=== PATIENT | male | born 1985 | race Caucasian/White ===

== ENCOUNTER 2022-10-08 10:16 | Emergency (ER) | payer OTHER ==
--- OUTSIDE RECORDS SUMMARY | 2022-10-08 10:43 | XMS REPORT | Continuity of Care Document ---
:1985 Author Organization [facility] t Address [address] [facility] [address] [place] [id number] Care Team Providers Name Role Phone No , Brandon Primary Care Physician Unavailable MAURILIO VEGA Attending Clinician Unavailable KAMLESH CORADO Attending Clinician Unavailable Kamlesh Colby Attending Clinician AMADEO PALAFOX Attending Clinician Unavailable RENZO ESPINOSA Attending Clinician Unavailable Roberth Victor MD Attending Clinician Renzo Espinosa DO Attending Clinician Doctor Unassigned, [place] Attending Clinician Unavailable BALAJI LUCERO Attending Clinician Unavailable Balaji Lucero MD Attending Clinician GEOVANNI HENNING Attending Clinician Unavailable Bria Hernández RN Attending Clinician Unavailable RACHELLE FERRER Attending Clinician Unavailable Rachelle Ferrer DO Attending Clinician Maurilio Vega MD Attending Clinician Only, Ang Db Test Attending Clinician Unavailable Leonard Denise Attending Clinician LEONARD PINEDA Attending Clinician Unavailable Purnima Faulkner RN Attending Clinician Unavailable Sy Roth Attending Clinician SY JANE Attending Clinician Unavailable RADHIKA HUTCHINS Attending Clinician Unavailable ABI PERKINS Attending Clinician Unavailable Art Valdez RN Attending Clinician Unavailable Pippa Ridley Attending Clinician Margoth MARIA, Radha Attending Clinician Johanny Dejesus RN Attending Clinician Unavailable Marilin GUERIN Attending Clinician Unavailable Truong PAC, Marilin Arguelles Attending Clinician Anthony Fenton MD Attending Clinician RACHELLE MONTENEGRO Attending Clinician Unavailable Kristina MORRIS, Carmelita Attending Clinician Unavailable Alistair MORRIS, Jose Attending Clinician Unavailable ANTOINE CLEMENT Attending Clinician Unavailable Dedrick OROZCOP, Antoine Attending Clinician Pancho Dave Attending Clinician Saida Lya Jr. Attending Clinician MARLA CANTRELL Attending Clinician Unavailable Souleymane [facility] Attending Clinician Unavailable Marla Cantrell MD Attending Clinician FABIANA MCFARLANE Attending Clinician Unavailable SYLVIA RHODES Attending Clinician Unavailable Lab, [facility] I Attending Clinician Unavailable Sylvia Galvin Attending Clinician MARI SIGALA Attending Clinician Unavailable Mari Bryant Attending Clinician John HILLS Yariel S Attending Clinician YARIEL LOPEZ S Attending Clinician Unavailable Emelyn Lerner Attending Clinician Gabe Fuller [facility] Attending Clinician Unavailable JOLLY EBAN Attending Clinician Unavailable RENZO ESPINOSA Admitting Clinician Unavailable ROBERTH VICTOR Admitting Clinician Unavailable RACHELLE FERRER Admitting Clinician Unavailable Rachelle Ferrer DO Admitting Clinician ABI PERKINS Admitting Clinician Unavailable Marilin GUERIN Admitting Clinician Unavailable YARIEL LOPEZ S Admitting Clinician Unavailable JOLLY BEAN Admitting Clinician Unavailable Payers Payer Name Policy Type Policy Number Effective Date Expiration Date Jennifer todd [place] MEDICAID [id number] 2018 2018 00:00:00 00:00:00 [facility] STAR [id number] 2018 PLUS 00:00:00 [facility] DUAL [id number] 2020 COMP HMO D SNP 00:00:00 [facility] [id number] 2018 STARPLUS OON 00:00:00 EXCEPT [facility] [id number] 2019 2024 PLAN MEDICARE SNP 00:00:00 00:00:00 MEDICARE PART A [id number] 2013 2019 \\T\\ B 00:00:00 00:00:00 Problems Condition Condition Condition Status Onset Resolution Last Treating Co mments Source Name Details Category Date Date Treatment Clinician Date UTI UTI Disease Active 2021-05 [facility] (urinary (urinary 107 ity of tract tract 00:00: [place] infection) infection) 00 Me dical Branch Intractabl Intractabl Disease Active U nivers e nausea e nausea 10-31 ity of and and 00:00: [place] vomiting vomiting 00 Medica l Branch FOLLOW FOLLOW Diagnosis Active 2020-12-26 M emoria UP-LAST UP-LAST 12-24 09:41:00 l SEEN 2018 SEEN 2018 00:00: Herm camilo Active 00 12/24/2020 [facility] ABD PAIN ABD PAIN Diagnosis Active 2020-12-22 Memoria Active 12-22 16:09:00 l 12/22/2020 00:00: Deangelo PETERSEN [place] CYSTO WITH CYSTO Diagnosis Active 2020-12-26 Memoria BOTOX WITH BOTOX 11-06 12:40:00 l Active 00:00: Rayray 11/06/2020 00 [facility] Neurogenic Problem Active 2013-01-28 M emoria bladder Neurogenic 08-22 21:38:45 l bladder 00:00: [place] Active 00 Problem 01/28/2013 [facility], [facility] ANNUAL ANNUAL Diagnosis Active 2020-11-06 Me moria FOLLOWUP FOLLOWUP 08-22 10:07:00 l Active 00:00: Rayray 08/22/2020 00 [facility] EVAL EVAL Diagnosis Active 2020-08-22 Mem oria Active 07-24 09:36:00 l 07/24/2020 00:00: Deangelo ramirez [facility] 00 2000/40ML 2000/40ML Diagnosis Active 2020-12-31 Memoria Active 07-15 13:59:00 l 07/15/2020 00:00: Deangelo ramirez [facility] 00 IN PERSON IN PERSON Diagnosis Active 2020-07-29 Memoria CLINIC: CLINIC: 06-07 10:15:00 l SWOLLEN SWOLLEN 00:00: Rayray TESTICLE TESTICLE 00 Active 06/07/2020 [facility] 2000/40 ML 2000/40 Diagnosis Active 2020-07-12 Memoria ML Active 01-18 09:07:00 l 01/19/2020 00:00: Deangelo ramirez [facility] 00 FOLLOW UP FOLLOW UP Diagnosis Active 2020-04-01 Memoria Active 01-04 08:59:00 l 01/05/2020 00:00: Deangelo ramirez [facility] 00 REFILL: REFILL: Diagnosis Active 2020-01-05 Memoria 2000/40ML 2000/40ML 3 11:25:00 l AD: AD: 00:00: Rayray 03/16/20 03/16/20 00 Active 07/11/2019 [facility] REFILL: REFILL: Diagnosis Active 2019-07-07 Memoria 2000/40ML 2000/40ML 01-09 11:43:00 l AD: 09/09/19 AD: 09/09/19 00:00: Buddy cuadraann Active 00 01/09/2019 [facility] F/U 1YR F/U 1YR Diagnosis Active 2019-03-02 Memoria Active 12-13 13:06:00 l 12/13/2018 00:00: Deangelo PETERSEN [facility] 00 CYSTO WITH CYSTO Diagnosis Active 2019-06-13 Memoria BOTOX WITH BOTOX 11-10 16:17:00 l Active 00:00: Rayray 11/10/2018 00 [facility] ABDOMINAL ABDOMINAL Diagnosis Active 2019-0 2018-07-14 Memoria PAIN PAIN 3-13 15:22:00 l Active 00:00: [place] 07/13/2018 00 [facility], [facility] REFILL: REFILL: Diagnosis Active 2019-01-27 Memoria 2000/40ML 2000/40ML 2-20 13:37:00 l AD: AD: 00:00: Rayray 02/28/19 02/28/19 00 Active 06/22/2018 [facility] REFILL REFILL Diagnosis Active 2018-06-20 Me moria 2000/40ML 2000/40ML 2-12 09:33:00 l AD: AD: 00:00: Rayray 08/17/18 08/17/18 00 Active 06/14/2018 [facility] E. coli E. coli Disease Active Univers UTI UTI 1-04 ity of 00:00: [place] 00 Medical Branch Pneumonia Pneumonia Disease Active Uni vers 1-03 ity of 00:00: [place] 00 Medical Branch NAUSEA/CHERRI NAUSEA/TE Diagnosis Active 2017-052018-02-21 Memoria TICULAR STICULAR 0-22 16:17:00 l PAIN PAIN 00:00: Rayray Active 00 02/21/2018 [facility] SPASTIC SPASTIC Diagnosis Active 2017-12-10 Memoria HEMIPLAGIA HEMIPLAGIA 7-20 07:30:00 l Active 00:00: Rayray 11/19/2017 00 [facility] REFILL REFILL Diagnosis Active 2019-01-27 Me moria 2000/40ML 2000/40ML 6-21 13:37:00 l AD: AD: 00:00: Rayray 06/29/18 06/29/18 00 Active 10/21/2017 [facility] ITB PUMP ITB PUMP Diagnosis Active 2017-12-13 Memoria MANAGEMENT MANAGEMENT - 13:07:00 l Active 00:00: Rayray 08/30/2017 00 [facility] ITB ITB Diagnosis Active 2017-10-24 Mem oria MANAGEMENT MANAGEMENT 1- 13:41:00 l ANNUAL ANNUAL 00:00: Rayray FOLLOW UP FOLLOW UP 00 Active 05/05/2017 [facility] REFILL REFILL Diagnosis Active 2016-052018-01-17 Me moria 2000/40ML 2000/40ML 2-11 13:00:00 l AD: AD: 00:00: Rayray 12/19/17 12/19/17 00 Active 04/12/2017 [facility] PER PER Diagnosis Active 2017-10-24 Mem oria VENKATESH RIDDLE 7-13 13:40:00 l Active 00:00: Rayray 11/12/2016 00 [facility] PT STATED PT STATED Diagnosis Active 2016-11-12 Memoria HE MAY HE SEPTEMBER 05 14:39:00 l HAVE UTI HAVE UTI 00:00: Deangelo ramirez INF. INF. 00 Active 10/26/2016 [facility] REFILL REFILL Diagnosis Active 2017-12-07 Me moria 2000/40ML 1999/40ML 6 11:54:00 l AD:06/25/19 AD:06/25/19 00:00: He rmann 18 18 Active 00 10/14/2016 [facility] CYSTO WITH CYSTO Diagnosis Active 2016-06-10 Memoria BOTIZ WITH BOTIZ 05-27 12:48:00 l Active 00:00: Rayray 05/27/2016 00 [facility] 2000/40 1999/40 Diagnosis Active 2015-052017-03-17 Memoria (ALARM (ALARM 06-16 08:28:00 l DATE DATE 00:00: Rayray 12/25/16) 12/25/16) 00 Active 04/15/2016 [facility] 2000/40 1999/40 Diagnosis Active 2015-052016-04-15 Memoria Active 06-14 12:09:00 l 04/13/2016 00:00: Deangelo ramirez [facility] 00 F/U F/U Diagnosis Active 2015-10-24 Mem oria Active 06-12 12:27:00 l 06/12/2015 00:00: Deangelo ramirez [facility] 00 FU FU Diagnosis Active 2015-06-12 Mem oria Active 06-05 10:16:00 l 06/05/2015 00:00: Deangelo ramirez [facility] 00 INFECTION INFECTION Diagnosis Active 2014-08-17 Memoria Active 08-17 19:42:00 l 08/17/2014 00:00: Deangelo ramirez [address] Klebsiella Klebsiell Problem Active 2020-12-28 Memoria (organism) a 08-09 23:25:36 l (organism) 00:00: Deangelo ramirez Active 00 08/09/2014 Problem 12/28/2020 urine - 08/09/14 (ESBL+) Juanito Neuro,[facility], [facility], [place] ORICHITIS, ORICHITIS Diagnosis Active 2014-08-20 Memoria HYDROCELE, , 08-09 11:01:00 l TESTICULAR HYDROCELE, 00:00: He deann PAIN TESTICULAR 00 PAIN Active 08/09/2014 [facility] TESTICULAR TESTICULA Diagnosis Active 2014-08-09 Memoria PAIN R PAIN 08-09 15:44:00 l Active 00:00: Rayray 08/09/2014 00 [facility] RENAL US RENAL US Diagnosis Active 2014-02-12 Memoria Active 10-12 16:18:00 l 10/12/2013 00:00: Deangelo ramirez [facility] 00 PUMP PUMP Diagnosis Active 2014-04-10 Mem oria REFILL REFILL 10-12 10:02:00 l Active 00:00: [place] 10/12/2013 00 [facility] CMG CMG Diagnosis Active 2013-08-04 Mem oria Active 07-12 09:52:00 l 07/12/2013 00:00: Deangelo ramirez [facility] 00 Escherichi Escherich Problem Active 2013-01-28 Memoria a coli ia coli 01-24 21:38:45 l Active 00:00: [place] 01/24/2013 00 Problem 01/28/2013 [id number] fina added by Discern Expert. [facility], [facility] Escherichi Escherich Problem Active 2020-12-28 Memoria a coli ia coli 01-24 23:25:36 l (organism) (organism) 00:00: He rmann Active 00 01/24/2013 Problem 12/28/2020 01/24/13 UrineProbl em added by Discern Expert. Juanito Neuro,[facility], [facility], [place] C6 QUAD, C6 QUAD, Diagnosis Active 2013-02-17 Memoria UTI, UTI, 01-24 12:20:00 l EPIDIDYMOR EPIDIDYMOR 00:00: Buddy PITT CHITNANI 00 Active 01/24/2013 [facility] TESTICULAR Diagnosis Active 2013-01-24 Memoria TRAUMA TESTICULAR 01-24 17:40:00 l TRAUMA 00:00: Rayray Active 00 01/24/2013 [facility] SICK VISIT SICK Diagnosis Active 2013-01-16 Memoria VISIT 01-13 08:46:00 l Active 00:00: Rayray 01/13/2013 00 [facility] COUMADIN COUMADIN Diagnosis Active 2012-11-07 Memoria F/U F/U Active 10-06 15:39:00 l 10/06/2012 00:00: Deangelo ramirez [address] BLEEDING BLEEDING Diagnosis Active 2011-052012-05-02 Memoria FROM FROM 06-28 08:56:00 l PENIS, PENIS, 16:00: Rayray DIZZY AND DIZZY AND 00 LIGHT HEA LIGHT HEA Active 04/27/2012 [facility] CYSTITIS/ Diagnosis Active 2011-052012-03-09 Memoria UTI CYSTITIS/ 05-08 05:07:00 l UTI Active 00:00: Deangelo ramirez 03/08/2012 00 [facility] VENOUS VENOUS Diagnosis Active 2011-10-08 Ks moria THROMBOSIS THROMBOSIS 09-22 17:22:00 l Active 00:07: [place] 2011 00 [facility] SPINAL SPINAL Diagnosis Active 2011-09-30 Ks moria CORD CORD 09-22 10:26:00 l INJURY INJURY 00:00: Rayray Active 00 2011 [facility] SPASTICITY SPASTICIT Diagnosis Active 2014-01-02 Memoria Y Active 09-06 13:37:00 l 09/07/2011 00:00: Deangelo ramirez [facility] 00 500/40 500/40 Diagnosis Active 2012-04-13 Me moria Active 08-20 12:39:00 l 08/21/2011 00:00: Deangelo ramirez [facility] 00 DOSE DOSE Diagnosis Active 2011-08-21 Mem oria CHANGE CHANGE 08-06 10:26:00 l Active 00:00: Rayray 08/07/2011 00 [facility] ITB DOSE ITB DOSE Diagnosis Active 2011-08-06 Memoria ADJUSTMENT ADJUSTMENT 07-30 12:54:00 l Active 00:00: Rayray 07/31/2011 00 [facility] SPASTIC SPASTIC Diagnosis Active 2011-07-15 Memoria HEMIPLEGIA HEMIPLEGIA - 09:32:00 l Active 00:00: Rayray 06/19/2011 00 [facility] ITB ITB Diagnosis Active 2011-06-16 Mem oria PRETRIAL PRETRIAL 05-28 13:01:00 l Active 00:00: [place] 05/28/2011 00 [facility] ITB TRIAL ITB TRIAL Diagnosis Active 2011-06-19 Memoria FOR SEVERE FOR SEVERE 05-27 08:03:00 l SPASTICITY SPASTICITY 00:00: He rmann Active 00 05/27/2011 [facility] May Diagnosis Active 2010-052011-06-02 Memoria F/U PER F/U PER DR 05-25 14:03:00 l DODIE DODIE 00:00: Rayray Active 00 03/25/2011 [facility] FU APPT FU APPT Diagnosis Active 2010-052011-05-06 Memoria Active 05-13 19:44:00 l 03/13/2011 00:00: Deangelo ramirez [facility] 00 Headache Headache Problem Active 2010-052020-12-28 Memoria (finding) (finding) 05-09 23:25:36 l Active 00:00: Rayray 03/09/2011 00 Problem 12/28/2020 Data migrated from [facility] on 12/25/14. Juanito Neuro,[facility], [facility], [place] FALL FALL Diagnosis Active 2010-052011-02-28 Mem oria Active 14:28:00 l 02/28/2011 00:00: Deangelo ramirez [address] FALL/HEAD Diagnosis Active 2010-052011-02-27 Memoria PAIN FALL/HEAD 18:05:00 l PAIN 00:00: [place] Active 00 02/27/2011 [facility] PULM PULM Diagnosis Active 2011-01-20 Mem oria ABNORMALIT ABNORMALIT 01-02 08:58:00 l Y Y Active 00:00: [place] 01/02/2011 00 [facility] FLUID IN FLUID IN Diagnosis Active 2011-01-09 Memoria LUNG CYST LUNG CYST 11-05 13:21:00 l Active 06:00: Rayray 11/05/2010 00 [facility] CERVICAL CERVICAL Diagnosis Active 2011-01-09 [facility] SPINE FX SPINE FX 10-05 13:21:00 l Active 20:30: [place] 10/05/2010 00 [facility] NEUROGENIC Diagnosis Active 2015-01-30 Memoria BLADDER/RE NEUROGENIC 10-05 12:32:00 l TENTION BLADDER/RE 00:00: [place] nn TENTION 00 Active 10/05/2010 [facility] SCI SCI Diagnosis Active 2012-09-29 Mem oria Active 05-03 14:26:00 l 05/03/2000 23:59: Deangelo ramirez [facility] 00 QUADRIPLEG QUADRIPLE Diagnosis Active 2014-10-12 Memoria IA WENDI Active 05-03 13:56:00 l 05/03/2000 23:59: Deangelo ramirez [facility] 00 POWER POWER Diagnosis Active 2017-03-11 Mem oria WHEELCHAIR WHEELCHAIR 05-03 09:25:00 l EVAL EVAL 00:00: [place] Active 00 05/03/2000 [facility] Other Other Problem 2018-07-02 Memor ia chronic chronic 12:10:11 l pain pain [place] 07/02/2018 [facility] Orthostati Orthostat Problem 2018-07-02 Memoria c ic 12:10:11 l hypotensio hypotensio He rmann n n 07/02/2018 [facility] Other Other Problem 2018-07-02 Memor ia neuromuscu neuromuscu 12:10:11 l lar lar [place] dysfunctio dysfunctio n of n of bladder bladder 07/02/2018 [facility] Unspecifie Unspecifi Problem 2018-07-02 Memoria d injury ed injury 12:10:11 l at C6 at C6 [place] level of level of cervical cervical spinal spinal cord, cord, sequela sequela 07/02/2018 [facility] Activity, Activity, Problem 2018-07-02 [facility] springboar springboar 12:10:11 l d and d and Rayray platform platform diving diving 07/02/2018 [facility] Spastic Spastic Problem 2018-06-29 Ks moria hemiplegia hemiplegia 12:57:23 l affecting affecting Herm camilo unspecifie unspecifie d side d side 06/29/2018 [facility] 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 13:25:58 l 09/10/2018 Deangelo n [facility] Personal Personal Problem 2018-09-10 Memoria history of history of 13:25:58 l nicotine nicotine Deangelo n dependence dependence 9 [facility] Personal Personal Problem 2018-09-10 Memoria history of history of 13:25:58 l urinary urinary Rayray (tract) (tract) infections infections 9 [facility] Allergy Allergy Problem 2018-09-10 M emoria status to status to 13:25:58 l narcotic narcotic Deangelo n agent agent status status 09/10/2018 [facility] Personal Personal Problem 2018-09-10 Memoria history of history of 13:25:58 l other other Rayray (healed) (healed) physical physical injury and injury and trauma trauma 09/10/2018 [facility] Arterial Arterial Problem Inactiv 2013-01-28 Memoria hypotensio hypotensio e 21:38:45 l n n Inactive Deangelo n Problem 01/28/2013 [facility], [facility], MICAELA Seo, [facility] Breathing Breathing Problem Inactiv 2013-01-28 Memoria Inactive e 21:38:45 l Problem [place] 01/28/2013 [facility], [facility], MICAELA Seo, [facility] Fever Fever Problem Inactiv 2013-04-16 Bin stephanie Inactive e 21:03:42 l Problem [place] 04/16/2013 [facility], [facility], MICAELA Seo, [facility] Rash Rash Problem Inactiv 2013-04-16 Bin stephanie Inactive e 21:03:42 l Problem Rayray 04/16/2013 [facility], [facility] Low blood Low blood Problem Inactiv 2013-04-16 Memoria pressure pressure e 21:03:42 l (disorder) (disorder) He rmann Inactive Problem 04/16/2013 [facility] Respirator Respirato Problem Inactiv 2013-04-16 Memoria y function ry e 21:03:42 l (observabl function Herm camilo e entity) (observabl e entity) Inactive Problem 04/16/2013 [facility] Hypothermi Hypotherm Problem Resolve 2013-01-18 Memoria a ia d 21:06:26 l Resolved [place] Problem 01/18/2013 [facility], [facility], MICAELA Seo, [facility] Epididymit Problem Resolve 2020-12-28 Memoria is Epididymit d 23:25:36 l (disorder) is Deangelo n (disorder) Resolved Problem 12/28/2020 [facility] [place] C6 C6 Problem Active 2013-01-28 Memor ia vertebra vertebra 21:38:45 l Active [place] Problem 01/28/2013 [facility], [facility], MICAELA Seo, [facility] Lung cyst Lung cyst Problem Active 2013-01-28 Memoria Active 21:38:45 l Problem Ray[place] 01/28/2013 [facility], [facility], MICAELA Seo, [facility] Nausea Nausea Problem Active 2013-01-28 Bin stephanie Active 21:38:45 l Problem [place] 01/28/2013 [facility], [facility], MICAELA Seo, [facility] Neurogenic Neurogeni Problem Active 2011-10-01 Memoria bladder c bladder 08:42:12 l Active [place] Problem 10/01/2011 [facility], [facility], MICAELA Seo, [facility] 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 21:38:45 l Active [place] Problem 01/28/2013 [facility], [facility], MICAELA Seo, [facility] Pain Pain Problem Active 2013-01-28 Memor ia Active 21:38:45 l Problem [place] 01/28/2013 [facility], [facility], MICAELA Seo, [facility] Paralysis Paralysis Problem Active 2013-01-28 Memoria Active 21:38:45 l Problem [place] 01/28/2013 [facility], [facility], MICAELA Seo, [facility] Weakness Weakness Problem Active 2013-01-28 Memoria Active 21:38:45 l Problem [place] 01/28/2013 [facility], [facility], MICAELA Seo, [facility] Malaise(Co Malaise(C Problem Active 2015-04-20 Memoria nfirmed) onfirmed) 01:01:38 l Active [place] Problem 04/20/2015 [facility], [facility] Allergic Allergic Problem Active 2013-04-16 Memoria rhinitis rhinitis 21:03:42 l Active [place] Problem 04/16/2013 [facility] Impaired Impaired Problem Active 2013-01-28 Memoria mobility mobility 21:38:45 l Active [place] Problem 01/28/2013 [facility] Spinal Spinal Problem Active 2013-01-28 Bin stephanie cord cord 21:38:45 l injury injury Rayray Active Problem 01/28/2013 [facility] Thrombus Thrombus Problem Active 2011-10-01 Memoria Active 08:42:12 l Problem Rayray 10/01/2011 [facility] Thrombus Thrombus Problem Active 2013-01-28 Memoria Active 21:38:45 l Problem [place] 01/28/2013 [facility] Entire C6 Entire C6 Problem Active 2015-12-16 Memoria vertebra vertebra 00:04:57 l (body (body Rayray structure) structure) Active Problem 12/16/2015 [facility] Thrombus Thrombus Problem Active 2015-12-16 Memoria (morpholog (morpholog 00:04:57 l ic ic [place] abnormalit abnormalit y) y) Active Problem 12/16/2015 [facility] Malaise Malaise Problem Active 2013-05-25 Me moria and and 21:09:38 l fatigue fatigue [place] (finding) (finding) Active Problem 05/25/2013 [facility] Impaired Impaired Problem Active 2020-12-28 Memoria mobility mobility 23:25:36 l (finding) (finding) Herm camilo Active Problem 12/28/2020 [facility], [place] Lung cyst Lung cyst Problem Active 2020-12-28 Memoria (disorder) (disorder) 23:25:36 l Active [place] Problem 12/28/2020 [facility] [place] Nausea Nausea Problem Active 2020-12-28 Bin stephanie (finding) (finding) 23:25:36 l Active [place] Problem 12/28/2020 [facility] [place] Neurogenic Neurogeni Problem Active 2020-12-28 Memoria bowel c bowel 23:25:36 l (disorder) (disorder) He rmann Active Problem 12/28/2020 [facility] [place] Pain Pain Problem Active 2020-12-28 Memor ia (finding) (finding) 23:25:36 l Active [place] Problem 12/28/2020 [facility], [facility] Paralysis Paralysis Problem Active 2020-12-28 Memoria (finding) (finding) 23:25:36 l Active Rayray Problem 12/28/2020 [facility], [facility] Recurrent Recurrent Problem Active 2020-12-28 Memoria urinary urinary 23:25:36 l tract tract [place] infection infection (disorder) (disorder) Active Problem 12/28/2020 [facility], [facility] Skin Skin Problem Active 2020-12-28 Memor ia sensation sensation 23:25:36 l disturbanc disturbanc He rmcamilo e e (finding) (finding) Active Problem 12/28/2020 [facility] Spasm Spasm Problem Active 2020-12-28 Memor ia (finding) (finding) 23:25:36 l Active [place] Problem 12/28/2020 [facility] Spinal Spinal Problem Active 2020-12-28 Bin stephanie cord cord 23:25:36 l injury injury [place] (disorder) (disorder) Active Problem 12/28/2020 [facility], [facility] Quadripleg Quadriple Problem Active 2020-12-28 Memoria ia wendi 23:25:36 l (disorder) (disorder) He rmann Active Problem 12/28/2020 [facility] Asthenia Asthenia Problem Active 2020-12-28 Memoria (finding) (finding) 23:25:36 l Active [place] Problem 12/28/2020 [facility], [facility] PARAPLEGIA Diagnosis Active 2019-03-02 Memoria , PARAPLEGIA 13:06:00 l UNSPECIFIE , Deangelo n D UNSPECIFIE D Active [facility] NEUROMUSCU NEUROMUSC Diagnosis Active 2019-10-09 Memoria LAR ULAR 09:44:00 l DYSFUNCTIO DYSFUNCTIO He rmcamilo N OF N OF BLADDER, BLADDER, UN UN Active [facility] OTHER OTHER Diagnosis Active 2019-01-27 Mem oria MUSCLE MUSCLE 13:37:00 l SPASM SPASM [place] Active [facility] CRAMP AND CRAMP AND Diagnosis Active 2019-01-27 Memoria SPASM SPASM 13:37:00 l Active [place] [facility] FLUID FLUID Diagnosis Active 2011-01-09 Mem oria OVERLOAD OVERLOAD 13:21:00 l Active Deangelo ramirez [facility] FRACTURE FRACTURE Diagnosis Active 2011-01-09 Memoria NOS-CLOSED NOS-CLOSED 13:21:00 l Active [facility] SPSTC SPSTC Diagnosis Active 2011-07-15 Mem oria HMIPLGA HMIPLGA 09:32:00 l DOMNT SIDE DOMNT SIDE He rmann Active [facility] QUADRPLG QUADRPLG Diagnosis Active 2011-09-30 Memoria C5-C7, C5-C7, 10:26:00 l INCOMPLT INCOMPLT Deangelo ramirez Active [facility] VENOUS VENOUS Diagnosis Active 2011-10-08 Me moria THROMBOSIS THROMBOSIS 17:22:00 l NOS NOS Active Deangelo ramirez [facility] URIN TRACT URIN Diagnosis Active 2013-02-17 Memoria INFECTION TRACT 12:20:00 l NOS INFECTION [place] NOS Active [facility] NEUROGENIC NEUROGENI Diagnosis Active 2015-01-30 Memoria BLADDER C BLADDER 12:32:00 l NOS NOS Active Deangelo ramirez [facility] RETENTION RETENTION Diagnosis Active 2014-05-28 Memoria OF URINE OF URINE 08:54:00 l NOS NOS Active Deangelo ramirez [facility] FOLLOW-UP FOLLOW-UP Diagnosis Active 2014-12-29 Memoria EXAM NOS EXAM NOS 16:26:00 l Active Deangelo ramirez [facility] SPASM OF SPASM OF Diagnosis Active 2014-11-14 Memoria MUSCLE MUSCLE 21:05:00 l Active Rayray [facility] ABN ABN Diagnosis Active 2014-11-14 Mem oria INVOLUN INVOLUN 21:05:00 l MOVEMENT MOVEMENT Deangelo ramirez NEC NEC Active [facility] OTHER OTHER Diagnosis Active 2014-08-20 Mem oria GENERAL GENERAL 11:01:00 l SYMPTOMS SYMPTOMS Deangelo ramirez Active [facility] OTHER OTHER Diagnosis Active 2017-03-17 Mem oria ABNORMAL ABNORMAL 08:28:00 l INVOLUNTAR INVOLUNTAR He rmann Y Y MOVEMENTS MOVEMENTS Active [facility] ESSENTIAL ESSENTIAL Diagnosis Active 2018-07-14 Memoria (PRIMARY) (PRIMARY) 15:22:00 l HYPERTENSI HYPERTENSI He rmann ON ON Active [facility] RETENTION RETENTION Diagnosis Active 2016-11-10 Memoria OF URINE, OF URINE, 09:17:00 l UNSPECIFIE UNSPECIFIE He rmcamilo D D Active [facility] QUADRIPLEG QUADRIPLE Diagnosis Active 2015-10-24 Memoria WENDI KENNEDY, 12:27:00 l UNSPECIFIE UNSPECIFIE He rmcamilo D D Active [facility] CALCULUS CALCULUS Diagnosis Active 2016-06-10 Memoria OF KIDNEY OF KIDNEY 12:48:00 l Active Deangelo ramirez [facility] Allergic Allergic Problem Resolve 2020-12-28 2020-12-28 Memoria rhinitis rhinitis d 09-17 23:25:36 23:25:36 l (disorder) (disorder) 00:00: He rmann Resolved 00 09/18/2011 Problem 12/28/2020 [facility], [facility], [place] Malaise(Co Malaise(C Problem Resolve 2020-12-28 2020-12-28 Memoria nfirmed) onfirmed) d 11-27 23:25:36 23:25:36 l Resolved 00:00: Rayray 11/27/2010 00 Problem 12/28/2020 [facility], [facility], [place] Neurogenic Neurogeni Problem Active 2015-02-02 2020-12-28 Memoria bladder c bladder 01-30 09:46:58 23:25:36 l (finding) (finding) 19:54: Herm camilo Active 03 Problem 12/28/2020 [facility], [facility], [place] History of Past Illness Condition Condition Condition Status Onset Resolution Last Treating Co mments Source Name Details Category Date Date Treatment Clinician Date Neuralgia Neuralgia Problem 2020-12-28 2020-12-28 Memoria and and 12-26 23:25:36 23:25:36 l neuritis, neuritis, 15:34: Herm camilo unspecifie unspecifie 00 d d 12/26/2020 [facility] Quadripleg Quadriple Problem 2020-12-28 2020-12-28 Memoria wendi kennedy, 12-26 23:25:36 23:25:36 l unspecifie unspecifie 15:34: He rmann d d 00 12/26/2020 [facility], [facility] Neuromuscu Neuromusc Problem 2020-12-28 2020-12-28 Mempat ken cobos 12-26 23:25:36 23:25:36 l dysfunctio dysfunctio 15:34: He deann n of n of 00 bladder, bladder, unspecifie unspecifie d d 12/26/2020 12/28/2020 [facility], [facility] Unspecifie Unspecifi Problem 2020-12-28 2020-12-28 Memoria d ed 12-26 23:25:36 23:25:36 l abdominal abdominal 15:34: Herm camilo pain pain 00 12/26/2020 12/28/2020 [facility], [place] Other Other Problem 2020-12-28 2020-12-28 M emoria muscle muscle 12-26 23:25:36 23:25:36 l spasm spasm 15:33: Rayray 12/26/2020 00 12/28/2020 [facility] Urinary Urinary Problem 2020-12-24 2020-12-24 Memoria tract tract 12-22 21:57:45 21:57:45 l infection, infection, 17:00: He deann site not site not 00 specified specified 12/22/2020 12/24/2020 [place] Unspecifie Unspecifi Problem 2020-12-24 2020-12-24 Memoria d ed 12-22 21:57:45 21:57:45 l abdominal abdominal 17:00: Herm camilo pain pain 00 12/22/2020 12/24/2020 [place] 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 2020-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-22 23:16:46 23:16:46 l autonomic autonomic 15:24: Herm camilo nervous nervous 00 system, system, unspecifie unspecifie d d 08/22/2020 08/24/2020 [facility] Pressure Pressure Problem 2020-08-242020-08-24 Memoria ulcer of ulcer of 08-22 23:16:46 23:16:46 l right right 15:23: Rayray heel, heel, 00 stage 2 stage 2 08/22/2020 08/24/2020 [facility] Localized Problem 2020-08-24 2020-08-24 Memoria edema Localized 08-22 23:16:46 23:16:46 l edema 15:23: Rayray 08/22/2020 00 08/24/2020 [facility] Quadripleg Quadriple Problem 2020-08-24 2020-08-24 Memoria ia, wendi, 08-22 23:16:46 23:16:46 l unspecifie unspecifie 15:22: Buddy zacarias d d 00 08/22/2020 08/24/2020 [facility] Neuromuscu Neuromusc Problem 2019-052020-04-04 2020-04-04 Memoria lar ular 06-01 00:01:58 00:01:58 l dysfunctio dysfunctio 15:56: Buddy ramirez of n of 00 bladder, bladder, unspecifie unspecifie d d 04/01/2020 04/04/2020 [facility] Neurogenic Neurogeni Problem 2019-052020-04-04 2020-04-04 Memoria bowel, not c bowel, 06-01 00:01:58 00:01:58 l elsewhere not 15:56: Rayray classified elsewhere 00 classified 04/01/2020 0 [facility] Other Other Problem 2019-052020-04-04 2020-04-04 M emoria muscle muscle 06-01 00:01:58 00:01:58 l spasm spasm 15:56: Rayray 04/01/2020 00 0 [facility] Epididymo- Epididymo Problem 2017-052018-09-10 2018-09-10 Memoria orchitis -orchitis 13:25:58 13:25:58 l 02/26/2018 03:20: Deangelo ramirez 09/10/2018 32 [facility] Orchitis Orchitis Problem 2017-052018-09-10 2018-09-10 Memoria 02/21/2018 13:25:58 13:25:58 l 09/10/2018 05:00: Deangelo ramirez [address] Encounter Encounter Problem 2018-06-29 2018-06-29 Memoria for for 12-22 12:57:23 12:57:23 l adjustment adjustment 03:25: He rmann and and 20 management management of of infusion infusion pump pump 12/22/201706/29/ 9 [facility] Discharge Discharge Problem 2014-08-20 2014-08-20 Memoria Diagnosis: Diagnosis: 08-17 09:49:21 09:49:21 l Epididymo- Epididymo- 05:00: He rmann orchitis orchitis 00 08/17/2014 08/20/2014 [facility] Allergies, Adverse Reactions, Alerts Allergy Allergy Status Severity Reaction(s) Onset Inactive Treating Comm ents Source Name Type Date Date Clinician Morphine Propensi Active Nausea Univer s ty to and/or 1-03 ity of adverse Vomiting 00:00: [place] reaction 00 Medical s Branch Sulfa Propensi Active Other - See Mouth Uni vers (Sulfona ty to comments 1-03 blisters ity of mide adverse 00:00: [place] Antibiot reaction 00 Medica l ics) s Branch MORPHINE DRUG Active N/V Univers INGREDI 1-03 ity of 00:00: [place] 00 Medical Branch SULFA Drug Active Other-Cmnt Univer s (SULFONA Class 1-03 ity of MIDE 00:00: [place] ANTIBIOT 00 Medical ICS) Branch morphine morphine Active 2010-05 Memori a 1-07 l 06:00: Rayray 00 Bactrim Bactrim Active Aishwarya Seo Social History Social Habit Start Date Stop Date Quantity Comments Source Gender identity [facility] Sexual orientation [facility] Alcohol intake 2022-10-08 2022-10-08 Ex-drinker University 00:00:00 00:00:00 (finding) [facility] Exposure to 2022-06-06 2022-06-16 Not sure University SARS-CoV-2 (event) 00:00:00 19:43:00 [facility] History SDOH Food 2022-03-12 2022-03-12 1 Univers ity of Worry 00:00:00 00:00:00 [facility] History SDOH Food 2022-03-12 2022-03-12 1 Univers ity of Scarcity 00:00:00 00:00:00 [place] [facility] History SDOH 2022-03-12 2022-03-12 2 University o f Transport Med 00:00:00 00:00:00 [place] [facility] History SDOH 2022-03-12 2022-03-12 2 University o f Transport Non-Med 00:00:00 00:00:00 [facility] edical [facility] Tobacco use and 2020-12-25 2020-12-25 Smokeless Universit y of exposure 00:00:00 00:00:00 tobacco non-user [facility] dical [facility] Tobacco Comment 2018-05-05 2018-05-05 NEVER SMOKED Univers ity of 00:00:00 00:00:00 [facility] Social History 2014-08-10 2014-08-10 [facility] ermann 02:15:58 02:15:58 Sex Ass[birth year] At [birth year] [facility] 00:00:00 [facility]:00 [facility] Smoking Status Start Date Stop Date Source Tobacco smoking consumption [facility] unknown Never smoked tobacco [facility] Medications Ordered Filled Start Stop Current Ordering Indication Dosage Frequency Signature Comments Components Source Medication Medication Date Date Medication? Clinician (SIG) Name Name iopamidol 2022- No [id number] 74mL 74 mL, Univers (ISOVUE 2-15 02-15 Intravenou ity o f 370-500 mL) 04:15: 04:15 s, ONCE, 1 [place] injection 00 :00 dose, On Medica l 74 mL [facility] 06/16/22 at 2215, Routine oxybutynin Yes 5mg 5 mg, Univer s chloride 2-15 Oral, BID, ity o f (DITROPAN) 02:00: [place] tablet 5 mg 00 on Tue Medica l 06/16/22 at [facility] 2000, Until Discontinu ed, Routine [facility] 2022- No 1{capsu Take 1 Unive rs Blue-Sod 2-14 02-14 le} capsule by ity of Phos-PhSal- 22:42: 00:00 mouth 2 [place] Hyo 48 :00 (two) Medical 118-10-40.8 times Branch -36 mg daily. capsule [facility] Yes [id number] 1{capsu Take 1 U nivers Blue-Sod 2-14 le} capsule by ity o f Phos-PhSal- 00:00: mouth 4 [place] Hy[place] 00 (four) Medical (URIBEL) times Branch 118-10-40.8 daily as -36 mg needed for capsule Other (spasm). [facility] Yes [id number] 1{capsu Take 1 U nivers Blue-Sod 2-14 le} capsule by ity o f Phos-PhSal- 00:00: mouth 4 [place] 00 (four) Medical (URIBEL) times Branch 118-10-40.8 daily as -36 mg needed for capsule Other (spasm). [facility] 2022- No [id number] 1{capsu Take 1 Univers Blue-Sod 2-14 02-14 le} capsule by ity of Phos-PhSal- 00:00: 00:00 mouth 4 [place] Hy[place] 00 :00 (four) Medical (URIBEL) times Branch 118-10-40.8 daily as -36 mg needed for capsule Other (spasm) for up to 15 days. NaCl 0.9% 2022- No 500mL at 999 Univ ers (NS) bolus 05-29 mL/hr, 500 it y of infusion 16:00: 15:49 mL, IV [place] 500 mL 00 :00 Piggyback, Medical ONCE, 1 Branch dose, On Wed05/29/22 at 1000, STAT cefTRIAXone 2022- No 1000mg 1,000 mg, Univers (ROCEPHIN) 05-29 IV ity of 1,000 mg in 14:00: 14:07 Piggyback, [place] NaCl 0.9% 00 :00 ONCE, 1 Medical (NS) 50 mL dose, On Bran h MINI-BAG Wed05/29/22 at 0800, Administer over 30 Minutes, 50 mL
Reas on for Anti-Infec tive: Documented Infection< br>Documen gavino Infection Site: Urine<br&g t;Duration of Therapy: Other (see Comments) iopamidol 2022- No [id number] 75mL 75 mL, U nivers (ISOVUE 1-27 -27 Intravenou ity o f 370-500 mL) 13:45: 13:45 s, ONCE, 1 [place] injection 00 :00 dose, On Medica l 75 mL [facility] 05/29/22 at 0745, Routine cefdinir 2022-0 Yes [id number] 300mg Take 1 Un daniel 300 mg 1-27 capsule by ity of capsule 00:00: mouth in [address] and 1 capsule in the evening. cefdinir 0 Yes [id number] 300mg Take 1 Un daniel 300 mg 1-27 capsule by ity of capsule 00:00: mouth in [address] and 1 capsule in the evening. cefdinir 2022-0 Yes [id number] 300mg Take 1 Un daniel 300 mg 1-27 capsule by ity of capsule 00:00: mouth in [address] and 1 capsule in the evening. cefdinir 2022-0 Yes [id number] 300mg Take 1 Un daniel 300 mg 1-27 capsule by ity of capsule 00:00: mouth in [address] and 1 capsule in the evening. magnesium 2022- No [id number] 300mL Take 300 Univers citrate 1-27 -28 mL by ity of solution 00:00: 05:59 mouth [place] 00 :00 now for 1 Medical dose. [facility] rivaroxaban 2021-05- No [id number] 20mg Take 1 Uni vers 20 mg 06-03 tablet by ity of tablet 00:00: 05:59 mouth in [place] 00 :00 [facility] for 30 days. Indication s: atrial fibrillati on rivaroxaban 2021-05- No 1358 20mg Take 1 Uni vers 20 mg 06-03 tablet by ity of tablet 00:00: 05:59 mouth in [place] 00 :00 [facility] for 30 days. Indication s: atrial fibrillati on rivaroxaban 2021-05 Yes 15mg 15 mg, Univ ers (XARELTO) 1-10 Oral, BID, ity of tablet 15 02:00: [place] dose [place] mg 00 on Wed [facility] 03/11/22 at [facility] 1999, Until Discontinu ed, Routine lactobacill 2021-05- No [id number] .5mg Take 1 Univers us 1-10 12-11 tablet by ity of acidophilus 00:00: 05:59 mouth in [place] 00 :00 the [facility] morning Branch for 30 days. lactobacill 2021-05- No [id number] .5mg Take 1 Univers us 1-10 12-11 tablet by ity of acidophilus 00:00: 05:59 mouth in [place] 00 :00 the [facility] for 30 days. mirabegron 2021-05 Yes 50mg Take 50 mg U nivers 50 mg 1-09 by mouth ity of tablet 18:18: at [place] [address] bedtime. [facility] Branch midodrine 5 2021-05 Yes 5mg Take 5 mg U nivers mg tablet 1-09 by mouth ity of 18:18: as needed. [address] 2021-05 Yes 1{capsu Take 1 Univer s Blue-Sod 1-09 le} capsule by ity o f Phos-PhSal- 18:18: mouth 2 [place] Hyo 10 (two) [facility] 118-10-40.8 times Branch -36 mg daily. capsule gabapentin 2021-05 Yes 900mg Take 900 Un daniel 300 mg 1-09 mg by ity of capsule 18:18: mouth in [place] [address] the [facility] and 900 mg at noon and 900 mg in the evening. SERTraline 2021-05 Yes 50mg Take 50 mg U nivers 50 mg 1-09 by mouth ity of tablet 18:18: daily. At [place] [address] night time [facility] Branch melatonin 2021-05 Yes Take by Unive rs 10 mg Cap 1-09 mouth at ity of 18:18: bedtime. [address] mirabegron 2021-05 Yes 50mg Take 50 mg U nivers 50 mg 1-09 by mouth ity of tablet 18:18: at [place] [address] bedtime. [facility] Branch midodrine 5 2021-05 Yes 5mg Take 5 mg U nivers mg tablet 1-09 by mouth ity of 18:18: as needed. [address] 2021-05 Yes 1{capsu Take 1 Univer s Blue-Sod 1-09 le} capsule by ity o f Phos-PhSal- 18:18: mouth 2 [place] 10 (two) Medical 118-10-40.8 times Branch -36 mg daily. capsule gabapentin 2021-05 Yes 900mg Take 900 Un daniel 300 mg 1-09 mg by ity of capsule 18:18: mouth in [place] [address] the Medical morning Branch and 900 mg at noon and 900 mg in the evening. SERTraline 2021-05 Yes 50mg Take 50 mg U nivers 50 mg 1-09 by mouth ity of tablet 18:18: daily. At [place] [address] night time [facility] melatonin 2021-05 Yes Take by Unive rs 10 mg Cap 1-09 mouth at ity of 18:18: bedtime. [address] mirabegron 2021-05 Yes 50mg Take 50 mg U nivers 50 mg 1-09 by mouth ity of tablet 18:18: at [place] [address] bedtime. Medical Branch midodrine 5 2021-05 Yes 5mg Take 5 mg U nivers mg tablet 1-09 by mouth ity of 18:18: as needed. [address] 2021-05 Yes 1{capsu Take 1 Univer s Blue-Sod 1-09 le} capsule by ity o f Phos-PhSal- 18:18: mouth 2 [place] 10 (two) Medical 118-10-40.8 times Branch -36 mg daily. capsule gabapentin 2021-05 Yes 900mg Take 900 Un daniel 300 mg 1-09 mg by ity of capsule 18:18: mouth in [address] morning Branch and 900 mg at noon and 900 mg in the evening. SERTraline 2021-05 Yes 50mg Take 50 mg U nivers 50 mg 1-09 by mouth ity of tablet 18:18: daily. At [place] [address] night time [facility] melatonin 2021-05 Yes Take by Unive rs 10 mg Cap 1-09 mouth at ity of 18:18: bedtime. [address] mirabegron 2021-05 Yes 50mg Take 50 mg U nivers 50 mg 1-09 by mouth ity of tablet 18:18: at [place] [address] bedtime. [facility] midodrine 5 2021-05 Yes 5mg Take 5 mg U nivers mg tablet 1-09 by mouth ity of 18:18: as needed. [address] 2021-05 Yes 1{capsu Take 1 Univer s Blue-Sod 1-09 le} capsule by ity o f Phos-PhSal- 18:18: mouth 2 [place] 10 (two) Medical 118-10-40.8 times Branch -36 mg daily. capsule gabapentin 2021-05 Yes 900mg Take 900 Un daniel 300 mg 1-09 mg by ity of capsule 18:18: mouth in [place] [address] the Medical morning Branch and 900 mg at noon and 900 mg in the evening. SERTraline 2021-05 Yes 50mg Take 50 mg U nivers 50 mg 1-09 by mouth ity of tablet 18:18: daily. At [place] [address] night time [facility] Branch melatonin 2021-05 Yes Take by Unive rs 10 mg Cap 1-09 mouth at ity of 18:18: bedtime. [address] Branch mirabegron 2021-05 Yes 50mg Take 50 mg U nivers 50 mg 1-09 by mouth ity of tablet 18:18: at [place] [address] bedtime. [facility] Branch midodrine 5 2021-05 Yes 5mg Take 5 mg U nivers mg tablet 1-09 by mouth ity of 18:18: as needed. [address] Branch gabapentin 2021-05 Yes 900mg Take 900 Un daniel 300 mg 1-09 mg by ity of capsule 18:18: mouth in [place] [address] the [facility] morning Branch and 900 mg at noon and 900 mg in the evening. SERTraline 2021-05 Yes 50mg Take 50 mg U nivers 50 mg 1-09 by mouth ity of tablet 18:18: daily. At [place] [address] night time [facility] Branch melatonin 2021-05 Yes Take by Unive rs 10 mg Cap 1-09 mouth at ity of 18:18: bedtime. [address] Branch mirabegron 2021-05 Yes 50mg Take 50 mg U nivers 50 mg 1-09 by mouth ity of tablet 18:18: at [place] [address] bedtime. [facility] Branch midodrine 5 2021-05 Yes 5mg Take 5 mg U nivers mg tablet 1-09 by mouth ity of 18:18: as needed. [address] gabapentin 2021-05 Yes 900mg Take 900 Un daniel 300 mg 1-09 mg by ity of capsule 18:18: mouth in [place] [address] the Medical morning Branch and 900 mg at noon and 900 mg in the evening. SERTraline 2021-05 Yes 50mg Take 50 mg U nivers 50 mg 05-11 by mouth ity of tablet 18:18: daily. At [place] 10 night time Medical Branch melatonin 2021-05 Yes Take by Unive rs 10 mg Cap 05-11 mouth at ity of 18:18: bedtime. [place] 10 Medical Branch enoxaparin 2021-05- No 1mg/kg 70 mg Uni vers (LOVENOX) 05-11 (rounded ity o f injection 02:00: 15:03 [place] 72.5 [place] 70 mg 00 :11 mg = 1 Medical mg/kg Branch ?72.5 kg), Subcutaneo us, Q12H, First dose (after last modificati on) on Wed03/10/22 at 1999, Until Discontinu ed, Routine flu 2021-05 Yes .5mL 0.5 mL by [employer] vaccine, 05-11 Intramuscu ity o f cell-based, 00:00: lar route. [place] 6 months to 00 Medical 63 yrs 60 Branch mcg (15 mcg x 4)/0.5 mL Syrg flu 2021-05 Yes .5mL 0.5 mL by [employer] vaccine, 05-11 Intramuscu ity o f cell-based, 00:00: lar route. [place] 6 months to 00 Medical 63 yrs 60 Branch mcg (15 mcg x 4)/0.5 mL Syrg flu 2021-05 Yes .5mL 0.5 mL by [employer] vaccine, 05-11 Intramuscu ity o f cell-based, 00:00: lar route. [place] 6 months to 00 Medical 63 yrs 60 Branch mcg (15 mcg x 4)/0.5 mL Syrg flu 2021-05 Yes .5mL 0.5 mL by [employer] vaccine, 05-11 Intramuscu ity o f cell-based, 00:00: lar route. [place] 6 months to 00 Medical 63 yrs 60 Branch mcg (15 mcg x 4)/0.5 mL Syrg flu 2021-05 Yes .5mL 0.5 mL by [employer] vaccine, 05-11 Intramuscu ity o f cell-based, 00:00: lar route. [place] 6 months to 00 Medical 63 yrs 60 Branch mcg (15 mcg x 4)/0.5 mL Syrg flu 2021-05 Yes .5mL 0.5 mL by Univers vaccine, 05-11 Intramuscu ity o f cell-based, 00:00: lar route. [place] 6 months to 00 Medical 63 yrs 60 Branch mcg (15 mcg x 4)/0.5 mL Syrg rivaroxaban 2021-05 No 1358 15mg Take 1 Uni vers 15 mg 05-11 tablet by ity of tablet 00:00: 05:59 mouth in [place] 00 :00 the [facility] and 1 tablet in the evening. Do all this for 21 days. Indication s: atrial fibrillati on rivaroxaban 2021-05 No 1358 15mg Take 1 Uni vers 15 mg 05-11 tablet by ity of tablet 00:00: 05:59 mouth in [place] 00 :00 the [facility] and 1 tablet in the evening. Do all this for 21 days. Indication s: atrial fibrillati on cefUROXime 2021-05 No [id number] 500mg Take 1 Univers 500 mg 05-11 tablet by ity of tablet 00:00: 05:59 mouth in [place] 00 :00 the [facility] and 1 tablet in the evening. Do all this for 7 days. cefUROXime 2021-05 No [id number] 500mg Take 1 Univers 500 mg 05-11 tablet by ity of tablet 00:00: 05:59 mouth in [place] 00 :00 the [facility] and 1 tablet in the evening. Do all this for 7 days. fluticasone 2021-05 Yes 2{spray 2 [place], [facility] propionate 05-10 } Nasal, ity of 50 18:45: DAILY, [place] mcg/actuati 00 First dose Me dical on nasal (after Branch spray 2 last [place] modificati on) on Wed03/10/22 at 1245, Until Discontinu ed, Routine lactobacill 2021-05 Yes .5mg 0.5 mg, Uni vers us 05-10 Oral, ity of acidophilus 15:00: DAILY, [place] tablet 0.5 00 First dose Med ical mg on Wed03/10/22 at 0900, Until Discontinu ed, Routine enoxaparin 2021-05- No 40mg 40 mg, Univ ers (LOVENOX) 05-1008 Subcutaneo ity of injection 15:00: 20:21 us, DAILY, [place] 40 mg 00 :29 First dose Medical on Wed [facility] 03/10/22 at 0900, Until Discontinu ed, Routine NaCl 0.9% 2021-05 No 1000mL at 999 Uni vers (NS) bolus 05-10-08 mL/hr, ity of infusion 06:00: 06:19 1,000 mL, [place] as 1,000 mL 00 :30 IV Medical Piggyback, [place] ONCE, 1 dose, On Wed03/10/22 at 0000, STAT NaCl 0.9% 2021-05 Yes 1000mL at 100 Univ ers (NS) IV 1-08 mL/hr, IV ity of infusion 05:45: Infusion, [place] 1,000 mL 00 CONTINUOUS Medic al , Starting Branch on Wed03/09/22 at 2345, Until Discontinu ed, Routine cefTRIAXone 2021-05 No 1000mg 1,000 mg, Univers (ROCEPHIN) 05-10 1115 Intravenou it y of 1,000 mg in 05:45: 05:44 s, Q12H [place] NaCl 0.9% 00 :00 ABX, 14 Medical (NS) 50 mL doses, Branch MINI-BAG First dose on Wed03/09/22 at 2345, Last dose on Wed03/16/22 at 1145, Administer over 30 Minutes, 50 mL
Reas on for Anti-Infec tive: Empiric Therapy for Suspected Infection< br>Empiric Therapy Site: Urine
D uration of therapy: 5 days melatonin 2021-05 Yes 12mg 12 mg, Univer s (MELATIN) 108 Oral, QHS, ity of tablet 12 04:45: First dose [place] mg 00 on [facility] [place] 03/09/22 at Branch 2245, Until Discontinu ed gabapentin 2021-05 Yes 900mg 900 mg, Uni vers (NEURONTIN) 108 Oral, TID, it y of capsule 900 04:45: First dose [place] mg 00 on [facility] [place] 03/09/22 at Branch 2245, Until Discontinu ed, Routine acetaminoph 2021-05 Yes 650mg 650 mg, Un daniel en 08 Oral, ity of (TYLENOL) 01:27: Q6HPRN, [place] tablet 650 24 Starting Medic al mg on Mon Branch 03/09/22 at 1927, Until Discontinu ed, Routine, Pain (scale 1-3) piperacilli 2021-05- No 3.375g 3.375 g, Univers n-tazobacta 05-09 11-07 IV ity of m (ZOSYN) 19:45: 21:49 Piggyback, [place] 3.375 g in 00 :00 ONCE, 1 Medica l NaCl 0.9% dose, On Branch (NS) 50 mL Mon MINI-BAG 03/09/22 at 1345, Administer over 30 Minutes, 50 mL
R ino for Anti-Infec tive: Empiric Therapy for Suspected Infection< br>Empiric Therapy Site: Urine
D uration of therapy: 72 hours SERTraline Yes 50mg Take 50 mg U nivers (ZOLOFT) 50 7-07 by mouth ity of mg tablet 00:48: daily. At [place] as 03 night time Medical Branch mirabegron Yes 50mg Take 50 mg U nivers (MYRBETRIQ) 7-05 by mouth ity of 50 mg 12:56: daily. [place] [address] Medical Branch midodrine 5 Yes 5mg Take 5 mg U nivers mg tablet 7-05 by mouth ity of 12:56: as needed. [place] [address] Medical Branch Mth-Me Yes 1{capsu Take 1 Univer s Blue-Sod 7-05 le} capsule by ity o f Phos-PhSal- 12:56: mouth 2 [place] Hyo (two) Medical (URIBEL) times Branch 118-10-40.8 daily. -36 mg capsule gabapentin Yes 300mg Take 300 Un daniel 300 mg 7-05 mg by ity of capsule 12:56: mouth 3 [place] [address] (three) Medical times Branch daily. omeprazole 2021- No [id number] 20mg Take 1 Univers 20 mg 7-05 08-05 capsule by ity of capsule 00:00: 04:59 mouth [place] 00 :00 daily for Medical 30 days. Branch amoxicillin 2021- No [id number] 1{tbl} Take 1 Univers -clavulanat 7-05 08-05 tablet by it y of e 00:00: 04:59 mouth 2 [place] (AUGMENTIN) 00 :00 (two) Medical 875-125 mg times Branch per tablet daily for 30 days. ondansetron Yes [id number] 4mg Take 1 Univers (ZOFRAN) 4 6-27 tablet by ity of mg tablet 00:00: mouth [place] 00 every 8 Medical (eight) Branch hours as needed for Nausea and Vomiting (N/V). ondansetron 2021- No [id number] 4mg Take 1 Univers (ZOFRAN) 4 6-27 11-09 tablet by ity of mg tablet 00:00: 00:00 mouth [place] 00 :00 every 8 Medical (eight) Branch hours as needed for Nausea and Vomiting (N/V). Alprazolam Yes 0.25 mg = Me moria 0.25 MG 12-26 1 tab, PO, l Oral Tablet 16:04: TID, PRN He ann 00 anxiety, 1-2 tabs po TID prn, # 30 tab, 0 Refill(s), Pharmacy: [facility] 482, 182.88, cm, 12/26/20 9:50:00 CDT, Height, 84.091, kg, 12/26/20 9:50:00 CDT, Weight Cephalexin Yes 500 mg = 1 M emoria 500 MG Oral 8-23 cap, PO, l Capsule 00:05: BID, X 7 Deangelo n [Keflex] day, # 14 cap, 0 Refill(s), Pharmacy: [facility] 482, 185.42, cm, 12/22/20 14:16:00 CDT, Height, 84.091, kg, 12/22/20 14:16:00 CDT, Weight Cephalexin Yes 500 mg = 1 M emoria 500 MG Oral 8-23 cap, PO, l Capsule 00:05: BID, X 7 Deangelo n [Keflex] 00 day, # 14 cap, 0 Refill(s), Pharmacy: [facility] 482, 185.42, cm, 12/22/20 14:16:00 CDT, Height, 84.091, kg, 12/22/20 14:16:00 CDT, Weight iohexol 300 0 No 100 mL, Mem oria mg/mL 12-22 Route: l injectable 23:00: IVP, [place] solution 00 Dosing Weight 84.091, kg, ONCALL, Start date: 12/22/20 18:00:00 CDT, Duration: 1 doses or times iohexol 300 0 No 100 mL, Mem oria mg/mL 12-22 Route: l injectable 23:00: IVP, [place] solution 00 Dosing Weight 84.091, kg, ONCALL, Start date: 12/22/20 18:00:00 CDT, Duration: 1 doses or times Saline No Notes: Memoria Flush 0.9% 8-22 (Same as: l 19:19: BD [place] 00 Posiflush) Sodium No 1,000 mL, Memori a Chloride 8-22 1000 l 0.9% 19:19: ml/hr, [place] (Bolus) IV 00 Infuse Over: 1 hr, Route: IV, 1,000, Drug form: INJ, ONCE, Priority: STAT, Dosing Weight 86.364 kg, Start date: 12/22/20 14:19:00 CDT, Stop date: 12/22/20 14:19:00 CDT, 0 Ondansetron No Notes: Bin stephanie -22 (Same as: l 19:19: Zofran) [place] 00 MEDICATION WASTE Product Size: 4 mg Product Wasted: ___ mg Saline No Notes: Memoria Flush 0.9% 8-22 (Same as: l 19:19: BD [place] 00 Posiflush) Sodium No 1,000 mL, Memori a Chloride 8-22 1000 l 0.9% 19:19: ml/hr, [place] (Bolus) IV 00 Infuse Over: 1 hr, Route: IV, 1,000, Drug form: INJ, ONCE, Priority: STAT, Dosing Weight 86.364 kg, Start date: 12/22/20 14:19:00 CDT, Stop date: 12/22/20 14:19:00 CDT, 0 Ondansetron 2021-0 No Notes: Bin stephanie 12-22 (Same as: l 19:19: Zofran) 00 MEDICATION WASTE Product Size: 4 mg Product Wasted: ___ mg ondansetron 2020-0 Yes [id number] 4mg Take 1 [facility] (ZOFRAN 8-18 tablet by ity of ODT) 4 mg 00:00: mouth [place] disintegrat 00 every 8 Medic al ing tablet (eight) Branch hours as needed for Nausea and Vomiting (N/V). ondansetron 2020-0 Yes [id number] 4mg Take 1 [facility] (ZOFRAN 8-18 tablet by ity of ODT) 4 mg 00:00: mouth [place] disintegrat 00 every 8 Medic al ing tablet (eight) Branch hours as needed for Nausea and Vomiting (N/V). ondansetron 2020-0 Yes [id number] 4mg Take 1 [facility] (ZOFRAN 8-18 tablet by ity of ODT) 4 mg 00:00: mouth [place] disintegrat 00 every 8 Medic al ing tablet (eight) Branch hours as needed for Nausea and Vomiting (N/V). ondansetron 2020-0 Yes [id number] 4mg Take 1 [facility] (ZOFRAN 8-18 tablet by ity of ODT) 4 mg 00:00: mouth [place] disintegrat 00 every 8 Medic al ing tablet (eight) Branch hours as needed for Nausea and Vomiting (N/V). ondansetron 2020-0 Yes [id number] 4mg Take 1 [facility] (ZOFRAN 8-18 tablet by ity of ODT) 4 mg 00:00: mouth [place] disintegrat 00 every 8 Medic al ing tablet (eight) Branch hours as needed for Nausea and Vomiting (N/V). ondansetron 2020-0 Yes [id number] 4mg Take 1 [facility] (ZOFRAN 8-18 tablet by ity of ODT) 4 mg 00:00: mouth [place] disintegrat 00 every 8 Medic al ing tablet (eight) Branch hours as needed for Nausea and Vomiting (N/V). ondansetron 2020-0 Yes [id number] 4mg Take 1 [facility] (ZOFRAN 8-18 tablet by ity of ODT) 4 mg 00:00: mouth [place] disintegrat 00 every 8 Medic al ing tablet (eight) Branch hours as needed for Nausea and Vomiting (N/V). Hyoscyamine Yes 1 cap, PO, Memoria Sulfate 3-12 BID, # 120 l 0.12 MG / 20:14: cap, 0 Deangelo n Methenamine 00 Refill(s), 118 MG / called to [facility] blue 10 MG / phenyl salicylate 36 MG / Sodium Phosphate, Monobasic 40.8 MG Oral Capsule [Uribel] Hyoscyamine Yes 1 cap, PO, Memoria Sulfate 3-12 BID, # 120 l 0.12 MG / 20:14: cap, 0 Deangelo n Methenamine 00 Refill(s), 118 MG / called to [facility] blue 10 MG / phenyl salicylate 36 MG / Sodium Phosphate, Monobasic 40.8 MG Oral Capsule [Uribel] midodrine 5 2019-05 Yes 5 mg = 1 Me moria mg oral 1-30 tab, PO, l tablet 16:28: BID, # 180 [place] nn 00 tab, 3 Refill(s) 24 HR 2019-05 Yes = 1 tab, Memoria mirabegron 1-30 PO, Daily, l 50 MG 16:28: # 90 tab, [place] Extended 00 3 Release Refill(s), Tablet JESSICA [Myrbetriq] Hyoscyamine 2019-05 Yes 1 cap, PO, Memoria Sulfate 1-30 BID, # 120 l 0.12 MG / 16:28: cap, 0 Deangelo n Methenamine 00 Refill(s) 118 MG / [facility] blue 10 MG / phenyl salicylate 36 MG / Sodium Phosphate, Monobasic 40.8 MG Oral Capsule [Uribel] midodrine 5 2019-05 Yes 5 mg = 1 Me moria mg oral 1-30 tab, PO, l tablet 16:28: BID, # 180 [place] nn 00 tab, 3 Refill(s) 24 HR 2019-05 Yes = 1 tab, Memoria mirabegron 1-30 PO, Daily, l 50 MG 16:28: # 90 tab, [place] Extended 00 3 Release Refill(s), Tablet JESSICA [Myrbetriq] Hyoscyamine 2019-05 Yes 1 cap, PO, Memoria Sulfate 1-30 BID, # 120 l 0.12 MG / 16:28: cap, 0 Deangelo n Methenamine 00 Refill(s) 118 MG / [facility] blue 10 MG / phenyl salicylate 36 MG / Sodium Phosphate, Monobasic 40.8 MG Oral Capsule [Uribel] baclofen 10 2019-05 Yes 10 mg = 1 M emoria mg oral 1-30 tab, PO, l tablet 16:27: QPM, 0.5 [place] 00 tabs nightly, # 30 tab, 0 Refill(s) gabapentin 2019-05 Yes = 3 cap, Mem oria 300 MG Oral 1-30 PO, QID, # l Capsule 16:27: 1080 cap, [place] nn 00 3 Refill(s) baclofen 10 2019-05 Yes 10 mg = 1 M emoria mg oral 1-30 tab, PO, l tablet 16:27: QPM, 0.5 [place] 00 tabs nightly, # 30 tab, 0 Refill(s) gabapentin 2019-05 Yes = 3 cap, Mem oria 300 MG Oral 1-30 PO, QID, # l Capsule 16:27: 1080 cap, [place] nn 00 3 Refill(s) Docusate 2019-05 Yes 100 mg = 1 Mem oria Sodium 100 1-30 cap, PO, l MG Oral 15:37: BID, 0 [place] Capsule 00 Refill(s) [Colace] sennosides, 2019-05 Yes 8.6 mg = 1 Memoria FPC 8.6 MG 1-30 tab, PO, l Oral Tablet 15:37: Bedtime, 0 [place] 00 Refill(s) Melatonin 2019-05 Yes 10 mg = 1 Mem oria 10 mg oral 1-30 tab, PO, l tablet 15:37: Bedtime, 0 [place] nn 00 Refill(s) Docusate 2019-05 Yes 100 mg = 1 Mem oria Sodium 100 1-30 cap, PO, l MG Oral 15:37: BID, 0 [place] Capsule 00 Refill(s) [Colace] sennosides, 2019-05 Yes 8.6 mg = 1 Memoria FPC 8.6 MG 1-30 tab, PO, l Oral Tablet 15:37: Bedtime, 0 [place] 00 Refill(s) Melatonin 2019-05 Yes 10 mg = 1 Mem oria 10 mg oral 1-30 tab, PO, l tablet 15:37: Bedtime, 0 [place] nn 00 Refill(s) baclofen 2018-05 Yes 10 mg = 1 M emoria mg oral 0-31 tab, PO, l tablet 19:30: QPM, 0.5 [place] 31 tabs nightly, # 30 tab, 0 Refill(s) baclofen 2018-05 Yes 10 mg = 1 M emoria mg oral 0-31 tab, PO, l tablet 19:30: QPM, 0.5 [place] 31 tabs nightly, # 30 tab, 0 Refill(s) Melatonin 2018-05 Yes 10 mg = 1 Mem oria 10 mg oral 0-31 cap, PO, l capsule 19:29: Bedtime, X Herm camilo 00 90 day, # 90 cap, 3 Refill(s) Melatonin 2018-05 Yes 10 mg = 1 Mem oria 10 mg oral 0-31 cap, PO, l capsule 19:29: Bedtime, X Herm camilo 00 90 day, # 90 cap, 3 Refill(s) Docusate 2018-05 Yes 283 mg = 1 Mem oria Sodium 56.6 0-31 ea, SD, l MG/ML Enema 19:28: Daily, # He rmann [Enemeez] 49 90 ea, 3 Refill(s) Docusate 2018-05 Yes 283 mg = 1 Mem oria Sodium 56.6 0-31 ea, SD, l MG/ML Enema 19:28: Daily, # He rmann [Enemeez] 49 90 ea, 3 Refill(s) 24 HR 2018-05 Yes = 1 tab, Memoria mirabegron 0-31 PO, Daily, l 50 MG 19:16: # 90 tab, [place] Extended 17 3 Release Refill(s), Tablet JESSICA [Myrbetriq] 24 HR 2018-05 Yes = 1 tab, Memoria mirabegron 0-31 PO, Daily, l 50 MG 19:16: # 90 tab, [place] Extended 17 3 Release Refill(s), Tablet JESSICA [Myrbetriq] Hyoscyamine 2018-05 Yes 1 cap, PO, Memoria Sulfate 0-31 BID, # 180 l 0.12 MG / 19:16: cap, 3 Deangelo n Methenamine 06 Refill(s) 118 MG / [facility] blue 10 MG / phenyl salicylate 36 MG / Sodium Phosphate, Monobasic 40.8 MG Oral Capsule [Uribel] Hyoscyamine 2018-05 Yes 1 cap, PO, Memoria Sulfate 0-31 BID, # 180 l 0.12 MG / 19:16: cap, 3 Deangelo n Methenamine 06 Refill(s) 118 MG / [facility] blue 10 MG / phenyl salicylate 36 MG / Sodium Phosphate, Monobasic 40.8 MG Oral Capsule [Uribel] gabapentin 2018-05 Yes = 3 cap, Mem oria 300 MG Oral 0-31 PO, QID, # l Capsule 19:15: 1080 cap, [place] nn 39 3 Refill(s) gabapentin 2018-05 Yes = 3 cap, Mem oria 300 MG Oral 0-31 PO, QID, # l Capsule 19:15: 1080 cap, [place] nn 39 3 Refill(s) midodrine 2018-05 Yes 5 mg = 1 Me moria mg oral 0-31 tab, PO, l tablet 19:14: BID, # 180 [place] nn 56 tab, 3 Refill(s) midodrine 2018-05 Yes 5 mg = 1 Me moria mg oral 0-31 tab, PO, l tablet 19:14: BID, # 180 [place] nn 56 tab, 3 Refill(s) baclofen 2018-05 No 10 mg = 1 M emoria mg oral 0-31 tab, PO, l tablet 19:14: QPM, # 270 [place] nn 00 tab, 0 Refill(s), Pharmacy: [facility] 2 D-Mannose 2018-05 Yes D-Mannose, Me moria 0-31 See l 19:14: Instructio [place] 00 ns, D [place] 2 grams daily x 30 days, # 60 gm, Refill(s) 1 baclofen 2018-05 No 10 mg = 1 M emoria mg oral 0-31 tab, PO, l tablet 19:14: QPM, # 270 [place] nn 00 tab, 0 Refill(s), Pharmacy: [facility] 2 D-Mannose 2018-05 Yes D-Mannose, Me moria 0-31 See l 19:14: Instructio [place] 00 ns, D [place] 2 grams daily x 30 days, # 60 gm, Refill(s) 1 ONAbotulinu 2018-05 Yes Notes: "TO Memoria mtoxinA 0-09 BE l 18:40: RECONSTITU [place] 00 GAVINO AND ADMINISTER ED ONLY BY A PHYSICIAN" Reconstitu te with preservati ve free NS only. Stability = 4 hours after reconstitu tion. (Same As: Botox) WASTE: F/P - Red; E -Red ONAbotulinu 2018-05 Yes Notes: "TO Aishwarya mtoxinA 0-09 BE l 18:40: RECONSTITU [place] 00 GAVINO AND ADMINISTER ED ONLY BY A PHYSICIAN" Reconstitu te with preservati ve free NS only. Stability = 4 hours after reconstitu tion. (Same As: Botox) WASTE: F/P - Red; E -Red Hyoscyamine 2019 Yes 300 mg =, M emoria Sulfate 6-28 PO, Daily, l 0.12 MG / 16:54: 0 [place] Methenamine 00 Refill(s) 118 MG / [facility] blue 10 MG / phenyl salicylate 36 MG / Sodium Phosphate, Monobasic 40.8 MG Oral Capsule [Uribel] Hyoscyamine Yes 300 mg =, M emoria Sulfate 6-28 PO, Daily, l 0.12 MG / 16:54: 0 [place] Methenamine 00 Refill(s) 118 MG / [facility] blue 10 MG / phenyl salicylate 36 MG / Sodium Phosphate, Monobasic 40.8 MG Oral Capsule [Uribel] midodrine 5 Yes 5 mg = 1 Me moria mg oral 4-22 tab, PO, l tablet 19:49: BID, # 180 [place] 42 tab, 1 Refill(s), Pharmacy: [facility] 482 midodrine 5 Yes 5 mg = 1 Me moria mg oral 4-22 tab, PO, l tablet 19:49: BID, # 180 [place] nn 42 tab, 1 Refill(s), Pharmacy: [facility] 482 LORazepam Yes 0.5 mg = 1 Me moria 0.5 mg oral 3-14 tab, PO, l tablet 21:26: Bedtime, 1-2 tablets at hs prn sleep, X 30 day, # 60 tab, 1 Refill(s) LORazepam Yes 0.5 mg = 1 Me moria 0.5 mg oral 3-14 tab, PO, l tablet 21:26: Bedtime, 1-2 tablets at hs prn sleep, X 30 day, # 60 tab, 1 Refill(s) Melatonin Yes 10 mg, PO, Me moria 3-14 Bedtime, 0 l 20:29: Refill(s) Melatonin Yes 10 mg, PO, Me moria 3-14 Bedtime, 0 l 20:29: Refill(s) ONAbotulinu No Notes: "TO Memoria mtoxinA 2-27 BE l 22:00: RECONSTITU GAVINO AND ADMINISTER ED ONLY BY A PHYSICIAN" Reconstitu te with preservati ve free NS only. Stability = 4 hours after reconstitu tion. (Same As: Botox) WASTE: F/P - Red; E -Red sodium No Notes: Memoria chloride 2-27 preservati l 22:00: ve free. ONAbotulinu No Notes: "TO Memoria mtoxinA 2-27 BE l 22:00: RECONSTITU GAVINO AND ADMINISTER ED ONLY BY A PHYSICIAN" Reconstitu te with preservati ve free NS only. Stability = 4 hours after reconstitu tion. (Same As: Botox) WASTE: F/P - Red; E -Red sodium No Notes: Memoria chloride 2-27 preservati l 22:00: ve free. bisacodyl Yes 10mg Insert 1 [facility] ers 10 mg 1-04 Suppositor [place] rect[place] once daily Branch as needed for Constipati on unresolved by oral medication s. bisacodyl Yes 10mg Insert 1 [facility] ers 10 mg 1-04 Suppositor [place] of suppository 00:[place] rect[place] once daily Branch as needed for Constipati on unresolved by oral medication s. bisacodyl Yes 10mg Insert 1 [facility] ers 10 mg 1-04 Suppositor [place] of suppository [place] rect[place] once daily Branch as needed for Constipati on unresolved by oral medication s. bisacodyl Yes 10mg Insert 1 [facility] ers 10 mg 1-04 Suppositor [facility] supp[facility] daily Branch as needed for Constipati on unresolved by oral medication s. bisacodyl Yes 10mg Insert 1 Univ ers 10 mg 1-04 Suppositor ity of suppository 00:00: [facility] once daily Branch as needed for Constipati on unresolved by oral medication s. bisacodyl Yes 10mg Insert 1 [facility] ers 10 mg 1-04 Suppositor ity of suppository 00:00: [facility] once daily Branch as needed for Constipati on unresolved by oral medication s. bisacodyl Yes 10mg Insert 1 Univ ers 10 mg 1-04 Suppositor ity of suppository 00:00: y into [facility] s 00 rectum Medical once daily Branch as needed for Constipati on unresolved by oral medication s. levofloxaci 2017-05 No 500 mg = 1 Memoria n 500 mg 0-23 tab, PO, l oral tablet 02:00: Daily, X [facility] 10 day, # 10 tab, 0 Refill(s) levofloxaci 2017-05 No 500 mg = 1 Memoria n 500 mg 0-23 tab, PO, l oral tablet 02:00: Daily, X [facility] 10 day, # 10 tab, 0 Refill(s) midodrine No See Memori a mg oral 8-13 Instructio l tablet 18:54: ns, TAKE 1 [place] nn 04 TABLET BY MOUTH TWICE DAILY, # 60 tab, 2 Refill(s), Pharmacy: [facility] midodrine No See Memori a mg oral 8-13 Instructio l tablet 18:54: ns, TAKE 1 [place] nn 04 TABLET BY MOUTH TWICE DAILY, # 60 tab, 2 Refill(s), Pharmacy: [facility] 24 HR No 50 mg = 1 Memoria mirabegron 8-13 tab, PO, l 50 MG 18:53: Daily, # [place] Extended 56 30 tab, 11 Release Refill(s), Tablet Pharmacy: [Geovani] [facility] 24 HR No 50 mg = 1 Memoria mirabegron 8-13 tab, PO, l 50 MG 18:53: Daily, # [place] Extended 56 30 tab, 11 Release Refill(s), Tablet Pharmacy: [Myrbetriq] [facility] Fluticasone 2018- Yes 2 spray, Me moria propionate 8-13 NASAL, l 0.05 18:53: BID, PRN [place] MG/ACTUAT 22 Congestion Metered , prn Dose Nasal congestion [place] , # 1 ea, [Flonase] 11 Refill(s), Pharmacy: [facility] Fluticasone Yes 2 spray, Me moria propionate 8-13 NASAL, l 0.05 18:53: BID, PRN [place] MG/ACTUAT 22 Congestion Metered , prn Dose Nasal congestion [place] , # 1 ea, [Flonase] 11 Refill(s), Pharmacy: [facility] gabapentin Yes 900 mg = 3 M emoria 300 MG Oral 8-13 cap, PO, l Capsule 18:52: QID, # 360 Herm camilo 00 cap, 6 Refill(s), Pharmacy: [place] [id number] gabapentin Yes 900 mg = 3 M emoria 300 MG Oral 8-13 cap, PO, l Capsule 18:52: QID, # 360 Herm camilo 00 cap, 6 Refill(s), Pharmacy: [place] [id number] Unknown Yes Refill(s) Memor ia Home 8-13 0 l Medication 18:25: [place] 00 Unknown Yes Refill(s) Memor ia Home 8-13 0 l Medication 18:25: [place] 00 gabapentin No 900 mg = 3 M emoria 300 MG Oral 8-13 cap, PO, l Capsule 18:24: QID, 0 [place] 00 Refill(s) gabapentin No 900 mg = 3 M emoria 300 MG Oral 8-13 cap, PO, l Capsule 18:24: QID, 0 [place] 00 Refill(s) Acetaminoph 2017- No 1 tab, PO, Memoria en 300 MG / 8-10 Q6H, PRN l Codeine 18:02: Pain, X 7 [place] nn Phosphate 00 day, # 28 30 MG Oral tab, 0 Tablet Refill(s) [Tylenol with Codeine #3] Docusate No 50 mg = 1 Bin stephanie Sodium 50 8-10 cap, PO, l MG Oral 18:02: BID, # 20 [place] nn Capsule 00 cap, 0 [Colace] Refill(s) Cephalexin No 500 mg = 1 M emoria 500 MG Oral 8-10 cap, PO, l Capsule 18:02: QID, X 7 Deangelo n [Keflex] 00 day, # 28 cap, 0 Refill(s) Acetaminoph No 1 tab, PO, Memoria en 300 MG / 8-10 Q6H, PRN l Codeine 18:02: Pain, X 7 [place] nn Phosphate 00 day, # 28 30 MG Oral tab, 0 Tablet Refill(s) [Tylenol with Codeine #3] Docusate No 50 mg = 1 Bin stephanie Sodium 50 8-10 cap, PO, l MG Oral 18:02: BID, # 20 [place] nn Capsule 00 cap, 0 [Colace] Refill(s) Cephalexin No 500 mg = 1 M emoria 500 MG Oral 8-10 cap, PO, l Capsule 18:02: QID, X 7 Deangelo n [Keflex] 00 day, # 28 cap, 0 Refill(s) Albuterol No Notes: SEE Me moria 0.83 MG/ML 8-10 RT l Inhalant 17:11: DOCUMENTAT Her condon Solution 00 ION (Same as: Proventil) Ondansetron No Notes: Bin stephanie 8-10 (Same as: l 17:11: Zofran) MEDICATION WASTE Product Size: 4 mg Product Wasted: ___ mg Naloxone No Notes: Memoria 8-10 Same as l 17:11: Narcan Flumazenil No Notes: Memor ia 8-10 (Same as: l 17:11: Romazicon) Hydromorpho No Notes: Bin stephanie ne 8-10 Same as l 17:11: Dilaudid Labetalol No 10 mg, 2 Bin stephanie 8-10 mL, Route: l 17:11: IVP, Drug form: INJ, Q5Min, Dosing Weight 86.364, kg, PRN Elevated BP, Start date: 12/10/17 12:11:00 CDT, Duration: 5 doses or times, Stop date: 12/11/17 0:00:00 CDT Hydralazine No Notes: Bin stephanie 8-10 (Same as: l 17:11: Apresoline ) Push over 5 minutes Albuterol No Notes: SEE Me moria 0.83 MG/ML 8-10 RT l Inhalant 17:11: DOCUMENTAT Her condon Solution 00 ION (Same as: Proventil) Ondansetron No Notes: Bin stephanie 8-10 (Same as: l 17:11: Zofran) MEDICATION WASTE Product Size: 4 mg Product Wasted: ___ mg Naloxone No Notes: Memoria 8-10 Same as l 17:11: Narcan Flumazenil No Notes: Memor ia 8-10 (Same as: l 17:11: Romazicon) Hydromorpho No Notes: Bin stephaine ne 8-10 Same as l 17:11: Dilaudid Labetalol No 10 mg, 2 Bin stephanie 8-10 mL, Route: l 17:11: IVP, Drug form: INJ, Q5Min, Dosing Weight 86.364, kg, PRN Elevated BP, Start date: 12/10/17 12:11:00 CDT, Duration: 5 doses or times, Stop date: 12/11/17 0:00:00 CDT Hydralazine No Notes: Bin stephanie 8-10 (Same as: l 17:11: Apresoline ) Push over 5 minutes neostigmine No Route: IV, Memoria (ANES) 8-10 Drug form: l 17:09: INJ, ONCE, Stop date: 12/10/17 12:09:00 CDT glycopyrrol No Route: IV, Memoria ate (ANES) 8-10 Drug form: l 17:09: INJ, ONCE, Stop date: 12/10/17 12:09:00 CDT neostigmine 2017-0 No Route: IV, Memoria (ANES) 8-10 Drug form: l 17:09: INJ, ONCE, Stop date: 12/10/17 12:09:00 CDT glycopyrrol 2017-0 No Route: IV, Memoria ate (ANES) 8- Drug form: l 17:09: INJ, ONCE, Stop date: 12/10/17 12:09:00 CDT ondansetron [id number] No Route: IV, Memoria (ANES) 8-10 Drug form: l 17:04: INJ, ONCE, Stop date: 12/10/17 12:04:00 CDT famotidine 0 No Route: IV, M emoria (ANES) 8-10 Drug form: l 17:04: INJ, ONCE, Stop date: 12/10/17 12:04:00 CDT ondansetron 0 No Route: IV, Memoria (ANES) 8-10 Drug form: l 17:04: INJ, ONCE, Stop date: 12/10/17 12:04:00 CDT famotidine 0 No Route: IV, M emoria (ANES) 8-10 Drug form: l 17:04: INJ, ONCE, Stop date: 12/10/17 12:04:00 CDT dexmedetomi No Route: IV, Memoria dine (ANES) 8-10 Drug form: l + Sodium 16:49: INJ, ONCE, Her condon Chloride Stop date: 0.9% IV 12/10/17 (ANES) 98 11:49:00 mL CDT lidocaine No Route: IV, Me moria (ANES) 8-10 Drug form: l 16:49: INJ, ONCE, Stop date: 12/10/17 11:49:00 CDT propofol 2017-0 No Route: IV, Mem oria (ANES) 8-10 Drug form: l 16:49: INJ, ONCE, Stop date: 12/10/17 11:49:00 CDT fentaNYL 2018-0 No Route: IV, Mem oria (ANES) 8-10 Drug form: l 16:49: INJ, ONCE, [place] Stop date: 12/10/17 11:49:00 CDT rocuronium 2018-0 No Route: IV, M emoria (ANES) 8-10 Drug form: l 16:49: INJ, ONCE, [place] Stop date: 12/10/17 11:49:00 CDT dexmedetomi 2017-0 No Route: IV, Memoria dine (ANES) 8 Drug form: l + Sodium 16:49: INJ, ONCE, Her condon Chloride Stop date: 0.9% IV 12/10/17 (ANES) 98 11:49:00 mL CDT lidocaine 2017- No Route: IV, Me moria (ANES) 8 Drug form: l 16:49: INJ, ONCE, [place] Stop date: 12/10/17 11:49:00 CDT propofol 2018-0 No Route: IV, Mem oria (ANES) 8 Drug form: l 16:49: INJ, ONCE, [place] Stop date: 12/10/17 11:49:00 CDT fentaNYL 2018-0 No Route: IV, Mem oria (ANES) 8 Drug form: l 16:49: INJ, ONCE, [place] Stop date: 12/10/17 11:49:00 CDT rocuronium 2017-0 No Route: IV, M emoria (ANES) 8 Drug form: l 16:49: INJ, ONCE, [place] Stop date: 12/10/17 11:49:00 CDT midazolam 2018-0 No Route: IV, Me moria (ANES) 8-10 Drug form: l 16:44: SOLN, [place] 00 ONCE, Stop date: 12/10/17 11:44:00 CDT midazolam 2018-0 No Route: IV, Me moria (ANES) 8-10 Drug form: l 16:44: SOLN, [place] 00 ONCE, Stop date: 12/10/17 11:44:00 CDT acetaminoph 2018-0 No Route: IV, Memoria en (ANES) 8 Drug form: l 10 mg 16:15: INJ, Start Deangelo n date: 12/10/17 11:15:00 CDT, Stop date: 12/10/17 12:15:00 CDT acetaminoph 0 No Route: IV, Memoria en (ANES) 8-10 Drug form: l 10 mg 16:15: INJ, Start Deangelo n 00 date: 12/10/17 11:15:00 CDT, Stop date: 12/10/17 12:15:00 CDT Lactated 0 No Route: IV, Mem oria Ringers 8-10 Total l Injection 15:29: Volume: [place] nn IV (ANES) 00 1,000, 1000 mL Start date: 12/10/17 10:29:00 CDT, Stop date: 12/10/17 11:29:00 CDT Lactated 0 No Route: IV, Mem oria Ringers 8-10 Total l Injection 15:29: Volume: [place] nn IV (ANES) 00 1,000, 1000 mL Start date: 12/10/17 10:29:00 CDT, Stop date: 12/10/17 11:29:00 CDT ceFAZolin + No Notes: Bin stephanie sterile 12-10 (Same As: l water 20 mL 04:00: Ancef, Herm camilo 00 Kefzol) MEDICATION WASTE Product Size: 1000 mg Product Wasted: ___ mg ceFAZolin + No Notes: Bin stephanie sterile 12-10 (Same As: l water 20 mL 04:00: Ancef, Herm camilo 00 Kefzol) MEDICATION WASTE Product Size: 1000 mg Product Wasted: ___ mg ceFAZolin + No Notes: Bin stephanie sterile 12-03 (Same As: l water 20 mL 07:00: Ancef, Herm camilo 00 Kefzol) MEDICATION WASTE Product Size: 1000 mg Product Wasted: ___ mg ceFAZolin + 0 No Notes: Bin stephanie sterile 12-03 (Same As: l water 20 mL 07:00: Ancef, Herm camilo 00 Kefzol) MEDICATION WASTE Product Size: 1000 mg Product Wasted: ___ mg midodrine 5 No See Memori a mg oral 12-02 Instructio l tablet 17:38: ns, # 60 [place] 42 tab, TAKE 1 TABLET BY MOUTH TWICE DAILY, Pharmacy: [address] No See Memori a mg oral 8-02 Instructio l tablet 17:38: ns, # 60 [place] 42 tab, TAKE 1 TABLET BY MOUTH TWICE DAILY, Pharmacy: [address] No See Memori a mg oral 5-18 Instructio l tablet 19:25: ns, TAKE [place] 09 ONE TABLET BY MOUTH TWICE DAILY, # 60 tab, 0 Refill(s), Pharmacy: [place] [id number] No See Memori a mg oral 5-18 Instructio l tablet 19:25: ns, TAKE [place] 09 ONE TABLET BY MOUTH TWICE DAILY, # 60 tab, 0 Refill(s), Pharmacy: [place] [address] Yes 50 mg = 1 Memoria mirabegron 4-25 tab, PO, l 50 MG 18:25: Daily, # [place] Extended 00 30 tab, 11 Release Refill(s), Tablet Pharmacy: [[facility]] [place] [address] Yes 50 mg = 1 Memoria mirabegron 4-25 tab, PO, l 50 MG 18:25: Daily, # [place] Extended 00 30 tab, 11 Release Refill(s), Tablet Pharmacy: [[facility]] [place] [address] Yes 50 mg = 1 Memoria mirabegron 4-20 tab, PO, l 50 MG 15:38: Daily, # [place] Extended 00 30 tab, 0 Release Refill(s) Tablet [Myrbetriq] Yes 50 mg = 1 Memoria mirabegron 4-20 tab, PO, l 50 MG 15:38: Daily, # [place] Extended 00 30 tab, 0 Release Refill(s) Tablet [Myrbetriq] Cyclobenzap Yes 10 mg = 1 M emoria rine 7-13 tab, PO, l hydrochlori 22:28: TID, PRN Buddy zacarias de 10 MG 00 for spasm, Oral Tablet # 30 tab, [Flexeril] 3 Refill(s), Pharmacy: [place] [address] Cyclobenzap 2017-0 Yes 10 mg = 1 M emoria rine 7-13 tab, PO, l hydrochlori 22:28: TID, PRN He rmann de 10 MG 00 for spasm, Oral Tablet # 30 tab, [Flexeril] 3 Refill(s), Pharmacy: [address] Yes See Memori a mg oral 7-13 Instructio l tablet 22:23: ns, TAKE [place] 36 ONE TABLET BY MOUTH TWICE DAILY, # 60 tab, 5 Refill(s), Pharmacy: [address] Yes See Memori a mg oral 7-13 Instructio l tablet 22:23: ns, TAKE [place] 36 ONE TABLET BY MOUTH TWICE DAILY, # 60 tab, 5 Refill(s), Pharmacy: [place] [address] gabapentin Yes 900 mg = 3 M emoria 300 MG Oral 7-13 cap, PO, l Capsule 22:23: TID, # 270 Herm camilo 09 cap, 11 Refill(s), Pharmacy: [place] [address] gabapentin Yes 900 mg = 3 M emoria 300 MG Oral 7-13 cap, PO, l Capsule 22:23: TID, # 270 Herm camilo 09 cap, 11 Refill(s), Pharmacy: [place] [facility] [id number] Docusate Yes 283 mg = 1 Mem oria Sodium 56.6 7-13 ea, SD, l MG/ML Enema 22:22: Daily, # He rmann [Enemeez] 58 90 ea, 3 Refill(s), Pharmacy: [place] [id number] Docusate Yes 283 mg = 1 Mem oria Sodium 56.6 7-13 ea, SD, l MG/ML Enema 22:22: Daily, # He rmann [Enemeez] 58 90 ea, 3 Refill(s), Pharmacy: [place] [address] Promethazin Yes 25 mg = 1 M emoria e 7-13 tab, PO, l Hydrochlori 22:22: Q4H, PRN He rmann de 25 MG 00 Nausea/Vom Oral Tablet iting, X 20 day, # 60 tab, 3 Refill(s), Pharmacy: [facility] Promethazin Yes 25 mg = 1 M emoria e 7-13 tab, PO, l Hydrochlori 22:22: Q4H, PRN He rmann de 25 MG 00 Nausea/Vom Oral Tablet iting, X 20 day, # 60 tab, 3 Refill(s), Pharmacy: [place] [address] melatonin 5 Yes 5 mg = 1 Me moria mg oral 7-13 tab, PO, l tablet 20:29: Bedtime, Rayray 00 PRN for insomnia, # 60 tab, 0 Refill(s) melatonin 5 Yes 5 mg = 1 Me moria mg oral 7-13 tab, PO, l tablet 20:29: Bedtime, Rayray 00 PRN for insomnia, # 60 tab, 0 Refill(s) Docusate Yes 283 mg = 1 Mem oria Sodium 56.6 6-23 ea, SD, l MG/ML Enema 18:16: Daily, # Buddy rmann [Enemeez] 34 90 ea, 3 Refill(s), Pharmacy: [place] [address] Docusate Yes 283 mg = 1 Mem oria Sodium 56.6 6-23 ea, SD, l MG/ML Enema 18:16: Daily, # He rmann [Enemeez] 34 90 ea, 3 Refill(s), Pharmacy: [place] [address] cyclobenzap Yes 10 mg = 1 M emoria rine 10 mg 2-10 tab, PO, l oral tablet 17:31: Bedtime, X Rayray 00 30 day, # 30 day, 5 Refill(s), Pharmacy: [place] [address] cyclobenzap Yes 10 mg = 1 M emoria rine 10 mg 2-10 tab, PO, l oral tablet 17:31: Bedtime, X Rayray 00 30 day, # 30 day, 5 Refill(s), Pharmacy: [facility] midodrine Yes 5 mg = 1 Me moria mg oral 2-10 tab, PO, l tablet 17:15: BID, # 60 Deangelo n 18 tab, 11 Refill(s), Pharmacy: [place] [address] midodrine Yes 5 mg = 1 Me moria mg oral 2-10 tab, PO, l tablet 17:15: BID, # 60 Deangelo n 18 tab, 11 Refill(s), Pharmacy: [facility] Hyoscyamine No 1 cap, PO, Memoria Sulfate 2-10 BID, # 60 l 0.12 MG / 17:14: cap, 11 Lakes[place] nn Methenamine 32 Refill(s), 118 MG / Pharmacy: [facility] blue 10 MG Pharmacy / phenyl 482 salicylate 36 MG / Sodium Phosphate, Monobasic 40.8 MG Oral Capsule [Uribel] Hyoscyamine No 1 cap, PO, Memoria Sulfate 2-10 BID, # 60 l 0.12 MG / 17:14: cap, 11 [place] nn Methenamine 32 Refill(s), 118 MG / Pharmacy: [facility] blue 10 MG Pharmacy / phenyl 482 salicylate 36 MG / Sodium Phosphate, Monobasic 40.8 MG Oral Capsule [Uribel] gabapentin Yes 900 mg = 3 M emoria 300 MG Oral 2-10 cap, PO, l Capsule 17:13: TID, # 270 Herm camilo 43 cap, 11 Refill(s), Pharmacy: [facility] gabapentin Yes 900 mg = 3 M emoria 300 MG Oral 2-10 cap, PO, l Capsule 17:13: TID, # 270 Herm camilo 43 cap, 11 Refill(s), Pharmacy: [facility] Flonase Yes 2 spray, Memori a 0.05 mg/inh 2-10 NASAL, l nasal spray 17:12: BID, PRN He rmann 58 Congestion , prn congestion , # 1 ea, 11 Refill(s), Pharmacy: [facility] Flonase Yes 2 spray, Memori a 0.05 mg/inh 2-10 NASAL, l nasal spray 17:12: BID, PRN He rmann 58 Congestion , prn congestion , # 1 ea, 11 Refill(s), Pharmacy: [facility] Hyoscyamine Yes 1 cap, PO, Memoria Sulfate 9-30 QID, # 60 l 0.12 MG / 18:54: cap, 6 Deangelo n Methenamine 00 Refill(s) 118 MG / Methylene blue 10 MG / phenyl salicylate 36 MG / Sodium Phosphate, Monobasic 40.8 MG Oral Capsule [Uribel] Hyoscyamine Yes 1 cap, PO, Memoria Sulfate 9-30 QID, # 60 l 0.12 MG / 18:54: cap, 6 Deangelo n Methenamine 00 Refill(s) 118 MG / Methylene blue 10 MG / phenyl salicylate 36 MG / Sodium Phosphate, Monobasic 40.8 MG Oral Capsule [Uribel] Hyoscyamine Yes 1 cap, PO, Memoria Sulfate 8-05 TID, # 90 l 0.12 MG / 15:59: cap, 0 Deangelo n Methenamine 45 Refill(s), 118 MG / Pharmacy: [facility] blue 10 MG Pharmacy / phenyl 482 salicylate 36 MG / Sodium Phosphate, Monobasic 40.8 MG Oral Capsule [Uribel] Hyoscyamine Yes 1 cap, PO, Memoria Sulfate 8-05 TID, # 90 l 0.12 MG / 15:59: cap, 0 Deangelo n Methenamine 45 Refill(s), 118 MG / Pharmacy: [facility] blue 10 MG Pharmacy / phenyl 482 salicylate 36 MG / Sodium Phosphate, Monobasic 40.8 MG Oral Capsule [Uribel] gabapentin Yes 900 mg = 3 M emoria 300 MG Oral 8-05 cap, PO, l Capsule 15:55: TID, # 270 Herm camilo 39 cap, 11 Refill(s), Pharmacy: [facility] gabapentin Yes 900 mg = 3 M emoria 300 MG Oral 8-05 cap, PO, l Capsule 15:55: TID, # 270 Herm camilo 39 cap, 11 Refill(s), Pharmacy: [facility] 2 Hyoscyamine Yes 1 cap, PO, Memoria Sulfate 4-12 TID, # 90 l 0.12 MG / 16:59: cap, 1 Deangelo n Methenamine 00 Refill(s) 118 MG / Methylene blue 10 MG / phenyl salicylate 36 MG / Sodium Phosphate, Monobasic 40.8 MG Oral Capsule [Uribel] Hyoscyamine Yes 1 cap, PO, Memoria Sulfate 4-12 TID, # 90 l 0.12 MG / 16:59: cap, 1 Deangelo n Methenamine 00 Refill(s) 118 MG / Methylene blue 10 MG / phenyl salicylate 36 MG / Sodium Phosphate, Monobasic 40.8 MG Oral Capsule [Uribel] Levofloxaci Yes 500 mg = 1 Memoria n 500 MG 4-12 tab, PO, l Oral Tablet 16:43: Q24H, # 8 H ermann [Levaquin] 00 tab, 0 Refill(s) Levofloxaci Yes 500 mg = 1 Memoria n 500 MG 4-12 tab, PO, l Oral Tablet 16:43: Q24H, # 8 H ermann [Levaquin] 00 tab, 0 Refill(s) baclofen No Route: Memoria 4-12 INTRATHECA l 16:22: L, Drug [place] 00 form: INJ, Continuous , PRN Other -See Comment, Start date: 08/12/14 11:22:00, Duration: 30 day, Stop date: 09/11/14 11:21:00 baclofen No Route: Memoria 4-12 INTRATHECA l 16:22: L, Drug [place] 00 form: INJ, Continuous , PRN Other -See Comment, Start date: 08/12/14 11:22:00, Duration: 30 day, Stop date: 09/11/14 11:21:00 Bisacodyl No Notes: Memori a 4-11 (Same As: l 14:00: Dulcolax, [place] 00 Bisco-Lax) Bisacodyl No Notes: Memori a 4-11 (Same As: l 14:00: Dulcolax, [place] 00 Bisco-Lax) Hyoscy/Meth No Hyoscy/Met Memoria enamine/M-b 4-11 henamine/M l lue/phenyl 02:00: -blue/phen H ermann salycl 00 yl salycl, 1 tab, Drug form: MISC, Route: PO, Q12H, 08/10/14 21:00:00, Duration: 30 day, Stop date: 09/09/14 9:00:00 Hyoscy/Meth No Hyoscy/Met Memoria enamine/M-b 4-11 henamine/M l lue/phenyl 02:00: -blue/phen H ermann salycl 00 yl salycl, 1 tab, Drug form: MISC, Route: PO, Q12H, 08/10/14 21:00:00, Duration: 30 day, Stop date: 09/09/14 9:00:00 lidocaine No Notes: Memori a 1% 4-10 (Same as: l 20:00: Xylocaine) lidocaine No Notes: Memori a 1% 4-10 (Same as: l 20:00: Xylocaine) Merrem No Notes: Memoria 4-10 Same as l 17:00: Merrem MEDICATION WASTE Product Size: 500 mg Product Wasted: 0 mg Merrem No Notes: Memoria 4-10 Same as l 17:00: Merrem MEDICATION WASTE Product Size: 500 mg Product Wasted: 0 mg Magnesium No Notes: Memori a Oxide 500 4-10 (Same as: l MG Oral 14:03: Mag-Ox Rayray Tablet 00 400) Magnesium oxide [id number]=434w g elemental magnesium Dose=____m g magnesium oxide (___mg elemental magnesium) Magnesium No Notes: Memori a Oxide 500 4-10 (Same as: l MG Oral 14:03: Mag-Ox Rayray Tablet 00 400) Magnesium oxide 249mk=260j g elemental magnesium Dose=____m g magnesium oxide (___mg elemental magnesium) multivitami No Notes: Bin stephanie n 4-10 (Same l 14:00: as:Thera) Midodrine No Notes: Memori a 4-10 (Same l 14:00: as:Proamat ine) gabapentin No Notes: Memor ia 300 MG Oral 4-10 (Same as: l Capsule 14:00: Neurontin) Celexa No Notes: Memoria 4-10 (Same As: l 14:00: CeleXA) Ibuprofen No Notes: Memori a 400 MG Oral 4-10 (Same as: l Tablet 14:00: Motrin) "Do Not Crush" Take with food. Hyoscyamine No 1 tab, Bin stephanie Sulfate 4-10 Route: PO, l 0.12 MG / 14:00: Drug Form: Buddy zacarias Methenamine 00 TAB, 81 MG / Dosing Methylene Weight blue 10.8 84.148, MG / phenyl kg, Q12H, salicylate Start 32.4 MG / date: Sodium 08/10/14 Phosphate, 9:00:00, Monobasic Duration: 40.8 MG 30 day, Oral Tablet Stop date: 09/08/14 21:00:00 Fleet Enema No 133 mL, Mem oria 4-10 Route: SD, l 14:00: Drug Form: Rayray GODWIN, Daily, Start date: 08/10/14 9:00:00, Duration: 30 day, Stop date: 09/08/14 9:00:00 multivitami No Notes: Bin stephanie n 4-10 (Same l 14:00: as:Thera) Midodrine No Notes: Memori a 4-10 (Same l 14:00: as:Proamat ine) gabapentin No Notes: Memor ia 300 MG Oral 4-10 (Same as: l Capsule 14:00: Neurontin) Celexa No Notes: Memoria 4-10 (Same As: l 14:00: CeleXA) Ibuprofen No Notes: Memori a 400 MG Oral 4-10 (Same as: l Tablet 14:00: Motrin) "Do Not Crush" Take with food. Hyoscyamine No 1 tab, Bin stephanie Sulfate 4-10 Route: PO, l 0.12 MG / 14:00: Drug Form: Buddy zacarias Methenamine 00 TAB, 81 MG / Dosing Methylene Weight blue 10.8 84.148, MG / phenyl kg, Q12H, salicylate Start 32.4 MG / date: Sodium 08/10/14 Phosphate, 9:00:00, Monobasic Duration: 40.8 MG 30 day, Oral Tablet Stop date: 09/08/14 21:00:00 Fleet Enema No 133 mL, Mem oria 4-10 Route: SD, l 14:00: Drug Form: [place] 00 GODWIN, Daily, Start date: 08/10/14 9:00:00, Duration: 30 day, Stop date: 09/08/14 9:00:00 heparin No Notes: Memoria 4-10 porcine l 05:00: heparin meropenem No Notes: Memori a 4-10 (Same as: l 05:00: Merrem) . Rayray 00 MEDICATION WASTE Product Size: 1000 mg Product Wasted: ___ mg heparin No Notes: Memoria 4-10 porcine l 05:00: heparin meropenem No Notes: Memori a 4-10 (Same as: l 05:00: Merrem) . Rayray 00 MEDICATION WASTE Product Size: 1000 mg Product Wasted: ___ mg Potassium No Notes: Memori a Chloride 4-10 (Same as: l 1.33 MEQ/ML 04:28: Potassium H ermann Oral 00 Chloride) Solution Potassium No Notes: Memori a Chloride 4-10 (Same as: l 1.33 MEQ/ML 04:28: Potassium H ermann Oral 00 Chloride) Solution gabapentin No Notes: Memor ia 300 MG Oral 4-10 (Same as: l Capsule 03:21: Neurontin) gabapentin No Notes: Memor ia 300 MG Oral 4-10 (Same as: l Capsule 03:21: Neurontin) camilo Melatonin No Notes: Memori a 4-10 (Same as: l 02:48: Melatonin) Melatonin No Notes: Memori a 4-10 (Same as: l 02:48: Melatonin) Docusate No 283 mg, Memori a Sodium 56.6 409 Route: SD, l MG/ML Enema 23:25: Drug form: [place] [Enemeez] 00 GODWIN, Daily, Dosing Weight 83.636, kg, PRN Constipati on, Start date: 08/09/14 18:25:00, Duration: 30 day, Stop date: 09/08/14 18:24:00 Docusate No 283 mg, Memori a Sodium 56.6 08-09 Route: SD, l MG/ML Enema 23:25: Drug form: [place] [Enemeez] 00 GODWIN, Daily, Dosing Weight 83.636, kg, PRN Constipati on, Start date: 08/09/14 18:25:00, Duration: 30 day, Stop date: 09/08/14 18:24:00 Acetaminoph No Notes: Bin stephanie en 325 MG / 08-09 (Same as: l Hydrocodone 23:24: [place] nn Bitartrate 00 325/5) Do 5 MG Oral not exceed Tablet 4gm/day of [[place] acetaminop 5/325] hen. Acetaminoph No Notes: Bin stephanie en 325 MG / 08-09 (Same as: l Hydrocodone 23:24: [place]ia nn Bitartrate 00 325/5) Do 5 MG Oral not exceed Tablet 4gm/day of [[place] acetaminop 5/325] hen. Citalopram 2013-05 Yes 40 mg = 1 Me moria 40 MG Oral 2-06 tab, PO, l Tablet 00:08: Daily, # Rayray [Celexa] 00 30 tab, 0 Refill(s), Pharmacy: [facility] 482 Citalopram 2013-05 Yes 40 mg = 1 Me moria 40 MG Oral 2-06 tab, PO, l Tablet 00:08: Daily, # [place] [Celexa] 00 30 tab, 0 Refill(s), Pharmacy: [facility] 482 Acetaminoph Yes 10, PO, Mem oria en 300 MG / 8-20 Q6H, # 60 l Hydrocodone 16:42: box, 5 Herm camilo Bitartrate 00 Refill(s) 10 MG Oral Tablet [Vicodin 10/300] Acetaminoph Yes 10, PO, Mem oria en 300 MG / 8-20 Q6H, # 60 l Hydrocodone 16:42: box, 5 Herm camilo Bitartrate 00 Refill(s) 10 MG Oral Tablet [Vicodin 10/300] gabapentin Yes 900 mg = 3 M emoria 300 MG Oral 8-20 cap, PO, l Capsule 16:38: TID, # 270 Herm camilo 00 cap, 11 Refill(s), Pharmacy: [facility] [id number] 120 ACTUAT Yes Special Bin stephanie Fluticasone 8-20 Instructio l propionate 16:38: ns: prn Herm camilo 0.05 00 congestion MG/ACTUAT Nasal Inhaler [Flonase] gabapentin Yes 900 mg = 3 M emoria 300 MG Oral 8-20 cap, PO, l Capsule 16:38: TID, # 270 Herm camilo 00 cap, 11 Refill(s), Pharmacy: [facility] [id number] 120 ACTUAT Yes Special Bin stephanie Fluticasone 8-20 Instructio l propionate 16:38: ns: prn Herm camilo 0.05 00 congestion MG/ACTUAT Nasal Inhaler [Flonase] Hyoscyamine Yes 1 cap, PO, Memoria Sulfate 8-20 TID, 0 l 0.12 MG / 16:08: Refill(s) Her condon Methenamine 00 118 MG / Methylene blue 10 MG / phenyl salicylate 36 MG / Sodium Phosphate, Monobasic 40.8 MG Oral Capsule [Uribel] Hyoscyamine Yes 1 cap, PO, Memoria Sulfate 8-20 TID, 0 l 0.12 MG / 16:08: Refill(s) Her condon Methenamine 00 118 MG / Methylene blue 10 MG / phenyl salicylate 36 MG / Sodium Phosphate, Monobasic 40.8 MG Oral Capsule [Uribel] Hyoscyamine Yes PO, Q12H, M emoria Sulfate 4-04 0 l 0.12 MG / 15:16: Refill(s) Her condon Methenamine 00 118 MG / Methylene blue 10 MG / phenyl salicylate 36 MG / Sodium Phosphate, Monobasic 40.8 MG Oral Capsule [Uribel] Hyoscyamine Yes PO, Q12H, M emoria Sulfate 4-04 0 l 0.12 MG / 15:16: Refill(s) Her condon Methenamine 00 118 MG / Methylene blue 10 MG / phenyl salicylate 36 MG / Sodium Phosphate, Monobasic 40.8 MG Oral Capsule [Uribel] tolterodine Yes M. Tone 4 mg, 1 Memoria 4 mg oral 01-26 Malahfji cap, PO, l capsule, 18:20: Daily, 60 Herm camilo extended 04 cap, release Substituti on Allowed, CAP tolterodine Yes M. Tone 4 mg, 1 Memoria 4 mg oral 01-26 Mal[place]fji cap, PO, l capsule, 18:20: Daily, 60 Herm camilo extended 04 cap, release Substituti on Allowed, CAP ibuprofen Yes M. Tone 400 mg, 1 Memoria 400 mg oral 01-26 Malahfji tab, PO, l tablet 18:19: TID, 40 Rayray 09 tab, Substituti on Allowed, TAB ibuprofen Yes M. Tone 400 mg, 1 Memoria 400 mg oral 01-26 Mal[place]fji tab, PO, l tablet 18:19: TID, 40 Rayray 09 tab, Substituti on Allowed, TAB ertapenem 1 Yes M. Tone 1,000 mg, Memoria g injection 01-26 Malahfji IV, Q24H, l 18:18: 14 doses [place] 00 or times, Substituti on Allowed ertapenem 1 Yes M. Tone 1,000 mg, Memoria g injection 01-26 Malahfji IV, Q24H, l 18:18: 14 doses Rayray 00 or times, Substituti on Allowed Enemeez Yes 1 appl, Memoria Plus 9-26 SD, Daily, l 18:14: Substituti [place] 32 on Allowed, Maintenanc e Enemeez Yes 1 appl, Memoria Plus 9-26 SD, Daily, l 18:14: Substituti [place] 32 on Allowed, Maintenanc e ertapenem No M. Tone 1 gm, Bin stephanie 01-26 Malahfji Route: l 17:00: IVPB, Drug form: INJ, [id number], Dosing Weight 84.091, kg, Start date: 01/26/13 12:00:00, Duration: 30 day, Stop date: 02/24/13 12:00:00 ertapenem No M. Tone 1 gm, Bin stephanie 01-26 Malahfji Route: l 17:00: IVPB, Drug Rayray 00 form: INJ, [id number], Dosing Weight 84.091, kg, Start date: 01/26/13 12:00:00, Duration: 30 day, Stop date: 02/24/13 12:00:00 meropenem 0 No M. Tone 500 mg, Me moria 01-26 Malahfji Route: l 15:00: IVPB, Drug Rayray 00 form: PDR/INJ, [id number], Dosing Weight 84.091, kg, CrCL= 26 -49 ml/min, Extended infusion, infuse over 3 hours, Start date: 01/26/13 10:00:00, Duration: 14 day, Stop date: 02/09/13 2:00:00 meropenem No M. Tone 500 mg, Me moria 01-26 Malchrisfji Route: l 15:00: IVPB, Drug Rayray 00 form: PDR/INJ, [id number], Dosing Weight 84.091, kg, CrCL= 26 -49 ml/min, Extended infusion, infuse over 3 hours, Start date: 01/26/13 10:00:00, Duration: 14 day, Stop date: 02/09/13 2:00:00 ibuprofen 0 No M. Tone 400 mg, 1 Memoria 400 mg oral 01-25 Malahfji tab, l tablet 21:50: Route: PO, Lakes[place] nn Drug form: TAB, TID, Dosing Weight 84.091, kg, Start date: 01/25/13 16:50:00, Duration: 30 day, Stop date: 02/24/13 13:00:00 ibuprofen 0 No M. Tone 400 mg, 1 Memoria 400 mg oral -25 Malahfji tab, l tablet 21:50: Route: PO, Lakes[place]ia nn Drug form: TAB, TID, Dosing Weight 84.091, kg, Start date: 01/25/13 16:50:00, Duration: 30 day, Stop date: 02/24/13 13:00:00 Saline 2012-0 No Chay 10 mL, Memoria Flush 0.9% 01-25 Senthil Route: l 21:00: Walsh IVP, Drug Rayray 00 Form: INJ, Dosing Weight 84.091, kg, Q8H, Start date: 01/25/13 16:00:00, Duration: 30 day, Stop date: 02/24/13 8:00:00 Saline 2012-0 No Chay 10 mL, Memoria Flush 0.9% 9-25 Senthil Route: l 21:00: Walsh IVP, Drug [place] 00 Form: INJ, Dosing Weight 84.091, kg, Q8H, Start date: 01/25/13 16:00:00, Duration: 30 day, Stop date: 02/24/13 8:00:00 ertapenem 2012-0 No Lizy Wayne 1 gm, Bin stephanie 9-25 Malahfji Route: l 16:00: IVPB, Drug Ray[place] 00 form: INJ, [id number], Dosing Weight 84.091, kg, Start date: 01/25/13 11:00:00, Duration: 30 day, Stop date: 02/23/13 11:00:00 ertapenem 2012-0 No Lizy Wayne 1 gm, Bin stephanie 9- Malchrisfji Route: l 16:00: IVPB, Drug [place] 00 form: INJ, [id number], Dosing Weight 84.091, kg, Start date: 01/25/13 11:00:00, Duration: 30 day, Stop date: 02/23/13 11:00:00 Saline 2012-0 No Chay 10 mL, Memoria Flush 0.9% - Senthil Route: l 14:52: Walsh IVP, Drug Rayray 00 Form: INJ, Dosing Weight 84.091, kg, PRN, PRN Line Flush, Start date: 01/25/13 9:52:00, Duration: 30 day, Stop date: 02/24/13 9:51:00 Saline 2012-0 No Chay 10 mL, Memoria Flush 0.9% 9-25 Senthil Route: l 14:52: Walsh IVP, Drug [place] 00 Form: INJ, Dosing Weight 84.091, kg, PRN, PRN Line Flush, Start date: 01/25/13 9:52:00, Duration: 30 day, Stop date: 02/24/13 9:51:00 Detrol LA 2012-0 No Yezaz 4 mg, 1 Bin stephanie 9-25 Ahmed cap, l 14:00: [place]ouri Route: PO, Lakes[place]ia nn 00 Drug form: CAP, Daily, Start date: 01/25/13 9:00:00, Duration: 30 day, Stop date: 02/23/13 9:00:00 solifenacin 2012-0 No Yezaz 10 mg, Mem oria 9-25 Ahmed Route: PO, l 14:00: Ghouri Drug form: [place] nn 00 TAB, Daily, Dosing Weight 84.091, kg, Start date: 01/25/13 9:00:00, Duration: 30 day, Stop date: 02/23/13 9:00:00 multivitami 2012-0 No Yezaz 1 tab, Mem oria n 9-25 Ahmed Route: PO, l 14:00: Ghouri Drug Form: [place] nn 00 TAB, Dosing Weight 84.091, kg, Daily, Start date: 01/25/13 9:00:00, Duration: 30 day, Stop date: 02/23/13 9:00:00 midodrine No Yezaz 5 mg, 1 Bin stephanie 9-25 Ahmed tab, l 14:00: [place]ouri Route: PO, [place]ia nn 00 Drug form: TAB, BID, Dosing Weight 84.091, kg, Start date: 01/25/13 9:00:00, Duration: 30 day, Stop date: 02/23/13 17:00:00 Flonase 2012-0 No Lizy Wayne 2 Memoria 0.05 mg/inh 9-25 Malahfji inhalation l nasal spray 14:00: , Route: He rmann 00 NASAL, Drug Form: SPRY, Dosing Weight 84.091, kg, Daily, Start date: 01/25/13 9:00:00, Stop date: 02/24/13 9:00:00 Celexa 0 No Yezaz 20 mg, 1 Memori a 9-25 Ahmed tab, l 14:00: [place] Route: PO, Lakes[place]ia nn 00 Drug form: TAB, Daily, Dosing Weight 84.091, kg, Start date: 01/25/13 9:00:00, Duration: 30 day, Stop date: 02/23/13 9:00:00 Detrol LA 2012-0 No Yezaz 4 mg, 1 Bin stephanie 9-25 Ahmed cap, l 14:00: [place] Route: PO, Lakes[place]ia nn 00 Drug form: CAP, Daily, Start date: 01/25/13 9:00:00, Duration: 30 day, Stop date: 02/23/13 9:00:00 solifenacin 2012-0 No Yezaz 10 mg, Mem oria 9-25 Ahmed Route: PO, l 14:00: [place]ouri Drug form: [place] nn 00 TAB, Daily, Dosing Weight 84.091, kg, Start date: 01/25/13 9:00:00, Duration: 30 day, Stop date: 02/23/13 9:00:00 multivitami 2012-0 No Yezaz 1 tab, Mem oria n 9-25 Ahmed Route: PO, l 14:00: [place]ouri Drug Form: [place] nn 00 TAB, Dosing Weight 84.091, kg, Daily, Start date: 01/25/13 9:00:00, Duration: 30 day, Stop date: 02/23/13 9:00:00 midodrine 2012-0 No Yezaz 5 mg, 1 Bin stephanie 9-25 Ahmed tab, l 14:00: [place] Route: PO, Lakeshia nn 00 Drug form: TAB, BID, Dosing Weight 84.091, kg, Start date: 01/25/13 9:00:00, Duration: 30 day, Stop date: 02/23/13 17:00:00 Flonase 2012-0 No M. Tone 2 Memoria 0.05 mg/inh 25 Malahfji inhalation l nasal spray 14:00: , Route: rmann 00 NASAL, Drug Form: SPRY, Dosing Weight 84.091, kg, Daily, Start date: 01/25/13 9:00:00, Stop date: 02/24/13 9:00:00 Celexa 2012-0 No Yezaz 20 mg, 1 Memori a 9-25 Ahmed tab, l 14:00: [place] Route: PO, Lakes[place]ia nn 00 Drug form: TAB, Daily, Dosing Weight 84.091, kg, Start date: 01/25/13 9:00:00, Duration: 30 day, Stop date: 02/23/13 9:00:00 Tylenol 2012-0 No Attila 650 mg, 2 Me moria 9-25 McHosernbe tab, l 11:21: rt Meese Route: PO, Her condon 00 Drug form: TAB, Q6H, Dosing Weight 84.091, kg, PRN Fever, Start date: 01/25/13 6:21:00, Duration: 30 day, Stop date: 02/24/13 6:20:00 Tylenol 2012-0 No [place] 650 mg, 2 Me moria 9-25 McHosernbe tab, l 11:21: rt Meese Route: PO, condon 00 Drug form: TAB, Q6H, Dosing Weight 84.091, kg, PRN Fever, Start date: 01/25/13 6:21:00, Duration: 30 day, Stop date: 02/24/13 6:20:00 [place] 5/325 2012-0 No [place] 1 tab, M emoria oral tablet -25 McHosernbe Route: PO, l 11:19: rt Meese Drug Form: Her condon 00 TAB, Dosing Weight 84.091, kg, Q6H, PRN Pain, Start date: 01/25/13 6:19:00, Duration: 30 day, Stop date: 02/24/13 6:18:00 [place] 5/325 2013-0 No Attila 1 tab, M emoria oral tablet -25 McHosernbe Route: PO, l 11:19: rt Meese Drug Form: Her condon 00 TAB, Dosing Weight 84.091, kg, Q6H, PRN Pain, Start date: 01/25/13 6:19:00, Duration: 30 day, Stop date: 02/24/13 6:18:00 gabapentin 2012-0 No [place] 900 mg, 3 Memoria 300 mg oral 9-25 McHosernbe cap, l capsule 05:00: rt Meese Route: PO, [place] 00 Drug form: CAP, QID, Dosing Weight 84.091, kg, Start date: 01/25/13 0:00:00, Duration: 30 day, Stop date: 02/23/13 18:00:00 heparin 2012-0 No Yezaz 5,000 Memoria 9-25 Ahmed unit, 1 l 05:00: [place]ouri mL, Route: [place] nn 00 SUB-Q, Drug form: INJ, Q8H, Dosing Weight 84.091, kg, Start date: 01/25/13 0:00:00, Duration: 30 day, Stop date: 02/23/13 16:00:00 gabapentin 2012-0 No Attila 600 mg, 2 Memoria 600 mg oral 9-25 McHosernbe cap, l tablet 05:00: rt Meese Route: PO, H ermann 00 Drug form: CAP, TID, Dosing Weight 84.091, kg, Start date: 01/25/13 0:00:00, Duration: 30 day, Stop date: 02/23/13 16:00:00 gabapentin 2012-0 No [place] 900 mg, 3 Memoria 300 mg oral 9-25 McHosernbe cap, l capsule 05:00: rt Meese Route: PO, Rayray 00 Drug form: CAP, QID, Dosing Weight 84.091, kg, Start date: 01/25/13 0:00:00, Duration: 30 day, Stop date: 02/23/13 18:00:00 heparin 2012-0 No Yezaz 5,000 Memoria 9-25 Ahmed unit, 1 l 05:00: Ghouri mL, Route: Lakeshia nn 00 SUB-Q, Drug form: INJ, Q8H, Dosing Weight 84.091, kg, Start date: 01/25/13 0:00:00, Duration: 30 day, Stop date: 02/23/13 16:00:00 gabapentin 2012-0 No Attila 600 mg, 2 Memoria 600 mg oral 9-25 McHosernbe cap, l tablet 05:00: rt Meese Route: PO, H ermann 00 Drug form: CAP, TID, Dosing Weight 84.091, kg, Start date: 01/25/13 0:00:00, Duration: 30 day, Stop date: 02/23/13 16:00:00 promethazin 2012-0 No [place] 12.5 mg, 1 Memoria e 9-25 McHosernbe tab, l 02:19: rt Meese Route: PO, Her condon 00 Drug form: TAB, Q4H, Dosing Weight 84.091, kg, PRN Nausea & Vomiting, Start date: 01/24/13 21:19:00, Duration: 30 day, Stop date: 02/23/13 21:18:00 promethazin 2012-0 No [place] 12.5 mg, 1 Memoria e 9-25 McHosernbe tab, l 02:19: rt Meese Route: PO, Her condon 00 Drug form: TAB, Q4H, Dosing Weight 84.091, kg, PRN Nausea & Vomiting, Start date: 01/24/13 21:19:00, Duration: 30 day, Stop date: 02/23/13 21:18:00 [place] 2012-0 No [place] 1 tab, Memoria 7.5/325 9-25 McHosernbe Route: PO, l oral tablet 02:18: rt Meese Drug Form: [place] 00 TAB, Dosing Weight 84.091, kg, Q6H, PRN Pain, Start date: 01/24/13 21:18:00, Duration: 30 day, Stop date: 02/23/13 21:17:00 [place] 2012-0 No Attila 1 tab, Memoria 7.5/325 9-25 McHosernbe Route: PO, l oral tablet 02:18: rt Meese Drug Form: Rayray 00 TAB, Dosing Weight 84.091, kg, Q6H, PRN Pain, Start date: 01/24/13 21:18:00, Duration: 30 day, Stop date: 02/23/13 21:17:00 meropenem 2012-0 No M. Tone 500 mg, Me moria 9-25 Malahfji Route: l 02:00: IVPB, Drug Rayray 00 form: PDR/INJ, ABXQ8H, Dosing Weight 84.091, kg, CrCL= 26 -49 ml/min, Extended infusion, infuse over 3 hours, Start date: 01/24/13 21:00:00, Duration: 30 day, Stop date: 02/23/13 20:00:00 baclofen 2012-0 No Yezaz 10 mg, 5 Bin stephanie 9-25 Ahmed mL, Route: l 02:00: Ghouri INTRATHECA Lakes[place] nn 00 L, Drug form: INJ, Continuous , Dosing Weight 84.091, kg, Start date: 01/24/13 21:00:00, Duration: 30 day, Stop date: 02/23/13 20:59:00 meropenem No M. Tone 500 mg, Me moria 01-25 Malahfji Route: l 02:00: IVPB, Drug Rayray 00 form: PDR/INJ, ABXQ8H, Dosing Weight 84.091, kg, CrCL= 26 -49 ml/min, Extended infusion, infuse over 3 hours, Start date: 01/24/13 21:00:00, Duration: 30 day, Stop date: 02/23/13 20:00:00 baclofen No Yezaz 10 mg, 5 Bin stephanie 9-25 Ahmed mL, Route: l 02:00: [place]ouri INTRATHECA [place] nn 00 L, Drug form: INJ, Continuous , Dosing Weight 84.091, kg, Start date: 01/24/13 21:00:00, Duration: 30 day, Stop date: 02/23/13 20:59:00 senna No Yezaz 17.2 mg, 2 Memor ia 9-25 Ahmed tab, l 01:58: [place] Route: PO, [place] nn 00 Drug Form: TAB, Dosing Weight 84.091, kg, Bedtime, PRN as needed for constipati on, Start date: 01/24/13 20:58:00, Duration: 30 day, Stop date: 02/23/13 20:57:00 senna No Yezaz 17.2 mg, 2 Memor ia 9-25 Ahmed tab, l 01:58: [place] Route: PO, [place] nn 00 Drug Form: TAB, Dosing Weight 84.091, kg, Bedtime, PRN as needed for constipati on, Start date: 01/24/13 20:58:00, Duration: 30 day, Stop date: 02/23/13 20:57:00 acetaminoph No Attila 1 tab, M emoria en-hydrocod 01-25 McHosernbe Route: PO, l one 325 01:56: rt Meese Drug Form: [place] mg-5 mg 00 TAB, oral tablet Dosing Weight 84.091, kg, Q6H, PRN Pain, Start date: 01/24/13 20:56:00, Duration: 30 day, Stop date: 02/23/13 20:55:00 acetaminoph 2012-0 No [place] 1 tab, M emoria en-hydrocod 01-25 McHosernbe Route: PO, l one 325 01:56: rt Meese Drug Form: [place] mg-5 mg 00 TAB, oral tablet Dosing Weight 84.091, kg, Q6H, PRN Pain, Start date: 01/24/13 20:56:00, Duration: 30 day, Stop date: 02/23/13 20:55:00 meropenem 2012-0 No Gabrielle 1 gm, Memoria 01-25 Jyoti Route: IV, l 00:51: [place] Drug form: [place] nn 00 PDR/INJ, ONCE, Dosing Weight 84.091, kg, Start date: 01/24/13 19:51:00, Stop date: 01/24/13 19:51:00 meropenem 2012-0 No Gabrielle 1 gm, Memoria 01-25 Jyoti Route: IV, l 00:51: [place] Drug form: [place] nn 00 PDR/INJ, ONCE, Dosing Weight 84.091, kg, Start date: 01/24/13 19:51:00, Stop date: 01/24/13 19:51:00 Phenergan 2012-0 No Gabrielle 12.5 mg, Bin stephanie 9-24 Jyoti 0.5 mL, l 21:39: [place] Route: [place] 00 IVPB, Drug form: INJ, ONCE, Dosing Weight 84.091, kg, Priority: STAT, Start date: 01/24/13 16:39:00, Stop date: 01/24/13 16:39:00 Phenergan 2013-0 No Gabrielle 12.5 mg, Bin stephaine 9-24 Jyoti 0.5 mL, l 21:39: [place] Route: [place] 00 IVPB, Drug form: INJ, ONCE, Dosing Weight 84.091, kg, Priority: STAT, Start date: 01/24/13 16:39:00, Stop date: 01/24/13 16:39:00 Dilaudid 2012-0 No Gabrielle 0.5 mg, Memori a 9-24 Jyoti 0.25 mL, l 21:38: [place] Route: IV, [place] nn 00 Drug form: INJ, ONCE, Dosing Weight 84.091, kg, Start date: 01/24/13 16:38:00, Stop date: 01/24/13 16:38:00 Sodium 2012-0 No Gabrielle 1,000 mL, Memori a Chloride 9-24 Jyoti Rate: l 0.9% 21:38: [place] 1,000 [place] (Bolus) IV 00 ml/hr, 1,000 mL Infuse over: 1 hr, Route: IV, Dosing Weight 84.091 kg, Total Volume: 1,000, Priority: STAT, Start date: 01/24/13 16:38:00, Duration: 1 doses or times, Stop date: 01/24/13 17:37:00, Bolus DoseBolus Dose Dilaudid No Gabrielle 0.5 mg, Memori a 9-24 Jyoti 0.25 mL, l 21:38: [place] Route: IV, [place] nn 00 Drug form: INJ, ONCE, Dosing Weight 84.091, kg, Start date: 01/24/13 16:38:00, Stop date: 01/24/13 16:38:00 Sodium 2012-0 No Gabrielle 1,000 mL, Memori a Chloride 9-24 Jyoti Rate: l 0.9% 21:38: [place] 1,000 [place] (Bolus) IV 00 ml/hr, 1,000 mL Infuse over: 1 hr, Route: IV, Dosing Weight 84.091 kg, Total Volume: 1,000, Priority: STAT, Start date: 01/24/13 16:38:00, Duration: 1 doses or times, Stop date: 01/24/13 17:37:00, Bolus DoseBolus Dose Cipro 500 2011-05 Yes Phil 500 mg, 1 Me moria mg oral 07 David tab, PO, l tablet 09:07: Adelfo Q12H, 28 Her condon 00 tab, Substituti on Allowed, TAB Cipro 500 2011-05 Yes Phil 500 mg, 1 Me moria mg oral 07 David tab, PO, l tablet 09:07: Adelfo Q12H, 28 Her condon 00 tab, Substituti on Allowed, TAB Dilaudid 2011-05 No Phil 0.5 mg, Memor ia 1-07 David Route: IV, l 08:51: Adelfo ONCE, [place] 00 Dosing Weight 86.364, kg, Start date: 03/09/12 2:51:00, Stop date: 03/09/12 2:51:00 Dilaudid 2011-05 No Phil 0.5 mg, Memor ia 1-07 David Route: IV, l 08:51: Adelfo ONCE, [place] 00 Dosing Weight 86.364, kg, Start date: 03/09/12 2:51:00, Stop date: 03/09/12 2:51:00 ceftriaxone 2011-05 No Phil 1 gm, Bin stephanie 1-07 David Route: l 08:39: Adelfo IVPB, Drug Her condon 00 form: PDR/INJ, ONCE, Dosing Weight 86.364, kg, Priority: STAT, Start date: 03/09/12 2:39:00, Stop date: 03/09/12 2:39:00 ceftriaxone 2011-05 No Phil 1 gm, Bin stephanie 1-07 David Route: l 08:39: Adelfo IVPB, Drug Her condon 00 form: PDR/INJ, ONCE, Dosing Weight 86.364, kg, Priority: STAT, Start date: 03/09/12 2:39:00, Stop date: 03/09/12 2:39:00 normal 2011-05 No Phil 1,000 mL, Memor ia saline 0.9% 1-07 David Rate: l IV 1,000 mL 08:31: Adelfo 1,000 H ermann 00 ml/hr, Infuse over: 1 hr, Route: IV, kg, Total Volume: 1,000, Start date: 03/09/12 2:31:00, Duration: 1 doses or times, Stop date: 03/09/12 3:30:00 normal 2011-05 No Phil 1,000 mL, Memor ia saline 0.9% 1-07 David Rate: l IV 1,000 mL 08:31: Adelfo 1,000 H ermann 00 ml/hr, Infuse over: 1 hr, Route: IV, kg, Total Volume: 1,000, Start date: 03/09/12 2:31:00, Duration: 1 doses or times, Stop date: 03/09/12 3:30:00 Dilaudid 2011-05 No Phil 0.5 mg, Memor ia -07 David Route: IV, l 07:04: Adelfo ONCE, [place] 00 Dosing Weight 86.364, kg, Start date: 03/09/12 1:04:00, Stop date: 03/09/12 1:04:00 Dilaudid 2011-05 No Phil 0.5 mg, Memor ia 05-09 David Route: IV, l 07:04: Adelfo ONCE, [place] 00 Dosing Weight 86.364, kg, Start date: 03/09/12 1:04:00, Stop date: 03/09/12 1:04:00 Omnipaque 2011-05 No Phil 98 mL, Memor ia 350mg/ml 05-09 David Route: l 06:51: Adelfo IVP, Drug Herm camilo 00 Form: SOLN, Dosing Weight 86.364, kg, ONCALL, STAT, Start date: 03/09/12 0:51:00, Duration: 1 doses or times, Weight = 75 - 94kgWeight = 75 - 94kg Omnipaque 2011-05 No Phil 98 mL, Memor ia 350mg/ml 05-09 David Route: l 06:51: Adelfo IVP, Drug Herm camilo 00 Form: SOLN, Dosing Weight 86.364, kg, ONCALL, STAT, Start date: 03/09/12 0:51:00, Duration: 1 doses or times, Weight = 75 - 94kgWeight = 75 - 94kg Levaquin 2011-05 No Phil 750 mg, 1 Mem oria 1-07 David tab, l 06:21: Adelfo Route: PO, Her condon 00 Drug form: TAB, ONCE, Dosing Weight 86.364, kg, Start date: 03/09/12 0:21:00, Stop date: 03/09/12 0:21:00 Levaquin 2011-05 No Phil 750 mg, 1 Mem oria 1-07 David tab, l 06:21: Adelfo Route: PO, Her condon 00 Drug form: TAB, ONCE, Dosing Weight 86.364, kg, Start date: 03/09/12 0:21:00, Stop date: 03/09/12 0:21:00 Dilaudid 2011-05 No Phil 0.5 mg, Memor ia 1-07 David Route: IV, l 04:40: Adelfo ONCE, Dosing Weight 86.364, kg, Start date: 03/08/12 22:40:00, Stop date: 03/08/12 22:40:00 Dilaudid 2011-05 No Phil 0.5 mg, Memor ia 1-07 David Route: IV, l 04:40: Adelfo ONCE, Dosing Weight 86.364, kg, Start date: 03/08/12 22:40:00, Stop date: 03/08/12 22:40:00 normal 2011-05 No Phil 1,000 mL, Memor ia saline 0.9% 1-07 David Rate: l IV 1,000 mL 04:21: Adelfo 1,000 H ermann 00 ml/hr, Infuse over: 1 hr, Route: IV, kg, Total Volume: 1,000, Start date: 03/08/12 22:21:00, Duration: 30 day, Stop date: 04/07/12 22:20:00 normal 2011-05 No Phil 1,000 mL, Memor ia saline 0.9% 1-07 David Rate: l IV 1,000 mL 04:21: Adelfo 1,000 H ermann 00 ml/hr, Infuse over: 1 hr, Route: IV, kg, Total Volume: 1,000, Start date: 03/08/12 22:21:00, Duration: 30 day, Stop date: 04/07/12 22:20:00 Vicodin 2011-05 Yes Substituti Bin stephanie 5/500 oral 1-07 on l tablet 04:09: Allowed, [place] 31 Maintenanc e Vicodin 2011-05 Yes Substituti Bin stephanie 5/500 oral 1-07 on l tablet 04:09: Allowed, [place] 31 Maintenanc e Coumadin 2 2011-05 Yes 2 mg, 1 Bin stephanie mg oral 0-11 tab, PO, l tablet 17:09: Daily, 30 Deangelo n 40 tab, Substituti on Allowed, TAB Coumadin 2 2011-05 Yes 2 mg, 1 Bin stephanie mg oral 0-11 tab, PO, l tablet 17:09: Daily, 30 Deangelo n 40 tab, Substituti on Allowed, TAB promethazin 2011-05 Yes 25 mg, 1 Me moria e 25 mg 0-11 tab, PRN, l oral tablet 17:08: Substituti [place] 32 on Allowed promethazin 2011-05 Yes 25 mg, 1 Me moria e 25 mg 0-11 tab, PRN, l oral tablet 17:08: Substituti [place] 32 on Allowed VESIcare 5 2011-05 Yes 5 mg, 1 Bin stephanie mg oral 0-11 tab, BID, l tablet 17:07: Substituti [place] nn 59 on Allowed VESIcare 5 2011-05 Yes 5 mg, 1 Bin stephanie mg oral 0-11 tab, BID, l tablet 17:07: Substituti [place] nn 59 on Allowed Enemeez 2011-05 Yes 1 tab, Memoria Mini 283 mg 0-11 BID, l rectal 17:06: Substituti [place] nn enema 30 on Allowed Enemeez 2011-05 Yes 1 tab, Memoria Mini 283 mg 0-11 BID, l rectal 17:06: Substituti [place] nn enema 30 on Allowed Celexa 20 2011-05 Yes 20 mg, 1 Bin stephanie mg oral 0-11 tab, PO, l tablet 17:05: Daily, 30 Deangelo n 39 tab, Substituti on Allowed, TAB Celexa 20 2011-05 Yes 20 mg, 1 Bin stephanie mg oral 0-11 tab, PO, l tablet 17:05: Daily, 30 Deangelo n 39 tab, Substituti on Allowed, TAB Senna-gen 2011-05 Yes 17.2 mg, 2 Me moria 8.6 mg oral 0-11 tab, PO, l tablet 17:04: Bedtime, [place] 49 PRN, 100 tab, for constipati on, Substituti on Allowed, Maintenanc e, TAB Senna-gen 2011-05 Yes 17.2 mg, 2 Me moria 8.6 mg oral 0-11 tab, PO, l tablet 17:04: Bedtime, [place] 49 PRN, 100 tab, for constipati on, Substituti on Allowed, Maintenanc e, TAB midodrine 5 2011-05 Yes 5 mg, 1 Mem oria mg oral 0-11 tab, BID, l tablet 17:04: Substituti [place] nn 14 on Allowed midodrine 5 2011-05 Yes 5 mg, 1 Mem oria mg oral 0-11 tab, BID, l tablet 17:04: Substituti [place] nn 14 on Allowed gabapentin 2011-05 Yes 600 mg, 1 Me moria 600 mg oral 0-11 tab, PO, l tablet 17:03: TID, 90 [place] 50 tab, Substituti on Allowed gabapentin 2011-05 Yes 600 mg, 1 Me moria 600 mg oral 0-11 tab, PO, l tablet 17:03: TID, 90 [place] 50 tab, Substituti on Allowed docusate 2011-05 Yes 1 r, Memoria 283 mg 0-11 Daily, l rectal 17:03: Substituti [place] nn enema 00 on Allowed docusate 2011-05 Yes 1 r, Memoria 283 mg 0-11 Daily, l rectal 17:03: Substituti [place] nn enema 00 on Allowed VESIcare 5 2011-05 Yes 10 mg, 2 Mem oria mg oral 0-11 tab, l tablet 17:02: Daily, [place] 06 Substituti on Allowed VESIcare 5 2011-05 Yes 10 mg, 2 Mem oria mg oral 0-11 tab, l tablet 17:02: Daily, [place] 06 Substituti on Allowed multivitami 2011-05 Yes 1 tab, Bin stephanie n 0-11 Daily, l 17:01: Substituti [place] 11 on Allowed, Maintenanc e multivitami 2011-05 Yes 1 tab, Bin stephanie n 0-11 Daily, l 17:01: Substituti [place] 11 on Allowed, Maintenanc e Macrodantin 2011-05 Yes 100 mg, 1 M emoria 100 mg oral 0-11 cap, l capsule 17:00: Daily, [place] 17 Substituti on Allowed Macrodantin 2011-05 Yes 100 mg, 1 M emoria 100 mg oral 0-11 cap, l capsule 17:00: Daily, [place] 17 Substituti on Allowed Flonase 2011-05 Yes 2 spray, Memori a 0.05 mg/inh 0-11 NASAL, l nasal spray 16:59: BID, 16 Her condon 56 gm, Substituti on Allowed, Maintenanc e, SPRY Flonase 2011-05 Yes 2 spray, Memori a 0.05 mg/inh 0-11 NASAL, l nasal spray 16:59: BID, 16 Her condon 56 gm, Substituti on Allowed, Maintenanc e, SPRY Flector 2011-05 Yes 1 patch, Memori a Patch 1.3% 0-11 TOP, BID, l topical 16:59: PRN, 30 [place] film, 19 patch, for extended pain, release Substituti on Allowed, FILM Flector 2011-05 Yes 1 patch, Memori a Patch 1.3% 0-11 TOP, BID, l topical 16:59: PRN, 30 [place] film, 19 patch, for extended pain, release Substituti on Allowed, FILM Acidophilus 2011-05 Yes 1 tab, Bin stephanie Probiotic 0-11 Daily, l Blend oral 16:58: Substituti H ermann capsule 34 on Allowed, Maintenanc e Acidophilus 2011-05 Yes 1 tab, Bin stephanie Probiotic 0-11 Daily, l Blend oral 16:58: Substituti H ermann capsule 34 on Allowed, Maintenanc e docusate Yes [place] 283 mg, 1 Mem oria 283 mg 11-12 Qafalijaj ea, SD, l rectal 20:38: Hysa Bedtime, [place] enema 26 30 bag, Substituti on Allowed, GODWIN docusate Yes [place] 283 mg, 1 Mem oria 283 mg 11-12 Qafalijaj ea, SD, l rectal 20:38: Hysa Bedtime, [place] enema 26 30 bag, Substituti on Allowed, GODWIN Flonase Yes [place] 2 spray, Memor ia 0.05 mg/inh 11-12 Qafalijaj Each l nasal spray 20:38: Hysa Affected He rmann 05 Nostril, Daily, 1 btl, Substituti on Allowed, Soft Stop, SPRY Flonase Yes [place] 2 spray, Memor ia 0.05 mg/inh 11-12 Qafalijaj Each l nasal spray 20:38: Hysa Affected He rmann 05 Nostril, Daily, 1 btl, Substituti on Allowed, Soft Stop, SPRY Coumadin 2 Yes [place] 4 mg, 2 Mem oria mg oral 11-12 Qafalijaj tab, PO, l tablet 20:37: Hysa Q5PM, 60 [place] 53 tab, Substituti on Allowed, TAB Coumadin 2 2011-0 Yes [place] 4 mg, 2 Mem oria mg oral 7-13 Qafalijaj tab, PO, l tablet 20:37: Hysa Q5PM, 60 [place] 53 tab, Substituti on Allowed, TAB VESIcare 5 2012-0 Yes [place] 10 mg, 2 Me moria mg oral 7-13 Qafalijaj tab, PO, l tablet 20:37: Hysa BID, 60 [place] 47 tab, Substituti on Allowed, TAB VESIcare 5 Yes [place] 10 mg, 2 Me moria mg oral 7-13 Qafalijaj tab, PO, l tablet 20:37: Hysa BID, 60 [place] 47 tab, Substituti on Allowed, TAB senna 8.6 2011- Yes [place] 17.2 mg, 2 M emoria mg oral 7-13 Qafalijaj tab, PO, l tablet 20:37: Hysa QNoon, 60 Deangelo n 42 tab, Substituti on Allowed, Soft Stop, TAB senna 8.6 Yes [place] 17.2 mg, 2 M emoria mg oral 7-13 Qafalijaj tab, PO, l tablet 20:37: Hysa QNoon, 60 Deangelo n 42 tab, Substituti on Allowed, Soft Stop, TAB Multiple 2011-0 Yes [place] 1 tab, PO, Me moria Vitamins 7-13 Qafalijaj Daily, 30 l with 20:37: Hysa tab, [place] Minerals 35 Substituti oral on tablet, Allowed, chewable Soft Stop, CHEWTAB Multiple 2011-0 Yes [place] 1 tab, PO, Me moria Vitamins 7-13 Qafalijaj Daily, 30 l with 20:37: Hysa tab, [place] Minerals 35 Substituti oral on tablet, Allowed, chewable Soft Stop, CHEWTAB Macrodantin 2011-0 Yes [place] 100 mg, 1 Memoria 100 mg oral 7-13 Qafalijaj cap, PO, l capsule 20:37: Hysa Bedtime, Deangelo n 24 30 cap, Substituti on Allowed, CAP Macrodantin 2011-0 Yes [place] 100 mg, 1 Memoria 100 mg oral 7-13 Qafalijaj cap, PO, l capsule 20:37: Hysa Bedtime, Deangelo n 24 30 cap, Substituti on Allowed, CAP midodrine 5 Yes [place] 5 mg, 1 Me moria mg oral 11-12 Qafalijaj tab, PO, l tablet 20:37: Hysa BID-12-13, [place] nn 19 60 tab, Substituti on Allowed, TAB midodrine 5 Yes [place] 5 mg, 1 Me moria mg oral 11-12 Qafalijaj tab, PO, l tablet 20:37: Hysa BID-12-13, [place] nn 19 60 tab, Substituti on Allowed, TAB Acidophilus 2011- Yes [place] 1 tab, PO, Memoria Probiotic 11-12 Qafalijaj Daily, 30 l Blend oral 20:37: Hysa tab, [place] capsule 13 Substituti on Allowed, Soft Stop Acidophilus Yes [place] 1 tab, PO, Memoria Probiotic 11-12 Qafalijaj Daily, 30 l Blend oral 20:37: Hysa tab, [place] capsule 13 Substituti on Allowed, Soft Stop gabapentin Yes [place] 600 mg, 1 M emoria 600 mg oral 11-12 Qafalijaj tab, PO, l tablet 20:37: Hysa Q8H, 90 [place] 00 tab, Substituti on Allowed, TAB gabapentin Yes [place] 600 mg, 1 M emoria 600 mg oral 11-12 Qafalijaj tab, PO, l tablet 20:37: Hysa Q8H, 90 [place] 00 tab, Substituti on Allowed, TAB Flector Yes [place] 1 patch, Memor ia Patch 1.3% 11-12 Qafalijaj TOP, BID, l topical 20:36: Hysa PRN, 60 [place] film, 52 patch, as extended needed for release pain, Substituti on Allowed, ERFILM Flector Yes [place] 1 patch, Memor ia Patch 1.3% 11-12 Qafalijaj TOP, BID, l topical 20:36: Hysa PRN, 60 [place] film, 52 patch, as extended needed for release pain, Substituti on Allowed, ERFILM diclofenac No Nadira Annia 2 gm, TOP, Memoria topical 1% 11-12 Dodie QID, PRN, l gel 20:36: 1 btl, [place] 45 Pain, Substituti on Allowed, GEL diclofenac No Nadira Annia 2 gm, TOP, Memoria topical 1% 11-12 Dodie QID, PRN, l gel 20:36: 1 btl, [place] 45 Pain, Substituti on Allowed, GEL Dulcolax Yes [place] 10 mg, 1 Bin stephanie Laxative 10 11-12 Qafalijaj supp, SD, l mg rectal 20:36: Hysa Bedtime, Herm camilo suppository 33 PRN, 30 supp, Constipati on, Substituti on Allowed, SUPP Dulcolax Yes [place] 10 mg, 1 Bin stephanie Laxative 10 11-12 Qafalijaj supp, SD, l mg rectal 20:36: Hysa Bedtime, Herm camilo suppository 33 PRN, 30 supp, Constipati on, Substituti on Allowed, SUPP acetaminoph Yes [place] 650 mg, 2 Memoria en 325 mg 11-12 Qafalijaj tab, PO, l oral tablet 20:36: Hysa Q4H, PRN, H ermann 28 24 tab, for fever, Substituti on Allowed, DIS Tablet acetaminoph Yes [place] 650 mg, 2 Memoria en 325 mg 11-12 Qafalijaj tab, PO, l oral tablet 20:36: Hysa Q4H, PRN, H ermann 28 24 tab, for fever, Substituti on Allowed, DIS Tablet Celexa 20 Yes [place] 20 mg, 1 Mem oria mg oral 11-12 Qafalijaj tab, PO, l tablet 20:35: Hysa Daily, 30 Deangelo n 49 tab, Substituti on Allowed, TAB Celexa 20 Yes [place] 20 mg, 1 Mem oria mg oral 11-12 Qafalijaj tab, PO, l tablet 20:35: Hysa Daily, 30 Deangelo n 49 tab, Substituti on Allowed, TAB VESIcare No Nadira Annia 10 mg, 2 Memoria 7-13 Dodie tab, l 13:30: Route: PO, [place] 00 Drug form: TAB, BID, Start date: 11/13/11 8:30:00, Duration: 30 day, Stop date: 12/12/11 21:00:00 VESIcare 2011-0 No Nadira Annia 10 mg, 2 Memoria 7-13 Dodie tab, l 13:30: Route: PO, [place] Drug form: TAB, BID, Start date: 11/13/11 8:30:00, Duration: 30 day, Stop date: 12/12/11 21:00:00 Coumadin 2011-0 No [place] 4 mg, 2 Memor ia 7-11 Qafalijaj tab, l 22:00: Hysa Route: PO, [place] 00 Drug form: TAB, Q5PM, Start date: 11/11/11 17:00:00, Duration: 30 day, Stop date: 12/10/11 17:00:00 Coumadin 2011-0 No [place] 4 mg, 2 Memor ia 7-11 Qafalijaj tab, l 22:00: Hysa Route: PO, [place] 00 Drug form: TAB, Q5PM, Start date: 11/11/11 17:00:00, Duration: 30 day, Stop date: 12/10/11 17:00:00 Celexa 2011-0 No Nadira Annia 20 mg, 1 Me moria 7-11 Dodie tab, l 13:30: Route: PO, [place] 00 Drug form: TAB, Daily, Start date: 11/11/11 8:30:00, Duration: 60 day, Stop date: 01/09/12 8:30:00 Celexa 2011-0 No Nadira Annia 20 mg, 1 Me moria 7-11 Dodie tab, l 13:30: Route: PO, [place] Drug form: TAB, Daily, Start date: 11/11/11 8:30:00, Duration: 60 day, Stop date: 01/09/12 8:30:00 Flector 2011-0 No Nadira Annia 1 patch, M emoria Patch 1.3% 7-10 Dodie Route: l topical 16:20: TOP, BID, [place] nn film, 00 Drug form: extended ERFILM PRN release as needed for pain, Start date: 11/10/11 11:20:00, Duration: 60 day, Stop date: 01/09/12 11:19:00 Flector 2011-0 No Nadira Annia 1 patch, M emoria Patch 1.3% 11-09 Dodie Route: l topical 16:20: TOP, BID, [place] nn film, 00 Drug form: extended ERFILM PRN release as needed for pain, Start date: 11/10/11 11:20:00, Duration: 60 day, Stop date: 01/09/12 11:19:00 Celexa 2011-0 No Nadira Annia 20 mg, Bin stephanie 11-09 Dodie Route: PO, l 15:48: Drug form: [place] 00 TAB, Daily, PRN Pain, Start date: 11/10/11 10:48:00, Duration: 60 day, Stop date: 01/09/12 10:47:00 Celexa 2011-0 No Nadira Annia 20 mg, Bin stephanie 11-09 Dodie Route: PO, l 15:48: Drug form: [place] 00 TAB, Daily, PRN Pain, Start date: 11/10/11 10:48:00, Duration: 60 day, Stop date: 01/09/12 10:47:00 Lovenox 2012-0 No Ramya 90 mg, 0.9 Me moria 7-04 Erica-G mL, Route: l 02:00: utierrez SUB-Q, [place] 00 Drug form: INJ, Q12H, Start date: 11/03/11 21:00:00, Duration: 30 day, Stop date: 12/03/11 9:00:00 Lovenox 2012-0 No Ramya 90 mg, 0.9 Me moria 7-04 Erica-G mL, Route: l 02:00: utierrez SUB-Q, [place] 00 Drug form: INJ, Q12H, Start date: 11/03/11 21:00:00, Duration: 30 day, Stop date: 12/03/11 9:00:00 Coumadin 2011-0 No [place] 5 mg, 1 Memor ia 11-02 Qafalijaj tab, l 22:00: Hysa Route: PO, Drug form: TAB, Q5PM, Start date: 11/03/11 17:00:00, Duration: 30 day, Stop date: 12/02/11 17:00:00 Coumadin 2011-0 No [place] 5 mg, 1 Memor ia 11-02 Qafalijaj tab, l 22:00: Hysa Route: PO, [place] 00 Drug form: TAB, Q5PM, Start date: 11/03/11 17:00:00, Duration: 30 day, Stop date: 12/02/11 17:00:00 Flector 2011-0 No Nadira Annia 1 patch, M emoria Patch 1.3% 6-30 Dodie Route: l topical 02:00: TOP, BID, [place] nn film, 00 Drug form: extended ERFILM, release Start date: 10/30/11 21:00:00, Duration: 60 day, Stop date: 12/29/11 8:30:00 Flector 2011-0 No Nadira Annia 1 patch, M emoria Patch 1.3% 6-30 Dodie Route: l topical 02:00: TOP, BID, [place] nn film, 00 Drug form: extended ERFILM, release Start date: 10/30/11 21:00:00, Duration: 60 day, Stop date: 12/29/11 8:30:00 lactobacill No Nadira Annia 1 tab, [facility] 10-25 Dodie Route: PO, l acidophilus 22:00: Drug Form: [place] 00 TAB, QID, Start date: 10/26/11 17:00:00, Duration: 30 day, Stop date: 11/25/11 13:00:00 lactobacill 0 No Nadira Annia 1 tab, [facility] 10-25 Dodie Route: PO, l acidophilus 22:00: Drug Form: [place] 00 TAB, QID, Start date: 10/26/11 17:00:00, Duration: 30 day, Stop date: 11/25/11 13:00:00 senna 2011-0 No Nadira Annia 17.2 mg, 2 M emoria 6-23 Dodie tab, l 17:00: Route: PO, [place] 00 Drug Form: TAB, QNoon, Start date: 10/24/11 12:00:00, Duration: 60 day, Stop date: 12/22/11 12:00:00 senna No Nadira Annia 17.2 mg, 2 M emoria - Dodie tab, l 17:00: Route: PO, [place] 00 Drug Form: TAB, QNoon, Start date: 10/24/11 12:00:00, Duration: 60 day, Stop date: 12/22/11 12:00:00 Lactinex No Jordi 1 pkt, Bin stephanie oral - Bob Route: l granule 13:30: Karel CHEW, Drug Herm camilo Form: GRAN, QID, Start date: 10/24/11 8:30:00, Duration: 30 day, Stop date: 11/22/11 21:00:00 Lactinex No Jordi 1 pkt, Bin stephanie oral -23 Bob Route: l granule 13:30: Karel CHEW, Drug Herm camilo Form: GRAN, QID, Start date: 10/24/11 8:30:00, Duration: 30 day, Stop date: 11/22/11 21:00:00 baclofen No Nadira Annia Route: Me moria -22 Dodie INTRATHECA l 23:19: L, Drug [place] 00 form: INJ, Continuous , PRN Other -See Comment, Start date: 10/23/11 18:19:00, Stop date: 11/22/11 18:18:00 baclofen 0 No Nadira Annia Route: Ks moria - Dodie INTRATHECA l 23:19: L, Drug [place] 00 form: INJ, Continuous , PRN Other -See Comment, Start date: 10/23/11 18:19:00, Stop date: 11/22/11 18:18:00 diclofenac No Nadira Annia 2 gm, M emoria topical 1% 6-20 Dodie Route: l gel 18:01: TOP, QID, [place] 00 Drug form: GEL PRN Pain, Start date: 10/21/11 13:01:00, Duration: 60 day, Stop date: 12/20/11 13:00:00 diclofenac 0 No Nadira Annia 2 gm, M emoria topical 1% 6-20 Dodie Route: l gel 18:01: TOP, QID, [place] 00 Drug form: GEL PRN Pain, Start date: 10/21/11 13:01:00, Duration: 60 day, Stop date: 12/20/11 13:00:00 acetaminoph 2011-0 No Nadira Annia 500 mg, 1 Memoria en 6-20 Dodie tab, l 16:56: Route: PO, [place] 00 Drug form: TAB, Q6H, PRN Pain, Start date: 10/21/11 11:56:00, Duration: 30 day, Stop date: 11/20/11 11:55:00 acetaminoph 2011-0 No Nadira Annia 500 mg, 1 Memoria en 6-20 Dodie tab, l 16:56: Route: PO, [place] 00 Drug form: TAB, Q6H, PRN Pain, Start date: 10/21/11 11:56:00, Duration: 30 day, Stop date: 11/20/11 11:55:00 Voltaren 2011-0 No Nadira Annia 2 gm, Mem oria Topical 6-20 Dodie Route: l 15:57: TOP, QID, [place] 00 Drug form: GEL PRN Pain, Start date: 10/21/11 10:57:00, Duration: 60 day, Stop date: 12/20/11 10:56:00 Voltaren 2011-0 No Nadira Annia 2 gm, Mem oria Topical 6-20 Dodie Route: l 15:57: TOP, QID, [place] 00 Drug form: GEL PRN Pain, Start date: 10/21/11 10:57:00, Duration: 60 day, Stop date: 12/20/11 10:56:00 Dulcolax 2011-0 No Nadira Annia 10 mg, 1 Memoria Laxative 6-20 Dodie supp, l 15:55: Route: SD, Drug form: SUPP, Bedtime, PRN Constipati on, Start date: 10/21/11 10:55:00, Duration: 60 day, Stop date: 12/19/11 21:00:00 Dulcolax 2011-0 No Nadira Annia 10 mg, 1 Memoria Laxative 6-20 Dodie supp, l 15:55: Route: SD, [place] 00 Drug form: SUPP, Bedtime, PRN Constipati on, Start date: 10/21/11 10:55:00, Duration: 60 day, Stop date: 12/19/11 21:00:00 Macrodantin 2011-0 No Nadira Annia 100 mg, 1 Memoria 6-18 Dodie cap, l 02:00: Route: PO, [place] 00 Drug form: CAP, Bedtime, Start date: 10/18/11 21:00:00, Duration: 30 day, Stop date: 11/16/11 21:00:00 Macrodantin 2011-0 No Nadira Annia 100 mg, 1 Memoria 6-18 [place] cap, l 02:00: Route: PO, [place] 00 Drug form: CAP, Bedtime, Start date: 10/18/11 21:00:00, Duration: 30 day, Stop date: 11/16/11 21:00:00 Macrobid 2011-0 No Anibal 100 mg, Memor ia 6-16 Kwame Route: PO, l 13:30: [facility] Drug form: [place] nn 00 CAP, Daily, When Ciprofloxi n course complete start the prescribed doing., Start date: 10/17/11 8:30:00, Duration: 180 day, Stop date: 04/13/12 8:30:00 Macrobid 2011-0 No Anibal 100 mg, Memor ia 6-16 Kwame Route: PO, l 13:30: [facility] Drug form: [place] nn 00 CAP, Daily, When Ciprofloxi n course complete start the prescribed doing., Start date: 10/17/11 8:30:00, Duration: 180 day, Stop date: 04/13/12 8:30:00 docusate 2011-0 No Jordi 283 mg, 5 M emoria 283 mg 6-13 Bob mL, Route: l rectal 02:00: Karel SD, Drug Rayray enema 00 form: GODWIN, Bedtime, Start date: 10/13/11 21:00:00, Duration: 60 day, Stop date: 12/11/11 21:00:00 docusate 2011-0 No Jordi 283 mg, 5 M emoria 283 mg 6-13 Bob mL, Route: l rectal 02:00: Karel SD, Drug [place] enema 00 form: GODWIN, Bedtime, Start date: 10/13/11 21:00:00, Duration: 60 day, Stop date: 12/11/11 21:00:00 Lioresal 2011-0 No Nadira Annia Route: Me moria Intrathecal - Dodie INTRATHECA l 23:30: L, Drug Rayray 00 form: INJ, Continuous , Start date: 10/13/11 18:30:00, Stop date: 11/12/11 18:29:00 Lioresal 0 No Nadira Annia Route: Me moria Intrathecal - Dodie INTRATHECA l 23:30: L, Drug [place] 00 form: INJ, Continuous , Start date: 10/13/11 18:30:00, Stop date: 11/12/11 18:29:00 baclofen 0 No Nadira Annia 10 mg, 1 Memoria 10-12 Dodie tab, l 02:00: Route: PO, [place] 00 Drug form: TAB, Bedtime, Start date: 10/12/11 21:00:00, Duration: 60 day, Stop date: 12/10/11 21:00:00 baclofen 0 No Nadira Annia 10 mg, 1 Memoria 10-12 Dodie tab, l 02:00: Route: PO, Rayray 00 Drug form: TAB, Bedtime, Start date: 10/12/11 21:00:00, Duration: 60 day, Stop date: 12/10/11 21:00:00 ciprofloxac 0 No Nadira Annia 500 mg, 1 Memoria in 10-11 Dodie tab, l 22:00: Route: Rayray ESCUDERO Drug form: TAB, [id number], Start date: 10/12/11 17:00:00, Stop date: 10/17/11 23:00:00 ciprofloxac 2011-0 No Nadira Annia 500 mg, 1 Memoria in 10-11 Dodie tab, l 22:00: Route: NJRayray Drug form: TAB, [id number], Start date: 10/12/11 17:00:00, Stop date: 10/17/11 23:00:00 BD Normal No Nadira Annia 10 mL, M emoria Saline 10-10 Dodie Route: IV, l Flush 21:00: Drug Form: Deangelo n 00 INJ, [id number], Start date: 10/11/11 16:00:00, Duration: 30 day, Stop date: 11/10/11 4:00:00 BD Normal 2012-0 No Nadira Annia 10 mL, M emorijohn Saline 6-10 Dodie Route: IV, l Flush 21:00: Drug Form: Deangelo n 00 INJ, [id number], Start date: 10/11/11 16:00:00, Duration: 30 day, Stop date: 11/10/11 4:00:00 gentamicin 2011-0 No [place] 80 mg, Bin stephanie 6- Qafalijaj Route: l 02:00: Hysa IVPB, [place] 00 Q12H, Start date: 10/10/11 21:00:00, Duration: 30 day, Stop date: 11/09/11 9:00:00 gentamicin 2012-0 No [place] 80 mg, Bin stephanie 6- Qafalijaj Route: l 02:00: Hysa IVPB, Rayray 00 Q12H, Start date: 10/10/11 21:00:00, Duration: 30 day, Stop date: 11/09/11 9:00:00 Sodium 2012-0 No [place] 5 mL, Memoria Chloride - Qafalijaj Route: IV, l 0.9% IV 21:00: Hysa Start Rayray 00 date: 10/10/11 16:00:00, Duration: 10 day, Stop date: 10/20/11 4:00:00 gentamicin 2012-0 No Nadira Annia 80 mg, 2 Memoria - Dodie mL, Route: l 21:00: IVPB, [place] [id number], Start date: 10/10/11 16:00:00, Duration: 10 day, Stop date: 10/20/11 4:00:00 Sodium 2012-0 No [place] 5 mL, Memoria Chloride 6-09 Qafalijaj Route: IV, l 0.9% IV 21:00: Hysa Start date: 10/10/11 16:00:00, Duration: 10 day, Stop date: 10/20/11 4:00:00 gentamicin 2012-0 No Nadira Annia 80 mg, 2 Memoria 10-09 Dodie mL, Route: l 21:00: IVPB, Rayray 00 [id number], Start date: 10/10/11 16:00:00, Duration: 10 day, Stop date: 10/20/11 4:00:00 Sodium 2011-0 No [place] IV, 0 Memoria Chloride - Qafalijaj ml/hr, l 0.9% IV 18:46: Hysa PRN, PRN Deangelo n 00 Line Flush, Start date: 10/10/11 13:46:00, Duration: 10, 250 ml Sodium 2011-0 No [place] IV, 0 Memoria Chloride - Qafalijaj ml/hr, l 0.9% IV 18:46: Hysa PRN, PRN Deangelo n 00 Line Flush, Start date: 10/10/11 13:46:00, Duration: 10, 250 ml Cipro 2011-0 No Amadeo 500 mg, Memoria 10-09 Segun Route: PO, l 16:00: [place] Drug form: Her condon 00 TAB, [id number], Start date: 10/10/11 11:00:00, Duration: 7 day, Stop date: 10/16/11 23:00:00 Cipro 2011-0 No Amadeo 500 mg, Memoria 10-09 Segun Route: PO, l 16:00: [place] Drug form: Her condon 00 TAB, [id number], Start date: 10/10/11 11:00:00, Duration: 7 day, Stop date: 10/16/11 23:00:00 baclofen 2011-0 No Nadira Annia 10 mg, 1 Memoria 10-08 Dodie tab, l 02:00: Route: PO, [place] 00 Drug form: TAB, BID, Start date: 10/08/11 21:00:00, Duration: 60 day, Stop date: 12/07/11 8:30:00 Voltaren 2011-0 No Nadira Annia 2 gm, Mem oria Topical 10-08 Dodie Route: l 02:00: TOP, QID, Rayray 00 Drug form: GEL, Start date: 10/08/11 21:00:00, Duration: 60 day, Stop date: 12/07/11 17:00:00 baclofen 2011-0 No Nadira Annia 10 mg, 1 Memoria 6-08 Dodie tab, l 02:00: Route: PO, [place] Drug form: TAB, BID, Start date: 10/08/11 21:00:00, Duration: 60 day, Stop date: 12/07/11 8:30:00 Voltaren 2011-0 No Nadira Annia 2 gm, Mem oria Topical 10-08 Dodie Route: l 02:00: TOP, MERIDRayray Drug form: GEL, Start date: 10/08/11 21:00:00, Duration: 60 day, Stop date: 12/07/11 17:00:00 gabapentin 2011-0 No Nadira Annia 600 mg, 1 Memoria 600 mg oral - Dodie tab, l tablet 18:00: Route: PO, Lakeshia nn Drug form: TAB, Q8H-05, Start date: 10/08/11 13:00:00, Duration: 30 day, Stop date: 12/07/11 5:00:00 gabapentin 2011-0 No Nadira Annia 600 mg, 1 Memoria 600 mg oral - Dodie tab, l tablet 18:00: Route: PO, Lakeshia nn Drug form: TAB, Q8H-05, Start date: 10/08/11 13:00:00, Duration: 30 day, Stop date: 12/07/11 5:00:00 bisacodyl 2011-0 No Jordi 10 mg, 1 M emoria -07 Bob supp, l 02:00: Karel Route: SD, Rayray Drug form: SUPP, Bedtime, Start date: 10/07/11 21:00:00, Duration: 30 day, Stop date: 11/05/11 21:00:00 bisacodyl 2011-0 No Nadira Annia 10 mg, 1 Memoria 6-07 Dodie supp, l 02:00: Route: SD, [place] 00 Drug form: SUPP, Bedtime, Start date: 10/07/11 21:00:00, Duration: 30 day, Stop date: 11/05/11 21:00:00 Dulcolax 2011-0 No Nadira Annia 10 mg, 1 Memoria Laxative 6-07 Dodie supp, l 02:00: Route: SD, [place] 00 Drug form: SUPP, Bedtime, Start date: 10/07/11 21:00:00, Duration: 30 day, Stop date: 11/05/11 21:00:00 bisacodyl 2011-0 No Jordi 10 mg, 1 M emoria 6-07 Bob supp, l 02:00: Karel Route: SD, Rayray 00 Drug form: SUPP, Bedtime, Start date: 10/07/11 21:00:00, Duration: 30 day, Stop date: 11/05/11 21:00:00 bisacodyl 2011-0 No Nadira Annia 10 mg, 1 Memoria 6-07 Dodie supp, l 02:00: Route: SD, [place] 00 Drug form: SUPP, Bedtime, Start date: 10/07/11 21:00:00, Duration: 30 day, Stop date: 11/05/11 21:00:00 Dulcolax 2011-0 No Nadira Annia 10 mg, 1 Memoria Laxative -07 Dodie supp, l 02:00: Route: SD, [place] 00 Drug form: SUPP, Bedtime, Start date: 10/07/11 21:00:00, Duration: 30 day, Stop date: 11/05/11 21:00:00 bisacodyl 2011-0 No Jordi 10 mg, 1 M emoria 6-06 Bob supp, l 02:00: Karel Route: SD, [place] 00 Drug form: SUPP, Bedtime, Start date: 10/06/11 21:00:00, Duration: 60 day, Stop date: 12/04/11 21:00:00 bisacodyl 2011-0 No Jordi 10 mg, 1 M emoria 6-06 Bob supp, l 02:00: Karel Route: SD, Drug form: SUPP, Bedtime, Start date: 10/06/11 21:00:00, Duration: 60 day, Stop date: 12/04/11 21:00:00 docusate 2012-0 No Jordi 283 mg, 5 M emoria 283 mg 6-05 Bob mL, Route: l rectal 15:25: Karel SD, Drug [place] enema 00 form: GODWIN, Bedtime, PRN as needed for constipati on, Start date: 10/06/11 10:25:00, Duration: 60 day, Stop date: 12/05/11 10:24:00 docusate 2011- No Jordi 283 mg, 5 M emoria 283 mg 6-05 Bob mL, Route: l rectal 15:25: Karel SD, Drug Ray[place] enema 00 form: GODWIN, Bedtime, PRN as needed for constipati on, Start date: 10/06/11 10:25:00, Duration: 60 day, Stop date: 12/05/11 10:24:00 baclofen No Nadira Annia 10 mg, 1 Memoria 6-05 Dodie tab, l 05:00: Route: PO, [place] 00 Drug form: TAB, Q8H, Start date: 10/06/11 0:00:00, Duration: 60 day, Stop date: 12/04/11 16:00:00 baclofen 2011-0 No Nadira Annia 10 mg, 1 Memoria -05 Dodie tab, l 05:00: Route: PO, Rayray 00 Drug form: TAB, Q8H, Start date: 10/06/11 0:00:00, Duration: 60 day, Stop date: 12/04/11 16:00:00 gabapentin No Nadira Annia 400 mg, 1 Memoria 6-03 Dodie cap, l 17:00: Route: PO, [place] 00 Drug form: CAP, Q6H, Start date: 10/04/11 12:00:00, Duration: 60 day, Stop date: 12/03/11 6:00:00 gabapentin 0 No Nadira Annia 400 mg, 1 Memoria -03 Dodie cap, l 17:00: Route: PO, [place] 00 Drug form: CAP, Q6H, Start date: 10/04/11 12:00:00, Duration: 60 day, Stop date: 12/03/11 6:00:00 Flonase 2011- No Ruchi 2 spray, Memor ia 0.05 mg/inh 10-02 Stark Route: l nasal spray 13:30: Frando Each Herm camilo 00 Affected Nostril, Drug Form: SPRY, Daily, Start date: 10/03/11 8:30:00, Duration: 60 day, Stop date: 12/01/11 8:30:00 Flonase 2011-0 No Ruchi 2 spray, Memor ia 0.05 mg/inh 10-02 Stark Route: l nasal spray 13:30: Frando Each Herm camilo 00 Affected Nostril, Drug Form: SPRY, Daily, Start date: 10/03/11 8:30:00, Duration: 60 day, Stop date: 12/01/11 8:30:00 midodrine 0 No Ruchi 5 mg, 1 Bin stephanie 6-02 Stark tab, l 13:00: Frando Route: PO, Lakeshia nn 00 Drug form: TAB, BID-12-13, Start date: 10/03/11 8:00:00, Duration: 60 day, Stop date: 12/01/11 13:00:00 midodrine 0 No Ruchi 5 mg, 1 Bin stephanie 6-02 Stark tab, l 13:00: Frando Route: PO, Lakeshia nn 00 Drug form: TAB, BID-12-13, Start date: 10/03/11 8:00:00, Duration: 60 day, Stop date: 12/01/11 13:00:00 Lotrimin AF 2011-0 No Jordi 1 appl, Memoria Powder 10-02 Bob Route: l [place] 02:00: Karel TOP, Drug Rayray 00 Form: PWDR, BID, Start date: 10/02/11 21:00:00, Duration: 60 day, Stop date: 12/01/11 8:30:00 Lotrimin AF 2011-0 No Jordi 1 appl, Memoria Powder 10-02 Bob Route: l [place] 02:00: Karel TOP, Drug Rayray 00 Form: PWDR, BID, Start date: 10/02/11 21:00:00, Duration: 60 day, Stop date: 12/01/11 8:30:00 VESIcare 2011-0 No Ruchi 5 mg, Memoria 5-31 Stark Route: PO, l 13:30: Frando Daily, Rayray 00 Start date: 10/01/11 8:30:00, Duration: 30 day, Stop date: 10/30/11 8:30:00 nystatin 2011-0 No Ruchi 1 appl, Memor ia topical 5-31 Stark Route: l 100,000 13:30: Frando TOP, BID, Her condon units/g 00 Drug form: powder PWDR, Start date: 10/01/11 8:30:00, Duration: 30 day, Stop date: 10/30/11 21:00:00 VESIcare 2011-0 No Ruchi 5 mg, Memoria 5-31 Stark Route: PO, l 13:30: Frando Daily, Rayray 00 Start date: 10/01/11 8:30:00, Duration: 30 day, Stop date: 10/30/11 8:30:00 nystatin 2011-0 No Ruchi 1 appl, Memor ia topical 5-31 Stark Route: l 100,000 13:30: Frando TOP, BID, Her condon units/g 00 Drug form: powder PWDR, Start date: 10/01/11 8:30:00, Duration: 30 day, Stop date: 10/30/11 21:00:00 VESIcare 0 No Nadira Annia 10 mg, 2 Memoria 5-31 Dodie tab, l 02:00: Route: PO, [place] 00 Drug form: TAB, BID, Start date: 09/30/11 21:00:00, Stop date: 11/12/11 21:00:00 VESIcare 2011-0 No Nadira Annia 10 mg, 2 Memoria 5-31 Dodie tab, l 02:00: Route: PO, [place] 00 Drug form: TAB, BID, Start date: 09/30/11 21:00:00, Stop date: 11/12/11 21:00:00 Milk of 0 No Ruchi 60 ml, Memoria Magnesia 5-30 Stark Route: PO, l 20:34: Frando Drug Form: Lakes[place]ia nn 00 SUSP, ONCE, Start date: 09/30/11 15:34:00, Stop date: 09/30/11 15:34:00 Milk of 2011-0 No Ruchi 60 ml, Memoria Magnesia 5-30 Stark Route: PO, l 20:34: Frando Drug Form: Lakeshia nn 00 SUSP, ONCE, Start date: 09/30/11 15:34:00, Stop date: 09/30/11 15:34:00 senna 2012-0 No Nadira Annia 8.6 mg, 1 Me moria 5-30 Dodie tab, l 17:00: Route: PO, [place] Drug Form: TAB, QNoon, Start date: 09/30/11 12:00:00, Duration: 60 day, Stop date: 11/28/11 12:00:00 senna 2012-0 No Nadira Annia 8.6 mg, 1 Me moria 5-30 Dodie tab, l 17:00: Route: PO, [place] Drug Form: TAB, QNoon, Start date: 09/30/11 12:00:00, Duration: 60 day, Stop date: 11/28/11 12:00:00 rivaroxaban 2011-0 No Nadira Annia 20 mg, 2 Memoria 5-30 Dodie tab, l 13:30: Route: PO, [place] 00 Drug form: TAB, Daily, Start date: 09/30/11 8:30:00, Duration: 60 day, Stop date: 11/28/11 8:30:00 tizanidine 2011-0 No Ruchi 2 mg, 0.5 M emoria 5-30 Stark tab, l 13:30: Frando Route: PO, [place] nn Drug form: TAB, Daily, Start date: 09/30/11 8:30:00, Duration: 60 day, Stop date: 11/28/11 8:30:00 multivitami 2011-0 No Nicci Y 1 tab, Memoria n with 5-30 Perkins Route: PO, l minerals 13:30: Drug Form: Her condon 00 TAB, Daily, Start date: 09/30/11 8:30:00, Duration: 60 day, Stop date: 11/28/11 8:30:00 Celexa 2011-0 No Nadira Annia 20 mg, 1 Me moria 5-30 Dodie tab, l 13:30: Route: PO, [place] Drug form: TAB, Daily, Start date: 09/30/11 8:30:00, Duration: 60 day, Stop date: 11/28/11 8:30:00 tolterodine 2011-0 No Ruchi 4 mg, 2 Me moria 5-30 Stark tab, l 13:30: Frando Route: PO, Lakes[place] nn 00 Drug form: TAB, Daily, Start date: 09/30/11 8:30:00, Duration: 60 day, Stop date: 11/28/11 8:30:00 rivaroxaban 2011-0 No Nadira Annia 20 mg, 2 Memoria 5-30 Dodie tab, l 13:30: Route: PO, [place] 00 Drug form: TAB, Daily, Start date: 09/30/11 8:30:00, Duration: 60 day, Stop date: 11/28/11 8:30:00 tizanidine 2011-0 No Ruchi 2 mg, 0.5 M emoria 5-30 Stark tab, l 13:30: Frando Route: PO, [place] nn Drug form: TAB, Daily, Start date: 09/30/11 8:30:00, Duration: 60 day, Stop date: 11/28/11 8:30:00 multivitami 2011-0 No Nicci Y 1 tab, Memoria n with 5-30 Perkins Route: PO, l minerals 13:30: Drug Form: Her condon 00 TAB, Daily, Start date: 09/30/11 8:30:00, Duration: 60 day, Stop date: 11/28/11 8:30:00 Celexa 2011-0 No Nadira Annia 20 mg, 1 Me moria 5-30 Dodie tab, l 13:30: Route: PO, [place] 00 Drug form: TAB, Daily, Start date: 09/30/11 8:30:00, Duration: 60 day, Stop date: 11/28/11 8:30:00 tolterodine 2011-0 No Ruchi 4 mg, 2 Me moria 5-30 Stark tab, l 13:30: Frando Route: PO, Lakeshia nn 00 Drug form: TAB, Daily, Start date: 09/30/11 8:30:00, Duration: 60 day, Stop date: 11/28/11 8:30:00 baclofen 2011-0 No Nadira Annia 10 mg, 1 Memoria 5-30 Dodie tab, l 05:00: Route: PO, [place] 00 Drug form: TAB, Q6H, Start date: 09/30/11 0:00:00, Duration: 60 day, Stop date: 11/28/11 18:00:00 gabapentin 2011-0 No Jefry 300 mg, 1 Memoria 300 mg oral 5-30 r Clemencia cap, l capsule 05:00: Route: PO, Herm camilo 00 Drug form: CAP, Q6H, Start date: 09/30/11 0:00:00, Duration: 60 day, Stop date: 11/28/11 18:00:00 baclofen 2011-0 No Nadira Annia 10 mg, 1 Memoria 5-30 Dodie tab, l 05:00: Route: PO, Rayray 00 Drug form: TAB, Q6H, Start date: 09/30/11 0:00:00, Duration: 60 day, Stop date: 11/28/11 18:00:00 gabapentin 2011-0 No Jefry 300 mg, 1 Memoria 300 mg oral 5-30 r Clemencia cap, l capsule 05:00: Route: PO, Herm camilo 00 Drug form: CAP, Q6H, Start date: 09/30/11 0:00:00, Duration: 60 day, Stop date: 11/28/11 18:00:00 docusate 0 No Jordi 283 mg, 5 M emoria 283 mg 5-30 Bob mL, Route: l rectal 02:00: Karel SD, Drug [place] enema 00 form: GODWIN, Bedtime, Start date: 09/29/11 21:00:00, Duration: 60 day, Stop date: 11/27/11 21:00:00 Normal 0 No Jordi 15 ml, Memori a Saline for 5-30 Bob Route: l Irrigation 02:00: Karel TOP, Drug He rmann 00 Form: MISC, BID, Start date: 09/29/11 21:00:00, Duration: 60 day, Stop date: 11/28/11 8:30:00 docusate 2011-0 No Jordi 283 mg, 5 M emoria 283 mg 5-30 Bob mL, Route: l rectal 02:00: Karel SD, Drug Ray[place] enema 00 form: GODWIN, Bedtime, Start date: 09/29/11 21:00:00, Duration: 60 day, Stop date: 11/27/11 21:00:00 Normal 2012-0 No Jordi 15 ml, Memori a Saline for 5-30 Bob Route: l Irrigation 02:00: Karel TOP, Drug He Form: MISC, BID, Start date: 09/29/11 21:00:00, Duration: 60 day, Stop date: 11/28/11 8:30:00 phenobarbit No Jordi 1,573.86 Memoria al 5-30 Bob mg, 24.21 l 01:22: Karel mL, Route: IVP, Drug form: INJ, PRN, PRN Seizure, Start date: 09/29/11 20:22:00, Duration: 60 day, Stop date: 11/28/11 20:21:00 phenytoin No Jordi 1,180.395 Memoria 5-30 Bob mg, 23.61 l 01:22: Karel mL, Route: IVP, Drug form: INJ, PRN, PRN Seizure, Start date: 09/29/11 20:22:00, Duration: 60 day, Stop date: 11/28/11 20:21:00 LORAzepam No Jordi 2 mg, 1 Me moria 5-30 Bob mL, Route: l 01:22: Karel IVP, Drug form: INJ, PRN, PRN Seizure, Start date: 09/29/11 20:22:00, Duration: 60 day, Stop date: 11/28/11 20:21:00 phenobarbit No Jordi 1,573.86 Memoria al 5-30 Bob mg, 24.21 l 01:22: Karel mL, Route: IVP, Drug form: INJ, PRN, PRN Seizure, Start date: 09/29/11 20:22:00, Duration: 60 day, Stop date: 11/28/11 20:21:00 phenytoin No Jordi 1,180.395 Memoria 5-30 Bob mg, 23.61 l 01:22: Karel mL, Route: IVP, Drug form: INJ, PRN, PRN Seizure, Start date: 09/29/11 20:22:00, Duration: 60 day, Stop date: 11/28/11 20:21:00 LORAzepam No Jordi 2 mg, 1 Me moria 5-30 Bob mL, Route: l 01:22: Karel IVP, Drug form: INJ, PRN, PRN Seizure, Start date: 09/29/11 20:22:00, Duration: 60 day, Stop date: 11/28/11 20:21:00 Detrol LA 4 Yes Cecilio Mason 4 mg, PO, Memoria mg oral 5-29 Arshad Daily, 60 l capsule, 18:53: tbsp, Rayray extended 45 Substituti release on Allowed Detrol LA 4 Yes Cecilio Mason 4 mg, PO, Memoria mg oral 5-29 Arshad Daily, 60 l capsule, 18:53: tbsp, Rayray extended 45 Substituti release on Allowed rivaroxaban Yes Cecilio Mason 20 mg, 1 Memoria 20 mg 5-29 Arshad tab, PO, l tablet 18:52: Daily, 90 Deangelo n 43 tab, Substituti on Allowed, TAB rivaroxaban Yes Cecilio Mason 20 mg, 1 Memoria 20 mg 5-29 Arshad tab, PO, l tablet 18:52: Daily, 90 Deangelo n 43 tab, Substituti on Allowed, TAB ClearLax Yes Cecilio Mason 17 gm, PO, Memoria oral powder 5-29 Arshad Daily, 30 l for 18:52: doses or Rayray reconstitut 27 times, ion Substituti on Allowed, Maintenanc e ClearLax Yes Cecilio Mason 17 gm, PO, Memoria oral powder 5-29 Arshad Daily, 30 l for 18:52: doses or [place] reconstitut 27 times, ion Substituti on Allowed, Maintenanc e Dulcolax No Kaylee 10 mg, 1 Me moria Laxative 5-29 Jhoana supp, l 02:00: Jones Route: SD, Drug form: SUPP, Bedtime, Start date: 09/28/11 21:00:00, Duration: 30 day, Stop date: 10/27/11 21:00:00 Dulcolax No Kaylee 10 mg, 1 Me moria Laxative 5-29 Jhoana supp, l 02:00: Jones Route: SD, Herm camilo 00 Drug form: SUPP, Bedtime, Start date: 09/28/11 21:00:00, Duration: 30 day, Stop date: 10/27/11 21:00:00 rivaroxaban 2012-0 No Mary 20 mg, 1 Memoria 5-28 Aydee tab, l 18:48: Lozano-Delilah Route: PO, H ermann 00 nda Drug form: TAB, Daily, Priority: NOW, Start date: 09/28/11 13:48:00, Duration: 30 day, Stop date: 10/28/11 9:00:00 rivaroxaban 2011-0 No Mary 20 mg, 1 Memoria 5-28 Aydee tab, l 18:48: Lozano-Delilah Route: PO, H ermann 00 nda Drug form: TAB, Daily, Priority: NOW, Start date: 09/28/11 13:48:00, Duration: 30 day, Stop date: 10/28/11 9:00:00 potassium 2011-0 No Mary 40 mEq, 2 Memoria chloride 20 5-28 Aydee tab, l mEq oral 14:32: Lozano-Delilah Route: PO, [place] tablet, 00 nda Drug form: extended ERTAB, release ONCE, Start date: 09/28/11 9:32:00, Stop date: 09/28/11 9:32:00 potassium 2011-0 No Mary 40 mEq, 2 Memoria chloride 20 5-28 Aydee tab, l mEq oral 14:32: Lozano-Delilah Route: PO, Rayray tablet, 00 nda Drug form: extended ERTAB, release ONCE, Start date: 09/28/11 9:32:00, Stop date: 09/28/11 9:32:00 potassium 2011-0 No Mary 20 mEq, Me moria chloride 5-28 Aydee 100 mL, l 13:00: Lozano-Delilah Route: [place] nn 00 nda IVPB, Drug form: INJ, Q2H, Total dose = 60 mEq, Start date: 09/28/11 8:00:00, Duration: 3 doses or times, Stop date: 09/28/11 12:00:00, For K = 3.0 - 3.4mEq/LFo r K = 3.0 - 3.4mEq/L potassium No Mary 20 mEq, Me moria chloride 5-28 Aydee 100 mL, l 13:00: Lozano-Delilah Route: [place] nn 00 nda IVPB, Drug form: INJ, Q2H, Total dose = 60 mEq, Start date: 09/28/11 8:00:00, Duration: 3 doses or times, Stop date: 09/28/11 12:00:00, For K = 3.0 - 3.4mEq/LFo r K = 3.0 - 3.4mEq/L alteplase No Mary 1,000 mL, Memoria (tPA) 20 mg 5- Aydee Rate: 50 l + Sodium 05:08: Lozano-Delilah ml/hr, H ermann Chloride 00 nda Infuse 0.9% IV over: 20 1,000 mL hr, Route: INTRAARTER IAL, Dosing Weight 78.693 kg, Total Volume: 1,000, Priority: STAT, Start date: 09/28/11 0:08:00, Duration: 30 day, Stop date: 10/28/11 0:07:00 alteplase No Mary 1,000 mL, Memoria (tPA) 20 mg - Aydee Rate: 50 l + Sodium 05:08: Lozano-Delilah ml/hr, H ermann Chloride 00 nda Infuse 0.9% IV over: 20 1,000 mL hr, Route: INTRAARTER IAL, Dosing Weight 78.693 kg, Total Volume: 1,000, Priority: STAT, Start date: 09/28/11 0:08:00, Duration: 30 day, Stop date: 10/28/11 0:07:00 Dulcolax No Danai 10 mg, 1 Bin stephanie Laxative - [place] supp, l 02:59: Route: SD, Drug form: SUPP, ONCE, PRN as needed for constipati on, Start date: 09/27/11 21:59:00 Dulcolax 2011- No Danai 10 mg, 1 Bin stephanie Laxative - [place] supp, l 02:59: Route: SD, [place] 00 Drug form: SUPP, ONCE, PRN as needed for constipati on, Start date: 09/27/11 21:59:00 heparin No Racquel 3,100 Memoria 5-27 Yousef unit, 3.1 l 16:54: Nawas mL, Route: Deangelo n 00 IV, Drug form: INJ, PRN, PRN Heparin Protocol, Start date: 09/27/11 11:54:00, Duration: 30 day, Stop date: 10/27/11 11:53:00 heparin No Racquel 3,100 Memoria 5-27 Yousef unit, 3.1 l 16:54: Nawas mL, Route: Deangelo n 00 IV, Drug form: INJ, PRN, PRN Heparin Protocol, Start date: 09/27/11 11:54:00, Duration: 30 day, Stop date: 10/27/11 11:53:00 heparin No Racquel 6,300 Memoria 5-27 Yousef unit, 6.3 l 16:51: Nawas mL, Route: Deangelo n 00 IV, Drug form: INJ, PRN, PRN Heparin Protocol, Start date: 09/27/11 11:51:00, Duration: 30 day, Stop date: 10/27/11 11:50:00 heparin No Racquel 6,300 Memoria 5-27 Yousef unit, 6.3 l 16:51: Nawas mL, Route: Deangelo n 00 IV, Drug form: INJ, PRN, PRN Heparin Protocol, Start date: 09/27/11 11:51:00, Duration: 30 day, Stop date: 10/27/11 11:50:00 Heparin - No Mary 25,000 Mem oria infusion 5-27 Aydee unit, 500 l (DVT/PE 16:37: Lozano-Delilah mL, Rate: [place] Protocol) 00 nda Start at heparin 18 25,000 unit/Kg/hr units in -adjust D5W 500 mL per DVT/PE Premix Protocol, 25,000 unit Route: IV, Total Volume: 500 ml, Start date: 09/27/11 11:37:00, Duration: 30 day, Stop date: 10/27/11 11:36:00, Replace Every: 24 hr Heparin - No Mary 25,000 Mem oria infusion -27 Aydee unit, 500 l (DVT/PE 16:37: Lozano-Delilah mL, Rate: [place] Protocol) 00 nda Start at heparin 18 25,000 unit/Kg/hr units in -adjust D5W 500 mL per DVT/PE Premix Protocol, 25,000 unit Route: IV, Total Volume: 500 ml, Start date: 09/27/11 11:37:00, Duration: 30 day, Stop date: 10/27/11 11:36:00, Replace Every: 24 hr MiraLax 2011-0 No Racquel 17 gm, 1 Memor ia 27 Yousef pkt, l 06:00: Nawas Route: PO, Deangelo n 00 Drug form: PWDR, Daily, Start date: 09/27/11 1:00:00, Duration: 30 day, Stop date: 10/26/11 9:00:00 MiraLax 2011-0 No Racquel 17 gm, 1 Memor ia 09-26 Yousef pkt, l 06:00: Nawas Route: PO, Deangelo n 00 Drug form: PWDR, Daily, Start date: 09/27/11 1:00:00, Duration: 30 day, Stop date: 10/26/11 9:00:00 Heparin - No Racquel 25,000 Memor ia infusion 09-25 Yousef unit, 500 l (ACS 15:16: Nawas mL, Rate: [place] Protocol) 00 7 ml/h, heparin Route: IV, 25,000 Total units in Volume: D5W 500 mL 500 ml, Premix Start 25,000 unit date: 09/26/11 10:16:00, Duration: 30 day, Stop date: 10/26/11 10:15:00, Replace Every: 24 hr Heparin - No Kaylee 2,500 Bin stephanie one time 5-26 Jhoana unit, 2.5 l bolus for 15:16: Zwiener mL, Route: Rayray ACS 00 IV, Drug form: INJ, ONCE, Priority: STAT, Start date: 09/26/11 10:16:00, Stop date: 09/26/11 10:16:00 Heparin - 0 No Racquel 25,000 Memor ia infusion 5-26 Yousef unit, 500 l (ACS 15:16: Nawas mL, Rate: [place] Protocol) 00 7 ml/h, heparin Route: IV, 25,000 Total units in Volume: D5W 500 mL 500 ml, Premix Start 25,000 unit date: 09/26/11 10:16:00, Duration: 30 day, Stop date: 10/26/11 10:15:00, Replace Every: 24 hr Heparin - 2011-0 No Kaylee 2,500 Bin stephanie one time - Jhoana unit, 2.5 l bolus for 15:16: Zwiener mL, Route: [place] 00 IV, Drug form: INJ, ONCE, Priority: STAT, Start date: 09/26/11 10:16:00, Stop date: 09/26/11 10:16:00 Zanaflex 2011-0 No Nicolin 2 mg, 0.5 M emoria 09-25 Johanny tab, l 14:00: Ander Route: PO, Drug form: TAB, Daily, Start date: 09/26/11 9:00:00, Duration: 30 day, Stop date: 10/25/11 9:00:00 Zanaflex 2011-0 No Nicolin 2 mg, 0.5 M emoria 09-25 Johanny tab, l 14:00: Ander Route: PO, Drug form: TAB, Daily, Start date: 09/26/11 9:00:00, Duration: 30 day, Stop date: 10/25/11 9:00:00 Phenergan 2011-0 No Gretchen 12.5 mg, Me moria -26 Sylvaine 0.5 mL, l 04:08: Neyou Route: [place] 00 IVPB, Drug form: INJ, Q6H, PRN Nausea & Vomiting, Priority: STAT, Start date: 09/25/11 23:08:00, Duration: 30 day, Stop date: 10/25/11 23:07:00 Phenergan 2012-0 No Gretchen 12.5 mg, Me moria 5-26 Sylvaine 0.5 mL, l 04:08: Neyou Route: IVPB, Drug form: INJ, Q6H, PRN Nausea & Vomiting, Priority: STAT, Start date: 09/25/11 23:08:00, Duration: 30 day, Stop date: 10/25/11 23:07:00 cefepime 2011-0 No Racquel 1 gm, Memoria 5-26 Yousef Route: l 03:56: Nawas IVPB, Drug Deangelo n 00 form: INJ, [id number], Start date: 09/25/11 22:56:00, Duration: 30 day, Stop date: 10/25/11 14:56:00 cefepime 2011-0 No Racquel 1 gm, Memoria 5-26 Yousef Route: l 03:56: Nawas IVPB, Drug Deangelo n 00 form: INJ, [id number], Start date: 09/25/11 22:56:00, Duration: 30 day, Stop date: 10/25/11 14:56:00 Saline 2011-0 No Mohit 5 ml, Memoria Flush 0.9% 5-26 Castro Al Route: l 02:00: Kaddoumi IVP, Drug Herm camilo 00 Form: INJ, Q12H, Start date: 09/25/11 21:00:00, Duration: 30 day, Stop date: 10/25/11 9:00:00 Saline 2011-0 No Mohit 5 ml, Memoria Flush 0.9% 5-26 Castro Al Route: l 02:00: K[place]oumi IVP, Drug Herm camilo 00 Form: INJ, Q12H, Start date: 09/25/11 21:00:00, Duration: 30 day, Stop date: 10/25/11 9:00:00 alteplase 2011-0 No Mohit 1,000 mL, M emoria (tPA) 20 mg 5-26 Castro Al Rate: 50 l + Sodium 00:24: Kaddoumi ml/hr, Her condon Chloride 00 Infuse 0.9% IV over: 20 1,000 mL hr, Route: IV, Dosing Weight 78.693 kg, Total Volume: 1,000, Priority: STAT, Start date: 09/25/11 19:24:00, Duration: 48 hr, Stop date: 09/27/11 19:23:00 alteplase 2011-0 No Mohit 1,000 mL, M emoria (tPA) 20 mg 09-25 Rate: 50 l + Sodium 00:24: Kaddoumi ml/hr, Her condon Chloride 00 Infuse 0.9% IV over: 20 1,000 mL hr, Route: IV, Dosing Weight 78.693 kg, Total Volume: 1,000, Priority: STAT, Start date: 09/25/11 19:24:00, Duration: 48 hr, Stop date: 09/27/11 19:23:00 Saline No Mohit 5 ml, Memoria Flush 0.9% 09-25 Route: l 00:22: Kaddoumi IVP, Drug Herm camilo 00 Form: INJ, PRN, PRN Line Flush, Start date: 09/25/11 19:22:00, Duration: 30 day, Stop date: 10/25/11 19:21:00 nitroglycer No Mohit 0.4 mg, 1 Memoria in [place] Tab 09-25 Al tab, l 00:22: ddoumi Route: , Her condon 00 Drug form: TAB, Q5Min, PRN Chest Pain, Start date: 09/25/11 19:22:00, Duration: 3 doses or times, Stop date: Limited # of times Saline No Mohit 5 ml, Memoria Flush 0.9% 09-25 Route: l 00:22: [place]oumi IVP, Drug Herm camilo 00 Form: INJ, PRN, PRN Line Flush, Start date: 09/25/11 19:22:00, Duration: 30 day, Stop date: 10/25/11 19:21:00 nitroglycer No Mohit 0.4 mg, 1 Memoria in [place] Tab 09-25is Al tab, l 00:22: Kaddoumi Route: , Her condon 00 Drug form: TAB, Q5Min, PRN Chest Pain, Start date: 09/25/11 19:22:00, Duration: 3 doses or times, Stop date: Limited # of times tizanidine No Cecilio Mason 2 mg, M emoria 09-23 Arshad Route: PO, l 14:00: QID, Start [place] 00 date: 09/24/11 9:00:00, Duration: 30 day, Stop date: 10/23/11 21:00:00 multivitami 2011-0 No Cecilio Mason 1 tab, Memoria n with 5-24 Arshad Route: PO, l minerals 14:00: Drug Form: Her condon 00 TAB, Daily, Start date: 09/24/11 9:00:00, Duration: 30 day, Stop date: 10/23/11 9:00:00 magnesium 2012-0 No Cecilio Mason 400 mg, 1 Memoria oxide 5-24 Arshad tab, l 14:00: Route: PO, Drug form: TAB, Daily, Start date: 09/24/11 9:00:00, Duration: 30 day, Stop date: 10/23/11 9:00:00 Zanaflex 2011-0 No Nicolin 2 mg, 0.5 M emoria 5-24 Johanny tab, l 14:00: Ander Route: PO, Drug form: TAB, Q12H, Start date: 09/24/11 9:00:00, Duration: 30 day, Stop date: 10/23/11 21:00:00 Celexa 2011-0 No Cecilio Mason 20 mg, 1 Me moria 5-24 Arshad tab, l 14:00: Route: PO, Drug form: TAB, Daily, Start date: 09/24/11 9:00:00, Duration: 30 day, Stop date: 10/23/11 9:00:00 Detrol LA 2011-0 No Cecilio Mason 4 mg, 1 Memoria 5-24 Arshad cap, l 14:00: Route: PO, Drug form: CAP, Daily, Start date: 09/24/11 9:00:00, Duration: 30 day, Stop date: 10/23/11 9:00:00 Vesicare 2011-0 No Cecilio Mason 10 mg, Me moria 10mg 5-24 Arshad Route: PO, l 14:00: BID, Start date: 09/24/11 9:00:00, Duration: 30 day, Stop date: 10/23/11 17:00:00 cefepime 2011-0 No Nicolin 1 gm, Memor ia 5-24 Johanny Route: l 14:00: Ander IVPB, Drug [place] 00 form: INJ, [id number], Start date: 09/24/11 9:00:00, Duration: 30 day, Stop date: 10/23/11 21:00:00 vancomycin 2012-0 No Racquel 1 gm, Memor ia 5-24 Yousef Route: l 14:00: Nawas IVPB, Drug Deangelo n 00 form: INJ, [id number], Start date: 09/24/11 9:00:00, Duration: 30 day, Stop date: 10/23/11 21:00:00 tizanidine 2011-0 No Cecilio Mason 2 mg, M emoria 5-24 Arshad Route: PO, l 14:00: QID, Start [place] 00 date: 09/24/11 9:00:00, Duration: 30 day, Stop date: 10/23/11 21:00:00 multivitami 2011-0 No Cecilio Mason 1 tab, Memoria n with 5-24 Arshad Route: PO, l minerals 14:00: Drug Form: Her condon 00 TAB, Daily, Start date: 09/24/11 9:00:00, Duration: 30 day, Stop date: 10/23/11 9:00:00 magnesium 2011-0 No Cecilio Mason 400 mg, 1 Memoria oxide 5-24 Arshad tab, l 14:00: Route: PO, [place] Drug form: TAB, Daily, Start date: 09/24/11 9:00:00, Duration: 30 day, Stop date: 10/23/11 9:00:00 Zanaflex 2011-0 No Nicolin 2 mg, 0.5 M emoria 5-24 Johanny tab, l 14:00: Ander Route: PO, [place] Drug form: TAB, Q12H, Start date: 09/24/11 9:00:00, Duration: 30 day, Stop date: 10/23/11 21:00:00 Celexa 2011-0 No Cecilio Mason 20 mg, 1 Me moria 5-24 Arshad tab, l 14:00: Route: PO, [place] 00 Drug form: TAB, Daily, Start date: 09/24/11 9:00:00, Duration: 30 day, Stop date: 10/23/11 9:00:00 Detrol LA 2011- No Cecilio Mason 4 mg, 1 Memoria 5-24 Arshad cap, l 14:00: Route: PO, [place] 00 Drug form: CAP, Daily, Start date: 09/24/11 9:00:00, Duration: 30 day, Stop date: 10/23/11 9:00:00 Vesicare 2011- No Cecilio Mason 10 mg, Me moria 10mg 5-24 Arshad Route: PO, l 14:00: BID, Start [place] 00 date: 09/24/11 9:00:00, Duration: 30 day, Stop date: 10/23/11 17:00:00 cefepime 2011- No Nicolin 1 gm, Memor ia 5-24 Johanny Route: l 14:00: Ander IVPB, Drug [place] 00 form: INJ, [id number], Start date: 09/24/11 9:00:00, Duration: 30 day, Stop date: 10/23/11 21:00:00 vancomycin 2011- No Racquel 1 gm, Memor ia 5-24 Yousef Route: l 14:00: Nawas IVPB, Drug Deangelo n 00 form: INJ, [id number], Start date: 09/24/11 9:00:00, Duration: 30 day, Stop date: 10/23/11 21:00:00 heparin 2011-0 No Kaylee 5,000 Memori a 5000 5-24 Jhoana unit, 1 l units/mL 13:00: Zwiener mL, Route: [place] injectable 00 SUB-Q, solution Drug form: INJ, Q8H, Start date: 09/24/11 8:00:00, Duration: 30 day, Stop date: 10/24/11 0:00:00 heparin 2011-0 No Kaylee 5,000 Memori a 5000 5-24 Jhoana unit, 1 l units/mL 13:00: Zwiener mL, Route: [place] injectable 00 SUB-Q, solution Drug form: INJ, Q8H, Start date: 09/24/11 8:00:00, Duration: 30 day, Stop date: 10/24/11 0:00:00 Phenergan 2012-0 No Cecilio Mason 6.25 mg, 5 Memoria 5-24 Arshad mL, Route: l 05:01: PO, Drug [place] 00 form: SYRP, Q6H, PRN Nausea & Vomiting, Start date: 09/24/11 0:01:00, Duration: 30 day, Stop date: 10/24/11 0:00:00 Phenergan 2012-0 No Cecilio Mason 6.25 mg, 5 Memoria 5-24 Arshad mL, Route: l 05:01: PO, Drug [place] 00 form: SYRP, Q6H, PRN Nausea & Vomiting, Start date: 09/24/11 0:01:00, Duration: 30 day, Stop date: 10/24/11 0:00:00 baclofen 2012-0 No Cecilio Mason 10 mg, 1 Memoria 5-24 Arshad tab, l 05:00: Route: PO, [place] 00 Drug form: TAB, Q6H, Start date: 09/24/11 0:00:00, Duration: 30 day, Stop date: 10/23/11 18:00:00 gabapentin 2012-0 No Cecilio Mason 300 mg, 1 Memoria 300 mg oral 5-24 Arshad cap, l capsule 05:00: Route: PO, Herm camilo 00 Drug form: CAP, Q6H, Start date: 09/24/11 0:00:00, Duration: 30 day, Stop date: 10/23/11 18:00:00 baclofen 2012-0 No Cecilio Mason 10 mg, 1 Memoria 5-24 Arshad tab, l 05:00: Route: PO, [place] 00 Drug form: TAB, Q6H, Start date: 09/24/11 0:00:00, Duration: 30 day, Stop date: 10/23/11 18:00:00 gabapentin 2012-0 No Cecilio Mason 300 mg, 1 Memoria 300 mg oral 5-24 Arshad cap, l capsule 05:00: Route: PO, Herm camilo 00 Drug form: CAP, Q6H, Start date: 09/24/11 0:00:00, Duration: 30 day, Stop date: 10/23/11 18:00:00 Tylenol 2012-0 No Cecilio Mason 650 mg, 2 Memoria 5-24 Arshad tab, l 04:21: Route: PO, [place] 00 Drug form: TAB, Q6H, PRN Fever, Priority: NOW, Start date: 09/23/11 23:21:00, Duration: 30 day, Stop date: 10/23/11 23:20:00 Tylenol 2012-0 No Cecilio Mason 650 mg, 2 Memoria 5-24 Arshad tab, l 04:21: Route: PO, [place] 00 Drug form: TAB, Q6H, PRN Fever, Priority: NOW, Start date: 09/23/11 23:21:00, Duration: 30 day, Stop date: 10/23/11 23:20:00 Augmentin 2011-0 No Mary 1 tab, Mem oria 500 mg oral 5-24 Aydee Route: PO, l tablet 04:00: Lozano-Delilah Drug Form: [place] 00 nda TAB, Q12H, Start date: 09/23/11 23:00:00, Duration: 30 day, Stop date: 10/23/11 21:00:00 Augmentin 2012-0 No Mary 1 tab, Mem oria 500 mg oral 5-24 Aydee Route: PO, l tablet 04:00: Lozano-Delilah Drug Form: [place] 00 nda TAB, Q12H, Start date: 09/23/11 23:00:00, Duration: 30 day, Stop date: 10/23/11 21:00:00 senna 8.6 2012-0 No Cecilio Mason 8.6 mg, 1 Memoria mg oral 5-24 Arshad tab, l tablet 03:14: Route: PO, Lakeshia nn 00 Drug Form: TAB, Bedtime, PRN Constipati on, Start date: 09/23/11 22:14:00, Duration: 30 day, Stop date: 10/23/11 22:13:00 senna 8.6 2012-0 No Cecilio Mason 8.6 mg, 1 Memoria mg oral 5-24 Arshad tab, l tablet 03:14: Route: PO, Lakeshia nn 00 Drug Form: TAB, Bedtime, PRN Constipati on, Start date: 09/23/11 22:14:00, Duration: 30 day, Stop date: 10/23/11 22:13:00 [place] 5/325 2012-0 No Cecilio Mason 1 tab, Memoria oral tablet 5-24 Arshad Route: PO, l 03:11: Drug Form: [place] 00 TAB, Q6H, PRN as needed for pain, Start date: 09/23/11 22:11:00, Duration: 30 day, Stop date: 10/23/11 22:10:00 [place] 5/325 2011-0 No Cecilio Mason 1 tab, Memoria oral tablet 5-24 Arshad Route: PO, l 03:11: Drug Form: [place] 00 TAB, Q6H, PRN as needed for pain, Start date: 09/23/11 22:11:00, Duration: 30 day, Stop date: 10/23/11 22:10:00 fluticasone 2012-0 No Cecilio Mason 0.05 mg, 1 Memoria nasal 0.05 5-24 Arshad spray, l mg/inh 03:10: Route: [place] spray 00 NASAL, Drug Form: SPRY, PRN, PRN Allergies, Start date: 09/23/11 22:10:00, Duration: 30 day, Stop date: 10/23/11 22:09:00 fluticasone 2012-0 No Cecilio Mason 0.05 mg, 1 Memoria nasal 0.05 5-24 Arshad spray, l mg/inh 03:10: Route: [place] spray 00 NASAL, Drug Form: SPRY, PRN, PRN Allergies, Start date: 09/23/11 22:10:00, Duration: 30 day, Stop date: 10/23/11 22:09:00 ondansetron 2012-0 No Cecilio Mason 4 mg, 2 Memoria 5-24 Arshad mL, Route: l 02:01: IV, Drug [place] 00 form: INJ, Q4H, PRN Nausea, Priority: STAT, Start date: 09/23/11 21:01:00, Duration: 30 day, Stop date: 10/23/11 21:00:00 ondansetron 2012-0 No Cecilio Mason 4 mg, 2 Memoria 5-24 Arshad mL, Route: l 02:01: IV, Drug [place] 00 form: INJ, Q4H, PRN Nausea, Priority: STAT, Start date: 09/23/11 21:01:00, Duration: 30 day, Stop date: 10/23/11 21:00:00 Saline 2011-0 No Favio 5 ml, Memoria Flush 0.9% 5-24 Ifeyinwa Route: l 02:00: [place] IVP, Drug He rmann Form: INJ, Q12H, Start date: 09/23/11 21:00:00, Duration: 30 day, Stop date: 10/23/11 9:00:00 Saline 2011-0 No Favio 5 ml, Memoria Flush 0.9% 5-24 Ifeyinwa Route: l 02:00: [place] IVP, Drug He rmann 00 Form: INJ, Q12H, Start date: 09/23/11 21:00:00, Duration: 30 day, Stop date: 10/23/11 9:00:00 Saline 2011-0 No Favio 5 ml, Memoria Flush 0.9% 5-24 Ifeyinwa Route: l 00:06: [place] IVP, Drug He rm Form: INJ, PRN, PRN Line Flush, Start date: 09/23/11 19:06:00, Duration: 30 day, Stop date: 10/23/11 19:05:00 Saline 2011-0 No Favio 5 ml, Memoria Flush 0.9% 5-24 Ifeyinwa Route: l 00:06: [place] IVP, Drug He rm Form: INJ, PRN, PRN Line Flush, Start date: 09/23/11 19:06:00, Duration: 30 day, Stop date: 10/23/11 19:05:00 Saline 2011-0 No Favio 5 ml, Memoria Flush 0.9% 5-24 Ifeyinwa Route: l 00:03: [place] IVP, Drug He rmann 00 Form: INJ, PRN, PRN Line Flush, Start date: 09/23/11 19:03:00, Duration: 30 day, Stop date: 10/23/11 19:02:00 Saline 2011-0 No Favio 5 ml, Memoria Flush 0.9% 5-24 Ifeyinwa Route: l 00:03: [place] IVP, Drug He rmann Form: INJ, PRN, PRN Line Flush, Start date: 09/23/11 19:03:00, Duration: 30 day, Stop date: 10/23/11 19:02:00 alteplase 2011- No Ali Leoncio 1,000 mL, Memoria (tPA) 20 mg 5-23 Denktas Rate: 50 l + Sodium 22:37: ml/hr, [place] Chloride 00 Infuse 0.9% IV over: 20 1,000 mL hr, Route: IV, Dosing Weight 86.818 kg, Total Volume: 1,000, Priority: STAT, Start date: 09/23/11 17:37:00, Duration: 48 hr, Stop date: 09/25/11 17:36:00 alteplase 2011- No Ali Leoncio 1,000 mL, Memoria (tPA) 20 mg 5-23 Denktas Rate: 50 l + Sodium 22:37: ml/hr, [place] Chloride 00 Infuse 0.9% IV over: 20 1,000 mL hr, Route: IV, Dosing Weight 86.818 kg, Total Volume: 1,000, Priority: STAT, Start date: 09/23/11 17:37:00, Duration: 48 hr, Stop date: 09/25/11 17:36:00 baclofen Yes 119.95 Memoria 0.5 mg/mL 4-05 mcg/day, l intrathecal 20:41: INTRATHECA [place] solution 47 L, Substituti on Allowed, Simple modeSimple mode baclofen Yes 119.95 Memoria 0.5 mg/mL 4-05 mcg/day, l intrathecal 20:41: INTRATHECA [place] solution 47 L, Substituti on Allowed, Simple modeSimple mode Keflex 500 Yes Leeanna 500 mg, 1 Memoria mg oral 3-14 Kwame cap, PO, l capsule 15:43: QID, 28 [place] 06 cap, Substituti on Allowed Keflex 500 Yes Leeanna 500 mg, 1 Memoria mg oral 3-14 Kwame cap, PO, l capsule 15:43: QID, 28 [place] 06 cap, Substituti on Allowed [place] 5/325 2012-0 Yes Leeanna 1 tab, PO, Memoria oral tablet 3-14 Kwame Q4-6H, l 15:41: PRN, 30 [place] 26 tab, pain, Substituti on Allowed, Maintenanc e [place] Yes Leeanna 1 tab, PO, Memoria oral tablet 3-14 Kwame Q4-6H, l 15:41: PRN, 30 [place] 26 tab, pain, Substituti on Allowed, Maintenanc e magnesium No Jui-En 400 mg, 1 M emoria oxide 3-14 Edward Goodrich tab, l 14:00: Route: PO, [place] 00 Drug form: TAB, Daily, Start date: 07/15/11 9:00:00, Duration: 30 day, Stop date: 08/13/11 9:00:00 fluticasone No Jui-En 0.1 mg, 2 Memoria nasal 0.05 3-14 Edward Goodrich spray, l mg/inh 14:00: Route: [place] spray 00 Each Affected Nostril, Drug Form: SPRY, Daily, Start date: 07/15/11 9:00:00, Duration: 30 day, Stop date: 08/13/11 9:00:00 Celexa No Jui-En 20 mg, 1 Memor ia 3-14 Edward Goodrich tab, l 14:00: Route: PO, [place] 00 Drug form: TAB, Daily, Start date: 07/15/11 9:00:00, Duration: 30 day, Stop date: 08/13/11 9:00:00 magnesium 2011-0 No Jui-En 400 mg, 1 M emoria oxide 3-14 Edward Goodrich tab, l 14:00: Route: PO, [place] 00 Drug form: TAB, Daily, Start date: 07/15/11 9:00:00, Duration: 30 day, Stop date: 08/13/11 9:00:00 fluticasone 0 No Jui-En 0.1 mg, 2 Memoria nasal 0.05 3-14 Edward Goodrich spray, l mg/inh 14:00: Route: [place] spray 00 Each Affected Nostril, Drug Form: SPRY, Daily, Start date: 07/15/11 9:00:00, Duration: 30 day, Stop date: 08/13/11 9:00:00 Celexa 2012-0 No Jui-En 20 mg, 1 Memor ia 3-14 Edward Goodrich tab, l 14:00: Route: PO, [place] 00 Drug form: TAB, Daily, Start date: 07/15/11 9:00:00, Duration: 30 day, Stop date: 08/13/11 9:00:00 midodrine 2012-0 No Catalina 5 mg, 1 Bin stephanie 3-13 Ruchi tab, l 21:29: Mariusz Route: PO, Deangelo n 00 Drug form: TAB, ONCE, Start date: 07/14/11 16:29:00, Stop date: 07/14/11 16:29:00 midodrine 2012-0 No Catalina 5 mg, 1 Bin stephanie 3-13 Ruchi tab, l 21:29: Mariusz Route: PO, Deangelo n 00 Drug form: TAB, ONCE, Start date: 07/14/11 16:29:00, Stop date: 07/14/11 16:29:00 oxybutynin 2012-0 No Jui-En 5 mg, 1 Me moria 3-13 Edward Goodrich tab, l 18:00: Route: PO, [place] 00 Drug form: TAB, QID, Start date: 07/14/11 13:00:00, Duration: 30 day, Stop date: 08/13/11 9:00:00 tizanidine 2012-0 No Jui-En 4 mg, 1 Me moria 3-13 Edward Goodrich tab, l 18:00: Route: PO, [place] 00 Drug form: TAB, QID, Start date: 07/14/11 13:00:00, Duration: 30 day, Stop date: 08/13/11 9:00:00 oxybutynin 2012-0 No Jui-En 5 mg, 1 Me moria 3-13 Edward Goodrich tab, l 18:00: Route: PO, [place] 00 Drug form: TAB, QID, Start date: 07/14/11 13:00:00, Duration: 30 day, Stop date: 08/13/11 9:00:00 tizanidine 2012-0 No Jui-En 4 mg, 1 Me moria 3-13 Edward Goodrich tab, l 18:00: Route: PO, [place] 00 Drug form: TAB, QID, Start date: 07/14/11 13:00:00, Duration: 30 day, Stop date: 08/13/11 9:00:00 Ambien 2012-0 No Roque 5 mg, 1 Memori a 3-13 Saida Fenoy tab, l 17:50: Jr Route: PO, [place] 00 Drug form: TAB, Bedtime, PRN Sleep, Start date: 07/14/11 12:50:00, Duration: 30 day, Stop date: 08/13/11 12:49:00 Ambien 2011-0 No Roque 5 mg, 1 Memori a 3-13 Saida Fenoy tab, l 17:50: Jr Route: PO, Drug form: TAB, Bedtime, PRN Sleep, Start date: 07/14/11 12:50:00, Duration: 30 day, Stop date: 08/13/11 12:49:00 baclofen 2011-0 No Jui-En 30 mg, 3 Mem oria 3-13 Edward Goodrich tab, l 17:00: Route: PO, Drug form: TAB, Q6H, Start date: 07/14/11 12:00:00, Duration: 30 day, Stop date: 08/13/11 6:00:00 midodrine 2011-0 No Jui-En 5 mg, 1 Mem oria 3-13 Edward Goodrich tab, l 17:00: Route: PO, [place] 00 Drug form: TAB, BID-11-11, Start date: 07/14/11 12:00:00, Duration: 30 day, Stop date: 08/13/11 7:00:00 baclofen 2011-0 No Jui-En 30 mg, 3 Mem oria 3-13 Edward Goodrich tab, l 17:00: Route: PO, Drug form: TAB, Q6H, Start date: 07/14/11 12:00:00, Duration: 30 day, Stop date: 08/13/11 6:00:00 midodrine 2011-0 No Jui-En 5 mg, 1 Mem oria 3-13 Edward Goodrich tab, l 17:00: Route: PO, [place] 00 Drug form: TAB, BID-11-11, Start date: 07/14/11 12:00:00, Duration: 30 day, Stop date: 08/13/11 7:00:00 Ambien CR 2011-0 No Jui-En 6.25 mg, Me moria 3-13 Edward Goodrich Route: PO, l 16:33: Drug form: [place] 00 ERTAB, Bedtime, PRN Insomnia, Start date: 07/14/11 11:33:00, Duration: 30 day, Stop date: 08/13/11 11:32:00 Ambien CR 2011-0 No Jui-En 6.25 mg, Me moria 3-13 Edward Goodrich Route: PO, l 16:33: Drug form: [place] 00 ERTAB, Bedtime, PRN Insomnia, Start date: 07/14/11 11:33:00, Duration: 30 day, Stop date: 08/13/11 11:32:00 acetaminoph No Ahmar 15 mL, Mem oria en-hydrocod 3-13 Lisa Route: PO, l one 325 14:07: Drug Form: Herm camilo mg-10 mg/15 00 SOLN, Q6H, mL oral PRN Pain, solution Start date: 07/14/11 9:07:00, Duration: 30 day, Stop date: 08/13/11 9:06:00 naloxone No Ahmar 0.04 mg, Bin stephanie 3-13 Lisa 0.1 mL, l 14:07: Route: IVP, Drug form: INJ, Q2MIN, PRN Narcotic Reversal, Start date: 07/14/11 9:07:00, Duration: 8 doses or times, Stop date: 07/15/11 0:00:00 flumazenil No Ahmar 0.2 mg, 2 M emoria 3-13 Lisa mL, Route: l 14:07: IVP, Drug form: INJ, PRN, PRN Benzodiaze pine Reversal, Initial dose, Start date: 07/14/11 9:07:00, Duration: 30 day, Stop date: 08/13/11 9:06:00 ondansetron 2012-0 No Ahmar 4 mg, 2 Me moria 3-13 Lisa mL, Route: l 14:07: IVP, Drug [place] 00 form: INJ, ONCE, PRN Nausea & Vomiting, Start date: 07/14/11 9:07:00 acetaminoph 2011-0 No Ahmar 15 mL, Mem oria en-hydrocod 3-13 Lisa Route: PO, l one 325 14:07: Drug Form: Herm acmilo mg-10 mg/15 00 SOLN, Q6H, mL oral PRN Pain, solution Start date: 07/14/11 9:07:00, Duration: 30 day, Stop date: 08/13/11 9:06:00 naloxone 2011-0 No Ahmar 0.04 mg, Bin stephanie 3-13 Lisa 0.1 mL, l 14:07: Route: [place] 00 IVP, Drug form: INJ, Q2MIN, PRN Narcotic Reversal, Start date: 07/14/11 9:07:00, Duration: 8 doses or times, Stop date: 07/15/11 0:00:00 flumazenil 2011-0 No Ahmar 0.2 mg, 2 M emoria 3-13 Lisa mL, Route: l 14:07: IVP, Drug form: INJ, PRN, PRN Benzodiaze pine Reversal, Initial dose, Start date: 07/14/11 9:07:00, Duration: 30 day, Stop date: 08/13/11 9:06:00 ondansetron 2011-0 No Ahmar 4 mg, 2 Me moria 3-13 Lisa mL, Route: l 14:07: IVP, Drug form: INJ, ONCE, PRN Nausea & Vomiting, Start date: 07/14/11 9:07:00 Saline 2011-0 No Jui-En 5 ml, Memoria Flush 0.9% 3-13 Edward Goodrich Route: l 14:00: IVP, Drug [place] 00 Form: INJ, Q12H, Start date: 07/14/11 9:00:00, Duration: 30 day, Stop date: 08/12/11 21:00:00 senna 2011-0 No Jui-En 8.6 mg, 1 Memor ia 3-13 Edward Goodrich tab, l 14:00: Route: PO, [place] 00 Drug Form: TAB, Q12H, Start date: 07/14/11 9:00:00, Duration: 30 day, Stop date: 08/12/11 21:00:00 docusate 2012-0 No Jui-En 100 mg, 1 Me moria sodium 100 3-13 Edward Goodrich cap, l mg oral 14:00: Route: PO, Herm camilo capsule 00 Drug form: CAP, Q12H, Start date: 07/14/11 9:00:00, Duration: 30 day, Stop date: 08/12/11 21:00:00 cefazolin 2011-0 No Jui-En 1 gm, Memor ia 3-13 Edward Goodrich Route: l 14:00: IVPB, Drug [place] form: PDR/INJ, ABXQ8H, For < 70 kg, Start date: 07/14/11 9:00:00, Duration: 30 day, Stop date: 08/13/11 1:00:00 Saline 2011-0 No Jui-En 5 ml, Memoria Flush 0.9% 3-13 Edward Goodrich Route: l 14:00: IVP, Drug [place] Form: INJ, Q12H, Start date: 07/14/11 9:00:00, Duration: 30 day, Stop date: 08/12/11 21:00:00 senna 2011-0 No Jui-En 8.6 mg, 1 Memor ia 3-13 Edward Goodrich tab, l 14:00: Route: PO, [place] 00 Drug Form: TAB, Q12H, Start date: 07/14/11 9:00:00, Duration: 30 day, Stop date: 08/12/11 21:00:00 docusate 2011-0 No Jui-En 100 mg, 1 Me moria sodium 100 3-13 Edward Goodrich cap, l mg oral 14:00: Route: PO, Herm camilo capsule 00 Drug form: CAP, Q12H, Start date: 07/14/11 9:00:00, Duration: 30 day, Stop date: 08/12/11 21:00:00 cefazolin 2011-0 No Jui-En 1 gm, Memor ia 3-13 Edward Goodrich Route: l 14:00: IVPB, Drug [place] 00 form: PDR/INJ, ABXQ8H, For < 70 kg, Start date: 07/14/11 9:00:00, Duration: 30 day, Stop date: 08/13/11 1:00:00 Saline 2011- No Jui-En 5 ml, Memoria Flush 0.9% 07-13 Edward Goodrich Route: l 13:43: IVP, Drug Form: INJ, PRN, PRN Line Flush, Start date: 07/14/11 8:43:00, Duration: 30 day, Stop date: 08/13/11 8:42:00 Sodium No Jui-En 1,000 mL, Bin stephanie Chloride 07-13 Edward Goodrich Rate: 50 l 0.9% IV 13:43: ml/hr, [place] 1,000 mL 00 Infuse over: 20 hr, Route: IV, Dosing Weight 81.818 kg, Total Volume: 1,000, Start date: 07/14/11 8:43:00, Duration: 30 day, Stop date: 08/13/11 8:42:00 acetaminoph No Jui-En 2 tab, Me moria en-hydrocod - Edward Goodrich Route: PO, l one 325 13:43: Drug Form: Herm camilo mg-10 mg 00 TAB, Q4H, oral tablet PRN Pain Score 7-10, Start date: 07/14/11 8:43:00, Duration: 30 day, Stop date: 08/13/11 8:42:00 acetaminoph No Jui-En 1 tab, Me moria en-hydrocod - Edward Goodrich Route: PO, l one 325 13:43: Drug Form: Herm camilo mg-5 mg 00 TAB, Q4H, oral tablet PRN Pain Score 1-3, Start date: 07/14/11 8:43:00, Duration: 30 day, Stop date: 08/13/11 8:42:00 acetaminoph No Jui-En 650 mg, M emoria en - Edward Goodrich 20.3 mL, l 13:43: Route: PO, [place] 00 Drug form: LIQ, Q4H, PRN Pain/Fever , Start date: 07/14/11 8:43:00, Duration: 30 day, Stop date: 08/13/11 8:42:00 bisacodyl 2011- No Jui-En 10 mg, 1 Me moria - Edward Goodrich supp, l 13:43: Route: SD, [place] 00 Drug form: SUPP, Daily, PRN Constipati on, Start date: 07/14/11 8:43:00, Duration: 30 day, Stop date: 08/13/11 8:42:00 ondansetron No Jui-En 4 mg, 2 M emoria 07-13 Edward Goodrich mL, Route: l 13:43: IVP, Drug [place] form: INJ, Q8H, PRN Nausea & Vomiting, Start date: 07/14/11 8:43:00, Duration: 30 day, Stop date: 08/13/11 8:42:00 Saline No Jui-En 5 ml, Memoria Flush 0.9% 07-13 Edward Goodrich Route: l 13:43: IVP, Drug [place] 00 Form: INJ, PRN, PRN Line Flush, Start date: 07/14/11 8:43:00, Duration: 30 day, Stop date: 08/13/11 8:42:00 Sodium No Jui-En 1,000 mL, Bin stephanie Chloride 07-13 Edward Goodrich Rate: 50 l 0.9% IV 13:43: ml/hr, [place] 1,000 mL 00 Infuse over: 20 hr, Route: IV, Dosing Weight 81.818 kg, Total Volume: 1,000, Start date: 07/14/11 8:43:00, Duration: 30 day, Stop date: 08/13/11 8:42:00 acetaminoph No Jui-En 2 tab, Me moria en-hydrocod 07-13 Edward Goodrich Route: PO, l one 325 13:43: Drug Form: Herm camilo mg-10 mg 00 TAB, Q4H, oral tablet PRN Pain Score 7-10, Start date: 07/14/11 8:43:00, Duration: 30 day, Stop date: 08/13/11 8:42:00 acetaminoph No Jui-En 1 tab, Me moria en-hydrocod - Edward Goodrich Route: PO, l one 325 13:43: Drug Form: Herm camilo mg-5 mg 00 TAB, Q4H, oral tablet PRN Pain Score 1-3, Start date: 07/14/11 8:43:00, Duration: 30 day, Stop date: 08/13/11 8:42:00 acetaminoph No Jui-En 650 mg, M emoria en 07-13 Edward Goodrich 20.3 mL, l 13:43: Route: PO, [place] 00 Drug form: LIQ, Q4H, PRN Pain/Fever , Start date: 07/14/11 8:43:00, Duration: 30 day, Stop date: 08/13/11 8:42:00 bisacodyl No Jui-En 10 mg, 1 Me moria 07-13 Edward Goodrich supp, l 13:43: Route: SD, [place] 00 Drug form: SUPP, Daily, PRN Constipati on, Start date: 07/14/11 8:43:00, Duration: 30 day, Stop date: 08/13/11 8:42:00 ondansetron No Jui-En 4 mg, 2 emoria 07-13 Edward Goodrich mL, Route: l 13:43: IVP, Drug [place] 00 form: INJ, Q8H, PRN Nausea & Vomiting, Start date: 07/14/11 8:43:00, Duration: 30 day, Stop date: 08/13/11 8:42:00 cefazolin 2011-0 No [facility] Saida Fenoy mL, Route: l 11:00: Jr IVPB, Drug [place] 00 form: INJ, PRE OP, Start date: 07/14/11 6:00:00, Duration: 1 day, Stop date: 07/15/11 5:59:00 cefazolin 2011-0 No Roque 2 gm, [facility] Saida Fenoy mL, Route: l 11:00: Jr IVPB, Drug [place] 00 form: INJ, PRE OP, Start date: 07/14/11 6:00:00, Duration: 1 day, Stop date: 07/15/11 5:59:00 Lactated 2012-0 No Roque 1,000 mL, Me moria Ringers 3-13 Saida Fenoy Rate: l Injection 10:07: preop@ Deangelo n IV 1,000 mL 00 70cc/hr, Route: IV, Dosing Weight 81.818 kg, Total Volume: 1,000, Start date: 07/14/11 5:07:00, Duration: 1 day, Stop date: 07/15/11 5:06:00 Lactated 2011-0 No Roque 1,000 mL, Me moria Ringers 3-13 Saida Fenoy Rate: l Injection 10:07: preop@ Deangelo n IV 1,000 mL 00 70cc/hr, Route: IV, Dosing Weight 81.818 kg, Total Volume: 1,000, Start date: 07/14/11 5:07:00, Duration: 1 day, Stop date: 07/15/11 5:06:00 lidocaine 2011-0 Yes Substituti Me moria topical 5% 3-06 on Allowed l film 21:25: Rayray (patch) 53 lidocaine 2011-0 Yes Substituti Me moria topical 5% 3-06 on Allowed l film 21:25: Rayray (patch) 53 fluticasone Yes 1 spray, Me moria nasal 0.05 3-06 NASAL, l mg/inh 21:22: PRN, 16 Ray[facility] spray 14 gm, Substituti on Allowed, Maintenanc e, SPRY fluticasone Yes 1 spray, Me moria nasal 0.05 3-06 NASAL, l mg/inh 21:22: PRN, 16 [place] spray 14 gm, Substituti on Allowed, Maintenanc e, SPRY Enemeez Yes 283 mg, 1 Memor ia Mini 283 mg 3-06 ea, SD, l rectal 21:21: BID, Rayray enema 26 Substituti on Allowed Enemeez 0 Yes 283 mg, 1 Memor ia Mini 283 mg 3-06 ea, SD, l rectal 21:21: BID, Ray[place] enema 26 Substituti on Allowed magnesium Yes Jui-En 400 mg, 1 M emoria oxide 400 3-06 Edward Goodrich tab, PO, l mg oral 21:21: Daily, 10 Lakeshia nn tablet 07 tab, Substituti on Allowed, TAB magnesium Yes Jui-En 400 mg, 1 M emoria oxide 400 07-06 Edward Goodrich tab, PO, l mg oral 21:21: Daily, 10 [place] nn tablet 07 tab, Substituti on Allowed, TAB Celexa 20 Yes 20 mg, 1 Bin stephanie mg oral 07-06 tab, PO, l tablet 21:20: Daily, 30 Deangelo n 46 tab, Substituti on Allowed, TAB Celexa 20 Yes 20 mg, 1 Bin stephanie mg oral 07-06 tab, PO, l tablet 21:20: Daily, 30 Deangelo n 46 tab, Substituti on Allowed, TAB oxybutynin Yes Jui-En 5 mg, 1 Me moria 5 mg oral 07-06 Edward Goodrich tab, PO, l tablet 21:20: QID, PRNDeangelo 10 30 tab, Other-See Comments, Substituti on Allowed, TAB oxybutynin Yes Jui-En 5 mg, 1 Me moria 5 mg oral 07-06 Edward Goodrich tab, PO, l tablet 21:20: QID, PRNDeangelo 10 30 tab, Other-See Comments, Substituti on Allowed, TAB baclofen 10 Yes 3, PO, Bin stephanie mg oral 3-06 QID, 270 l tablet 21:19: tabRayray 29 Substituti on Allowed, TAB baclofen 10 Yes 3, PO, Bin stephanie mg oral 3 QID, 270 l tablet 21:19: tab, Rayray 29 Substituti on Allowed, TAB acetaminoph 2010-05 No Anibal 2 tab, Mem oria en-hydrocod 0 Clint Route: PO, l one 325 19:46: Tejinder Drug Form: Rayray mg-5 mg 00 TAB, ONCE, oral tablet STAT, Start date: 02/28/11 14:46:00, Stop date: 02/28/11 14:46:00 Zofran 2010-05 No Anibal 4 mg, 1 Memoria 0- Clint tab, l 19:46: Tejinder Route: PO, Her condon 00 Drug form: TABDIS, ONCE, Priority: STAT, Start date: 02/28/11 14:46:00, Stop date: 02/28/11 14:46:00 acetaminoph 2010-05 No Anibal 2 tab, Mem oria en-hydrocod 0-29 Clint Route: PO, l one 325 19:46: Marr Drug Form: Rayray mg-5 mg 00 TAB, ONCE, oral tablet STAT, Start date: 02/28/11 14:46:00, Stop date: 02/28/11 14:46:00 Zofran 2010-05 No Anibal 4 mg, 1 Memoria 0-29 Clint tab, l 19:46: Marr Route: PO, Her condon 00 Drug form: TABDIS, ONCE, Priority: STAT, Start date: 02/28/11 14:46:00, Stop date: 02/28/11 14:46:00 Toradol 15 2010-05 No Pancho De 15 mg, Memoria mg/mL 0-29 [place] Route: IV, l injectable 05:00: Drug form: H ermann solution 00 INJ, Q6H, Start date: 02/28/11 0:00:00, Duration: 4 day, Stop date: 03/03/11 18:00:00 Toradol 15 2010-05 No Pancho De 15 mg, Memoria mg/mL 0-29 [place] Route: IV, l injectable 05:00: Drug form: H ermann solution 00 INJ, Q6H, Start date: 02/28/11 0:00:00, Duration: 4 day, Stop date: 03/03/11 18:00:00 ondansetron 2010-05 No [place] 4 mg, 1 Memoria 0-29 Gene tab, l 03:16: Cesar Route: PO, Lakeshia nn 00 Drug form: TABDIS, ONCE, Priority: STAT, Start date: 02/27/11 22:16:00, Stop date: 02/27/11 22:16:00 ondansetron 2010-05 No [place] 4 mg, 1 Memoria 0-29 Gene tab, l 03:16: Cesar Route: PO, Lakeshia nn 00 Drug form: TABDIS, ONCE, Priority: STAT, Start date: 02/27/11 22:16:00, Stop date: 02/27/11 22:16:00 El[place] 2010-05 No Luis Raymond 1 tab, Memori a 10/325 oral 0-29 Arshad Route: PO, l tablet 02:53: Drug Form: [place] nn 00 TAB, Q4H, PRN Pain, Start date: 02/27/11 21:53:00, Duration: 30 day, Stop date: 03/29/11 21:52:00 ondansetron 2010-05 No Luis Raymond 4 mg, M emoria 0-29 Arshad Route: PO, l 02:53: Drug form: [place] 00 TABDIS, ONCE, Priority: STAT, Start date: 02/27/11 21:53:00, Stop date: 02/27/11 21:53:00 [place] 2010-05 No Luis Raymond 1 tab, Memori a 10/325 oral 0-29 Arshad Route: PO, l tablet 02:53: Drug Form: [place] nn 00 TAB, Q4H, PRN Pain, Start date: 02/27/11 21:53:00, Duration: 30 day, Stop date: 03/29/11 21:52:00 ondansetron 2010-05 No Luis Raymond 4 mg, M emoria 0-29 Arshad Route: PO, l 02:53: Drug form: Ray[place] 00 TABDIS, ONCE, Priority: STAT, Start date: 02/27/11 21:53:00, Stop date: 02/27/11 21:53:00 Zofran 4 mg 2010-05 Yes Luis Raymond 4 mg, 1 Memoria oral tablet 0-29 Arshad tab, PO, l 01:44: BID, 10 [place] 00 tab, Substituti on Allowed Zofran 4 mg 2010-05 Yes Lusi Raymond 4 mg, 1 Memoria oral tablet 0-29 Arshad tab, PO, l 01:44: BID, 10 [place] 00 tab, Substituti on Allowed [place] 5/325 2010-05 Yes Luis Raymond 1 tab, PO, Memoria oral tablet 0-29 Arshad Q4-6H, l 01:36: PRN, 30 [place] 32 tab, pain, Substituti on Allowed, Maintenanc e [place] 5/325 2010-05 Yes Luis Raymond 1 tab, PO, Memoria oral tablet 0-29 Arshad Q4-6H, l 01:36: PRN, 30 [place] 32 tab, pain, Substituti on Allowed, Maintenanc e hydromorpho 2010-05 No Luis Raymond 1 mg, 0.5 Memoria ne 0-29 Arshad mL, Route: l 00:33: IVP, Drug Rayray 00 form: INJ, ONCE, Priority: STAT, Start date: 02/27/11 19:33:00, Stop date: 02/27/11 19:33:00 hydromorpho 2010-05 No Luis Raymond 1 mg, 0.5 Memoria ne 0-29 Arshad mL, Route: l 00:33: IVP, Drug [place] form: INJ, ONCE, Priority: STAT, Start date: 02/27/11 19:33:00, Stop date: 02/27/11 19:33:00 hydromorpho 2010-05 No Pancho De 1 mg, Memoria ne 0-28 [place] Route: l 23:29: IVP, ONCE, Rayray Priority: STAT, Start date: 02/27/11 18:29:00, Stop date: 02/27/11 18:29:00 hydromorpho 2010-05 No Pancho De 1 mg, Memoria ne 0-28 [place] Route: l 23:29: IVP, ONCE, Rayray Priority: STAT, Start date: 02/27/11 18:29:00, Stop date: 02/27/11 18:29:00 ondansetron 2010-05 No Pancho De 4 mg, Memoria 0-28 [place] Route: l 23:27: IVP, Drug [place] form: INJ, ONCE, Priority: STAT, Start date: 02/27/11 18:27:00, Stop date: 02/27/11 18:27:00 ondansetron 2010-05 No Pancho De 4 mg, Memoria 0-28 [place] Route: l 23:27: IVP, Drug Rayray form: INJ, ONCE, Priority: STAT, Start date: 02/27/11 18:27:00, Stop date: 02/27/11 18:27:00 multivitami 2010- Yes PO, Daily, Memoria n with 9-30 Substituti l minerals 18:44: on Rayray 20 Allowed, Maintenanc e multivitami Yes PO, Daily, Memoria n with -30 Substituti l minerals 18:44: on [place] 20 Allowed, Maintenanc e tizanidine Yes PO, BID, Mem oria 01-30 Substituti l 18:43: on Allowed [place] tizanidine Yes PO, BID, Mem oria 01-30 Substituti l 18:43: on Allowed [place] 31 Immunizations Ordered Filled Immunization Date Status Comments [facility] e Immunization Name Name Influenza Virus 2022-03-11 Completed [facility], [facility] [place] [facility] Preserv and ABX Branch Free 6 MO-64 YRS Influenza Virus 2022-03-11 Completed [facility], 00:00:00 [place] [facility] Preserv and ABX Branch Free 6 MO-64 YRS Influenza Virus 2022-03-11 Completed [facility], 00:00:00 [place] [facility] Preserv and ABX Branch Free 6 MO-64 YRS Influenza Virus 2022-03-11 Completed [facility], 00:00:00 [place] [facility] Preserv and ABX Branch Free 6 MO-64 YRS Influenza Virus 2022-03-11 Completed [facility], 00:00:00 [place] [facility] Preserv and ABX Branch Free 6 MO-64 YRS Influenza Virus 2022-03-11 Completed [facility], 00:00:00 [place] [facility] Preserv and ABX Branch Free 6 MO-64 YRS influenza virus 2020-04-01 Completed [facility] [place] vaccine, 16:43:00 inactivated<sup>1</ sup> influenza virus 2020-04-01 Completed [facility] [place] vaccine, 16:43:00 inactivated<sup>1</ sup> influenza virus 2019-03-02 Completed [facility] [place] vaccine, 19:40:00 inactivated<sup>1</ sup> influenza virus 2019-03-02 Completed [facility] [place] vaccine, 19:40:00 inactivated<sup>2</ sup> influenza virus 2019-03-02 Completed [facility] [place] vaccine, 19:40:00 inactivated<sup>1</ sup> influenza virus 2019-03-02 Completed [facility] vaccine, 19:40:00 inactivated<sup>2</ sup> Influenza Virus 2019-03-02 Completed [facility] Vaccine 00:00:00 [facility] Influenza Virus 2019-03-02 Completed [facility] Vaccine 00:00:00 [facility] Influenza Virus 2019-03-02 Completed [facility] Vaccine 00:00:00 [facility] Influenza Virus 2019-03-02 Completed [facility] Vaccine 00:00:00 [facility] Influenza Virus 2019-03-02 Completed [facility] Vaccine 00:00:00 [facility] Influenza Virus 2019-03-02 Completed [facility] Vaccine 00:00:00 [facility] Influenza Virus 2019-03-02 Completed [facility] Vaccine 00:00:00 [facility] Vital Signs Vital Name Observation Time Observation Value Comments Source Systolic blood 2022-10-08 08:15:00 103 mm[Hg] Univer sity of pressure [facility] Diastolic blood 2022-10-08 08:15:00 75 mm[Hg] Unive rsity of [facility] Heart rate 2022-10-08 08:15:00 71 [facility] Respiratory rate 2022-10-08 08:15:00 20 /min [facility] Oxygen saturation in 2022-10-08 08:15:00 97 /min [facility] Arterial blood by [facility] Pulse oximetry [place] Body temperature 2022-10-08 04:56:00 36.72 Sally [facility] Body height 2022-10-08 04:56:00 185.4 cm [facility] Body weight 2022-10-08 04:56:00 77.111 kg [facility] BMI 2022-10-08 04:56:00 22.43 kg/m2 [facility] Systolic blood 2022-06-17 03:57:00 121 mm[Hg] Univer sity of [facility] Diastolic blood 2022-06-17 03:57:00 95 mm[Hg] Unive rsity of pressure [facility] Heart rate 2022-06-17 03:57:00 100 /min Univers[facility] ty [facility] Respiratory rate 2022-06-17 03:57:00 18 /min [facility] Oxygen saturation in 2022-06-17 03:57:00 96 /min [facility] Arterial blood by [place] [facility] [place] leanne Pulse oximetry Branch Body temperature 2022-06-17 01:39:00 37 Sally [facility] [place] [facility] Body weight 2022-06-17 01:39:00 74.844 kg [facility] BMI 2022-06-17 01:39:00 21.77 kg/m2 [facility] Systolic blood 2022-05-29 15:49:47 93 mm[Hg] Univer [facility]ity of pressure [facility] Diastolic blood 2022-05-29 15:49:47 77 mm[Hg] [facility]ive [facility]ity of pressure [facility] Heart rate 2022-05-29 15:49:47 70 /min [facility] Respiratory rate 2022-05-29 15:49:47 16 /min [facility] Oxygen saturation in 2022-05-29 15:49:47 97 /min [facility] Arterial blood by [place] [facility] [place] leanne Pulse oximetry [facility] Body temperature 2022-05-29 11:34:00 36.11 Sally [facility] Body height 2022-05-29 11:34:00 185.4 cm [facility] [place] [facility] Body weight 2022-05-29 11:34:00 74.844 kg [facility] [place] [facility] BMI 2022-05-29 11:34:00 21.77 kg/m2 [facility] Systolic blood 2022-03-11 17:48:00 119 mm[Hg] Univer [facility]ity of pressure [facility] Diastolic blood 2022-03-11 17:48:00 86 mm[Hg] Unive rsity of pressure [facility] Heart rate 2022-03-11 17:48:00 76 /min [facility] [place] [facility] Body temperature 2022-03-11 17:48:00 36.11 Sally [facility] [place] [facility] Respiratory rate 2022-03-11 17:48:00 18 /min [facility] [place] [facility] Oxygen saturation in 2022-03-11 17:48:00 97 /min [facility] Arterial blood by [place] [facility] [place] leanne Pulse oximetry Branch Body weight 2022-03-11 10:17:00 75.479 kg [facility] BMI 2022-03-11 10:17:00 21.95 kg/m2 [facility] Body height 2022-03-10 00:04:00 185.4 cm [facility] Systolic (mm Hg) 2020-12-26 14:50:00 Bin rial [place] Diastolic (mm Hg) 2020-12-26 14:50:00 Mem orial [place] Heart Rate 2020-12-26 14:50:00 [facility] Respitory Rate 2020-12-26 14:50:00 Memori al [place] Height 2020-12-26 14:50:00 [facility] Calculated 2020-12-26 14:50:00 Memori al [place] Weight 2020-12-26 14:50:00 [facility] Temperature Oral (F) 2020-12-23 00:27:00 97.6 F [facility] Heart Rate 2020-12-23 00:27:00 [facility] [place] Respitory Rate 2020-12-23 00:27:00 Memori al [place] Systolic (mm Hg) 2020-12-23 00:27:00 Bin rial [place] Diastolic (mm Hg) 2020-12-23 00:27:00 Mem orial [place] Height 2020-12-22 19:16:00 185.42 cm [facility] [place] BMI Calculated 2020-12-22 19:16:00 Memori al [place] Weight 2020-12-22 19:16:00 [facility] [place] Systolic (mm Hg) 2020-12-22 19:16:00 Bin rial [place] Diastolic (mm Hg) 2020-12-22 19:16:00 Mem orial [place] Heart Rate 2020-12-22 19:16:00 [facility] [place] Respitory Rate 2020-12-22 19:16:00 Memori al [place] Temperature Oral (F) 2020-12-22 19:16:00 98.9 F [facility] [place] Systolic (mm Hg) 2020-11-06 14:40:00 Bin rial [place] Diastolic (mm Hg) 2020-11-06 14:40:00 Mem orial [place] Heart Rate 2020-11-06 14:40:00 [facility] [place] Respitory Rate 2020-11-06 14:40:00 Memori al [place] Systolic (mm Hg) 2020-11-05 19:55:00 Bin rial [place] Diastolic (mm Hg) 2020-11-05 19:55:00 Mem orial [place] Heart Rate 2020-11-05 19:55:00 [facility] [place] Respitory Rate 2020-11-05 19:55:00 Memori al [place] Height 2020-11-05 19:55:00 185.42 cm [facility] [place] BMI Calculated 2020-11-05 19:55:00 Memori al [place] Weight 2020-11-05 19:55:00 [facility] [place] Systolic (mm Hg) 2020-08-22 14:37:00 Bin rial [place] Diastolic (mm Hg) 2020-08-22 14:37:00 Mem orial [place] Heart Rate 2020-08-22 14:37:00 [facility] [place] Respitory Rate 2020-08-22 14:37:00 Memori al [place] Height 2020-08-22 14:37:00 182.88 cm [facility] [place] BMI Calculated 2020-08-22 14:37:00 Memori al [place] Weight 2020-08-22 14:37:00 [facility] [place] Systolic (mm Hg) 2020-07-29 15:28:00 Bin rial [place] Diastolic (mm Hg) 2020-07-29 15:28:00 Mem orial [place] Heart Rate 2020-07-29 15:28:00 [facility] [place] Respitory Rate 2020-07-29 15:28:00 Memori al [place] Systolic (mm Hg) 2020-04-01 15:17:00 Bin rial [place] Diastolic (mm Hg) 2020-04-01 15:17:00 Mem orial [place] Heart Rate 2020-04-01 15:17:00 [facility] [place] Respitory Rate 2020-04-01 15:17:00 Memori al [place] Height 2020-04-01 15:17:00 185.42 cm [facility] [place] BMI Calculated 2020-04-01 15:17:00 Memori al [place] Weight 2020-04-01 15:17:00 [facility] [place] Systolic (mm Hg) 2019-10-05 15:41:00 Bin rial [place] Diastolic (mm Hg) 2019-10-05 15:41:00 Mem orial [place] Heart Rate 2019-10-05 15:41:00 [facility] [place] Height 2019-10-05 15:41:00 185.42 cm [facility] [place] BMI Calculated 2019-10-05 15:41:00 Memori al [place] Weight 2019-10-05 15:41:00 [facility] [place] Height 2019-10-05 15:40:00 185.42 cm [facility] [place] Weight 2019-10-05 15:40:00 [facility] [place] BMI Calculated 2019-10-05 15:40:00 Memori al [place] Systolic (mm Hg) 2019-03-02 18:10:00 Bin rial [place] Diastolic (mm Hg) 2019-03-02 18:10:00 Mem orial [place] Heart Rate 2019-03-02 18:10:00 [facility] [place] Respitory Rate 2019-03-02 18:10:00 Memori al [place] Temperature Oral (F) 2019-03-02 18:10:00 97.9 F [facility] [place] Height 2019-03-02 18:10:00 185.42 cm [facility] [place] BMI Calculated 2019-03-02 18:10:00 Memori al [place] Weight 2019-03-02 18:10:00 [facility] [place] Systolic (mm Hg) 2019-02-08 18:31:00 Bin rial [place] Diastolic (mm Hg) 2019-02-08 18:31:00 Mem orial [place] Heart Rate 2019-02-08 18:31:00 [facility] [place] Temperature Oral (F) 2019-02-08 18:31:00 97.8 F [facility] [place] Height 2019-02-08 18:31:00 185.42 cm [facility] [place] BMI Calculated 2019-02-08 18:31:00 Memori al [place] Weight 2019-02-08 18:31:00 [facility] [place] BMI Calculated 2018-10-28 16:44:00 Memori al [place] Weight 2018-10-28 16:44:00 [facility] [place] Height 2018-10-28 16:44:00 185.42 cm [facility] [place] Systolic (mm Hg) 2018-10-28 16:44:00 Bin rial [place] Diastolic (mm Hg) 2018-10-28 16:44:00 Mem orial [place] Heart Rate 2018-10-28 16:44:00 [facility] [place] Temperature Oral (F) 2018-10-28 16:44:00 97.7 F [facility] [place] Respitory Rate 2018-10-28 16:44:00 Memori al [place] Weight 2018-07-14 20:18:00 [facility] [place] BMI Calculated 2018-07-14 20:18:00 Memori al [place] Height 2018-07-14 20:18:00 185.42 cm [facility] [place] Systolic (mm Hg) 2018-07-14 20:18:00 Bin rial [place] Diastolic (mm Hg) 2018-07-14 20:18:00 Mem orial [place] Heart Rate 2018-07-14 20:18:00 [facility] [place] Respitory Rate 2018-07-14 20:18:00 Memori al [place] BMI Calculated 2018-06-29 22:34:00 Memori al [place] Height 2018-06-29 22:34:00 185.42 cm [facility] [place] Temperature Oral (F) 2018-06-29 22:34:00 98.1 F [facility] [place] Heart Rate 2018-06-29 22:34:00 [facility] [place] Systolic (mm Hg) 2018-06-29 22:34:00 Bin rial [place] Diastolic (mm Hg) 2018-06-29 22:34:00 Mem orial [place] Weight 2018-06-29 22:34:00 [facility] [place] Heart Rate 2018-02-22 02:28:00 [facility] [place] Temperature Oral (F) 2018-02-22 02:28:00 99 F [facility] [place] Systolic (mm Hg) 2018-02-22 02:28:00 Bin rial [place] Diastolic (mm Hg) 2018-02-22 02:28:00 Mem orial [place] Respitory Rate 2018-02-22 02:28:00 Memori al [place] Systolic (mm Hg) 2018-02-22 01:19:00 Bin rial [place] Diastolic (mm Hg) 2018-02-22 01:19:00 Mem orial [place] Respitory Rate 2018-02-22 01:19:00 Memori al [place] Heart Rate 2018-02-22 01:19:00 [facility] [place] Temperature Oral (F) 2018-02-22 01:19:00 98.3 F [facility] [place] Heart Rate 2018-02-21 20:53:00 [facility] [place] Respitory Rate 2018-02-21 20:53:00 Memori al [place] Temperature Oral (F) 2018-02-21 20:53:00 98.6 F [facility] [place] Systolic (mm Hg) 2018-02-21 20:53:00 Bin rial [place] Diastolic (mm Hg) 2018-02-21 20:53:00 Mem orial [place] Weight 2018-02-21 17:20:00 [facility] [place] Temperature Oral (F) 2017-12-13 18:16:00 99 F [facility] [place] Height 2017-12-13 18:16:00 185.42 cm [facility] [place] BMI Calculated 2017-12-13 18:16:00 Memori al [place] Respitory Rate 2017-12-13 18:16:00 Memori al [place] Systolic (mm Hg) 2017-12-13 18:16:00 Bin rial [place] Diastolic (mm Hg) 2017-12-13 18:16:00 Mem orial [place] Heart Rate 2017-12-13 18:16:00 [facility] [place] Weight 2017-12-13 18:16:00 [facility] [place] Systolic (mm Hg) 2017-12-10 18:15:00 Bin rial [place] Diastolic (mm Hg) 2017-12-10 18:15:00 Mem orial [place] Respitory Rate 2017-12-10 18:15:00 Memori al [place] Systolic (mm Hg) 2017-12-10 17:25:00 Bin rial [place] Diastolic (mm Hg) 2017-12-10 17:25:00 Mem orial [place] Respitory Rate 2017-12-10 17:25:00 Memori al [place] Systolic (mm Hg) 2017-12-10 17:15:00 Bin rial [place] Diastolic (mm Hg) 2017-12-10 17:15:00 Mem orial [place] Respitory Rate 2017-12-10 17:15:00 Memori al [place] Weight 2017-12-10 13:42:00 [facility] [place] Height 2017-12-10 13:42:00 185.42 cm [facility] [place] BMI Calculated 2017-12-10 13:42:00 Memori al [place] Heart Rate 2017-12-10 13:42:00 [facility] [place] Weight 2017-12-01 17:06:00 [facility] [place] BMI Calculated 2017-12-01 17:06:00 Memori al [place] Height 2017-12-01 17:06:00 185.42 cm [facility] [place] Weight 2017-11-12 16:37:00 [facility] [place] Height 2017-11-12 16:37:00 185.42 cm [facility] [place] BMI Calculated 2017-11-12 16:37:00 Memori al [place] Systolic (mm Hg) 2017-11-12 16:37:00 Bin rial [place] Diastolic (mm Hg) 2017-11-12 16:37:00 Mem orial [place] Heart Rate 2017-11-12 16:37:00 [facility] [place] Height 2017-09-22 18:06:00 185.42 cm [facility] [place] Temperature Oral (F) 2017-09-22 18:06:00 97.9 F [facility] [place] Heart Rate 2017-09-22 18:06:00 [facility] [place] Systolic (mm Hg) 2017-09-22 18:06:00 Bin rial [place] Diastolic (mm Hg) 2017-09-22 18:06:00 Mem orial [place] Weight 2017-09-22 18:06:00 [facility] [place] BMI Calculated 2017-09-22 18:06:00 Memori al [place] Weight 2017-08-25 18:08:00 [facility] [place] Respitory Rate 2017-08-25 18:08:00 Memori al [place] Heart Rate 2017-08-25 18:08:00 [facility] [place] Systolic (mm Hg) 2017-08-25 18:08:00 Bin rial [place] Diastolic (mm Hg) 2017-08-25 18:08:00 Mem orial [place] Weight 2017-08-20 15:40:00 [facility] [place] BMI Calculated 2017-08-20 15:40:00 Memori al [place] Height 2017-08-20 15:40:00 185.42 cm [facility] [place] Systolic (mm Hg) 2017-08-20 15:40:00 Bin rial [place] Diastolic (mm Hg) 2017-08-20 15:40:00 Mem orial [place] Temperature Oral (F) 2017-08-20 15:40:00 97.6 F [facility] [place] Heart Rate 2017-08-20 15:40:00 [facility] [place] Height 2016-11-12 20:25:00 185.42 cm [facility] [place] BMI Calculated 2016-11-12 20:25:00 Memori al [place] Weight 2016-11-12 20:25:00 [facility] [place] Heart Rate 2016-11-12 20:25:00 [facility] [place] Respitory Rate 2016-11-12 20:25:00 Memori al [place] Systolic (mm Hg) 2016-11-12 20:25:00 Bin rial [place] Diastolic (mm Hg) 2016-11-12 20:25:00 Mem orial [place] Height 2016-06-10 20:10:00 185.42 cm [facility] [place] Weight 2016-06-10 20:10:00 [facility] [place] BMI Calculated 2016-06-10 20:10:00 Memori al [place] Temperature Oral (F) 2016-06-10 20:10:00 98.1 F [facility] [place] Heart Rate 2016-06-10 20:10:00 [facility] [place] Systolic (mm Hg) 2016-06-10 20:10:00 Bin rial [place] Diastolic (mm Hg) 2016-06-10 20:10:00 Mem orial [place] Respitory Rate 2016-05-27 20:31:00 Memori al [place] BMI Calculated 2016-05-27 20:31:00 Memori al [place] Weight 2016-05-27 20:31:00 [facility] [place] Height 2016-05-27 20:31:00 185.42 cm [facility] [place] Heart Rate 2016-05-27 20:31:00 [facility] [place] Systolic (mm Hg) 2016-05-27 20:31:00 Bin rial [place] Diastolic (mm Hg) 2016-05-27 20:31:00 Mem orial [place] BMI Calculated 2016-02-24 14:01:00 Memori [facility] [place] Weight 2016-02-24 14:01:00 [facility] [place] Height 2016-02-24 14:01:00 185.42 cm [facility] Heart Rate 2016-02-24 14:01:00 [facility] [place] Systolic (mm Hg) 2016-02-24 14:01:00 Bin rial [place] Diastolic (mm Hg) 2016-02-24 14:01:00 Mem orial [place] Weight 2015-12-13 16:27:00 [facility] [place] BMI Calculated 2015-12-13 16:27:00 Memori al [place] Systolic (mm Hg) 2015-12-13 16:27:00 Bin rial [place] Diastolic (mm Hg) 2015-12-13 16:27:00 Mem orial [place] Temperature Oral (F) 2015-12-13 16:27:00 97.6 F [facility] [place] Heart Rate 2015-12-13 16:27:00 [facility] [place] Height 2015-12-13 16:27:00 185.42 cm [facility] [place] Weight 2015-10-24 17:59:00 [facility] [place] BMI Calculated 2015-10-24 17:59:00 [facility] [place] Height 2015-10-24 17:59:00 185.42 cm [facility] [place] Systolic (mm Hg) 2015-10-24 17:59:00 Bin rial [place] Diastolic (mm Hg) 2015-10-24 17:59:00 Mem o[facility] [place] Respitory Rate 2015-10-24 17:59:00 Memori [facility] [place] Heart Rate 2015-10-24 17:59:00 [facility] [place] Height 2015-06-12 16:42:00 185.42 cm [facility] Temperature Oral (F) 2015-06-12 16:42:00 98.2 F [facility] Weight 2015-06-12 16:42:00 [facility] BMI Calculated 2015-06-12 16:42:00 [facility] [place] Heart Rate 2015-06-12 16:42:00 [facility] Respitory Rate 2015-06-12 16:42:00 [facility] Systolic (mm Hg) 2015-06-12 16:42:00 [facility] Diastolic (mm Hg) 2015-06-12 16:42:00 [facility] Respitory Rate 2015-01-30 17:40:00 [facility] Height 2015-01-30 17:40:00 185.42 cm [facility] Weight 2015-01-30 17:40:00 [facility] BMI Calculated 2015-01-30 17:40:00 [facility] Systolic (mm Hg) 2015-01-30 17:40:00 [facility] [place] Diastolic (mm Hg) 2015-01-30 17:40:00 [facility] Systolic (mm Hg) 2014-12-05 14:54:00 [facility] Diastolic (mm Hg) 2014-12-05 14:54:00 [facility] Heart Rate 2014-12-05 14:54:00 [facility] Respitory Rate 2014-12-05 14:54:00 [facility] BMI Calculated 2014-12-05 14:54:00 [facility] Height 2014-12-05 14:54:00 185.42 cm [facility] Weight 2014-12-05 14:54:00 [facility] BMI Calculated 2014-11-22 16:17:00 [facility] Weight 2014-11-22 16:17:00 [facility] Systolic (mm Hg) 2014-11-22 16:17:00 [facility] Diastolic (mm Hg) 2014-11-22 16:17:00 [facility] Height 2014-11-22 16:17:00 185.42 cm [facility] Heart Rate 2014-11-22 16:17:00 [facility] Temperature Oral (F) 2014-11-22 16:17:00 97.7 F [facility] Systolic (mm Hg) 2014-08-18 00:54:00 [facility] Diastolic (mm Hg) 2014-08-18 00:54:00 [facility] Temperature Oral (F) 2014-08-18 00:54:00 98.2 F [facility] Systolic (mm Hg) 2014-08-17 23:20:00 [facility] Diastolic (mm Hg) 2014-08-17 23:20:00 [facility] Respitory Rate 2014-08-17 23:20:00 [facility] Heart Rate 2014-08-17 23:20:00 [facility] Systolic (mm Hg) 2014-08-17 22:44:00 [facility] Diastolic (mm Hg) 2014-08-17 22:44:00 [facility] Heart Rate 2014-08-17 22:44:00 [facility] Respitory Rate 2014-08-17 22:44:00 [facility] Temperature Oral (F) 2014-08-17 22:44:00 98.5 F [facility] Respitory Rate 2014-08-17 19:14:00 [facility] Heart Rate 2014-08-17 19:14:00 [facility] Height 2014-08-17 19:14:00 185.42 cm [facility] Temperature Oral (F) 2014-08-17 19:14:00 98 F [facility] Weight 2014-08-17 19:14:00 [facility] BMI Calculated 2014-08-17 19:14:00 [facility] Systolic (mm Hg) 2014-08-12 13:09:00 [facility] Diastolic (mm Hg) 2014-08-12 13:09:00 [facility] Heart Rate 2014-08-12 13:09:00 [facility] Temperature Oral (F) 2014-08-12 13:09:00 97.6 F [facility] Respitory Rate 2014-08-12 13:09:00 [facility] Heart Rate 2014-08-12 09:38:00 [facility] Respitory Rate 2014-08-12 09:38:00 [facility] Temperature Oral (F) 2014-08-12 09:38:00 98.4 F [facility] Systolic (mm Hg) 2014-08-12 09:38:00 [facility] Diastolic (mm Hg) 2014-08-12 09:38:00 [facility] Systolic (mm Hg) 2014-08-12 01:35:00 [facility] Diastolic (mm Hg) 2014-08-12 01:35:00 [facility] Respitory Rate 2014-08-12 01:35:00 [facility] Heart Rate 2014-08-12 01:35:00 [facility] Temperature Oral (F) 2014-08-12 01:35:00 97.7 F [facility] Weight 2014-08-10 02:11:00 [facility] Height 2014-08-10 02:11:00 185.42 cm [facility] BMI Calculated 2014-08-10 02:11:00 [facility] Temperature Oral (F) 2013-12-26 15:04:00 97.5 F [facility] Heart Rate 2013-12-26 15:04:00 [facility] BMI Calculated 2013-12-26 15:04:00 [facility] Weight 2013-12-26 15:04:00 [facility] Height 2013-12-26 15:04:00 185.42 cm [facility] Respitory Rate 2013-12-26 15:04:00 [facility] Systolic (mm Hg) 2013-12-26 15:04:00 [facility] Diastolic (mm Hg) 2013-12-26 15:04:00 [facility] BMI Calculated 2013-12-20 16:02:00 [facility] Height 2013-12-20 16:02:00 185.42 cm [facility] Weight 2013-12-20 16:02:00 [facility] Diastolic (mm Hg) 2013-12-20 16:02:00 [facility]itory Rate 2013-12-20 16:02:00 [facility] Heart Rate 2013-12-20 16:02:00 [facility] Systolic (mm Hg) 2013-12-20 16:02:00 [facility] Temperature Oral (F) 2013-08-04 15:18:00 97.7 F [facility] Respitory Rate 2013-08-04 15:18:00 [facility] Diastolic (mm Hg) 2013-08-04 15:18:00 [facility] Heart Rate 2013-08-04 15:18:00 [facility] Systolic (mm Hg) 2013-08-04 15:18:00 [facility] Height 2013-08-04 15:18:00 185.42 cm [facility] BMI Calculated 2013-08-04 15:18:00 [facility] Weight 2013-08-04 15:18:00 [facility] Systolic (mm Hg) 2013-05-23 16:33:00 [facility] Heart Rate 2013-05-23 16:33:00 [facility] Diastolic (mm Hg) 2013-05-23 16:33:00 [facility] Respitory Rate 2013-05-23 16:33:00 [facility] Weight 2013-05-23 16:33:00 [facility] Height 2013-05-23 16:33:00 185.42 cm [facility] Respitory Rate 2013-04-14 15:18:00 [facility] Systolic (mm Hg) 2013-04-14 15:18:00 [facility] Diastolic (mm Hg) 2013-04-14 15:18:00 [facility] Heart Rate 2013-04-14 15:18:00 [facility] Weight 2013-04-14 15:18:00 [facility] Weight 2013-02-22 18:00:00 [facility] Systolic (mm Hg) 2013-02-22 18:00:00 [facility] Diastolic (mm Hg) 2013-02-22 18:00:00 [facility] Heart Rate 2013-02-22 18:00:00 [facility] Respitory Rate 2013-02-22 18:00:00 [facility] Temperature Oral (F) 2013-01-26 21:12:00 98.0 F [facility] Systolic (mm Hg) 2013-01-26 21:12:00 [facility] Heart Rate 2013-01-26 21:12:00 [facility] Respitory Rate 2013-01-26 21:12:00 [facility] Diastolic (mm Hg) 2013-01-26 21:12:00 [facility] Respitory Rate 2013-01-26 13:40:00 [facility] Systolic (mm Hg) 2013-01-26 13:40:00 [facility] Diastolic (mm Hg) 2013-01-26 13:40:00 [facility] Temperature Oral (F) 2013-01-26 13:40:00 98.0 F [facility] Heart Rate 2013-01-26 13:40:00 [facility] Diastolic (mm Hg) 2013-01-26 08:56:00 [facility] Systolic (mm Hg) 2013-01-26 08:56:00 [facility] Respitory Rate 2013-01-26 08:56:00 [facility] Rate 2013-01-26 08:56:00 [facility] Temperature Oral (F) 2013-01-26 08:56:00 98.5 F [facility] Weight 2013-01-24 20:26:00 [facility] Height 2013-01-24 20:26:00 185.42 cm [facility] Heart Rate 2013-01-16 13:51:00 [facility] Respitory Rate 2013-01-16 13:51:00 [facility] Diastolic (mm Hg) 2013-01-16 13:51:00 [facility] Systolic (mm Hg) 2013-01-16 13:51:00 [facility] Weight 2013-01-16 13:51:00 [facility] Height 2013-01-16 13:51:00 185.42 cm [facility] Respitory Rate 2012-09-27 14:46:00 [facility] Heart Rate 2012-09-27 14:46:00 [facility] Diastolic (mm Hg) 2012-09-27 14:46:00 [facility] Systolic (mm Hg) 2012-09-27 14:46:00 [facility] Temperature Oral (F) 2012-09-27 14:46:00 97.8 F [facility] Height 2012-09-27 14:46:00 185.42 cm [facility] Weight 2012-09-27 14:46:00 [facility] Weight 2012-04-28 06:26:00 [facility] Height 2012-04-28 06:26:00 185.42 cm [facility] Systolic (mm Hg) 2012-04-22 16:21:00 [facility] Diastolic (mm Hg) 2012-04-22 16:21:00 [facility] Rate 2012-04-22 16:21:00 [facility] Respitory Rate 2012-04-22 16:21:00 [facility] Temperature Oral (F) 2012-04-22 16:21:00 97.4 F [facility] Weight 2012-04-22 16:20:00 [facility] Height 2012-04-22 16:20:00 182.88 cm [facility] Temperature Oral (F) 2012-04-13 17:53:00 97.7 F [facility] Systolic (mm Hg) 2012-04-13 17:53:00 [facility] Diastolic (mm Hg) 2012-04-13 17:53:00 [facility] Heart Rate 2012-04-13 17:53:00 [facility] Weight 2012-04-13 17:53:00 [facility] Height 2012-04-13 17:53:00 185.42 cm [facility] Weight 2012-03-09 03:45:00 [facility] Height 2012-03-09 03:45:00 185.42 cm [facility] Heart Rate 2012-02-11 16:16:00 [facility] Temperature Oral (F) 2012-02-11 16:16:00 97.6 F [facility] Respitory Rate 2012-02-11 16:16:00 [facility] Systolic (mm Hg) 2012-02-11 16:16:00 [facility] Diastolic (mm Hg) 2012-02-11 16:16:00 [facility] Weight 2012-02-11 16:16:00 [facility] Height 2012-02-11 16:16:00 185.42 cm [facility] Diastolic (mm Hg) 2012-01-28 21:04:00 [facility] Systolic (mm Hg) 2012-01-28 21:04:00 [facility] Systolic (mm Hg) 2011-11-24 20:14:00 [facility] Heart Rate 2011-11-24 20:14:00 [facility] Diastolic (mm Hg) 2011-11-24 20:14:00 [facility] Height 2011-11-24 20:14:00 185.42 cm [facility] Diastolic (mm Hg) 2011-11-14 13:00:00 [facility] Systolic (mm Hg) 2011-11-14 13:00:00 [facility] Respitory Rate 2011-11-14 13:00:00 [facility] Heart Rate 2011-11-14 13:00:00 [facility] Respitory Rate 2011-11-13 21:00:00 [facility] Heart Rate 2011-11-13 21:00:00 [facility] Systolic (mm Hg) 2011-11-13 21:00:00 [facility] Diastolic (mm Hg) 2011-11-13 21:00:00 [facility] Height 2011-11-13 18:18:00 185.42 cm [facility] Heart Rate 2011-11-13 13:15:00 [facility] Diastolic (mm Hg) 2011-11-13 13:15:00 [facility] Systolic (mm Hg) 2011-11-13 13:15:00 [facility] Respitory Rate 2011-11-13 13:15:00 [facility] Height 2011-11-06 18:11:00 185.42 cm [facility] Height 2011-10-30 14:00:00 185.42 cm [facility] Temperature Oral (F) 2011-10-20 05:00:00 98.1 F [facility] Temperature Oral (F) 2011-10-08 12:20:00 97.0 F [facility] Weight 2011-09-30 02:15:00 [facility] Weight 2011-09-30 02:14:01 [facility] Weight 2011-09-30 02:02:00 [facility] Respitory Rate 2011-09-29 23:30:00 [facility] Diastolic (mm Hg) 2011-09-29 23:30:00 [facility] Systolic (mm Hg) 2011-09-29 23:30:00 [facility] Systolic (mm Hg) 2011-09-29 23:00:00 [facility] Respitory Rate 2011-09-29 23:00:00 [facility] Diastolic (mm Hg) 2011-09-29 23:00:00 [facility] Systolic (mm Hg) 2011-09-29 22:30:00 [facility] Diastolic (mm Hg) 2011-09-29 22:30:00 [facility] Respitory Rate 2011-09-29 22:30:00 [facility] Temperature Oral (F) 2011-09-29 21:30:00 98.0 F [facility] Temperature Oral (F) 2011-09-29 17:00:00 97.0 F [facility] Temperature Oral (F) 2011-09-29 14:00:00 98.0 F [facility] Weight 2011-09-25 11:00:00 [facility] Weight 2011-09-24 01:52:00 [facility] Height 2011 22:38:00 185.42 cm [facility] Weight 2011 22:38:00 [facility] Weight 2011-08-25 18:42:00 [facility] Height 2011-08-25 18:42:00 185.42 cm [facility] Diastolic (mm Hg) 2011-08-25 18:42:00 [facility] Systolic (mm Hg) 2011-08-25 18:42:00 [facility] Respitory Rate 2011-08-25 18:42:00 [facility] Heart Rate 2011-08-25 18:42:00 [facility] Diastolic (mm Hg) 2011-07-15 19:00:00 [facility] Respitory Rate 2011-07-15 19:00:00 [facility] Systolic (mm Hg) 2011-07-15 19:00:00 [facility] Diastolic (mm Hg) 2011-07-15 18:00:00 [facility] Respitory Rate 2011-07-15 18:00:00 [facility] Systolic (mm Hg) 2011-07-15 18:00:00 [facility] Respitory Rate 2011-07-15 17:00:00 [facility] Systolic (mm Hg) 2011-07-15 17:00:00 [facility] Diastolic (mm Hg) 2011-07-15 17:00:00 [facility] Temperature Oral (F) 2011-07-15 16:00:00 97.7 F [facility] Heart Rate 2011-07-15 12:00:00 [facility] Temperature Oral (F) 2011-07-15 12:00:00 98.6 F [facility] Temperature Oral (F) 2011-07-15 08:58:00 97.5 F [facility] Weight 2011-07-14 22:06:01 [facility] Heart Rate 2011-07-14 11:51:00 [facility] Weight 2011-07-14 11:51:00 [facility] Height 2011-07-14 11:51:00 185.42 cm [facility] Height 2011-07-07 20:25:00 185.42 cm [facility] Weight 2011-07-07 20:25:00 [facility] Height 2011-06-19 21:04:00 185.42 cm [facility] Weight 2011-06-19 21:04:00 [facility] Heart Rate 2011-06-19 21:04:00 [facility] Respitory Rate 2011-06-19 21:04:00 [facility] Systolic (mm Hg) 2011-06-19 21:04:00 [facility] Diastolic (mm Hg) 2011-06-19 21:04:00 [facility] Respitory Rate 2011-06-02 20:32:00 [facility] Temperature Oral (F) 2011-06-02 20:32:00 98.1 F [facility] Systolic (mm Hg) 2011-06-02 20:32:00 [facility] Heart Rate 2011-06-02 20:32:00 [facility] Diastolic (mm Hg) 2011-06-02 20:32:00 [facility] Height 2011-06-02 20:15:00 182.88 cm [facility] Weight 2011-06-02 20:15:00 [facility] Height 2011-03-25 16:00:00 185.42 cm [facility] Weight 2011-03-25 16:00:00 [facility] Systolic (mm Hg) 2011-03-25 16:00:00 [facility] Diastolic (mm Hg) 2011-03-25 16:00:00 [facility] Respitory Rate 2011-03-25 16:00:00 [facility] Heart Rate 2011-03-25 16:00:00 [facility] Temperature Oral (F) 2011-02-28 22:25:00 97.6 F [facility] Respitory Rate 2011-02-28 22:25:00 [facility] Heart Rate 2011-02-28 22:25:00 [facility] Diastolic (mm Hg) 2011-02-28 22:25:00 [facility] Systolic (mm Hg) 2011-02-28 22:25:00 [facility] Height 2011-02-28 17:32:00 185.42 cm [facility] Weight 2011-02-28 17:32:00 [facility] Diastolic (mm Hg) 2011-02-28 17:32:00 [facility] Systolic (mm Hg) 2011-02-28 17:32:00 [facility] Respitory Rate 2011-02-28 17:32:00 [facility] Heart Rate 2011-02-28 17:32:00 [facility] Temperature Oral (F) 2011-02-28 17:32:00 97.7 F [facility] Diastolic (mm Hg) 2011-02-28 03:26:00 [facility] Systolic (mm Hg) 2011-02-28 03:26:00 [facility] Respitory Rate 2011-02-28 03:26:00 [facility] Heart Rate 2011-02-28 03:26:00 [facility] Temperature Oral (F) 2011-02-28 03:26:00 98.6 F [facility] Respitory Rate 2011-02-28 00:45:00 [facility] Diastolic (mm Hg) 2011-02-28 00:45:00 [facility] Systolic (mm Hg) 2011-02-28 00:45:00 [facility] Heart Rate 2011-02-28 00:45:00 [facility] Heart Rate 2011-02-27 23:28:00 [facility] Respitory Rate 2011-02-27 23:28:00 [facility] Systolic (mm Hg) 2011-02-27 23:28:00 [facility] Diastolic (mm Hg) 2011-02-27 23:28:00 [facility] Height 2011-02-27 22:14:00 185.42 cm [facility] Weight 2011-02-27 22:14:00 [facility] Temperature Oral (F) 2011-02-27 22:14:00 98.4 F [facility] Height 2011-02-27 18:07:00 185.42 cm [facility] Weight 2011-02-27 18:07:00 [facility] Systolic (mm Hg) 2011-02-27 18:07:00 [facility] Respitory Rate 2011-02-27 18:07:00 [facility] Heart Rate 2011-02-27 18:07:00 [facility] Diastolic (mm Hg) 2011-02-27 18:07:00 [facility] Temperature Oral (F) 2011-02-27 18:07:00 98.0 F [facility] Weight 2011-01-30 18:28:00 [facility] Height 2011-01-30 18:28:00 185.42 cm [facility] Temperature Oral (F) 2011-01-30 18:28:00 98.6 F [facility] Respitory Rate 2011-01-30 18:28:00 [facility] Heart Rate 2011-01-30 18:28:00 [facility] Diastolic (mm Hg) 2011-01-30 18:28:00 [facility] Systolic (mm Hg) 2011-01-30 18:28:00 [facility] Systolic (mm Hg) 2011-01-09 18:27:00 [facility] Diastolic (mm Hg) 2011-01-09 18:27:00 [facility] Peripheral Pulse 2011-01-09 18:27:00 [facility] Rate Respitory Rate 2011-01-09 18:27:00 [facility] Weight 2011-01-09 18:27:00 [facility] Height 2011-01-09 18:27:00 185.42 cm [facility] Procedures Procedure Date / Time Performing Clinician Source Performed CONSENT/REFUSAL FOR 2022-10-08 04:58:14 [facility]AT[facility] URINALYSIS 2022-06-17 03:54:00 [facility] LIPASE 2022-06-17 02:05:00 [facility] COMP. METABOLIC PANEL 2022-06-17 02:05:[id number] CBC WITH DIFF 2022-06-17 02:05:00 [facility] NOTICE OF PRIVACY 2022-06-17 01:32:15 Doctor Moses, [facility] PRACTICES [facility] CONSENT/REFUSAL FOR 2022-06-17 01:31:45 [facility] TREATMENT [place] [facility] URINALYSIS 2022-05-29 13:17:00 Roberth Victor [facility] CT ABDOMEN PELVIS W 2022-05-29 13:03:45 Roberth Victor [facility] CONTRAST [facility] COMP. METABOLIC PANEL 2022-05-29 12:18:00 Roberth Victor [facility] ([id number]) [facility] CBC WITH DIFF 2022-05-29 12:18:00 Roberth Victor [facility] BASIC METABOLIC PANEL 2022-03-11 10:12:00 Pancho Alcantar [facility] (NA, K, CL, CO2, GLUCOSE, Medica l Branch BUN, CREATININE, CA) CBC WITH DIFF 2022-03-11 10:12:00 Pancho Alcantar [facility] DUPLEX VENOUS LEGS 2022-03-10 20:15:52 Bailey Allen [facility] BILATERAL - BY VASCULAR Medical [facility] LAB PHOSPHORUS 2022-03-10 11:05:00 Tiffany imelda [facility] MAGNESIUM 2022-03-10 11:05:00 Tiffany [facility] TROPONIN I 2022-03-10 11:05:00 Tiffany [facility] COMP. METABOLIC PANEL 2022-03-10 11:05:00 Bailey Allen [facility] ([id number]) Medical Branch CBC WITH DIFF 2022-03-10 11:05:00 Tiffany [facility] N-TERMINAL PRO-BNP 2022-03-10 11:05:00 Bailey Allen [facility] PHOSPHORUS 2022-03-10 04:38:00 Tiffany [facility] URIC ACID 2022-03-10 04:38:00 Tiffany [facility] MAGNESIUM 2022-03-10 04:38:00 Tiffany [facility] FERRITIN SERUM 2022-03-10 04:38:00 Tiffany [facility] THYROID STIMULATING 2022-03-10 04:38:00 Bailey Allen [facility] HORMONE [facility] LIPID PANEL ([id number])(TOTAL 2022-03-10 04:38:00 Bailey Allen [facility] CHOLESTEROL, [facility] TRIGLYCERIDES, HDL) IRON PANEL 2022-03-10 04:38:00 Tiffany [facility] SEDIMENTATION RATE 2022-03-10 02:58:00 [facility] BLOOD CULTURE SCREEN 2022-03-09 21:16:00 Renzo Espinosa [facility] BLOOD CULTURE SCREEN 2022-03-09 20:25:00 Renzo Espinosa [facility] D-DIMER 2022-03-09 20:25:00 Singer [facility] URINE CULTURE 2022-03-09 20:25:00 Singer [facility] XR CHEST 1 VW 2022-03-09 18:46:42 Singer [facility] HB ECG ROUTINE & RHYTHM 2022-03-09 18:44:35 Renzo Espinosa [facility] TROPONIN I 2022-03-09 18:43:00 Espinosa, [facility] COMP. METABOLIC PANEL 2022-03-09 18:43:00 Renzo Espinosa [facility] ([id number]) Medical Branch CBC WITH DIFF 2022-03-09 18:43:00 Espinosa, [facility] GLYCOSYLATED HEMOGLOBIN 2022-03-09 18:43:00 Bailey Allen [facility] (A1C) Medical Branch URINALYSIS 2022-03-09 18:43:00 [place] [facility] N-TERMINAL PRO-BNP 2022-03-09 18:43:00 Singer [facility] CONSENT/REFUSAL FOR 2022-03-09 17:49:15 [facility] [place] EGD 2021-04-16 00:00:00 Maurilio Vega [facility] XR ABDOMEN 1 VIEW 2021-02-19 15:17:38 Geovanni Henning [facility] CT LUMBAR SPINE WO 2021-01-21 15:03:40 Saida Lay [facility] CONTRAST Cystoscopy<sup>1, 2, 2019-02-08 05:00:00 Aishwarya Seo 3</sup> Cystoscopy<sup>1, 2</sup> 2018-06-29 06:00:00 Me ilene Seo Electronic analysis of 2017-11-12 16:42:00 Yaritza Seo programmable, implanted pump for intrathecal or epidural drug infusion (includes evaluation of reservoir status, alarm status, drug prescription status); without reprogramming or refill Cystoscopy<sup>1</sup> 2017-09-22 05:00:00 Yaritza Seo CMG - Cystometrogram 2017-08-20 05:00:00 Aishwarya Seo Lung 2011-05-03 00:00:00 [facility] Her condon procedure<sup>1</sup> Lung procedure 2011-05-03 00:00:00 [facility] Her condon <sup>2</sup> Corpectomy<sup>2</sup> 2010-05-03 00:00:00 Yaritza Seo Corpectomy <sup>1</sup> 2010-05-03 00:00:00 [facility] Reduction of torsion of 1994-05-03 00:00:00 [facility] testis Reduction of torsion of 1994-05-03 00:00:00 [facility] testis Excision of [facility] cyst<sup>3</sup> Pump<sup>4</sup> [facility] Pump <sup>1</sup> [facility] Plan of Care Planned Activity Planned Date Details Comments Source Future Scheduled 2022-10-08 [facility] VACCINE [facility] 10:21:01 (#1) [code = COVID-19 VACCINE (#1)] Future Scheduled 2022-10-08 INFLUENZA VACCINE Method [facility] Hospital Test 10:21:01 [code = INFLUENZA VACCINE] Future Scheduled 2022-08-01 COVID-19 VACCINE [facility] Test 04:36:44 (#1) [code = COVID-19 VACCINE (#1)] Future Scheduled 2022-08-01 INFLUENZA VACCINE Method [facility] Hospital Test 04:36:44 [code = INFLUENZA VACCINE] Future Scheduled 2022-08-01 COVID-19 VACCINE [facility] Test 04:36:44 (#1) [code = COVID-19 VACCINE (#1)] Future Scheduled 2022-08-01 INFLUENZA VACCINE Method [facility] Hospital Test 04:36:44 [code = INFLUENZA VACCINE] Future Scheduled 2022-06-26 COVID-19 VACCINE [facility] Test 09:14:26 (#1) [code = COVID-19 VACCINE (#1)] Future Scheduled 2022-06-26 INFLUENZA VACCINE Method [facility] Hospital Test 09:14:26 [code = INFLUENZA VACCINE] Future Scheduled 2022-06-26 COVID-19 VACCINE [facility] Test 09:14:26 (#1) [code = COVID-19 VACCINE (#1)] Future Scheduled 2022-06-26 INFLUENZA VACCINE Method [facility] Hospital Test 09:14:26 [code = INFLUENZA VACCINE] Future Scheduled 2022-06-26 COVID-19 VACCINE [facility] Test 09:14:26 (#1) [code = COVID-19 VACCINE (#1)] Future Scheduled 2022-06-26 INFLUENZA VACCINE Method [facility] Hospital Test 09:14:26 [code = INFLUENZA VACCINE] Future Scheduled 2022-06-26 COVID-19 VACCINE [facility] Test 09:14:26 (#1) [code = COVID-19 VACCINE (#1)] Future Scheduled 2022-06-26 INFLUENZA VACCINE Method [facility] Hospital Test 09:14:26 [code = INFLUENZA VACCINE] Future Scheduled 2022-06-26 COVID-19 VACCINE [facility] Test 09:14:26 (#1) [code = COVID-19 VACCINE (#1)] Future Scheduled 2022-06-26 INFLUENZA VACCINE Method [facility] Hospital Test 09:14:26 [code = INFLUENZA VACCINE] Future [facility] 2022-06-09 [facility] (#[facility] [code = COVID-19 VACCINE (#1)] Future Scheduled 2022-06-09 INFLUENZA VACCINE [facility] Hospital Test 15:28:30 [code = INFLUENZA VACCINE] Future Scheduled 2022-06-09 COVID-19 VACCINE [facility] Test 15:28:30 (#1) [code = COVID-19 VACCINE (#1)] Future Scheduled 2022-06-09 INFLUENZA VACCINE [facility] Hospital Test 15:28:30 [code = INFLUENZA VACCINE] Future Scheduled 2022-03-07 INFLUENZA VACCINE [facility] Hospital Test 09:25:49 [code = INFLUENZA VACCINE] Future Scheduled 2022-03-07 [facility] 09:25:49 VACCINES (1 of 3 - 3-dose series) [code = HEPATITIS B VACCINES (1 of 3 - 3-dose series)] Future Scheduled 2022-03-07 COVID-19 VACCINE [facility] Test 09:25:49 (#1) [code = COVID-19 VACCINE (#1)] Future Scheduled 2022-03-07 INFLUENZA VACCINE [facility] Hospital Test 09:25:49 [code = INFLUENZA VACCINE] Future Scheduled 2022-03-07 [facility] 09:25:49 VACCINES (1 of 3 - 3-dose series) [code = HEPATITIS B VACCINES (1 of 3 - 3-dose series)] Future Scheduled 2022-03-07 COVID-19 VACCINE [facility] Test 09:25:49 (#1) [code = COVID-19 VACCINE (#1)] Future Scheduled 2022-03-07 INFLUENZA VACCINE [facility] Hospital Test 09:25:49 [code = INFLUENZA VACCINE] Future Scheduled 2022-03-07 [facility] 09:25:49 VACCINES (1 of 3 - 3-dose series) [code = HEPATITIS B VACCINES (1 of 3 - 3-dose series)] Future Scheduled 2022-03-07 COVID-19 VACCINE [facility] Test 09:25:49 (#1) [code = COVID-19 VACCINE (#1)] Future Scheduled 2022-03-07 INFLUENZA VACCINE Method [facility] Test 09:25:49 [code = INFLUENZA VACCINE] Future Scheduled 2022-03-07 [facility] 09:25:49 VACCINES (1 of 3 - 3-dose series) [code = HEPATITIS B VACCINES (1 of 3 - 3-dose series)] Future Scheduled 2022-03-07 COVID-19 VACCINE [facility] Test 09:25:49 (#1) [code = COVID-19 VACCINE (#1)] Future Scheduled 2022-03-07 INFLUENZA VACCINE Method [facility] Test 09:25:49 [code = INFLUENZA VACCINE] Future Scheduled 2022-03-07 HEPATITIS B [facility] ospital Test 09:25:49 VACCINES (1 of 3 - 3-dose series) [code = HEPATITIS B VACCINES (1 of 3 - 3-dose series)] Future Scheduled 2022-03-07 COVID-19 VACCINE [facility] Test 09:25:49 (#1) [code = COVID-19 VACCINE (#1)] Future Scheduled 2022-03-07 INFLUENZA VACCINE Method [facility] Hospital Test 09:25:49 [code = INFLUENZA VACCINE] Future Scheduled 2022-03-07 HEPATITIS B [facility] Test 09:25:49 VACCINES (1 of 3 - 3-dose series) [code = HEPATITIS B VACCINES (1 of 3 - 3-dose series)] Future Scheduled 2022-03-07 COVID-19 VACCINE [facility] Test 09:25:49 (#1) [code = COVID-19 VACCINE (#1)] Future Scheduled 2021-03-05 COVID-19 VACCINE [facility] Hospital Test 19:52:37 (1) [code = COVID-19 VACCINE (1)] Future Scheduled 2021-03-05 INFLUENZA VACCINE Method [facility] Hospital Test 19:52:37 [code = INFLUENZA VACCINE] Encounters Start End Encounter Admission Attending Care Care Encounter Source Date/Time Date/Time Type Type Clinicians Facility Department ID 2022-08-12 Outpatient [facility] [id number] [place] 15:43:00 [id number] [facility] 2022-08-11 Outpatient [facility] [id number] [place] 15:10:23 [id number] [facility] 2022-07-06 Outpatient [facility] [id number] [place] 09:36:03 [id number] [facility] 2022-07-02 Outpatient [facility] [id number] [place] 08:00:02 [id number] [facility] 2022-06-08 Outpatient [facility] [id number] [place] 10:34:44 [id number] [facility] 2022-03-03 Outpatient [facility] [id number] [place] 17:45:02 [id number] [facility] 2021-03-31 Outpatient [place]NEY [place] [id number] 13:13:06 MAURILIO Echeverria [facility] 2021-03-03 Emergency [facility] [id number] Univers 16:47:[facility]03 Emergency [facility] [id number] Univers 16:24:[facility] 2021-03-01 Emergency [facility] [id number] Univers 20:35:36 [facility] 2020-12-25 Outpatient MHIE MHIE [id number] Memoria 11:23:24 10 [facility] 2020-12-25 OR nullFlavo [facility] [id number] Memoria 11:23:24 r Medical 02 l [facility] 2020-12-25 Outpatient MHIE MHIE [id number] Memoria 11:23:24 16 [facility] 2020-12-25 Outpatient MHIE MHIE [id number] Memoria 11:23:24 14 [facility] 2020-12-25 Outpatient MHIE MHIE [id number] Memoria 11:23:24 19 [facility] 2020-12-25 Outpatient nullFlavo [facility] [id number] Memoria 11:23:24 r Medical 03 l [facility] 2020-12-25 Outpatient MHIE MHIE [id number] Memoria 11:23:24 11 [facility] 2020-12-25 Outpatient MHIE MHIE [id number] Memoria 11:23:24 26 [facility] 2020-12-25 Outpatient MHIE MHIE [id number] Memoria 11:23:24 14 [facility] 2020-12-25 Outpatient MHIE MHIE [id number] Memoria 11:23:24 28 [facility] 2020-12-25 Outpatient MHIE MHIE [id number] Memoria 11:23:24 23 [facility] 2020-12-25 TO MHIE MHIE [id number] Me moria 11:23:24 02 [facility] 2020-12-25 Outpatient MHIE MHIE [id number] Memoria 11:23:24 30 [facility] 2020-12-25 Outpatient MHIE MHIE [id number] Memoria 11:23:24 03 [facility] 2020-12-25 TH MHIE MHIE [id number] Me moria 11:23:24 00 [facility] 2020-12-25 Outpatient MHIE MHIE [id number] Memoria 11:23:24 08 [facility] 2020-12-25 Outpatient MHIE MHIE [id number] Memoria 11:23:24 06 [facility] 2020-12-25 OR MHIE MHIE [id number] Me moria 11:23:24 01 [facility] 2022-10-08 2022-10-08 Emergency X RIDDLE, [facility] ERT [id number] Univers 00:06:00 03:41:00 KAMLESH it y of [facility] 2022-10-08 2022-10-08 Emergency [place], [facility] .2.919.630 [id number] Univers 00:06:00 03:41:00 Kamlesh SPRINGER 350.1.13.10 ity [facility] 4.2.7.2.[address] [facility] [id number] [address] 2022-07-06 2022-07-06 External FRONTERA, EXT MSRDP 1.2.840.114 1 [id number] [place] 08:15:00 08:15:00 Contact AMADEO NATASHA 350.1.13.58 H ealt 9.2.7.2.686 [id number] 6 2022-06-22 2022-06-22 Outpatient [facility] [id number] [place] 10:15:00 10:15:00 Health 2022-06-16 2022-06-16 Emergency X SINGER [facility] ERT [id number] Univers 19:47:00 22:57:00 RENZO priyalelia [facility] 2022-06-16 2022-06-16 Emergency Roberth Victor S [facility] 1.2.840 .114 [id number] Univers 19:47:00 22:57:00 EspinosaRenzo 350.1.13.10 ity of [place] [id number] [facility] [address] 2022-06-16 2022-06-16 Orders Doctor SAIDA 1.2.840.114 [id number] Univers 00:00:00 00:00:00 Only Unassigned, TODD 350.1.13.10 ity of [facility] 4.2.7.2.686 Gabe as [id number] [facility] [address] 2022-05-29 2022-05-29 Emergency [facility] [id number] Univers 05:34:00 10:07:00 BALAJI leger [facility] 2022-05-29 2022-05-29 [facility] 1.2.888.717 [id number] Univers 05:34:00 10:07:00 Balaji SPRINGER 350.1.13.10 i ty of [place] [id number] [facility] [address] 2022-03-19 2022-03-19 Outpatient MILADY, [facility] [id number] [place] 15:15:00 15:15:00 [facility] 2022-03-12 2022-03-12 Transition BRADLEY Hernández 1.2.840.114 [id number] Univers 00:00:00 00:00:00 of Care Bria PLAZA 350.1.13.10 it y of [place] [id number] [facility] [address] 2022-03-09 2022-03-11 Outpatient X NABIL [facility] [id number] Univers 12:03:00 17:45:00 RACHELLE itlelia of [facility] 2022-03-09 2022-03-11 Emergency Renzo Espinosa [facility] 1.2.840. 114 [id number] Univers 12:03:00 17:45:00 Rachelle Ferrer 350.1.13.10 ity [facility] 4.2.7.2.686 [facility] [id number] [facility] [address] [place] 2022-03-04 2022-03-04 Telephonic Silvia, EXT MSRDP 1.2.840.114 [id number] PA 08:00:00 08:15:00 Encounter [facility] 350.1.13.58 [facility] 9.2.7.2.686 [id number] 8 2021-12-10 2021-12-10 Outpatient FRONTERA, [facility] [id number] [place] 10:00:00 [facility]:00[facility] 2021-12-03 2021-12-03 Outpatient SILVIA, [facility] [id number] [place] 07:30:00 07:30:00 MAURILIO [facility] 2021-11-23 2021-11-23 Laboratory Only, Ang Db Test [facility] 1.2.8 40.114 [id number] Univers 15:00:00 15:01:39 Only Leonard Pineda [facility] 350.1.13.10 ity [facility] 4.2.7.2.686 Gabe as DAVION?BLEA [id number] [place] pieter [address] MEDICAL OFFICE BUILDING 2021-11-23 2021-11-23 [facility] [id number] Univers 15:00:00 15:00:00 LEONARD ity of [facility] 2021-11-19 2021-11-19 Letter Purnima Faulkner 1.2.840.114 [id number] Univers 00:00:00 00:00:00 (Out) TODD 350.1.13.10 it y of [facility] 4.2.7.2.686 Gabe as [id number] [facility] [address] 2021-11-18 2021-11-18 Laboratory Only, Ang Db Test [facility] 1.2.8 40.114 [id number] Univers 12:30:00 12:45:00 Only Sy Jane 350.1.13.10 Yinka 4.2.7.2.686 Gabe as DAVION?BLEA [phone] [facility] [address] MEDICAL OFFICE BUILDING 2021-11-18 2021-11-18 Outpatient R LONNIE [facility] [id number] Univers 12:30:00 12:30:00 SY priyay o f [facility] 2021-11-17 2021-11-17 Outpatient [facility] [id number] PA 09:30:00 09:30:00 Health 2021-11-10 2021-11-10 Emergency E LISET, [facility] MED [id number] [facility] 15:22:00 20:49:00 SABHA 2021-11-04 2021-11-08 Inpatient E MADDIE, [facility] MED [id number] [facility] 18:46:00 16:20:00 ABI 2021-11-05 2021-11-05 Transition BRADLEY Valdez 1.2.840.114 [id number] Univers 00:00:00 00:00:00 of Care Art HOFFMANNY 350.1.13.10 [place] [id number] [facility] [address] 2021-10-31 2021-11-04 Inpatient X NABIL [facility] FRANCISCO [id number] Univers 17:19:00 12:48:00 RACHELLE leger [facility] 2021-10-31 2021-11-04 Hospital Pippa Copeland [facility] 1.2.840. 114 [id number] Univers 17:19:00 12:48:00 Encounter Radha Justin 350.1.13.10 ity of Rachelle Ferrer 4.2.7.2.686 [facility] [id number] [facility] [address] 2021-10-31 2021-11-04 Inpatient X NABIL [facility] [place] [id number] Univers 17:19:00 12:48:00 RACHELLE leger [facility] 2021-11-04 2021-11-04 Telephone Johanny Dejesus 1.2.84 0.114 [id number] [place] 00:00:00 00:00:00 Oleg Ojhanny RANJIT 350.1.13.58 Health MEDICAL 9.2.7.2.686 [place] [id number] 0 2021-10-27 2021-10-27 Emergency X Marilin GUERIN [facility] ERT [id number] [facility] 17:27:00 20:41:00 ity of [facility] 2021-10-27 2021-10-27 Emergency Marilin Guerin [facility] 1.2.840.114 [id number] [facility] 17:27:00 20:41:00 Kindra SPRINGER 350.1.13.10 i [facility] 4.2.7.2.[address] [facility] [id number] [address] 2021-09-24 2021-09-24 Office Adhia, EXT MSRDP 1.2.218.862 [id number] [place] 09:00:00 10:00:00 [facility] 350.1.13.58 Health 9.2.7.2.686 [id number] 2021-09-24 2021-09-24 Outpatient ROD, [facility] [id number] [place] 09:00:00 09:00:00 2021 2021 Emergency RACHELLE NOLAN [facility]FB [id number] MHFB 13:46:00 18:34:00 2021 2021 Nurse Carmelita Acevedo 1.2.840.114 [id number] [place] 00:00:00 00:00:00 Triage Carmelita Acevedo 350.1.13.58 Health MEDICAL 9.2.7.2.686 [place] [id number] 0 2021 2021 Telephone Jose Sainz 1.2.840.1 14 [id number] [place] 00:00:00 00:00:00 Jose Sainz 350.1.13.58 Health MEDICAL 9.2.7.2.686 CENTER [id number] 0 2021-09-11 2021-09-11 Outpatient PELINI, [facility] [id number] [place] 09:15:00 09:15:00 [facility] 2021-07-08 2021-07-08 Emergency X DEDRICK, [facility] ERT [id number] Univers 10:17:00 12:56:00 ANTOINE leger of [facility] 2021-07-08 2021-07-08 Emergency Ebhim, [facility] 1.2.840.114 [id number] Univers 10:17:00 12:56:00 Antoine SPRINGER 350.1.13.10 i ty of [place] 4.2.7.2.[address] [facility] [phone] [place] [address] Branch 2021-07-02 2021-07-02 Outpatient SILVIA, [facility] [id number] [facility] 09:23:00 23:59:00 [facility] 2021-06-04 2021-06-04 Outpatient SILVIA, [facility] [id number] [facility] 09:13:00 23:59:00 BANNER 2021-06-04 2021-06-04 Outpatient SILVIA, [facility] [id number] [place] 01:04:07 01:04:07 [facility] 2021-05-26 2021-05-26 Outpatient FRONTERA, [facility] [id number] [place] 01:05:24 01:05:24 [facility] 2021-05-07 2021-05-07 Outpatient SILVIA, [facility] [id number] [facility] 09:37:00 23:59:00 MAURILIO 2021-04-16 2021-04-16 Outpatient SILVIA, [facility] [id number] [facility] 10:45:00 23:59:00 MAURILIO 2021-04-16 2021-04-16 EXT MHH OP Silvia, EXT MSRDP 1.2.840.114 [id number] UT 13:00:00 13:05:00 Maurilio KAUR 350.1.13.58 H ealth 9.2.7.2.686 [id number] 1 2021-04-16 2021-04-16 EXT MHH OP SILVIA, EXT MSRDP 1.2.840.114 [id number] UT 13:00:00 13:05:00 MAURILIO LOCATION 350.1.13.58 H ealth 9.2.7.2.686 [id number] 1 2021-03-15 2021-03-15 EXT MHH OP Tenzin, EXT MSRDP 1.2.840.114 [id number] UT 00:00:00 00:00:00 Pancho LOCATION 350.1.13.58 H ealth [place] 9.2.7.2.686 [id number] 0 2021-03-15 2021-03-15 EXT [facility] OP Tenzin, EXT MSRDP 1.2.840.114 [id number] UT 00:00:00 00:00:00 Pancho LOCATION 350.1.13.58 H ealth [place] 9.2.7.2.686 [id number] 0 2021-03-11 2021-03-11 EXT [facility] OP Silvia, EXT MSRDP 1.2.840.114 [id number] UT 00:00:00 00:00:00 Maurilio LOCATION 350.1.13.58 H ealth 9.2.7.2.686 [id number] 0 2021-03-11 2021-03-11 EXT [facility] OP Silvia, EXT MSRDP 1.2.840.114 [id number] PA 00:00:00 00:00:00 Maurilio LOCATION 350.1.13.58 H ealth 9.2.7.2.686 [id number] 0 2021-03-05 2021-03-05 Outpatient SILVIA, [facility] [id number] [facility] 09:41:00 23:59:00 MAURILIO 2021-03-05 2021-03-05 EXT [facility] OP EXT MSRDP 1.2.840.114 1 [id number] UT 00:00:00 00:00:00 LOCATION 350.1.13.58 H ealth 9.2.7.2.686 [id number] 0 2021-03-05 2021-03-05 EXT MH OP EXT MSRDP 1.2.840.114 1 [id number] UT 00:00:00 00:00:00 LOCATION 350.1.13.58 H ealth 9.2.7.2.686 [id number] 0 2021-03-05 2021-03-05 EXT MHH OP EXT MSRDP 1.2.840.114 1 [id number] UT 00:00:00 00:00:00 LOCATION 350.1.13.58 H ealth 9.2.7.2.686 [id number] 0 2021-03-05 2021-03-05 EXT MHH OP EXT MSRDP 1.2.840.114 1 [id number] UT 00:00:00 00:00:00 LOCATION 350.1.13.58 H ealth 9.2.7.2.686 [id number] 0 2021-02-19 2021-02-19 Office Rosanne, EXT MSRDP 1.2.840.114 [id number] UT 09:49:04 10:49:04 Visit Saida Martinez LOCATION 350.1.13.58 H ealth 9.2.7.2.686 [id number] 6 2021-02-19 2021-02-19 Office Rosanne, EXT MSR[facility] 1.2.840.114 [id number] UT 09:49:04 10:49:04 Visit Saida E LOCATION 350.1.13.58 H ealth 9.2.7.2.686 [id number] 6 2021-01-17 2021-01-17 Outpatient ROSANNE BUSTAMANTE, [facility] [id number] [place] 01:06:01 01:06:01 [facility] 2021-01-17 2021-01-17 EXT MHH OP Frontera, EXT MSRDP 1.2.840.114 [id number] PA 00:00:00 00:00:00 Amadeo E LOCATION 350.1.13.58 H ealth 9.2.7.2.686 [id number] 0 2021-01-17 2021-01-17 EXT MHH OP Frontera, EXT MSR[facility] 1.2.840.114 [id number] PA 00:00:00 00:00:00 Amadeo E LOCATION 350.1.13.58 H ealth 9.2.7.2.686 [id number] 0 2021-01-10 2021-01-10 Outpatient R [facility] [id number] Univers 10:30:00 10:30:00 ity [facility] 2021-01-10 2021-01-10 Laboratory Only, Ang Db Test [facility] 1.2.8 40.114 [id number] Univers 10:19:02 10:29:02 Only Green, [facility] 350.1.13.10 ity [facility] 4.2.7.2.686 Gabe as Davion?Blea [phone] [facility] [address] Medical Office [facility] 2020-12-31 2020-12-31 EXT H OP Sven, EXT MSRDP 1.2.840.114 [id number] [place] 00:00:00 00:00:00 Amadeo E LOCATION 350.1.13.58 H ealth 9.2.7.2.686 [id number] 0 2020-12-31 2020-12-31 EXT H OP Sven, EXT MSRDP 1.2.840.114 [id number] UT 00:00:00 00:00:00 Amadeo E LOCATION 350.1.13.58 H ealth 9.2.7.2.686 [id number] 0 2020-12-26 2020-12-27 Outpatient nullFlavo TR Internal 4 [id number] Memoria 14:38:00 04:59:00 r Medicine 88 l (INMR) [place] 2020-12-26 2020-12-26 EXT H OP Rosanne, EXT MSR[facility] 1.2.840.114 [id number] UT 00:00:00 00:00:00 Saida E LOCATION 350.1.13.58 H ealth 9.2.7.2.686 [id number] 0 2020-12-26 2020-12-26 EXT MHH OP Alliabad, EXT MSRDP 1.2.840.114 [id number] UT 00:00:00 00:00:00 Saida E LOCATION 350.1.13.58 H ealth 9.2.7.2.686 [id number] 0 2020-12-252020-12-25 Outpatient R ÓSCAR [facility] [id number] Univers 10:30:00 11:43:20 MARLA ity of [facility] 2020-12-25 2020-12-25 Nurse Nurse, Souleymane [facility] 1.2.840.114 [id number] Univers 10:26:37 10:46:37 Visit ÓscarMarla [facility] 350.1.13.10 ity of [place] 4.2.7.2.686 Gabe as Davion?Blea [id number] [address] Medical Office Building 2020-12-25 2020-12-25 Orders Doctor SAIDA 1.2.840.114 [id number] Univers 00:00:00 00:00:00 Only Unassigned, TODD 350.1.13.10 ity of [place] [facility] 4.2.7.2.686 Gabe as [id number] [address] 2020-12-24 2020-12-24 EXT [facility] OP Pelini, EXT MSRDP 1.2.840.114 1 [id number] [place] 00:00:00 00:00:00 Geovanni LOCATION 350.1.13.58 H ealth 9.2.7.2.686 [id number] 0 2020-12-24 2020-12-24 EXT MH OP Pelini, EXT MSRDP 1.2.840.114 1 [id number] UT 00:00:00 00:00:00 Geovanni LOCATION 350.1.13.58 H ealth 9.2.7.2.686 [id number] 0 2020-12-22 2020-12-23 Emergency [facility] [id number] Memoria 18:37:07 00:29:00 sonali Seo [address] [place] limon 2020-12-22 2020-12-22 Emergency Michelle MCFARLANE [facility] GREENEF[facility] [id number] FB 13:37:00 19:29:00 FABIANA 2020-12-19 2020-12-19 Emergency , [facility] 1.2.891.645 [id number] Univers 15:29:00 17:49:00 Renzo Springer 350.1.13.10 i ty of [place] 4.2.7.2.686 [facility] [id number] [place] [address] Branch 2020-12-18 2020-12-18 Emergency Espinosa, [facility] 1.2.215.157 [id number] [facility] 11:11:00 14:05:00 Renzo Springer 350.1.13.10 i ty of [place] 4.2.7.2.686 [facility] [id number] [place] 7[address] Branch 2020-11-06 2020-11-07 Outpatient nullFlavo TR Urology [id number] Memoria 14:29:00 04:59:00 r Clinic 84 l (UROR) [place] 2020-11-05 2020-11-06 [place] [id number] Memoria 17:22:00 04:59:00 r Outpatient 85 l Clinic [place] (OPCR) 2020-10-31 2020-10-31 EXT [facility] OP Rosanne, EXT MSR[facility] 1.2.840.114 [id number] [place] 00:00:00 00:00:00 Saida E LOCATION 350.1.13.58 H ealth 9.2.7.2.686 [id number] 2020-10-31 2020-10-31 EXT [facility] OP Rosanne, EXT MSR[facility] 1.2.840.114 [id number] PA 00:00:00 00:00:00 Saida E LOCATION 350.1.13.58 H ealth 9.2.7.2.686 [id number] 0 2020-10-31 2020-10-31 EXT [facility] OP Alliini, EXT MSR[facility] 1.2.840.114 [id number] PA 00:00:00 00:00:00 Saida E LOCATION 350.1.13.58 H ealth 9.2.7.2.686 [id number] 0 2020-10-31 2020-10-31 EXT [facility] OP Alliini, EXT MSR[facility] 1.2.840.114 [id number] PA 00:00:00 00:00:00 Saida E LOCATION 350.1.13.58 H ealth 9.2.7.2.686 [id number] 0 2020-08-22 2020-08-23 Outpatient nullFlavo TR Wound [id number] Memoria 14:33:00 04:59:00 r Care (WOCR) 83 l [place] 2020-07-29 2020-07-30 Outpatient nullFlavo TR Urology 45 [id number] Memoria 15:05:00 04:59:00 r Clinic 81 l (UROR) [place] 2020-07-12 2020-07-13 Outpatient nullFlavo TR Baclofen 4 [id number] Memoria 15:04:00 05:59:00 r Related 80 l (BACR) [place] 2020-06-26 2020-06-26 Outpatient R CARMELO [facility] [id number] Univers 14:00:00 14:00:00 SYLVIA leger [facility] 2020-06-26 2020-06-26 Laboratory Lab, [facility] 1.2. 840.114 [id number] Univers 13:31:29 13:51:29 Only Carmelo Sylvia [facility] 350.1.13.10 ity of [place] 4.2.7.2.686 Gabe as Professio [phone] [place]s dic[address] Office [facility] 2020-06-06 2020-06-06 Laboratory Lab, [facility] 1.2. 840.114 [id number] Univers 12:52:02 13:11:50 Only Sylvia Rhodes [facility] 350.1.13.10 ity of [place] 4.2.7.2.686 Gabe as Professio [phone] [address] Office [facility] 2020-06-06 2020-06-06 Outpatient R [facility] [id number] Univers 13:00:00 13:00:00 ity [facility] 2020-06-02 2020-06-02 [facility] [id number] Univers 10:00:00 10:00:00 [facility] 2020-06-01 2020-06-01 Outpatient R JOVON [facility] [id number] Univers 11:20:00 11:20:00 MARI leger o f [facility] 2020-05-31 2020-05-31 Emergency Min, [facility] 1.2.840.114 [id number] Univers 12:58:00 16:33:00 Pippamichelle Springer 350.1.13.10 i ty of [place]2.7.2.[place] [id number] [facility] [address] [place] 2020-05-31 2020-05-31 Orders Doctor SAIDA 1.2.840.114 [id number] Univers 00:00:00 00:00:00 Only Unassigned, TODD 350.1.13.10 ity of [facility] 4.2.7.2.686 Gabe as [id number] [facility] [address] 2020-05-18 2020-05-18 Laboratory Lab, [facility] 1.2. 840.114 [id number] Univers 08:57:08 09:17:08 Only Mari Sigala [facility] 350.1.13.10 ity of [place] 4.2.7.2.686 Gabe as Professio [id number] [place] dicmt nal [address] [place] Office Building One 2020-05-18 2020-05-18 Outpatient R JOVON [facility] [id number] Univers 09:00:00 09:00:00 MARI conrad [facility] 2020-05-04 2020-05-04 Laboratory Lab, [facility] 1.2. 840.114 [id number] Univers 17:20:27 17:40:27 Only Leonard Pineda 350.1.13.10 ity of [place] 4.2.7.2.686 Gabe as Professio [phone] [place] dical nal [address] 2020-05-04 2020-05-04 Outpatient R KATI [facility] [id number] Univers 17:20:00 17:20:00 LEONARD ity [facility] 2020-04-27 2020-04-27 Emergency Yariel Lopez [facility] 1.2.840.1 14 [id number] Univers 12:09:00 13:47:00 Yariel Lopez 350.1.13.10 ity of [place] 4.2.7.2.686 [facility] [phone] [facility] [address] 2020-04-27 2020-04-27 Emergency X JOHN, [facility] ERT [id number] Univers 12:09:00 13:47:00 YARIEL ity [facility] 2020-04-01 2020-04-02 Outpatient nullFlavo TR Spinal [id number] Memoria 14:56:00 05:59:00 r Cord Inj [facility] ([facility]) 2020-03-25 2020-03-25 Laboratory Lab, [facility] Fam Pob I [facility] 1.2. 840.114 [id number] Univers 13:19:56 13:39:56 Only [facility] 350.1.13.10 ity of [place] 4.2.7.2.686 Gabe as Professio [phone] [place] dical nal [address] 2020-03-25 2020-03-25 Outpatient R [facility] [id number] Univers 13:20:00 13:20:00 ity of [facility] 2020-01-05 2020-01-06 Outpatient nullFlavo TR Baclofen 4 [id number] Memoria 16:23:00 04:59:00 r Related 77 l ([facility]) [place] 2019-12-04 2019-12-04 Letter Nurse, [facility] 1.2.840.114 [id number] Univers 00:00:00 00:00:00 (Out) Urgent HEALTH 350.1.13.[address] [facility] 4.2.7.2.686 [facility] [phone] [facility] Primary & [address] Specialty Care 2019-12-03 2019-12-03 Laboratory Lab, [facility] Fam Pob I [facility] 1.2. 840.114 [id number] Univers 11:55:54 12:15:54 Only Dedrick [facility] 350.1.13.10 ity of [place] 4.2.7.2.686 Gbae as Professio [phone] [place] dical nal [address] 2019-12-03 2019-12-03 Outpatient R DEDRICK [facility] [id number] Univers 12:00:00 12:00:00 RANIA ity of [facility] 2019-11-17 2019-11-17 Laboratory Lab, [facility] Fam Pob I [facility] 1.2. 840.114 [id number] Univers 07:09:32 07:29:32 Only Anene, Emelyn Qureshi 350.1.13.10 ity of [place] 4.2.7.2.686 Gabe as Professio [phone] [address] 2019-11-17 2019-11-17 Letter Doctor SAIDA 1.2.840.114 [id number] Univers 00:00:00 00:00:00 (Out) Unassigned, TODD 350.1.13.10 ity of [facility] 4.2.7.2.686 Gabe as [phone] [address] 2019-10-09 2019-10-10 Outpatient nullFlavo TR Urology 45 [id number] [facility] 14:41:00 04:59:00 r Clinic 76 l (UROR) [place] 2019-10-05 2019-10-06 Outpatient nullFlavo TIRR [id number] [facility] 14:09:00 04:59:00 r [facility] [place] 2019-07-07 2019-07-08 Outpatient nullFlavo TR Baclofen 4 [id number] [facility] 17:33:00 05:59:00 r Related 74 l (BACR) [place] 2019-04-23 2019-04-23 Emergency X [facility] ERT [id number] Univers 10:45:25 14:52:00 [facility] 2019-03-03 Outpatient nullFlavo TR Spinal [id number] [facility] 18:04:00 04:59:00 r Cord Inj 73 l [facility] [place] (SCIR) 2019-02-08 2019-02-09 [place] [id number] [facility] 18:01:00 04:59:00 r Outpatient 72 l [facility] [place] (OPCR) 2018-12-30 2018-12-31 Outpatient nullFlavo TR Baclofen 4 [id number] [facility] 15:57:00 04:59:00 r Related 73 l (BACR) [place] 2018-10-28 2018-10-29 Outpatient nullFlavo TIRR [id number] [facility] 14:57:00 04:59:00 r [facility] 70 l [facility] 2018-07-14 2018-07-15 Outpatient nullFlavo TIRR [id number] [facility]oria 20:16:00 04:59:00 r [facility] 70 l [facility] 2018-06-29 2018-06-30 Outpatient nullFlavo TIRR [id number] [facility] 19:15:00 05:59:00 r [facility] 67 l [facility] 2018-06-20 2018-06-21 Outpatient nullFlavo TIRR [id number] [facility] 15:27:00 05:59:00 r [facility] 68 l [facility] 2018-02-21 2018-02-22 Emergency nullFlavo [facility] [id number] [facility] 16:54:00 02:30:00 r [place] 66 [facility] 2017-12-24 2017-12-24 Ambulatory nullFlavo MNA [id number] [facility] 15:00:00 15:00:00 Pre-Reg r Neurosurger 02 l y [facility] 2017-12-17 2017-12-19 Phone nullFlavo MNA [id number] [facility]oria 18:54:00 04:59:59 Message r Neurosurger 01 l y [facility] 2017-12-17 2017-12-19 Phone nullFlavo MNA [id number] [facility]oria 18:54:00 04:59:59 Message r Neurosurger 02 l y [facility] 2017-12-13 2017-12-14 Outpatient nullFlavo TIRR [id number] [facility] 18:06:00 04:59:00 r [facility] 61 l [facility] 2017-12-10 2017-12-11 Outpatient nullFlavo MNA [id number] [facility] 13:45:00 04:59:59 r Neurosurger 01 l y [facility] 2017-12-10 2017-12-11 Day nullFlavo [facility] [id number] [facility]oria 12:17:00 04:59:00 Surgery r [place] 65 [facility] 2017-11-12 2017-11-13 Outpatient nullFlavo MNA [id number] [facility] 15:30:00 04:59:59 r Neurosurger 00 l y [facility] 2017-10-21 2017-10-23 Phone nullFlavo MNA [id number] [facility]oria 20:51:00 04:59:59 Message r Neurosurger 00 l y [facility] 2017-10-18 2017-10-19 Outpatient nullFlavo TIRR [id number] [facility] 17:23:00 04:59:00 r [facility] 57 l [facility] 2017-09-22 2017 Outpatient nullFlavo TIRR [id number] [facility] 17:50:00 04:59:00 r [facility] 61 l [facility] 2017-08-25 2017-08-26 Outpatient nullFlavo TIRR [id number] [facility] 17:39:00 04:59:00 r [facility] 60 l [facility] 2017-08-20 2017-08-21 Outpatient nullFlavo TIRR [id number] [facility] 14:39:00 04:59:00 r [facility] 59 l [facility] 2017-04-09 2017-04-10 Outpatient nullFlavo TIRR [id number] [facility] 16:40:00 05:59:00 r [facility] 54 l [facility] 2016-11-12 2016-11-13 Outpatient nullFlavo TIRR [id number] [facility] 19:34:00 04:59:00 r [facility] 55 l [facility] 2016-10-14 2016-10-15 Outpatient nullFlavo TIRR [id number] [facility] 16:25:00 04:59:00 r [facility] 51 l [facility] 2016-06-10 2016-06-11 Outpatient nullFlavo TIRR [id number] [facility] 18:42:00 05:59:00 r [facility] 52 l [facility] 2016-05-27 2016-05-28 Outpatient nullFlavo TIRR [id number] [facility] 20:04:00 05:59:00 r [facility] 49 l [facility] 2016-04-15 2016-04-16 Outpatient nullFlavo TIRR [id number] [facility] 18:01:00 05:59:00 r [facility] 50 l [facility] 2016-02-24 2016-03-25 Recurring nullFlavo TIRR [id number] [facility] 13:00:00 05:59:00 r [facility] 03 l [facility] 2015-12-13 2015-12-14 Outpatient nullFlavo TIRR [id number] [facility] 14:18:00 04:59:00 r [facility] 46 l [facility] 2015-10-24 2015-10-25 Outpatient nullFlavo TIRR [id number] [facility] 17:21:00 04:59:00 r [facility] 43 [facility] 2015-10-18 2015-10-19 Outpatient nullFlavo TIRR [id number] [facility] 15:42:00 04:59:00 r [facility] 41 [facility] 2015-06-12 2015-06-13 Outpatient nullFlavo TIRR [id number] [facility] 16:08:00 05:59:00 r [facility] 42 l [facility] 2015-04-17 2015-04-18 Outpatient nullFlavo TIRR [id number] [facility] 16:00:00 05:59:00 r [facility] 36 l [facility] 2015-01-30 2015-01-31 Outpatient nullFlavo TIRR [id number] [facility] 17:20:00 04:59:00 r [facility] 40 l [facility] 2014-12-05 2014-12-06 Outpatient nullFlavo TIRR [id number] [facility] 14:31:00 04:59:00 r [facility] 39 l [facility] 2014-11-22 2014-11-23 Outpatient nullFlavo TIRR [id number] [facility] 16:00:00 04:59:00 r [facility] 30 l [facility] 2014-10-18 2014-10-19 Outpatient nullFlavo [facility] [id number] [facility] 18:33:00 04:59:00 r [place] 35 l [facility] 2014-10-12 2014-10-12 Tots nullFlavo [facility] [id number] Memoria 13:00:00 13:00:00 Therapy r [place] 03 l [facility] 2014-08-17 2014-08-18 EC nullFlavo [facility] [id number] Memoria 18:33:00 00:55:00 Emergency r [place] 34 l [facility] 2014-08-09 2014-08-12 Inpatient nullFlavo [facility] [id number] [facility] 19:05:00 18:45:00 r [place] [facility] 2014-04-10 2014-04-11 Outpatient nullFlavo [facility] [id number] [facility] 15:00:00 05:59:00 r [place] 25 l [facility] [place] 2013-12-26 2013-12-27 Outpatient nullFlavo [facility] [id number] [facility] 14:02:00 04:59:00 r [place] 28 l [facility] [place] 2013-12-20 2013-12-21 Outpatient nullFlavo [facility] [id number] [facility]oria 15:00:00 04:59:00 r [place] 27 l [facility] [place] 2013-08-04 2013-08-05 Outpatient nullFlavo [facility] [id number] [facility] 14:52:00 04:59:00 r [place] [id number] l [facility] [place] 2013-05-23 2013-05-23 Outpatient MHIE MHIE [id number] [facility]oria 10:05:00 10:05:00 17 delmy [facility] 2013-04-14 2013-04-14 Outpatient MHIE MHIE [id number] Memoria 08:00:00 08:00:00 11 delmy [place] 2013-02-22 2013-02-22 Outpatient MHIE MHIE [id number] Memoria 12:41:00 12:41:00 13 delmy [place] 2013-01-24 2013-01-26 Inpatient nullFlavo [facility] [id number] Memoria 19:56:00 17:40:00 r Medical 15 l [place] 2013-01-16 2013-01-16 Outpatient MHIE MHIE [id number] Memoria 08:36:00 08:36:00 12 delmy Seo 2012-10-20 2012-10-20 Outpatient MHIE MHIE [id number] Memoria 08:00:00 08:00:00 05 delmy Seo 2012-09-27 2012-09-27 Outpatient MHIE MHIE [id number] Memoria 08:00:00 08:00:00 09 delmy Seo 2012-04-27 2012-04-28 Emergency nullFlavo [facility] [id number] Memoria 23:44:00 06:28:00 r Medical 07 l [place] 2012-04-22 2012-04-22 Outpatient MHIE MHIE [id number] [facility]oria 10:02:00 10:02:00 02 delmy Seo 2012-04-13 2012-04-13 Outpatient MHIE MHIE [id number] [facility] 10:00:00 10:00:00 22 delmy [place]o 2012-03-08 2012-03-09 Emergency nullFlavo [facility] [id number] Memoria 21:35:00 04:25:00 r Medical 04 l [place] 2012-02-11 2012-02-11 Outpatient MHIE MHIE [id number] Memoria 10:00:00 10:00:00 01 delmy Seo 2012-01-28 2012-01-28 TO MHIE MHIE [id number] [facility] 12:48:00 12:48:00 01 delmy Seo 2011-12-10 2011-12-10 Outpatient MHIE MHIE [id number] [facility]oria 13:18:00 13:18:00 29 delmy Seo 2011-11-24 2011-11-24 TO MHIE MHIE [id number] [facility]oria 14:23:00 14:23:00 00 delmy Seo 2011-09-29 2011-11-14 IR MHIE MHIE [id number] Mem[facility] 19:45:00 11:00:00 27 delmy Seo 2011 2011-09-29 Inpatient nullFlavo [facility] [id number] Memoria 20:40:00 18:00:00 r [facility] 2011-09-14 2011 IR MHIE MHIE [id number] [facility] 13:20:00 12:31:00 25 delmy Seo 2011-09-04 2011-09-04 Outpatient MHIE MHIE [id number] Memoria 12:08:00 12:08:00 24 delmy [place] 2011-08-25 2011-08-25 Outpatient MHIE MHIE [id number] [facility]oria 13:32:00 13:32:00 17 delmy Seo 2011-08-21 2011-08-21 Outpatient MHIE MHIE [id number] [facility]oria 10:25:00 10:25:00 20 delmy Seo 2011-08-14 2011-08-14 Outpatient MHIE MHIE [id number] Memoria 11:26:00 11:26:00 21 delmy Seo 2011-08-06 2011-08-06 Outpatient MHIE MHIE [id number] [facility] 12:54:00 12[facility]54:00 [facility] 2011-07-15 Inpatient nullFlavo [facility] [id number] Memoria 08:24:00 15:00:00 r Medical 18 l [facility] 2011-06-19 2011-06-19 Outpatient KRYSTA CHAPARRO [id number] Memoria 08:03:00 08:03:00 [facility] 2011-06-16 2011-06-16 Outpatient IE KRYSTA [id number] [facility] 13:01:00 13:01:00 16 [facility] 2011-06-02 2011-06-02 Outpatient KRYSTA CHAPARRO [id number] Memoria 14:03:00 14:03:00 13 del[place] 2011-03-13 2011-03-13 Outpatient KRYSTA CHAPARRO [id number] [facility]oria 12:54:00 23:59:00 08 [facility] 2011-02-28 2011-02-28 Emergency nullFlavo [facility] [id number] Memoria 12:29:00 17:36:00 r Medical 10 l [facility] 2011-02-27 2011-02-27 Emergency nullFlavo [facility] [id number] Memoria 17:01:00 22:26:00 r Medical 09 l [facility] 2010-11-06 2010-11-11 Inpatient nullFlavo [facility] [id number] Memoria 00:11:00 17:40:00 r Medical 87 l [facility] 2010-10-05 2010-10-23 Inpatient nullFlavo [facility] [id number] Memoria 21:36:00 17:30:00 r Medical 00 l [facility] Results Test Description Test Time Test Comments Results Result Comments Source COMP. METABOLIC PANEL (89575) 2022-06-17 02:38:20 Test Item Value Reference Range Interpretation Comme nts NA (test code = 2822873030) 139 mmol/L 135-145 K (test code = 7271052250) 4.0 mmol/L 3.5-5.0 CL (test code = 7010214604) 103 mmol/L 98-108 CO2 TOTAL (test code = 1473370031) 25 mmol/L 23-31 AGAP (test code = 8937030595) 11 2-16 BUN (test code = 0247946631) 10 mg/dL 7-23 GLUCOSE (test code = 7793858259) 97 mg/dL 70-110 CREATININE (test code = 0.49 mg/dL 0.60-1.25 L 1201632387) TOTAL BILI (test code = 0.6 mg/dL 0.1-1.0 7395911309) CALCIUM (test code = 6325700692) 9.2 mg/dL 8.6-10.6 T PROTEIN (test code = 6387106456) 8.3 g/dL 6.3-8.2 H ALBUMIN (test code = 0031648605) 5.0 g/dL 3.5-5.0 ALK PHOS (test code = 5201091709) 73 U/L 34-122 ALTv (test code = 1742-6) 18 U/L 5-50 AST(SGOT) (test code = 2268462686) 22 U/L 13-40 eGFR (test code = 6992887467) 191.5 mL/min/1.73m2 KELLIE (test code = KELLIE) Association of Glomerular Filtration Rate (GFR) and Staging of Kidney Disease* + +-------- + ------+| GFR (mL/min/1.73 m2) ?| With Kidney Damage ?| ?Without Kidney Damage+ +-- + +| ?>90 ?| ?Stage one ?| ? Normal ?+ +------- + -------+| ?60-89 ?| ?Stage two ?| ? Decreased GFR ? + +-------- + ------+| ?30-59 ?| ?Stage three ?| ? Stage three ? + +-------- + ------+| ?15-29 ?| ?Stage four ? | ? Stage four ?+ +------- + -------+| ?<15 (or dialysis) ? ?| ?Stage five ? | ? Stage five ?+ +------- + -------+ *Each stage assumes the associated GFR level has been in effect for at least three months. ?Stages 1 to 5, with or without kidney disease, indicate chronic kidney disease. Notes: Determination of stages one and two (with eGFR >59mL/min/1.73 m2) requires estimation of kidney damage for at least three months as defined by structural or functional abnormalities of the kidney, manifested by either:Pathological abnormalities or Markers of kidney damage (including abnormalities in the composition of the blood or urine or abnormalities in imaging tests). Lab Interpretation (test code = Abnormal 48109-0) [facility]38[facility]20 Test Item Value Reference Range Interpretation Comments LIPASE (test code = 2555494971) 101 U/L 0-220 Lab Interpretation (test code = Normal 26324-4) [facility] WITH [id number] 02:32:37 Test Item Value Reference Range Interpretation Comments WBC (test code = 13.33 See_Comment H [Automated 6690-2) message] The system which generated this result transmit gavino reference range : 4.20 - 10.70 10*3/?L. The reference range was not used to interpret this result as normal/abnormal . RBC (test code = 6.04 See_Comment H [Automated 789-8) message] The system which generated this result transmit gavino reference range : 4.26 - 5.52 10*6/?L. The reference range was not used to interpret this result as normal/abnormal . HGB (test code = 17.1 g/dL 12.2-16.4 H 718-7) HCT (test code = 50.3 % 38.4-49.3 H 4544-3) MCV (test code = 83.3 fL 81.7-95.6 787-2) MCH (test code = 28.3 pg 26.1-32.7 785-6) MCHC (test code = 34.0 g/dL 31.2-35.0 786-4) RDW-SD (test code = 38.2 fL 38.5-51.6 L 23066-9) RDW-CV (test code = 12.7 % 12.1-15.4 788-0) PLT (test code = 269 See_Comment [Automated 777-3) message] The system which generated this result transmit gavino reference range : 150 - 328 10*3/ ?L. The reference range was not u sed to interpret th is result as normal/abnormal . MPV (test code = 9.1 fL 9.8-13.0 L 10877-1) NRBC/100 WBC (test 0.0 See_Comment [Automat ed code = 8287996168) message] The system which generated this result transmit gavino reference range : 0.0 - 10.0 /100 WBCs. The reference range was not used to interpret this result as normal/abnormal . NRBC x10^3 (test code See_Comment [Auto mated = 9595587027) message] The system which generated this result transmit gavino reference range : 10*3/?L. The reference range was not used to interpret this result as normal/abnormal . GRAN MAT (NEUT) % 74.9 % (test code = 770-8) IMM GRAN % (test code 0.50 % = 4025702042) LYMPH % (test code = 15.7 % 736-9) MONO % (test code = 7.7 % 5905-5) EOS % (test code = 0.6 % 713-8) BASO % (test code = 0.6 % 706-2) GRAN MAT x10^3(ANC) 10.00 10*3/uL 1.99-6.95 H (test code = 6018149680) IMM GRAN x10^3 (test 0.06 10*3/uL 0.00-0.06 code = 2829048047) LYMPH x10^3 (test code 2.09 10*3/uL 1.09-3.23 = 731-0) MONO x10^3 (test code 1.02 10*3/uL 0.36-1.02 = 742-7) EOS x10^3 (test code = 0.08 10*3/uL 0.06-0.53 711-2) BASO x10^3 (test code 0.08 10*3/uL 0.01-0.09 = 704-7) Lab Interpretation Abnormal (test code = 54670-7) [facility] METABOLIC PANEL (NA, K, CL, CO2, GLUCOSE, BUN, CREATININE, CA)2022-03-11 10:36:42 Test Item Value Reference Range Interpretation Comments NA (test code = 142 mmol/L 135-145 7541696679) K (test code = 3.5 mmol/L 3.5-5.0 8339136203) CL (test code = 110 mmol/L 98-108 H 5257443964) CO2 TOTAL (test code = 29 mmol/L 23-31 8257187747) AGAP (test code = 2-16 0676377019) BUN (test code = 4 mg/dL 7-23 L 2673883475) GLUCOSE (test code = 107 mg/dL 70-110 1913497901) CREATININE (test code = 0.34 mg/dL 0.60-1.25 L 5942373141) CALCIUM (test code = 7.8 mg/dL 8.6-10.6 L 8424350904) eGFR (test code = mL/min/1.73m2 2525193498) KELLIE (test code = KELLIE) Association of Glomerular Filtration Rate (GFR) and Staging of Kidney Disease* + --+ --+ ------+| GFR (mL/min/1.73 m2) ?| With Kidney Damage ?| ?Without Kidney Damage+ --------+ --------+ +| ?>90 ?| ?Stage one ?| ? Normal ?+ ---+ ---+ -------+| ?60-89 ?| ?Stage two ?| ? Decreased GFR ? + --+ --+ ------+| ?30-59 ?| ?Stage three ?| ? Stage three ? + --+ --+ ------+| ?15-29 ?| ?Stage four ? | ? Stage four ?+ ---+ ---+ -------+| ?<15 (or dialysis) ? ?| ?Stage five ? | ? Stage five ?+ ---+ ---+ -------+ *Each stage assumes the associated GFR level has been in effect for at least three months. ?Stages 1 to 5, with or without kidney disease, indicate chronic kidney disease. Notes: Determination of stages one and two (with eGFR >59mL/min/1.73 m2) requires estimation of kidney damage for at least three months as defined by structural or functional abnormalities of the kidney, manifested by either:Pathological abnormalities or Markers of kidney damage (including abnormalities in the composition of the blood or urine or abnormalities in imaging tests). Lab Interpretation Abnormal (test code = 48337-5) [facility] WITH [id number] 10:20:44 Test Item Value Reference Range Interpretation Comments WBC (test code = See_Comment [Automated 6690-2) message] The sy stem which generated this result transmitted reference range : 4.20 - 10.70 10*3/?L. The reference range was not used to interpret this result as normal/abnormal . RBC (test code = See_Comment [Automated 789-8) message] The sy stem which generated this result transmitted reference range : 4.26 - 5.52 10*6/?L. The reference range was not used to interpret this result as normal/abnormal . HGB (test code = 13.0 g/dL 12.2-16.4 718-7) HCT (test code = 37.1 % 38.4-49.3 L 4544-3) MCV (test code = 81.5 fL 81.7-95.6 L 787-2) MCH (test code = 28.6 pg 26.1-32.7 785-6) MCHC (test code = 35.0 g/dL 31.2-35.0 786-4) RDW-SD (test code = 39.4 fL 38.5-51.6 07567-7) RDW-CV (test code = 13.2 % 12.1-15.4 788-0) PLT (test code = See_Comment L [Automated 777-3) message] The sy stem which generated this result transmitted reference range : 150 - 328 10*3/ ?L. The reference r elijah was not used to interpret this result as normal/abnormal . MPV (test code = 9.4 fL 9.8-13.0 L 39592-7) NRBC/100 WBC (test See_Comment [Automat ed code = 4103948261) message] The system which generated this result transmitted reference range : 0.0 - 10.0 /100 WBCs. The refer ence range was not u sed to interpret th is result as normal/abnormal . NRBC x10^3 (test code See_Comment [Auto mated = 5073584191) message] The s ystem which generated this result transmitted reference range : 10*3/?L. The reference range was not used to interpret this result as normal/abnormal . GRAN MAT (NEUT) % 53.5 % (test code = 770-8) IMM GRAN % (test code 0.20 % = 9106209155) LYMPH % (test code = 34.5 % 736-9) MONO % (test code = 7.0 % 5905-5) EOS % (test code = 4.1 % 713-8) BASO % (test code = 0.7 % 706-2) GRAN MAT x10^3(ANC) 2.38 10*3/uL 1.99-6.95 (test code = 1319236049) IMM GRAN x10^3 (test 0.00-0.06 code = 6316561395) LYMPH x10^3 (test code 1.53 10*3/uL 1.09-3.23 = 731-0) MONO x10^3 (test code 0.31 10*3/uL 0.36-1.02 L = 742-7) EOS x10^3 (test code = 0.18 10*3/uL 0.06-0.53 711-2) BASO x10^3 (test code 0.03 10*3/uL 0.01-0.09 = 704-7) Lab Interpretation Abnormal (test code = 02962-2) [facility]ERR[facility] [id number] 08:28:07 Test Item Value Reference Range Interpretation Comments FERRITIN (test code = 62.8 ng/mL 18.0-464.0 3260372598) KELLIE (test code = KELLIE) Biotin has been reported to cause a negative bias, interpret results relative to patient's use of biotin. Lab Interpretation (test Normal code = 28660-8) [facility] HospitalTHYROID STIMULATING [id number] 08:24:05 Test Item Value Reference Range Interpretation Comments TSH (test code = See_Comment [Automated message] 2851970709) The system Ranberry generated this result transmitted ref erence range: 0.45 - 4 .70 mIU/L. The refe rence range was not u sed to interpret this result as normal/abnor mal. Lab Interpretation (test Normal code = 03094-9) [facility] HospitalIRON [id number] 05:53:28 Test Item Value Reference Range Interpretation Comments IRON (test code = 5387957909) 38 ug/dL 50-160 L TIBC (test code = 8296990545) 305 ug/dL 250-410 % FE SAT (test code = 1700341243) 12 % 20-50 L Lab Interpretation (test code = Abnormal 07627-8) [facility] HospitalLIPID PANEL (68889)(TOTAL CHOLESTEROL, TRIGLYCERIDES, HDL)2022-03-10 05:44:28 Test Item Value Reference Range Interpretation Comments CHOL (test code = 140 mg/dL 120-200 8778435059) HDL (test code = 31 mg/dL See_Comment L [Automated message] 7414813017) The system Ranberry generated this result transmit gavino reference range : >=40. The refer ence range was not u sed to interpret th is result as normal/abnormal . HDLC RATIO (test code = See_Comment [Au tomated message] 9156514330) The system Ranberry generated this result transmit gavino reference range : <=5.0. The refe rence range was not u sed to interpret th is result as normal/abnormal . TRIG (test code = 93 mg/dL 30-170 1251649419) LDL CHOL (test code = 90 mg/dL See_Comment [Auto mated message] 45321-5) The system Ranberry generated this result transmit gavino reference range : <=160. The refe rence range was not u sed to interpret th is result as normal/abnormal . VLDL (test code = 19 mg/dL 5-60 7955971500) Lab Interpretation (test Abnormal code = 93037-0) [facility]MAGN[facility]UM2022-[facility]-08 05:44:08 Test Item Value Reference Range Interpretation Comments MAGNESIUM (test code = 4681811140) 1.9 mg/dL 1.7-2.4 Lab Interpretation (test code = Normal 67178-1) [facility]PHOSPHORUS2022-11-08 05:44:08 Test Item Value Reference Range Interpretation Comments PHOSPHORUS (test code = 7668834920) 3.5 mg/dL 2.5-5.0 Lab Interpretation (test code = Normal 49438-0) [facility] HospitalURIC [id number] 05:43:47 Test Item Value Reference Range Interpretation Comments URIC ACID (test code = 1883639755) 6.3 mg/dL 3.6-8.0 Lab Interpretation (test code = Normal 76938-5) [facility]HE[facility]OLOGY2021-08-26 15:48:002[facility] [place] [id number] 15:48:00<2.9[facility]annCHEM [id number] 21:24:0068[facility]annCHEM [id number] 21:24:0011[facility]annCHEM CEPOP1900-62-15 21:24:000.53[facility]annCHEM [id number] 21:24:22831 [facility]annCHE[facility] LAPZY6918-11-45 21:24:004.3[facility]annCHEM PANEL 2020-12-22 21:24:23154Asfoclnk HermannCHEM [id number] 21:24:0029[facility] HermannCHEM [id number] 21:24:008.7[facility]annCHEM FAJJR1916-46-14 21:24:007.3[facility]annCHEM [id number] 21:24:003.9[facility]annCHEM MHVVW2016-72-93 21:24:0022[facility] HermannCHEM [id number] 21:24:0011 [facility]annCHEM IFXQW6094-59-13 21:24:0079[facility] HermannCHEM PANEL 2020-12-22 21:24:000.4[facility]annCHEM [id number] 21:24:008.3[facility] HermannCHEM [id number] 21:24:00 Test Item Value Reference Range Interpretation Comments B/C Ratio (test code = B/C Ratio) 21 1 6-25 [facility]annCHEM [id number] 21:24:003.4[facility]annCHEM PANEL 2020-12-22 21:24:00 Test Item Value Reference Range Interpretation Comments A/G Ratio (test code = A/G Ratio) 1.1 1 0.7-1.6 [facility]annCHEM [id number] 21:24:81537Kdymnmsj HermannCHEM PANEL 2020-12-22 21:24:37610Gwuylayl DnuwtidVVHPPZTFWA8587-24-11 21:24:008.1[facility] KxgaycfGGNXYTASNB2454-90-95 21:24:005.43[facility] WzkxstvXUSLXTYXQX1788-53-46 21:24:0015.5[facility]orial ZlbzxioYWAWKOOTGK2404-75-30 21:24:0045.9[facility] [place] UWTWVUTDJD6251-65-34 21:24:0084.5[facility] EhrquusSPGJJZZTZT6875-71-25 21:24:00 Test Item Value Reference Range Interpretation Comments MCH (test code = MCH) 28.6 pg 27.0-31.0 Memorial PfwtwvxDFJUUQWUTH1607-91-96 21:24:0033.9[facility] HermannHEMATOLOGY 2020-12-22 21:24:0014.0[facility] WgfjwbsOYVYHEZXNP1783-80-92 21:24:29204Lztqirpq UfyxsldEAPKUNMRVK6319-81-39 21:24:007.3[facility] AgvpzkiTBFVMEKFUY5124-55-20 21:24:0063.1Memorial GfnexwnSDHZDNQJMJ6190-32-37 21:24:0028.0[facility] GSFZNHFTFO8256-80-63 21:24:006.6[facility] XbalfiwETELIAHOHT3628-45-55 21:24:001.1 [facility] LyrlmnsUAHALIMYOZ6905-71-60 21:24:001.2[facility] 2020-12-22 21:24:005.1[facility] LrzipxfHCZTPTOCNZ4502-06-70 21:24:002.3[facility] YmrjaqgFGZESFPQOX6047-05-74 21:24:000.5[facility] EfgdneaLYPOANDECU3757-86-31 21:24:000.1[facility] BjvsxmmHARWTQRSDM9209-42-43 21:24:000.1[facility] AND MFVVG9418-14-87 21:24:00Light Yellow *NA*(12/22/20 4:24 PM)[facility] AND UYCZY7500-15-01 21:24:00Slight *ABN*(12/22/20 4:24 PM)[facility] AND DIOWD2633-49-24 21:24:00 Test Item Value Reference Range Interpretation Comments UA Spec Grav (test code = UA Spec 1.008 1 Grav) [facility] BDWFF0674-64-19 21:24:00 Test Item Value Reference Range Interpretation Comments UA pH (test code = UA pH) 7.0 1 5.0-8.0 [facility] GOZQQ2170[facility]38-49 21:24:00Negative (12/22/20 4:24 PM) [facility] RXYAP3356-78-30 21:24:00Negative *NA*(12/22/20 4:24 PM) [facility] WPLIJ7857-74-73 21:24:00Negative *NA*(12/22/20 4:24 PM) [facility] KKUFZ2847-08-09 21:24:00Negative *NA*(12/22/20 4:24 PM) [facility] ZAXAA0741-92-33 21:24:00Negative (12/22/20 4:24 PM) [facility] LVDST8611-36-01 21:24:00Positive *ABN*(12/22/20 4:24 PM)[facility] XRAJU3557-16-93 21:24:00Large *ABN*(12/22/20 4:24 PM)[facility] XSECH4927-60-32 21:24:0011[facility] PPTEW9837-45-14 21:24:001[facility]annCHE[facility] FHYJR4063-68-33 21:24:0068[facility] EVSMC6339-62-67 21:24:0011[facility] RIAAK5641-71-73 21:24:000.53[facility] ODKBM5281-11-62 21:24:04022Oddfyymq HermannCHEM AHHJK6663-06-88 21:24:004.3[facility] CTOHB1543-07-66 21:24:69980 [facility] LWRVZ6385-42-64 21:24:0029[facility]annCHE[facility] PANEL 2020-12-22 21:24:008.7[facility] RNIGB4051-75-15 21:24:007.3[facility]annCHE[facility] FIXNJ8333-71-34 21:24:003.9[facility] QKXXR3287-88-41 21:24:0022[facility] GZEEK1332-02-82 21:24:0011[facility] FCZLB2218-36-60 21:24:0079[facility] KRFQB1651-73-41 21:24:000.4 [facility] CXUYO4047-62-62 21:24:008.3[facility]annCHE[facility] PANEL 2020-12-22 21:24:00 Test Item Value Reference Range Interpretation Comments B/C Ratio (test code = B/C Ratio) 21 1 6-25 [facility] DSEQL4505-96-31 21:24:003.4[facility]annCHE[facility] PANEL 2020-12-22 21:24:00 Test Item Value Reference Range Interpretation Comments A/G Ratio (test code = A/G Ratio) 1.1 1 0.7-1.6 [facility] MJQUZ3203-03-20 21:24:84149Axdiclly HermannCHEM PANEL 2020-12-22 21:24:98204Kltrslzc UlaussgOZEXOSKRTM1243-18-38 21:24:008.1[facility] VmkrukbTMWBPEXHXJ4505-32-59 21:24:005.43[facility] CezmfxmDNDKOLHFHB4840-03-36 21:24:0015.5[facility] ZmoozwjAPOWDUZZSX4764-91-54 21:24:0045.9[facility] GVNBROSAXZ7960-25-95 21:24:0084.5[facility] YcukllcBOETETOYZA4420-75-31 21:24:00 Test Item Value Reference Range Interpretation Comments MCH (test code = MCH) 28.6 pg 27.0-31.0 [facility] SbfkgvmYKPTYFPZXE5538-10-53 21:24:0033.9[facility]annHEMATOLOGY 2020-12-22 21:24:0014.0[facility] EgxzkzxLSCGDXVKUL1851-07-12 21:24:44908Iwlhjkfr DljhonnYDBUHDSYCC5892-87-15 21:24:007.3[facility] NlxnktdARBMCOVBBR7633-55-39 21:24:0063.1[facility] AtiyqseRXKECYGFAL2993-04-97 21:24:0028.0[facility] XRBCMYUZDT8689-73-76 21:24:006.6[facility] BcfclewLYRHSYFJKP8024-38-49 21:24:001.1 [facility] NpykxyeJPLPJCVPMN5219-92-85 21:24:001.2[facility]annHEMATOLOGY 2020-12-22 21:24:005.1[facility] OuykyixBOKAGKFKSS2222-02-00 21:24:002.3[facility] SkahwjhKSXYSVYYUU1394-99-48 21:24:000.5[facility] WciwjhlDGNXPPZDWR3935-00-47 21:24:000.1[facility] DcoblceMQKAYZHBNU5106-37-56 21:24:000.1[facility] ZRZVX0513-08-75 21:24:00Light Yellow *NA*(12/22/20 4:24 PM)[facility] ZXVEF7957-62-92 21:24:00Slight *ABN*(12/22/20 4:24 PM)[facility] AND FWSUX8065-25-10 21:24:00 Test Item Value Reference Range Interpretation Comments UA Spec Grav (test code = UA Spec 1.008 1 Grav) [facility] CVCHZ2174-07-95 21:24:00 Test Item Value Reference Range Interpretation Comments UA pH (test code = UA pH) 7.0 1 5.0-8.0 [facility] AVTKE6228-21-56 21:24:00Negative (12/22/20 4:24 PM) [facility] HSDKW9774-64-33 21:24:00Negative *NA*(12/22/20 4:24 PM) [facility] LMFRP5258-81-48 21:24:00Negative *NA*(12/22/20 4:24 PM) [facility] FNDOR7114-69-05 21:24:00Negative *NA*(12/22/20 4:24 PM) [facility] MPJAU2357-39-29 21:24:00Negative (12/22/20 4:24 PM) [facility] ZMFLG3637-10-40 21:24:00Positive *ABN*(12/22/20 4:24 PM)[facility] BBDQE0941-29-51 21:24:00Large *ABN*(12/22/20 4:24 PM)[facility] DLWGA6827-37-02 21:24:0011[facility] YTBST1225-58-16 21:24:001[facility]CHE[facility] SGEYD2620-28-20 16:58:000.54 [facility] HNWFO8213-67-45 16:58:63896Oeobkgnb HermannCHEM PANEL 2019-10-05 16:58:000.54[facility]annCHE[facility] MNSML7271-96-68 16:58:15796Uwjfvfxl HermannAMPICILLIN+SULBACTAM:SUSC:PT:ISOLATE:ORDQN:RNR2109-37-11 23:59:00 Escherichia coliMemorial WvloijrTPPGWOZBTZKX8985-22-96 23:59:0012.8[facility] HanocefSMISIKPYDJRI0069-94-22 23:59:74939Hlpnkypn TcxvkljFQWZWRAJNRIT9736-15-00 23:59:0028[facility] IppljuiLXXSEJQQOJJK5617-78-24 23:59:008.8[facility] LRMRFXCLCBFY2025-44-16 23:59:07446Asbixhsr LvucfdkJFJPQIRXDGAK6959-03-62 23:59:60215Uolmwatb RlvfeieUZICKQBRSCFD3555-54-81 23:59:003.8[facility] [place] NCWZSACBFTOQ8373-97-76 23:59:0012[facility] EbbjnjvDDDZSFPFXGBP3929-71-00 23:59:00 88[facility] NiuomixNRAWDBCHYEBF6636-48-73 23:59:000.72[facility]annHEMATOLOGY 2018-02-21 23:59:000.6[facility] NpumdohAIEWRSPECT0817-96-05 23:59:006.2[facility] PlsrteaBGTFQCEQSD4759-37-54 23:59:001.0[facility] IqukydxKROSOTUXBH3801-15-19 23:59:000.4[facility] OgscvtvCLUIGTEHJR4923-57-05 23:59:0080.2[facility] YJUXAOKSGM1172-75-32 23:59:0013.0[facility] PfjqoniZSMFTLUOYY1549-19-80 23:59:00 5.8[facility] VrmdhjeLENDKUZFLV9500-89-41 23:59:000.4[facility]annHEMATOLOGY 2018-02-21 23:59:0083.0[facility] LxqoguaXEDLMMXXGB3945-54-70 23:59:00 Test Item Value Reference Range Interpretation Comments MCH (test code = MCH) 28.6 pg 27.0-31.0 [facility] TygnfefXEBFGONVZO1188-62-35 23:59:0043.1[facility]annHEMATOLOGY 2018-02-21 23:59:005.19[facility] YesuuigCZCGTDXQRS1185-01-66 23:59:0014.8[facility] TtxkmtwJCJHKQQNVP7060-54-88 23:59:0034.4[facility] NkxsedzVDKIJOOIQW4934-99-90 23:59:0013.8[facility] YofoznyYWHBCBJGOI7252-19-16 23:59:93312Rdlzrxrb [facility] NXOACZGYLT2944-93-92 23:59:007.0[facility] LrvrdgaXQVEIHVIOB1618-11-09 23:59:007.7 [facility]annAMPICILLIN+SULBACTAM:SUSC:PT:ISOLATE:ORDQN:SGW4576-22-03 23:59:00Escherichia coliMemorial LztpiykNBWJFNMGFAUF0419-40-60 23:59:0012.8 [facility] MpysgrcNDEKQNJHORGQ8714-89-37 23:59:35492Geseaypi HermannELECTROLYTES 2018-02-21 23:59:0028[facility] GofujofBBAEPOKFQIOF1491-37-37 23:59:008.8[facility] MsqyehsZZNTQCIDJEPZ3473-80-41 23:59:92910Mtsozrkz NjmmcxjXMQQPBFUWAAF0063-95-10 23:59:35278Dltztmrl FyvsjzoYUSWIQQTJEEP0684-41-12 23:59:003.8[facility] FENZENOWKRZF5210-93-40 23:59:0012[facility] QkarxopMZQJRVBUWROS2516-97-11 23:59:00 88[facility] GwwhfwnCHLOWGUKWKCK5737-99-83 23:59:000.72[facility]annHEMATOLOGY 2018-02-21 23:59:000.6[facility] SyqvoyyHZQIAHJSAV5225-77-26 23:59:006.2[facility] IonovqtSQEWDHROVW5595-99-75 23:59:001.0[facility] XdhocxkCPEIIJFVDH1519-75-20 23:59:000.4[facility] AzwrqwkHVUHCBNOFS9413-27-94 23:59:0080.2[facility] YUZGKNMWWG7091-04-52 23:59:0013.0[facility] AkblwqiCTFBBGNZWU1437-45-94 23:59:00 5.8[facility] KaditvuBPYTLRBEJV4555-80-40 23:59:000.4[facility]annHEMATOLOGY 2018-02-21 23:59:0083.0[facility] WqwhodgMIYRFXBWGW1047-17-20 23:59:00 Test Item Value Reference Range Interpretation Comments MCH (test code = MCH) 28.6 pg 27.0-31.0 [facility] NasutxsRPAKRXSQAB6025-35-19 23:59:0043.1[facility]annHEMATOLOGY 2018-02-21 23:59:005.19[facility] UbprjzgXVUFTSEWBO0264-10-98 23:59:0014.8[facility] OxlodyoHGFHJGMHEC2140-54-39 23:59:0034.4[facility] NnxzapxTYTSTHPZJV0313-34-36 23:59:0013.8[facility] HlhwamtBSJGTWAJDX3355-87-78 23:59:27986Mqytmvyk [place] PFXTSNPVAW4840-69-84 23:59:007.0[facility] RnrjdosEUWEHDTXWB8739-85-66 23:59:007.7 [facility] EJNOS2916-00-11 23:04:00 Test Item Value Reference Range Interpretation Comments UA pH (test code = UA pH) 7.0 1 5.0-8.0 [facility] HNARM2320-84-69 23:04:00 Test Item Value Reference Range Interpretation Comments UA Spec Grav (test code = UA Spec 1.020 1 Grav) [facility] DEFTB3832-03-29 23:04:00Negative *NA*(02/21/18 6:04 PM)[facility] WYGYM7339-68-30 23:04:00Negative (02/21/18 6:04 PM) [facility] BXGGR6237-93-80 23:04:00Small *ABN*(02/21/18 6:04 PM) [facility] CCCOM4968-71-66 23:04:00Green *ABN*(02/21/18 6:04 PM) [facility] KEILY0961-78-84 23:04:00Negative *NA*(02/21/18 6:04 PM)[facility] THKHF0031-28-23 23:04:00Trace *ABN*(02/21/18 6:04 PM)[facility] GOPNJ5515-04-16 23:04:000.2[facility] OYVWZ4999-01-51 23:04:00Negative (02/21/18 6:04 PM)[facility] PMPXS1022-18-82 23:04:00Slight Cloudy (02/21/18 6:04 PM)[facility] EZIIJ6695-37-14 23:04:00 Test Item Value Reference Range Interpretation Comments UA pH (test code = UA pH) 7.0 1 5.0-8.0 [facility] RMVYA1114-40-67 23:04:00 Test Item Value Reference Range Interpretation Comments UA Spec Grav (test code = UA Spec 1.020 1 Grav) [facility] PHIXI9093-01-47 23:04:00Negative *NA*(02/21/18 6:04 PM)[facility] CIFIU3167-02-51 23:04:00Negative (02/21/18 6:04 PM) [facility] VVQJW3470-88-90 23:04:00Small *ABN*(02/21/18 6:04 PM) [facility] XVOXI8768-55-62 23:04:00Green *ABN*(02/21/18 6:04 PM) [facility] VJRER7103-32-14 23:04:00Negative *NA*(02/21/18 6:04 PM)[facility] KESUA7625-71-12 23:04:00Trace *ABN*(02/21/18 6:04 PM)[facility] NDYQS8568-40-79 23:04:000.2[facility] NXVCI1970-12-52 23:04:00Negative (02/21/18 6:04 PM)[facility] YIBUR4024-44-65 23:04:00Slight Cloudy (02/21/18 6:04 PM)[facility] CEFTAZIDIME:SUSC:PT:ISOLATE:ORDQN:XYA9261-93-12 16:10:00Klebsiella pneumoniae ssp pneumoniaeMemorial HermannCEFTAZIDIME:SUSC:PT:ISOLATE:ORDQN:SAI0655-09-05 16:10:00Escherichia coliMemorial HermannCEFTAZIDIME:SUSC:PT:ISOLATE:ORDQN:ALMA 2017-12-10 16:10:00Klebsiella pneumoniae ssp pneumoniaeMemorial [place] CEFTAZIDIME:SUSC:PT:ISOLATE:ORDQN:DZK2068-39-58 16:10:00Escherichia coliMemorial KdoyssvIQLNEJOPHPDN8224-82-96 13:04:0014.2[facility] GzlabhbJROBFXGOKEWL3567-73-17 13:04:00 Test Item Value Reference Range Interpretation Comments A/G Ratio (test code = A/G Ratio) 1.0 1 0.7-1.6 [facility] KcamymnZCVBXDPCLWFA2744-49-82 13:04:00 Test Item Value Reference Range Interpretation Comments B/C Ratio (test code = B/C Ratio) 19 1 6-25 [facility] TwqvoqjNXNFNZKLQZNI2299-63-97 13:04:003.4[facility] HermannELECTROLYTES 2017-12-10 13:04:88999Dvbuinlr KcnpekzGYRLJDLBLXJV8761-32-67 13:04:0073[facility] HldizpaDOLVKVXIGCFT9348-53-15 13:04:000.3[facility] AmpuclsTWUUTEUKJOGQ4443-46-65 13:04:003.5[facility] DvixfbcWDSAKVFSOOBT2559-59-48 13:04:0029[facility] [place] AKXUGOCHNKOE3673-37-46 13:04:0013[facility] FouxzdfKHOBCBQOHQVM8022-73-41 13:04:00 6.9[facility] NhhhougJLZVQVJMEWWL6863-63-64 13:04:008.7[facility] [place] UVTLGYKZTJWG2236-04-46 13:04:0025[facility] LbnavguJMUFAMGEHESV3623-71-60 13:04:00 144[facility] IwvypagAPRKTSVJVJFJ9974-97-13 13:04:004.2[facility] DOBPGHVWLBLH9928-35-64 13:04:59448Gdgpobra FkgevqaSTLQFLOCPFTK9014-02-54 13:04:0078[facility] UpkinzcCGRNRPMYLTWB5820-83-51 13:04:0010[facility] BTYGTYHSLJOV1854-12-27 13:04:000.53[facility] JjidqkkSTCNKOAIJA5019-02-09 13:04:00 44.3[facility] JbeqmfuSUQLWVLLAZ4974-82-06 13:04:00 Test Item Value Reference Range Interpretation Comments MCH (test code = MCH) 28.8 pg 27.0-31.0 [facility] RykmpuwKYKDBBUALZ3238-06-31 13:04:0082.5[facility]annHEMATOLOGY 2017-12-10 13:04:0034.9[facility] JawilhuUIKKELVJUM3001-92-69 13:04:007.4[facility] JkfohkmMIPMVNRLZJ6913-46-47 13:04:30153Tpxxgiuj XlmgikjYPMPHKNOVF5710-46-86 13:04:0013.3[facility] ZpilueuNSKYELLWRR1940-69-54 13:04:008.6[facility] QRVMWNOYSS0330-18-44 13:04:0015.4[facility] EqehshvOHJQLYPKDS2983-23-69 13:04:00 5.37[facility] IpakqxhVJBAEEUFOK3123-06-64 13:04:0028.7[facility]annHEMATOLOGY 2017-12-10 13:04:0063.1[facility] OycqzeyYBJABZKDND6401-70-76 13:04:000.1[facility] NptglsoXVQMVOBSSV6234-98-59 13:04:000.2[facility] CjsmuqmOUAQWMZELJ8769-51-66 13:04:001.9[facility] FvuyfteUSGJCOHPIH4243-20-62 13:04:005.4[facility] WSIZYUADXR1813-92-87 13:04:000.5[facility] VebtxczFALJZIPWSN7906-96-07 13:04:002.5 [facility] EkyzydyVYFKRUEFFD5372-05-49 13:04:000.9[facility]annHEMATOLOGY 2017-12-10 13:04:005.4[facility] CaxdqsnZRGBDMEBBJ2286-66-85 13:04:00 Test Item Value Reference Range Interpretation Comments INR (test code = INR) 1.13 1 0.85-1.17 [facility] YfqjvseLXNBOADJUV8558-69-32 13:04:00 Test Item Value Reference Range Interpretation Comments PTT (test code = PTT) 30.8 s 22.9-35.8 [facility] PryhakjWQUHMUTKSZ1080-27-95 13:04:00 Test Item Value Reference Range Interpretation Comments PT (test code = PT) 14.5 s 12.0-14.7 [facility] HREJW6043-15-52 13:04:00Slight *ABN*(12/10/17 8:04 AM) [facility] ZSCNQ2436-87-40 13:04:00Negative *NA*(12/10/17 8:04 AM) [facility] YQTRE1889-58-38 13:04:00 Test Item Value Reference Range Interpretation Comments UA Spec Grav (test code = UA Spec 1.017 1 Grav) [facility] ZPNOJ3957-51-11 13:04:00 Test Item Value Reference Range Interpretation Comments UA pH (test code = UA pH) 6.0 1 5.0-8.0 [facility] RIGPK3159-39-01 13:04:00Negative (12/10/17 8:04 AM) [facility] RPTRA8004-36-20 13:04:00Positive *ABN*(12/10/17 8:04 AM)[facility] HZTWF8381-33-00 13:04:00Large *ABN*(12/10/17 8:04 AM)[facility] UJBOA1270-32-32 13:04:0011[facility] UDEXMCQQEFVN1207-80-51 13:04:0014.2[facility] CblqmrjKFMCKAJUCRHC6194-64-73 13:04:00 Test Item Value Reference Range Interpretation Comments A/G Ratio (test code = A/G Ratio) 1.0 1 0.7-1.6 [facility] AovxfnxRIIYRRUNRYKV6172-71-42 13:04:00 Test Item Value Reference Range Interpretation Comments B/C Ratio (test code = B/C Ratio) 19 1 6-25 [facility] UdtoypzNVKYURHFGKUU0320-30-35 13:04:003.4[facility] HermannELECTROLYTES 2017-12-10 13:04:68231Ygmtvblq YxlvgkyADLSDGEBBKXH9995-21-20 13:04:0073[facility] GrrnfpjDLTTJIGURUVG0691-39-44 13:04:000.3[facility] SlmyrtxCIFXMRMMPKJJ0216-81-27 13:04:003.5[facility] QohhivbXZXUPRHXHILI9820-85-21 13:04:0029[facility] [place] RLDGNVIEAZHJ6947-00-45 13:04:0013[facility] OczvvdfZFSNCNGDEZED0789-97-53 13:04:00 6.9[facility] BgpcfisLCDYSMPZYIPO1973-45-60 13:04:008.7[facility] [place] XGDHPGUAEEUK2750-24-33 13:04:0025[facility] HrjtneeIZYSWVIOZDJS5649-45-73 13:04:00 144[facility] RompailWZGVDAXHXAQC0144-14-45 13:04:004.2[facility] HPVDDZSVXCMP6911-13-39 13:04:05051Qjnkvvpv CemayhaOWDUICNUFHRE1874-11-77 13:04:0078[facility] GfifjddEVNZDQUTXEEI2250-60-03 13:04:0010[facility] ZUKIUGFWZMYS2921-76-59 13:04:000.53[facility] HwqhugsEVVVJZIKQZ3728-75-47 13:04:00 44.3[facility] NgrxkvoMPKLZQLAAU6246-40-66 13:04:00 Test Item Value Reference Range Interpretation Comments MCH (test code = MCH) 28.8 pg 27.0-31.0 [facility] UmdderwRVIWCIPDSH7703-04-22 13:04:0082.5[facility]annHEMATOLOGY 2017-12-10 13:04:0034.9[facility] WievlhrJXOPACWEJE1222-15-51 13:04:007.4[facility] PmacdbvKKZLLUIEEI0578-53-84 13:04:38301Ceabchzi EgvhwehLVWXFSLPHO4560-18-05 13:04:0013.3[facility] DymecidCPTXFPNENT9532-79-18 13:04:008.6[facility] UPASMYJLVI8263-78-52 13:04:0015.4[facility] JttikxaAJWHOHJTXT0068-89-85 13:04:00 5.37[facility] FqfzaryWKQEJHZOBR4015-87-46 13:04:0028.7[facility]annHEMATOLOGY 2017-12-10 13:04:0063.1[facility] AbnijmnFSNVQYRGKQ2114-09-19 13:04:000.1[facility] HitvxufRPDIXBSYHC3909-28-15 13:04:000.2[facility] KzrlrikGJZNLGEZKX1477-54-70 13:04:001.9[facility] IvbdsnxTTRGEDZGWY9287-34-51 13:04:005.4[facility] SYVPMCOFMH2762-96-88 13:04:000.5[facility] RpkhodvRYWBKFLAYM5645-53-67 13:04:002.5 [facility] PayywxgUNVXSCWKVR9002-56-65 13:04:000.9[facility]annHEMATOLOGY 2017-12-10 13:04:005.4[facility] MtjitufGKHCTKFKHK2889-32-35 13:04:00 Test Item Value Reference Range Interpretation Comments INR (test code = INR) 1.13 1 0.85-1.17 [facility] EgfyoaiQNLGTCDTTH8190-80-39 13:04:00 Test Item Value Reference Range Interpretation Comments PTT (test code = PTT) 30.8 s 22.9-35.8 [facility] PiwbyqhJZLPDEMAJJ6355-26-49 13:04:00 Test Item Value Reference Range Interpretation Comments PT (test code = PT) 14.5 s 12.0-14.7 [facility] XBYEJ3291-57-86 13:04:00Slight *ABN*(12/10/17 8:04 AM) [facility] NIGIU0772-97-40 13:04:00Negative *NA*(12/10/17 8:04 AM) [facility] GZIPS5675-27-65 13:04:00 Test Item Value Reference Range Interpretation Comments UA Spec Grav (test code = UA Spec 1.017 1 Grav) [facility] FQXPK4092-08-38 13:04:00 Test Item Value Reference Range Interpretation Comments UA pH (test code = UA pH) 6.0 1 5.0-8.0 [facility] KIUWC6630-75-76 13:04:00Negative (12/10/17 8:04 AM) [facility] ZYXNF3600-45-72 13:04:00Positive *ABN*(12/10/17 8:04 AM)[facility] PJWZF7459-39-98 13:04:00Large *ABN*(12/10/17 8:04 AM)[facility] GUNUT3016-77-72 13:04:0011[facility] [place] BDUBMXSIYRWP6706-56-87 22:47:0012.8[facility] EkpbumaYPJMHDIUTNLZ3860-24-34 22:47:003.6[facility] PbhydeoYIIVWAPPCVRV4973-78-17 22:47:001.0[facility] TYAORXWMHZBR1050-41-74 22:47:0020[facility] EbgefouURCDYSAUCGFA9464-57-01 22:47:00 90[facility] FkyuvegBGMLSXTOCUCL8624-77-68 22:47:0011[facility] HermannELECTROLYTES 2016-11-12 22:47:000.4[facility] HsadehdINPULYKRSMZH1052-64-45 22:47:24388Vttctoeh LflahtfDCPWUOIKBTAS9192-95-43 22:47:003.8[facility] XwgflkeLYMQFHZRVZMJ2553-08-01 22:47:72598Iducegjk UbpukgzAKPRIPOTTMKO9991-45-32 22:47:000.49[facility] GLLMZHIRJETR7606-28-03 22:47:0082[facility] HfxahvrUZRTKWFXZOCF8478-00-68 22:47:00 10[facility] UqbhsbeAPOBWBBBNQQW3122-39-97 22:47:17000Letjfztt HermannELECTROLYTES 2016-11-12 22:47:003.5[facility] PpjxpgsIHPMTTWDMKNR8857-49-25 22:47:0023[facility] TimpkxoRKRGSKTPBMET7463-52-81 22:47:007.1[facility] HlhuvjcEHFAWZDWVATK4108-51-57 22:47:008.9[facility] PeylybqTZOIRHRLQFEK4329-72-43 22:47:0025[facility] TMIULOXRUA5406-92-43 22:47:001[facility] MdornbeTECNCCFRUC1795-14-61 22:47:007.8 [facility] MycxgrfJCSRPYAQCU4233-89-43 22:47:19172Uilzmeqj HermannHEMATOLOGY 2016-11-12 22:47:0015.3[facility] GqxuhteGTHPIVSSCZ6487-42-30 22:47:005.47[facility] KqgbkzzSVCOPSIKMC2610-52-77 22:47:0081.6[facility] VmdbnlsAMLPXVIDFN2280-77-21 22:47:0044.7[facility] IjbqgmyECEWYOYKXU7860-68-76 22:47:0034.3[facility] YZWAKCANEF3196-17-69 22:47:00 Test Item Value Reference Range Interpretation Comments MCH (test code = MCH) 28.0 pg 27.0-31.0 [facility] ElrznyeCOZDBNQCJU8706-28-47 22:47:009.3[facility] HermannHEMATOLOGY 2016-11-12 22:47:0013.7[facility] RzxmmxmMUDZWNZFXQ8821-90-99 22:47:0034.3[facility] PztwkrmQTCWFRLNCX7331-48-57 22:47:0056.3[facility] MsqafqnPRJPASZGRL2803-50-87 22:47:000.6[facility] DftiukcHLVRWULDFN6079-72-37 22:47:000.1[facility] PGIKTZZANY3211-46-64 22:47:001.6[facility] FsomemgPRALGJMECV1281-28-72 22:47:005.2 [facility] IylzarfMLDYVIPEDB8614-95-05 22:47:003.2[facility] HermannHEMATOLOGY 2016-11-12 22:47:000.9[facility] QjzffjhHTTUUXNVFK9036-53-61 22:47:006.9[facility] OpbrkjzFOVOPYXXCN6699-25-48 22:47:000.1[facility]annUR[facility] AND HVTPD5746-75-21 22:47:00Negative *NA*(11/12/16 5:47 PM)[facility] BJSXP9399-42-30 22:47:005.5[facility] AND ZXWJV8227-36-52 22:47:00Slight *ABN*(11/12/16 5:47 PM)[facility] VTLSM7670-08-48 22:47:001.007 [facility] OFEIO5534-91-50 22:47:0025[facility] QIDYT5914-38-40 22:47:00<1[facility] LZGBF3263-09-54 22:47:00 Large *ABN*(11/12/16 5:47 PM)[facility] CXWBH6585-84-07 22:47:00 Negative (11/12/16 5:47 PM)[facility] NYGTL4811-53-47 22:47:00 Negative (11/12/16 5:47 PM)[facility] CQAGF0736-09-42 22:47:00 Green *ABN*(11/12/16 5:47 PM)[facility] TtrfhjmCDKYTZIRRPGB0633-87-02 22:47:0012.8 [facility] UomrpvpCVISZRDWWQTJ8070-06-52 22:47:003.6[facility] HermannELECTROLYTES 2016-11-12 22:47:001.0[facility] FxxnanbVJKQJVITJVTA3953-61-22 22:47:0020[facility] CxkjhlpIDZTHHTGWRES3401-78-96 22:47:0090[facility] HepfthvTQTQUZJJBTDP8403-91-99 22:47:0011[facility] FbdwgohEMPNWHUHSTHZ7663-81-10 22:47:000.4[facility] EHAEGIRJYEZY1136-15-33 22:47:01238Wryztihq QjulxujBVVQYWGAPRHQ5381-04-86 22:47:003.8[facility] ZdknydbEQEVVGAEPBFY6972-90-76 22:47:13636Itnaxgyw [facility] IXMCPEOTBTGY8649-24-80 22:47:000.49[facility] RfghmhdUMYNXEMEVLTB8366-90-20 22:47:0082[facility] NtgjmhdUGUXZCMDOAND7213-41-80 22:47:0010[facility] CRRJGDAOXOMS5042-29-42 22:47:38303Touwicoo GxznzcoDWZMUOYPJCLA0582-05-19 22:47:003.5[facility] PmlrrstZMYIYSNLXBHM0440-93-44 22:47:0023[facility] YRMXOVKKAAKX3147-08-21 22:47:007.1[facility] OssassiYIYBMEQGSGMA2484-97-93 22:47:008.9[facility] LwixigxJORRRALLSSYB1887-28-04 22:47:0025[facility] ZRDLNEZIXW9576-02-78 22:47:001[facility] AomhgoxLUZQXGVDRY3135-23-05 22:47:007.8 [facility] BfrevvsREJSKGVVSP9175-11-98 22:47:53157Iefowosl HermannHEMATOLOGY 2016-11-12 22:47:0015.3[facility] LdvkqjdSYZIDRTWIH8161-45-11 22:47:005.47[facility] DeebmgcDMIBIEFQCN7407-80-73 22:47:0081.6[facility] McpvwnuSBVIFEARHE0095-88-65 22:47:0044.7[facility] TcuydioANLRALZIGV5540-24-33 22:47:0034.3[facility] CTMVYEJIDZ6746-93-63 22:47:00 Test Item Value Reference Range Interpretation Comments MCH (test code = MCH) 28.0 pg 27.0-31.0 [facility] RftoaoqHORQEQLHCT3625-47-69 22:47:009.3[facility] HermannHEMATOLOGY 2016-11-12 22:47:0013.7[facility] VvbegboPVQSUAUQEJ1028-70-54 22:47:0034.3[facility] DeresgtVHQTKDDMAT1540-20-89 22:47:0056.3[facility] EaldfhqDXDIMDBYMX0522-80-30 22:47:000.6[facility] MiuxovfHWLDLUAFWB3688-01-23 22:47:000.1[facility] RQBBRRLPUU1559-16-89 22:47:001.6[facility] BtjtflmIBLVYSLZAF4162-64-26 22:47:005.2 [facility] NzykezqSJHUVWBQWM4034-42-43 22:47:003.2[facility] HermannHEMATOLOGY 2016-11-12 22:47:000.9[facility] DbmxxyaWRDXMGWYHS0919-10-97 22:47:006.9[facility] BqekhyvKJCOKVJUPI4488-38-97 22:47:000.1[facility]annUR[facility] AND KBWPM2261-70-94 22:47:00Negative *NA*(11/12/16 5:47 PM)[facility] DMJIY5523-28-88 22:47:005.5[facility]UR[facility] AND KQSMJ2742-71-86 22:47:00Slight *ABN*(11/12/16 5:47 PM)[facility] BXSCH0884-55-51 22:47:001.007 [facility] QKHCK3999-94-41 22:47:0025[facility] AND UUXVO9048-72-81 22:47:00<1[facility] OATJG8005-85-72 22:47:00 Large *ABN*(11/12/16 5:47 PM)[facility] MIBUS9109-37-20 22:47:00 Negative (11/12/16 5:47 PM)[facility] KCZNV1298-31-85 22:47:00 Negative (11/12/16 5:47 PM)[facility] JBHWD8236-65-53 22:47:00 Green *ABN*(11/12/16 5:47 PM)[facility] HermannCHEM VFRMR6449-93-94 05:31:21068 [facility]annCHEM XTVHV3730-38-54 05:31:0028[facility] HermannCHEM PANEL 2014-08-12 05:31:008.6[facility] HermannCHEM BIZFI0830-87-43 05:31:62598Tmwxkwfq HermannCHEM OSOLY5249-62-51 05:31:004.2[facility] HermannCHEM SFNJT0635-50-84 05:31:000.4[facility] HermannCHEM GTONF3780-94-37 05:31:41916Lfomhhty HermannCHEM EEPVY4370-95-53 05:31:0080[facility] HermannCHEM IXUYG1439-21-90 05:31:007[facility] HermannCHEM CYVMV0476-52-13 05:31:0010.2[facility] RokzdazGGXSAITTND1436-09-00 05:31:004.39[facility] AfssdhfPKDLQAAVSG3606-77-11 05:31:0012.7[facility] FAYKREGOVG5629-46-35 05:31:0037.6[facility] MwajxsfDOEDMNHERQ1862-25-94 05:31:00 85.7[facility] CpzwpttNCKOSKVNUZ1843-61-07 05:31:00 Test Item Value Reference Range Interpretation Comments MCH (test code = MCH) 28.9 pg 27.0-31.0 [facility] PavoxxgGVFUYWGFOR5254-17-07 05:31:0033.7[facility] HermannHEMATOLOGY 2014-08-12 05:31:0013.3[facility] KldhvhvIZBTUYUKHS5282-57-27 05:31:008.5[facility] XzcpitoJAINTOLWHY9835-16-96 05:31:007.4[facility] HgofswoVMGITMKNQG2298-16-37 05:31:89665Bymqapsi YzmcnlfADUPZUHLLV3384-35-34 05:31:000.1[facility] NEVGWBIZQU9051-39-30 05:31:001.9[facility] BejebwvPEUJZLPQWR1200-17-90 05:31:003.0 [facility] ZwmfgwoSEJRJISLLI8292-95-43 05:31:006.9[facility] HermannHEMATOLOGY 2014-08-12 05:31:000.6[facility] RyayrhlKCOTNQGVRO5211-31-71 05:31:005.7[facility] ZlibuloRWDXTEYFEY2103-78-13 05:31:0022.5[facility] PuwgunpTMITBLKPHJ9187-13-07 05:31:0067.0[facility] DfuxanbRHOAIJJMYC4473-54-84 05:31:000.6[facility] QRATIBAVGR9115-65-51 05:31:000.3[facility] HermannCHEM OCRQC5837-95-37 05:31:01680 [facility] HermannCHEM NYBKX3246-11-07 05:31:0028[facility] HermannCHEM PANEL 2014-08-12 05:31:008.6[facility] HermannCHEM BKYSX0926-94-19 05:31:13844Opwqivyv HermannCHEM KRKRG6389-04-20 05:31:004.2[facility] HermannCHEM BITSZ5386-32-49 05:31:000.4[facility]annCHEM CGMCM3429-13-59 05:31:67419Rhguirxf HermannCHEM ARUVT2335-25-85 05:31:0080[facility]annCHEM UCWTX6771-29-18 05:31:007[facility]annCHEM QANGR6490-15-62 05:31:0010.2[facility] HbmlmcqNNXGNBQDCN5991-84-75 05:31:004.39[facility] GcesnlyAQNOVMRXZH1004-65-11 05:31:0012.7[facility] YNDARGQMYQ9694-34-33 05:31:0037.6[facility] OzvkfrlNUSFBETOLF3525-28-49 05:31:00 85.7[facility] HxdygtrYLSSYJRYLP2520-65-84 05:31:00 Test Item Value Reference Range Interpretation Comments MCH (test code = MCH) 28.9 pg 27.0-31.0 [facility] NzebeteQOUDUZXJEO1173-51-71 05:31:0033.7[facility] HermannHEMATOLOGY 2014-08-12 05:31:0013.3[facility] FcoblxwGZGBGUQTHW5827-50-12 05:31:008.5[facility] CphdltoYPURIVSDUO5623-82-28 05:31:007.4[facility] NleihhkZVLOGZJYQR4048-44-32 05:31:59876Ltsrpugd RpqmmwxPNKLFEGHMY9150-50-17 05:31:000.1[facility] VMGTDOZQPG4085-83-78 05:31:001.9[facility] TxabsfwGJUCBEZSVA5577-73-18 05:31:003.0 [facility] QjuyldcFRWNPPEQGJ8398-78-94 05:31:006.9[facility]annHEMATOLOGY 2014-08-12 05:31:000.6[facility] LvqanydIUUIARDOXU6899-60-31 05:31:005.7[facility] YskcqsvEMYMLRNARU5862-97-08 05:31:0022.5[facility] GsgrvskMYMVPEALYR2331-18-53 05:31:0067.0[facility] WrkeycpQJALVYQGOV7119-08-75 05:31:000.6[facility] FVLQIWMREY8419-77-12 05:31:000.3[facility]annCHEM MCJSK3555-34-57 05:09:002.8 [facility]annCHEM KUAKF8277-33-83 05:09:48867Jluxjvxe HermannCHEM PANEL 2014-08-10 05:09:008[facility]annCHEM QLKXV5829-39-07 05:09:13749Aqkyadhs HermannCHEM TVWON2099-25-76 05:09:16220Hjyiglae HermannCHEM AYSHP6741-32-87 05:09:000.4[facility]annCHEM GLYGM9326-59-60 05:09:0030[facility]annCHEM HBPWE3761-15-73 05:09:000.2[facility]annCHEM BBVZV3098-88-37 05:09:0099 [facility]annCHE[facility] CSDEU9756-47-72 05:09:0020[facility]annCHEM PANEL 2014-08-10 05:09:000.7[facility]annCHEM ZRTEH4461-72-68 05:09:003.6[facility]annCHEM METNG2456-62-72 05:09:002.6[facility]annCHE[facility] RPJTE0822-11-94 05:09:006.2[facility]annCHEM QLLKD0230-96-10 05:09:0020[facility]annCHEM LOESN3990-88-77 05:09:008.6[facility]annCHEM MTIRB9848-82-69 05:09:0010.3 [facility]annCHE[facility] IEUBI6683-67-64 05:09:003.3[facility]annCHEM PANEL 2014-08-10 05:09:0028[facility]annCHEM GLVHE5129-57-04 05:09:07490Ysmklthg HermannCHEM ISHQV3134-62-33 05:09:001.8[facility] NaypkhvPIMXPSJWKE0811-09-91 05:09:000.2[facility] PnibpxlWEJMZYKZBS2701-67-67 05:09:000.6[facility] LRPYCCDFUS4817-51-46 05:09:001.6[facility] NtzvyaiIERXKLTKEW0531-62-07 05:09:006.7 [facility] YjewiidRYYIVWQXCN2704-85-51 05:09:0072.9[facility] HermannHEMATOLOGY 2014-08-10 05:09:000.4[facility] JznhcikXKVMBPQUOS3215-48-78 05:09:0018.0[facility] YhskwbvFQVGVNOJHD2456-71-77 05:09:006.8[facility] HoawnneAZWSZDMYPY3897-47-65 05:09:001.9[facility] IebimwkYWUIULMOOC7750-89-26 05:09:007.9[facility] XTONNUOARM8301-35-47 05:09:67602Otnscltc DqvbngrYJOPTLGHMZ7855-10-55 05:09:00 13.4[facility] PuwyafmMRIWBGLFEM4072-88-79 05:09:0033.3[facility] HermannHEMATOLOGY 2014-08-10 05:09:0086.3[facility] QtybmbxDJKORWIAYJ3207-40-56 05:09:00 Test Item Value Reference Range Interpretation Comments MCH (test code = MCH) 28.7 pg 27.0-31.0 [facility] MosiedeTDANEGJTEA6552-16-92 05:09:0036.5[facility] HermannHEMATOLOGY 2014-08-10 05:09:004.23[facility] CvmzgenKPPXNYDYYE9199-51-31 05:09:0012.1[facility] CbvgqvzUQEONFWAIA9007-37-76 05:09:009.1[facility] NtmoxdrBUIIZRGOXA4292-42-77 05:09:001.07[facility] BzvoackFULHAAQWBI4540-05-71 05:09:00 Test Item Value Reference Range Interpretation Comments PT (test code = PT) 13.9 s 12.0-14.7 [facility] GkdsecrANKLZLVPLV8130-14-38 05:09:00 Test Item Value Reference Range Interpretation Comments PTT (test code = PTT) 36.1 s 22.9-35.8 [facility] HermannTHYROID QQZKL6015-43-81 05:09:000.892[facility]annCHEM PANEL 2014-08-10 05:09:002.8[facility]annCHEM AHANM6869-88-48 05:09:16386Ondssdaa HermannCHEM CRZBL0132-91-35 05:09:008[facility]annCHEM ZHYRU2699-24-80 05:09:94203Xaasfzin HermannCHEM BYEZT2874-72-03 05:09:47670Fchxdovu HermannCHEM HNRTM5843-98-54 05:09:000.4[facility]annCHEM DUIKJ2560-42-76 05:09:0030 [facility]CHE[facility] XJPMV9032-95-33 05:09:000.2[facility]annCHEM PANEL 2014-08-10 05:09:0099[facility]annCHEM FDTQP4552-84-64 05:09:0020[facility]annCHEM IEZFV2173-02-51 05:09:000.7[facility]annCHEM PCXGZ0308-92-12 05:09:003.6[facility]annCHEM QHLZS8760-42-79 05:09:002.6[facility]annCHEM UMUDK7880-46-99 05:09:006.2[facility]annCHEM XKVAQ5779-04-42 05:09:0020 [facility]annCHE[facility] FFIXW7749-94-56 05:09:008.6[facility] HermannCHEM PANEL 2014-08-10 05:09:0010.3[facility]annCHEM KWJHA9929-17-87 05:09:003.3[facility]annCHEM LPZGT9293-31-28 05:09:0028[facility]annCHEM JFTCX7790-72-20 05:09:30517Wwesikrl HermannCHEM JIQSN0759-85-47 05:09:001.8[facility] RJIADMNJFT4561-21-71 05:09:000.2[facility] OepqlnxGQEZQPZZOG5532-97-48 05:09:000.6 [facility] PazapdyWCAUYCJYRZ2333-21-08 05:09:001.6[facility] HermannHEMATOLOGY 2014-08-10 05:09:006.7[facility] EaqoqrvXSDUKECVKW7765-28-71 05:09:0072.9[facility] PwslussPNFLGGKLGF7899-70-80 05:09:000.4[facility] NbcwcpmHNNZMQKBWY1757-42-60 05:09:0018.0[facility] IfmqdlgJHEPAWIDGK1998-96-09 05:09:006.8[facility] EXRNLTWOOE5705-68-73 05:09:001.9[facility] ExksvuoMAWXBIHKHC1812-46-42 05:09:007.9 [facility] HlqqdboDSWKPRRMLJ4290-90-64 05:09:00094Ibujzzzz HermannHEMATOLOGY 2014-08-10 05:09:0013.4[facility] JtgeynjOGMRXBZGJB0566-49-79 05:09:0033.3[facility] QcfttafDZMAVKDJKO1588-96-42 05:09:0086.3[facility] EbtlftcALVVXLIZVI9470-49-46 05:09:00 Test Item Value Reference Range Interpretation Comments MCH (test code = MCH) 28.7 pg 27.0-31.0 [facility] DopgigoYYUTPGCCWN2451-76-49 05:09:0036.5[facility] HermannHEMATOLOGY 2014-08-10 05:09:004.23[facility] SeaudeqYJNHTDVRVS1528-02-80 05:09:0012.1[facility] YngummvUFYDRITAJB8550-51-81 05:09:009.1[facility] GbehzkpCZGVYUWWXU6716-99-99 05:09:001.07[facility] HrfrxgoTYWKHCPRTH5068-81-30 05:09:00 Test Item Value Reference Range Interpretation Comments PT (test code = PT) 13.9 s 12.0-14.7 [facility] XnvjlfnBBMGGBALGF5835-80-66 05:09:00 Test Item Value Reference Range Interpretation Comments PTT (test code = PTT) 36.1 s 22.9-35.8 [facility] HermannTHYROID RIPZD8899-71-26 05:09:000.892[facility] HermannCHEM PANEL 2014-08-09 22:12:68442Tfxvdhzw HermannCHEM FHVBC8390-22-53 22:12:0025[facility]annCHEM UGMWM1986-31-16 22:12:60618Nlyrcykh HermannCHEM KPFUF5352-11-97 22:12:003.5[facility]annCHEM ZEQMQ3262-35-95 22:12:009.2[facility]annCHEM KDTPD5869-72-89 22:12:35906Sxlrgugb HermannCHEM IVYWV6166-69-38 22:12:007 [facility]annCHE[facility] GNBPQ4736-83-71 22:12:000.6[facility] HermannCHEM PANEL 2014-08-09 22:12:0086[facility] HermannCHEM AYWUH6638-04-46 22:12:000.4[facility] HermannCHEM JURGM1810-30-90 22:12:06126Uiayrcvc HermannCHEM HNHJN5742-59-75 22:12:0033[facility]annCHEM JTCSR4590-08-90 22:12:0035[facility]annCHEM MCDFQ7716-45-48 22:12:003.1[facility]annCHEM NVCLU4490-39-63 22:12:007.5 [facility]annCHE[facility] IJKAF7674-70-71 22:12:0017.5[facility] HermannCHEM PANEL 2014-08-09 22:12:0012[facility] HermannCHEM ARLTP2435-68-83 22:12:004.4[facility]annCHEM DTYKU3420-37-91 22:12:000.7[facility] RmhfxatUESRRZMQEF1464-35-55 22:12:007.9[facility] QwqltttZLMTEVJIDY6415-97-75 22:12:80242Ywnoxsii [facility] CPVUNCIGTC1077-10-30 22:12:0012.7[facility] FylfbxmNYOGYRKYSS7230-64-80 22:12:00 Test Item Value Reference Range Interpretation Comments MCH (test code = MCH) 28.8 pg 27.0-31.0 [facility] EmzmpljVJAIBYTPNP3901-49-84 22:12:0033.7[facility] HermannHEMATOLOGY 2014-08-09 22:12:0039.8[facility] UhoolgyHIFSKCMZDA8455-51-62 22:12:0085.4[facility] FwpxrxyETRRUGQTKJ7654-46-23 22:12:004.66[facility] YzmcgwwRWVZOBWAEL9860-60-77 22:12:0013.4[facility] BppfwprOQERNUDBEO4621-03-15 22:12:0012.2[facility] CEMZMKCOMT8100-81-09 22:12:001.3[facility] RxnriheCQCOGSXCPG0945-97-51 22:12:009.3 [facility] LkcohmrJBJQGGKJIH4005-66-59 22:12:001.8[facility] HermannHEMATOLOGY 2014-08-09 22:12:000.7[facility] OjnllmtVFDSQQYBTY7935-41-50 22:12:000.2[facility] RuastcuJCWSUQHTER0872-80-01 22:12:000.2[facility] DhshlurOAJRQFBRTO7435-40-59 22:12:00Normal (08/09/14 5:12 PM)[facility] MyiskntIJZXCFQRPU5889-63-74 22:12:0076.3 [facility] KeueuaoWRWFWXICKW5104-88-51 22:12:0014.8[facility] HermannHEMATOLOGY 2014-08-09 22:12:005.9[facility] WxdgggkESBVYRHRYL5283-25-34 22:12:00Normal (08/09/14 5:12 PM)[facility] OwcnseeZMWVXZKEIE9538-77-87 22:12:001.7[facility] CHEM IPNOS9481-74-96 22:12:89472Pujaynkx HermannCHEM ZESSE1638-95-35 22:12:0025 [facility]annCHEM TYQEB3134-02-58 22:12:05834Msxjedjb HermannCHEM PANEL 2014-08-09 22:12:003.5[facility]annCHEM YCGDY6792-11-63 22:12:009.2[facility]annCHEM UPCJO9795-40-26 22:12:00577Jjwcpule HermannCHEM SERPU7287-53-05 22:12:007[facility]annCHEM JDLAN6684-88-36 22:12:000.6[facility]annCHEM LQXOR3422-06-71 22:12:0086[facility]annCHEM CZWWV5255-59-76 22:12:000.4 [facility]annCHEM YHIHZ5852-55-53 22:12:66722Peiaivrm HermannCHEM PANEL 2014-08-09 22:12:0033[facility]annCHEM EQJTI1461-62-46 22:12:0035[facility]annCHEM VGKII1383-39-33 22:12:003.1[facility]annCHEM KHSRW8897-00-91 22:12:007.5[facility]annCHEM FNUPZ3255-14-41 22:12:0017.5[facility]annCHEM CYSSD2982-54-56 22:12:0012[facility]annCHEM YPGFN2397-03-22 22:12:004.4 [facility]annCHEM KLBLI6408-94-56 22:12:000.7[facility] HermannHEMATOLOGY 2014-08-09 22:12:007.9[facility] QtivaxbWQSFGSMMVZ5965-49-56 22:12:42239Nhsrctyp SzqrxjbSTXNVVSZUW4872-93-26 22:12:0012.7[facility] ZzvjcgnZPAECAYGIX4474-39-88 22:12:00 Test Item Value Reference Range Interpretation Comments MCH (test code = MCH) 28.8 pg 27.0-31.0 [facility] RegvmhoWADOTUIMQX3514-07-36 22:12:0033.7[facility] HermannHEMATOLOGY 2014-08-09 22:12:0039.8[facility] KndpiukCSLMFEIGKE5913-09-73 22:12:0085.4[facility] GbebquiOOBWTFRHWA4066-20-65 22:12:004.66[facility] GymlhtlTQOTDVMWWI3488-81-08 22:12:0013.4[facility] ZeebanxBRYAUXNHVO1865-95-50 22:12:0012.2[facility] ZDUZCZEYJM4456-60-95 22:12:001.3[facility] LqdrhjoKZLTAGQDNL8271-93-94 22:12:009.3 [facility] DyueyatXJYFPNORJE1646-25-54 22:12:001.8[facility] HermannHEMATOLOGY 2014-08-09 22:12:000.7[facility] SlujopsZNOMPKNUND8572-41-78 22:12:000.2[facility] FuhxpefEBRPLRFYLV1371-39-30 22:12:000.2[facility] HuuojmyHPTVTWECDL0135-55-13 22:12:00Normal (08/09/14 5:12 PM)[facility] RrbrrsiWDTURIMRBT6666-73-89 22:12:0076.3 [facility] MbrtsgpMBQUJKNEUN5819-45-19 22:12:0014.8[facility] HermannHEMATOLOGY 2014-08-09 22:12:005.9[facility] DnnrsufDJYVFAKIFI2864-99-73 22:12:00Normal (08/09/14 5:12 PM)[facility] VzmziygWLCCGNQJKI9274-95-56 22:12:001.7[facility] URINE AND JXWMJ9258-83-31 22:04:00None Seen (08/09/14 5:04 PM)[facility] AND OQVSP0054-61-11 22:04:00Trace *ABN*(08/09/14 5:04 PM)[facility] AND BFRUC8853-88-10 22:04:00Trace *ABN*(08/09/14 5:04 PM)[facility]INE AND ISWJN0031-75-58 22:04:00Negative (08/09/14 5:04 PM)[facility] URFUC3865-28-40 22:04:00Small *ABN*(08/09/14 5:04 PM)[facility] BHZRQ3091-64-77 22:04:00Negative (08/09/14 5:04 PM)[facility] STOOL 2014-08-09 22:04:00Moderate *ABN*(08/09/14 5:04 PM)[facility] STOOL 2014-08-09 22:04:00Negative (08/09/14 5:04 PM)[facility] STOOL 2014-08-09 22:04:000.2[facility] AND QAOCH4893-64-83 22:04:00 Test Item Value Reference Range Interpretation Comments UA pH (test code = UA pH) 6.5 1 5.0-8.0 [facility] HJYSB8312-85-35 22:04:00Clear (08/09/14 5:04 PM)[facility] OLPXK9460-15-68 22:04:00Green *ABN*(08/09/14 5:04 PM)[facility] HFGTP8539-45-56 22:04:00 Test Item Value Reference Range Interpretation Comments UA Spec Grav (test code = UA Spec 1.007 1 Grav) [facility] GDJJB0430-22-32 22:04:00None Seen (08/09/14 5:04 PM) [facility] GINYH2536-91-48 22:04:00Trace *ABN*(08/09/14 5:04 PM) [facility] URGIH5270-91-23 22:04:00Trace *ABN*(08/09/14 5:04 PM) [facility] RMNKY9425-47-17 22:04:00Negative (08/09/14 5:04 PM) [facility] LJYBV5553-54-16 22:04:00Small *ABN*(08/09/14 5:04 PM) [facility] MGNQL4777-85-38 22:04:00Negative (08/09/14 5:04 PM) [facility] RKVZX0719-61-58 22:04:00Moderate *ABN*(08/09/14 5:04 PM) [facility] DBCYK4431-45-73 22:04:00Negative (08/09/14 5:04 PM) [facility] UOBMB5592-48-65 22:04:000.2[facility] KFJPP9640-44-56 22:04:00 Test Item Value Reference Range Interpretation Comments UA pH (test code = UA pH) 6.5 1 5.0-8.0 [facility] WLXHH2904-69-18 22:04:00Clear (08/09/14 5:04 PM)[facility] HQBHT1298-89-34 22:04:00Green *ABN*(08/09/14 5:04 PM)[facility] NAWJE2527-24-12 22:04:00 Test Item Value Reference Range Interpretation Comments UA Spec Grav (test code = UA Spec 1.007 1 Grav) [facility] QltkniiEPVYIMFZL9861-39-66 10:23:593.0[facility] HermannCHEMISTRY 2013-01-25 10:23:591.6[facility] ZffkgnfATNVOEZFW0476-17-28 10:23:87077Fsfzgucp VtesmxhUENECOVBAE2475-51-67 10:23:595.4[facility] OtrgkhlEFJLDKDFYA7303-78-98 10:23:590.7[facility] SooicpwTXBJZGHZQJ4993-08-38 10:23:590.5[facility] QMEAQAEPTC0185-31-48 10:23:598.2[facility] WjpuvxjGQCIHSJVUU0888-51-46 10:23:590.1 [facility] JhqaurnVSLJUPTXCN0949-47-41 10:23:590.2[facility] HermannHEMATOLOGY 2013-01-25 10:23:5981.7[facility] FenlhuyBROSCISTMM8367-13-30 10:23:599.8[facility] MedtojlMRTJKPMLXQ9905-81-98 10:23:597.6[facility] KjpfymmWMLPFKKJLJ0298-72-99 10:23:03679Scmwfypm OaixvcyIKMLDZOLEN8595-29-63 10:23:5913.7[facility] SLVUVRIPVD5029-15-21 10:23:59 Test Item Value Reference Range Interpretation Comments MCH (test code = MCH) 29.2 pg 27.0-31.0 N [facility] KsaybvwALDHJYYYOK1996-48-92 10:23:5934.0[facility]annHEMATOLOGY 2013-01-25 10:23:5912.0[facility] HhrcjqyVAVGNQHYDD3416-17-35 10:23:594.10[facility] TbeakqoTSDUUJERAO4030-63-57 10:23:5986.0[facility] JvpajqtFDJVHCCOVH5324-95-41 10:23:5935.2[facility] QlggiyuAHJFSFCNUT1510-76-44 10:23:596.6[facility] ULPWRQRMEZ8577-43-85 10:23:591.13[facility] KopdtsmAOGVJZKTWT4988-07-68 10:23:59 Test Item Value Reference Range Interpretation Comments PT (test code = PT) 14.4 s 12.0-14.7 N [facility] CwghszcRHKKTRFOC4763-03-09 10:23:593.0[facility] HermannCHEMISTRY 2013-01-25 10:23:591.6[facility] SbhvtbgNDBQEUBTS8896-89-21 10:23:76721Zzjdodbm GfdnlrxYFWCVLFNNN9472-82-26 10:23:595.4[facility] DlsksduMCGFWXWKRB8991-73-46 10:23:590.7[facility] ZoyinzdYDCOHNSBYX4882-67-63 10:23:590.5[facility] AWQRZLCKBY2942-53-68 10:23:598.2[facility] XlzftymUJWKLMYFFH4301-41-94 10:23:590.1 [facility] WzvknpoGEYNDUHJOS8198-26-52 10:23:590.2[facility] HermannHEMATOLOGY 2013-01-25 10:23:5981.7[facility] CorixchWCPTHUSQGM9060-72-31 10:23:599.8[facility] RsbbgbxRQSPFXDBMI0889-73-90 10:23:597.6[facility] EunptzbXQTAXSPDEM7875-28-86 10:23:20665Pmgeyfss DxrhahyUHTSKIARAH3681-66-26 10:23:5913.7[facility] JGHRCTAGNP3200-92-01 10:23:59 Test Item Value Reference Range Interpretation Comments MCH (test code = MCH) 29.2 pg 27.0-31.0 N [facility] SkcceivVEFAUFHGKG0891-14-47 10:23:5934.0[facility] HermannHEMATOLOGY 2013-01-25 10:23:5912.0[facility] QihlextCATKYZFDHA1890-90-13 10:23:594.10[facility] UclbsjnCFPEMXRGWF6830-23-25 10:23:5986.0[facility] RqinigtFVJEIIPADS8904-13-04 10:23:5935.2[facility] CdcozvxENJXVAIQMG0446-41-56 10:23:596.6[facility] RKNSFRFNGF9810-92-21 10:23:591.13[facility] SwtgioyXHFTFIXDBO4149-97-11 10:23:59 Test Item Value Reference Range Interpretation Comments PT (test code = PT) 14.4 s 12.0-14.7 N [facility] HjxapdkJEFYGGCEK1334-56-94 10:23:5315.8[facility] HermannCHEMISTRY 2013-01-25 10:23:538.2[facility] XhzcdktQKEYOEYVM0303-13-85 10:23:5325[facility] CbigqeoUGYKYYKUH8990-10-04 10:23:25379Qplfgdle PsugkcyARFCZUNHB4592-67-03 10:23:538[facility] CrhqjyvYVALIESUC6544-94-38 10:23:30571Ovokiazm [facility] NHZEXTSBC0663-84-82 10:23:530.5[facility] DacirlbWJTAZDELP0883-28-44 10:23:5396 [facility] NxqqdecUFYEUZKQR4111-80-01 10:23:533.8[facility] HermannCHEMISTRY 2013-01-25 10:23:5315.8[facility] DaxdfvkNQEVMYUKI7687-98-58 10:23:538.2[facility] NpgttkhSDPKXFQZE7035-64-56 10:23:5325[facility] YromijnQPAYYEWPL9537-26-48 10:23:35449Hcnwctne ZfshrpuWGOAETCYG1610-35-48 10:23:538[facility] SMGLHLULL3278-49-14 10:23:67526Lysjeyvp BkpkuctXFBYQHWVG4232-06-97 10:23:530.5 [facility] HblkqxhWGSRAEZTZ0510-74-68 10:23:5396[facility] HermannCHEMISTRY 2013-01-25 10:23:533.8[facility] MnumiloAWASHYBCCD7328-81-67 10:23:00 Test Item Value Reference Range Interpretation Comments PTT (test code = PTT) 41.9 s 22.9-35.8 H [facility] TaahnkaNDXEQDJNIJ0541-72-45 10:23:00 Test Item Value Reference Range Interpretation Comments PTT (test code = PTT) 41.9 s 22.9-35.8 H [facility] IuajttjVFDBNWLSOU8351-61-51 01:27:00 Test Item Value Reference Range Interpretation Comments PTT (test code = PTT) 39.4 s 22.9-35.8 H [facility] WxgwkfiBVDDNYFNCO0077-24-97 01:27:00 Test Item Value Reference Range Interpretation Comments PTT (test code = PTT) 39.4 s 22.9-35.8 H [facility] WtlmlacVMSPQPIRP0850-25-59 22:20:000.8[facility] HermannCHEMISTRY 2013-01-24 22:20:98458Ijkfnjfm MfealkdKWBQPRQKE3177-24-89 22:20:54315Vtoqkjax MgmrelqKAVOTGQSW0039-63-94 22:20:004.0[facility] IbvrvtgOXNEPTSYW3538-83-09 22:20:000.9[facility] DeczyohQCOPBAQBP0433-70-71 22:20:00537Fwqygvau [place] FSCHUARMK3865-05-45 22:20:0010[facility] LyscuujBQMUFLKSA5103-95-41 22:20:0028 [facility] IkvqlmrEBJEEZYWL2079-26-00 22:20:008.9[facility] HermannCHEMISTRY 2013-01-24 22:20:23732Zstubgth OdxsjinIHFMNJUWZ4558-84-28 22:20:0012.0[facility] JrfuddsTZRIPFDJI5338-04-30 22:20:000.8[facility] RyufyhpDQICMXLNT2175-17-74 22:20:41878Sekaepwf CpvqyavUNQZXVJKP2646-77-39 22:20:06719Xciimxnl [place] MYHGBMBFM2383-36-39 22:20:004.0[facility] GcpijdcUHNWQXTUH5545-05-34 22:20:000.9 [facility] FctxxgxAXLKWAYTV3729-08-80 22:20:78218Tufynlve HermannCHEMISTRY 2013-01-24 22:20:0010[facility] FygzwfnZYFJDYBXM0353-17-37 22:20:0028[facility] HjtlcpoUIRIWPMZT3145-29-08 22:20:008.9[facility] VuuxbmjOWRMQQUEG2576-61-18 22:20:62244Iwhlgeex DdvyjwsFQHVFULRV9023-72-21 22:20:0012.0[facility] [place] UMGFOYUDDD6980-78-40 22:00:51Performed (01/24/2013 17:00:51)[facility] [place] DJHBIOTFBM7732-76-05 22:00:51Rare /LPF (01/24/2013 17:00:51)[facility] [place] QDYEYXYYMG9109-34-28 22:00:5111-20 /HPF *ABN*(01/24/2013 17:00:51)[facility] NmtgurcQARRRLIVAG9230-05-77 22:00:51Occasional /HPF *ABN*(01/24/2013 17:00:51) [facility] WuasaqeQIUOTMNUTX3871-58-89 22:00:51None Seen (01/24/2013 17:00:51) [facility] AllpozuNNFTEZGRXD9246-21-50 22:00:51Many /HPF (01/24/2013 17:00:51) [facility] BfvcvuaIJNPXMBORZ9705-95-22 22:00:51Few /LPF (01/24/2013 17:00:51) [facility] FpsoxjwQXMUEJUSVS8905-62-34 22:00:51Slight Cloudy (01/24/2013 17:00:51) [facility] WbnawxeAEJIZEVUOB0940-79-38 22:00:51 Test Item Value Reference Range Interpretation Comments UA Spec Grav (test code = UA Spec 1.025 1 N Grav) [facility]MmrgtkcRDKQVJOPWN3389-11-49 22:00:51 Test Item Value Reference Range Interpretation Comments UA pH (test code = UA pH) 6.0 1 5.0-8.0 N [facility]inteJekektdWFOYWEESDO9580-29-60 22:00:51Yellow *NA*(01/24/2013 17:00:51) [facility] ZlvgjxmCVAUZDIELE3919-48-33 22:00:51Negative (01/24/2013 17:00:51) [facility]inteZdaehrfPMSXMLBKMG8258-69-48 22:00:51Negative (01/24/2013 17:00:51) [facility]inteDtkrkqxFRRFWIKGSW3344-87-69 22:00:51Small 1*ABN*(01/24/2013 17:00:51) [facility]inteMbgippfIGPFJFOGMM9922-72-25 22:00:5115 mg/dL *ABN*(01/24/2013 17:00:51) [facility]inteAxhqdudCLWGIKBHJU7198-41-46 22:00:51Negative (01/24/2013 17:00:51) [facility]inteXyvdathZIIDTOWRQK7775-14-32 22:00:51Positive *ABN*(01/24/2013 17:00:51) [facility]inteNauzvhfMIYEQGPEJK0171-49-23 22:00:510.2[facility] 2013-01-24 22:00:51Negative (01/24/2013 17:00:51)[facility] HermannURINALYSIS 2013-01-24 22:00:51Performed (01/24/2013 17:00:51)[facility] 2013-01-24 22:00:51Rare /LPF (01/24/2013 17:00:51)[facility] 2013-01-24 22:00:5111-20 /HPF *ABN*(01/24/2013 17:00:51)[facility] XVEMDMSCDK9599-43-38 22:00:51Occasional /HPF *ABN*(01/24/2013 17:00:51)[facility]inteIqcoypkTLMBSMSIXQ2780-46-74 22:00:51None Seen (01/24/2013 17:00:51)[facility]inteVzhttmvUUJCNITWZD4006-83-11 22:00:51Many /HPF (01/24/2013 17:00:51)[facility]inteIsfgahdBBLWYFSLTE6421-53-63 22:00:51Few /LPF (01/24/2013 17:00:51)[facility]intePouynaeDPVTPHUDVU2293-25-70 22:00:51Slight Cloudy (01/24/2013 17:00:51)[facility] PointeLjmxrzrRGPFJHUYIJ6095-88-26 22:00:51 Test Item Value Reference Range Interpretation Comments UA Spec Grav (test code = UA Spec 1.025 1 N Grav) [facility] PointeKobnhguJYVYCVYTBL1906-99-00 22:00:51 Test Item Value Reference Range Interpretation Comments UA pH (test code = UA pH) 6.0 1 5.0-8.0 N [facility] PointeZhjeazqFOKYHGFRMR4233-14-58 22:00:51Yellow *NA*(01/24/2013 17:00:51) [facility] PointeYjfmomaNISJGVDORM0024-74-01 22:00:51Negative (01/24/2013 17:00:51) [facility] PointeIhfzqbuKXFGCNDLIW5333-38-22 22:00:51Negative (01/24/2013 17:00:51) [facility]inteNquenmkUQWDPSHICF2152-21-71 22:00:51Small 1*ABN*(01/24/2013 17:00:51) [facility] PointeRkmjezeUIKCZSCYUN2556-52-03 22:00:5115 mg/dL *ABN*(01/24/2013 17:00:51) [facility] PointeEkqsdsjEOEJONGGLC6419-94-13 22:00:51Negative (01/24/2013 17:00:51) [facility] PointeTggfkfiILEKCQQZFZ9964-85-63 22:00:51Positive *ABN*(01/24/2013 17:00:51) [facility] PointeZtnwdbtDPPRFNSUQR5944-70-12 22:00:510.2[facility] HermannURINALYSIS 2013-01-24 22:00:51Negative (01/24/2013 17:00:51)[facility]annHEMATOLOGY 2013-01-24 21:37:007.3[facility] RfvmajwAZUSSYFSZG9179-09-82 21:37:0035.1[facility] EfogikuDMSQDSAZQU7229-35-65 21:37:0012.5[facility] MvxwnafVAAWNIHTNW0228-12-71 21:37:53411Rtghugyi CmbtvayUYMCJPLRXB2203-28-42 21:37:0083.9[facility] [place] NWMOUYIFRK1986-14-41 21:37:00 Test Item Value Reference Range Interpretation Comments MCH (test code = MCH) 29.4 pg 27.0-31.0 N [facility] OiqtoevLGDSEHXUIO2124-58-16 21:37:008.5[facility] HermannHEMATOLOGY 2013-01-24 21:37:004.27[facility] FvvzppiGQKHLSTKSN7873-98-54 21:37:0012.6[facility] MybpeusPURPEKRDYF4912-15-83 21:37:0035.8[facility] YkzazrwRNUNXINKCS9636-87-46 21:37:00Slight *ABN*(01/24/2013 16:37:00)[facility] UhynfvuSKQFAUMISJ3633-76-17 21:37:006.9[facility] HtwnhymUYLGWXGYYB9440-72-65 21:37:000.3[facility] Rayray DMISCJXCPV8026-75-96 21:37:000.1[facility] ExxgkezKEWNJFUZOE7754-64-36 21:37:00 84.7[facility] PiohhxyHUKUIACLYW6269-07-99 21:37:00Normal (01/24/2013 16:37:00) [facility] GvmiwniIQCAOMFNTM1245-28-47 21:37:008.0[facility] HermannHEMATOLOGY 2013-01-24 21:37:00Normal (01/24/2013 16:37:00)[facility] HermannHEMATOLOGY 2013-01-24 21:37:000.0[facility] UssrnwvPPEXGCTLLK5386-67-09 21:37:000.0[facility] OqmdyghATJFYHTNQM2049-28-11 21:37:000.7[facility] NxpodjuKYXBAUMEKO3616-57-91 21:37:000.6[facility] MhhngyoEVJOIXOHPO8245-36-09 21:37:007.2[facility] [place] TZIOXAVOOZ4827-56-64 21:37:007.3[facility] AahvnnuDPJHOHDPYU7988-19-85 21:37:00 35.1[facility] CqgipyfERYZKLQOPQ3315-68-17 21:37:0012.5[facility] HermannHEMATOLOGY 2013-01-24 21:37:84849Hbtofqwi JheiiknYMTEKPQMNP8219-02-48 21:37:0083.9[facility] FarrnuaAJDGIGDFIZ7506-17-00 21:37:00 Test Item Value Reference Range Interpretation Comments MCH (test code = MCH) 29.4 pg 27.0-31.0 N [facility] QhxtlulVMOGZLMLKP4851-02-90 21:37:008.5[facility] HermannHEMATOLOGY 2013-01-24 21:37:004.27[facility] LiceuwqDGIEKKZAVC3669-97-42 21:37:0012.6[facility] XqfnenhUDXIXENNCE2218-39-48 21:37:0035.8[facility] HzaupatZJDRXEGTOD8870-84-38 21:37:00Slight *ABN*(01/24/2013 16:37:00)[facility] LfcgppsJGXCHOZVXS3060-42-80 21:37:006.9[facility] OcsvsiuVEUNIIHFAT2478-61-04 21:37:000.3[facility] HBRKTGHOUT6171-19-52 21:37:000.1[facility] QmbznegNISRGPPLIE7283-50-97 21:37:00 84.7[facility] HmaibklIOCMDCQYUE3512-51-85 21:37:00Normal (01/24/2013 16:37:00) [facility] NuauwyjPFXUBUZVCO5835-21-54 21:37:008.0[facility]annHEMATOLOGY 2013-01-24 21:37:00Normal (01/24/2013 16:37:00)[facility] 2013-01-24 21:37:000.0[facility] MsonkhgGSHRVNYOLP8441-55-10 21:37:000.0[facility] HxsisjnESDKDXSBRA4015-15-78 21:37:000.7[facility] LioadaaGZQNCJGJSS7844-64-18 21:37:000.6[facility] XhtmqleRANRMTIBCJ5143-00-63 21:37:007.2[facility] FHSGVMDCEJ3985-39-90 15:25:00Rare /LPF (01/16/2013 10:25:00)[facility] PSWAUTKNDQ8381-57-53 15:25:00Moderate /HPF (01/16/2013 10:25:00)[facility] WSJOOIXFXM6914-15-71 15:25:000-2 /HPF (01/16/2013 10:25:00)[facility] FUUXFHWTIH8083-34-66 15:25:0011-20 /HPF *ABN*(01/16/2013 10:25:00)[facility] AdpaxaoERXHYUJRWX3541-31-90 15:25:00Performed (01/16/2013 10:25:00)[facility] DnijcqhZVJIHGPNEW1641-37-01 15:25:00Positive *ABN*(01/16/2013 10:25:00)[facility] RyjztnzNZVKPRBKMK6656-97-15 15:25:000.2[facility] PvhfjdrTKKPWJVQOC0554-41-38 15:25:00Negative (01/16/2013 10:25:00)[facility] DzkxlsiDKIVYRPPHW4938-34-69 15:25:00Small *ABN*(01/16/2013 10:25:00)[facility] JbngvbqLYEPASHPQB1985-31-13 15:25:00Yellow *NA*(01/16/2013 10:25:00)[facility] PutpmjbJDIXTTJRWU0170-09-54 15:25:00Slight Cloudy (01/16/2013 10:25:00)[facility] TfxbwbnCZRKPHRTNU1202-30-58 15:25:00 Test Item Value Reference Range Interpretation Comments UA Spec Grav (test code = UA Spec 1.020 1 N Grav) [facility] CzfyjufHNTDSWCEKN6827-96-06 15:25:00 Test Item Value Reference Range Interpretation Comments UA pH (test code = UA pH) 6.0 1 5.0-8.0 N [facility] CnjmkqwZWZBJBWLTY1982-16-41 15:25:00Negative (01/16/2013 10:25:00) [facility] LrytcfhLLVUSZPIQI3280-11-59 15:25:00Negative *NA*(01/16/2013 10:25:00) [facility] YynxmjfXBDFQCSTRF6648-10-57 15:25:00Negative *NA*(01/16/2013 10:25:00) [facility] SvpojrnLXAYGGXNJQ8333-49-96 15:25:00Negative (01/16/2013 10:25:00) [facility] WjraxpnQSNPVEPTKM5160-04-84 15:25:00Rare /LPF (01/16/2013 10:25:00) [facility] MajoiqcYBAXDTSTEQ5918-36-58 15:25:00Moderate /HPF (01/16/2013 10:25:00) [facility] GtahdxwRJUZBVDMVV3310-99-56 15:25:000-2 /HPF (01/16/2013 10:25:00) [facility] ZyajzvgOQHXYREAKZ5611-35-99 15:25:0011-20 /HPF *ABN*(01/16/2013 10:25:00)[facility] SacphqiTAMOIUZJAQ6350-28-31 15:25:00Performed (01/16/2013 10:25:00)[facility] HrvsoseEKVNKWMPIX0553-91-96 15:25:00Positive *ABN*(01/16/2013 10:25:00)[facility] LuczuhwXLVTMYLOHE2194-94-03 15:25:000.2[facility] ILGXLJDTUB2338-83-82 15:25:00Negative (01/16/2013 10:25:00)[facility] DHUJQYSMWT6997-61-71 15:25:00Small *ABN*(01/16/2013 10:25:00)[facility] MUEQSCJRXQ3028-33-16 15:25:00Yellow *NA*(01/16/2013 10:25:00)[facility] OSMGXPCWCC7758-76-51 15:25:00Slight Cloudy (01/16/2013 10:25:00)[facility] OLLMTFQWXG9516-16-98 15:25:00 Test Item Value Reference Range Interpretation Comments UA Spec Grav (test code = UA Spec 1.020 1 N Grav) [facility] BfjeqhxZSOQRPVOZY9927-63-37 15:25:00 Test Item Value Reference Range Interpretation Comments UA pH (test code = UA pH) 6.0 1 5.0-8.0 N [facility] CjtuzndICXYDLQGAG2537-56-70 15:25:00Negative (01/16/2013 10:25:00) [facility] IywrseiTFIMGWQTMR1652-82-58 15:25:00Negative *NA*(01/16/2013 10:25:00) [facility] KnrpcjlQRIKVQRHVH5661-59-82 15:25:00Negative *NA*(01/16/2013 10:25:00) [facility] ZixjuhxIMVQIXMXSX3055-19-81 15:25:00Negative (01/16/2013 10:25:00) [facility] LtgelppTLPPVKVCR0526-69-70 09:00:69761Etgjpebd HermannCHEMISTRY 2012-04-28 09:00:008.5[facility] PdmwuyrLXWJPGZTH8943-08-48 09:00:52086Ktvqklvc RuvxzcvEYTDBTFZF3525-66-74 09:00:0027[facility] XibzwqoVLZKIIIYH8131-14-72 09:00:0012[facility] AjoqeefGCGVWKNWD4287-42-98 09:00:000.8[facility] CCKGUNXSU9930-17-70 09:00:0079[facility] OqavkinWCYRCAQHK7884-26-27 09:00:20864 [facility] DhwlumrKDMZSNLHN9972-01-41 09:00:004.1[facility] HermannCHEMISTRY 2012-04-28 09:00:0014.1[facility] ZwseopfQPZXFOELIN9240-40-83 09:00:000.6[facility] QrxmiukXVXNXEZMAJ7639-57-67 09:00:002.1[facility] KwwjzsfADMKRBSGYA1037-46-60 09:00:0037.7[facility] XenazrgWWMKALYGVX5859-66-98 09:00:0052.1[facility] VUFFTKNHIV8958-25-56 09:00:007.5[facility] UwubuejWEKHUEMJQE5671-49-84 09:00:000.5 [facility] RregpcrCPHGCBICAZ6993-74-19 09:00:002.7[facility] HermannHEMATOLOGY 2012-04-28 09:00:003.8[facility] WvprdzfZXOYBQFSVY5135-20-60 09:00:000.0[facility] CpxhwtmAOTVGTVBZL7267-06-55 09:00:000.2[facility] HcikftcWGMCFDBWTP0712-88-87 09:00:00 Test Item Value Reference Range Interpretation Comments PT (test code = PT) 21.2 s 12.0-14.7 H [facility] VjmcohfZWROPEQHAL3927-27-81 09:00:001.82[facility] HermannHEMATOLOGY 2012-04-28 09:00:00 Test Item Value Reference Range Interpretation Comments PTT (test code = PTT) 29.2 s 22.9-35.8 N [facility] IexcgdlERENBUYNOR1467-91-49 09:00:0033.4[facility] HermannHEMATOLOGY 2012-04-28 09:00:00 Test Item Value Reference Range Interpretation Comments MCH (test code = MCH) 29.4 pg 27.0-31.0 N [facility] PepjoarVGVYEQDLYA4383-12-75 09:00:0088.0[facility] HermannHEMATOLOGY 2012-04-28 09:00:007.9[facility] TtyhgycKAGFKMPSDV8683-81-96 09:00:15131Mzslnzvd EkasoajEQSLVBKVHF3157-93-64 09:00:0012.3[facility] ZxkdkmpKHIYZWLLKG8857-29-17 09:00:007.2[facility] VrpxibpCNVJAADUMT0216-66-44 09:00:0013.3[facility] BFVPLOCDOS0893-93-39 09:00:004.53[facility] IzqhzcfZYNKTVKMVE8919-56-86 09:00:00 39.9[facility] FtkzhlnJGJDOEERNA9417-70-54 09:00:000-2 /HPF (04/28/2012 03:00:00) [facility] MhgacszAZLOBQOLCY9735-16-45 09:00:00Performed (04/28/2012 03:00:00) [facility] NbvumqbJXZKRRBTOT1795-04-44 09:00:00Rare /LPF (04/28/2012 03:00:00) [facility] RwjizwrWOJJCDXOUU4120-47-48 09:00:00Moderate /HPF (04/28/2012 03:00:00) [facility] ZkyftxtSHAHIBBBYF8164-12-65 09:00:00>100 /HPF *ABN*(04/28/2012 03:00:00)[facility] HodqmbqBIJAMYOHEQ2138-99-31 09:00:00Large *ABN*(04/28/2012 03:00:00)[facility]qkofkgJQGUAYILLT6005-41-17 09:00:00Negative *NA*(04/28/2012 03:00:00)[facility] GquwwrdUFMAUMHXYE8784-58-48 09:00:00Trace *ABN*(04/28/2012 03:00:00)[facility] VuscvihFIRBZOAQOA3567-61-37 09:00:00Negative (04/28/2012 03:00:00)[facility]DvjyjcsTITTQWCVKX0629-44-01 09:00:000.2[facility] AQDZJMRTVZ5764-75-95 09:00:00Negative *NA*(04/28/2012 03:00:00)[facility] ASCLEZEPKI0189-06-51 09:00:00Negative (04/28/2012 03:00:00)[facility] LXIEOWSYRL0584-89-59 09:00:00Negative (04/28/2012 03:00:00)[facility] LOXUOPUWLO0607-79-68 09:00:00Slight Cloudy (04/28/2012 03:00:00)[facility] GUTVNWFAJT6050-83-30 09:00:00 Test Item Value Reference Range Interpretation Comments UA Spec Grav (test code = UA Spec 1.020 1 N Grav) [facility] YxljvnlWLOHRPDSTY8450-06-74 09:00:00 Test Item Value Reference Range Interpretation Comments UA pH (test code = UA pH) 6.0 1 5.0-8.0 N [facility] XufmxwdZRBROVDARP3700-48-13 09:00:00Negative (04/28/2012 03:00:00) [facility] EhovonsXYIHYVXVGJ0490-31-13 09:00:00Negative (04/28/2012 03:00:00) [facility] JmnqnvcZUNDIJMNZC0543-26-46 09:00:00Slight Cloudy (04/28/2012 03:00:00) [facility] CiitgmiLCUDYMNJET3922-75-59 09:00:00 Test Item Value Reference Range Interpretation Comments UA Spec Grav (test code = UA Spec 1.020 1 N Grav) [facility] EnntqpzBIYIFHAQPE9675-87-39 09:00:00 Test Item Value Reference Range Interpretation Comments UA pH (test code = UA pH) 6.0 1 5.0-8.0 N [facility] QgeivfrDOWXTKATT0660-44-29 09:00:18219Ifktfbxx HermannCHEMISTRY 2012-04-28 09:00:008.5[facility] DawqzsaRCAPMGRAY7656-17-55 09:00:64808Lgwsxcxn LatjjjkLXDMERNKM6078-33-77 09:00:0027[facility] VuarfujCQPKTQQNU7862-60-44 09:00:0012[facility] WaipznhEXHELQFBU6026-65-80 09:00:000.8[facility] PGKGNAMEX0901-67-55 09:00:0079[facility] PrryjxrNMUWQEMJK6714-15-58 09:00:83381 [facility] UdlsattOJWDAEISK0028-87-08 09:00:004.1[facility] HermannCHEMISTRY 2012-04-28 09:00:0014.1[facility] InmfzqyANKCJIGSQO1423-18-52 09:00:000.6[facility] JexwqmiEIAORWPSIN1156-30-36 09:00:002.1[facility] WzkpwwdUPGWBEISLY3990-73-49 09:00:0037.7[facility] AsskkzcBIXPNBWQNC7077-16-43 09:00:0052.1[facility] AXLQJMGHXH8240-51-08 09:00:007.5[facility] VkjtvwsZCKKMOZCTL1840-41-18 09:00:000.5 [facility] XvboowfWGGPPBGJOS4082-75-44 09:00:002.7[facility] HermannHEMATOLOGY 2012-04-28 09:00:003.8[facility] CvjueemIRUIKHPAKW0699-63-43 09:00:000.0[facility] ObrdkftTFHXFXHXDX9369-33-14 09:00:000.2[facility] TkdjwmpUGFLOPLEGA4453-27-73 09:00:00 Test Item Value Reference Range Interpretation Comments PT (test code = PT) 21.2 s 12.0-14.7 H [facility] DpssvgmMMJIYDALWC8005-06-45 09:00:001.82[facility]annHEMATOLOGY 2012-04-28 09:00:00 Test Item Value Reference Range Interpretation Comments PTT (test code = PTT) 29.2 s 22.9-35.8 N [facility] VozyrrlMMSKPTOZJT4468-55-64 09:00:0033.4[facility] HermannHEMATOLOGY 2012-04-28 09:00:00 Test Item Value Reference Range Interpretation Comments MCH (test code = MCH) 29.4 pg 27.0-31.0 N [facility] IvaffkiPBKFGHNYUB0073-91-25 09:00:0088.0[facility]annHEMATOLOGY 2012-04-28 09:00:007.9[facility] IzyxwunHKIGOITFOR1561-35-06 09:00:82550Mcdroisn ZcmydmiLJFGUICVJW8947-43-02 09:00:0012.3[facility] OgsewewSDXLQKMKJC7768-75-42 09:00:007.2[facility] ZmdjzynWAYLROAQNO1763-44-47 09:00:0013.3[facility] DGDOXIWWRL7086-71-28 09:00:004.53[facility] RqtqdviTLSEYSBOKJ9668-75-26 09:00:00 39.9[facility] LuvhiwaYVLBLOCECM4266-55-85 09:00:000-2 /HPF (04/28/2012 03:00:00) [facility] YtsukpcCSSGRJNGEY6002-15-89 09:00:00Performed (04/28/2012 03:00:00) [facility] MlmuxigHTZPJBUTQB4467-78-43 09:00:00Rare /LPF (04/28/2012 03:00:00) [facility] CcpcaiwJJNIBHLGUE0643-13-69 09:00:00Moderate /HPF (04/28/2012 03:00:00) [facility] GcpqllfHBNANSQZTM0242-67-64 09:00:00>100 /HPF *ABN*(04/28/2012 03:00:00)[facility] RqclijwAODSNVBKRA0711-23-85 09:00:00Large *ABN*(04/28/2012 03:00:00)[facility] ZmddwwbDBINCXZQXH1416-41-91 09:00:00Negative *NA*(04/28/2012 03:00:00)[facility] SsfoqbbZSEJPOCRGC9288-80-42 09:00:00Trace *ABN*(04/28/2012 03:00:00)[facility] GozpmkkSONNNQDYVW6338-13-58 09:00:00Negative (04/28/2012 03:00:00)[facility] BhirxocRKZCKVQDBG1898-04-99 09:00:000.2[facility] AMKDZVVQNL3572-20-37 09:00:00Negative *NA*(04/28/2012 03:00:00)[facility] [place] AGSVBHSINT3927-66-39 19:34:00 Test Item Value Reference Range Interpretation Comments POC PT (test code = POC PT) 32.2 s 12.0-14.7 H [facility] FbmsdpwRNWJQFVOOP3280-65-89 19:34:002.8[facility]annHEMATOLOGY 2012-04-13 19:34:00 Test Item Value Reference Range Interpretation Comments POC PT (test code = POC PT) 32.2 s 12.0-14.7 H [facility] RxdxcelVGSHWBSOJZ0958-47-04 19:34:002.8[facility] HermannCHEMISTRY 2012-03-09 04:35:001.2[facility] YfjflvsUWZAXQWYC4831-72-28 04:35:20064Hlrjahre MeerfjlLNNTXNZUY0219-73-00 04:35:06499Adabsqpf GrbnokpQZYNUNCPA2976-70-99 04:35:008.9[facility] OkowpacDWSILJVNF5782-53-75 04:35:0026[facility] YETVGDNKI4109-33-81 04:35:004.0[facility] IxdwmcyIXHERUNIE7425-54-47 04:35:03718 [facility] QmmmxzkPYBTKANLP9349-93-22 04:35:40855Irpkzunx HermannCHEMISTRY 2012-03-09 04:35:000.7[facility] AvzrxlcGYKACYMAD8136-21-15 04:35:0018[facility] HocfjnjYWTPGZDWY6752-77-73 04:35:0015.0[facility] BvmwiguBWOXLURXYE6301-55-10 04:35:0051.6[facility] QytoujmHTNLRFRMZR0035-79-23 04:35:000.9[facility] AYFZOYESXC8938-31-51 04:35:002.9[facility] AvqfewvGVIRBTGBZN5415-59-13 04:35:00 36.4[facility] GnqruduKWLSCWGWMM9523-85-37 04:35:003.5[facility]annHEMATOLOGY 2012-03-09 04:35:008.2[facility] IdtixdaSRHZTQAMDT3246-28-30 04:35:000.2[facility] XiteydbZCQGGBAYCV7576-34-90 04:35:000.1[facility] IusbmrzCLDJZVUOOF4914-42-25 04:35:002.4[facility] DnznjpeLGXFUPILIO6613-67-58 04:35:000.5[facility] WNYMEJWHXB3242-11-92 04:35:00Slight *ABN*(03/08/2012 22:35:00)[facility] AVDKNLUEAD1900-34-28 04:35:001+ *ABN*(03/08/2012 22:35:00)[facility] TSWWZGCTLI8476-58-66 04:35:00 Test Item Value Reference Range Interpretation Comments PTT (test code = PTT) 38.2 s 22.9-35.8 H [facility] IrdautnRIPYKQDVVP1444-79-89 04:35:001.58[facility]annHEMATOLOGY 2012-03-09 04:35:00 Test Item Value Reference Range Interpretation Comments PT (test code = PT) 19.0 s 12.0-14.7 H [facility] DcyfultVNRNOCQJRD1084-00-08 04:35:007.8[facility]annHEMATOLOGY 2012-03-09 04:35:0034.2[facility] IivvbddBPXNVLZNJP7450-80-44 04:35:31304Auugmobu LyarmezQVGDGONWQQ7207-84-55 04:35:0012.8[facility] CzdylglCPGBHTCWGT0613-10-66 04:35:00 Test Item Value Reference Range Interpretation Comments MCH (test code = MCH) 29.3 pg 27.0-31.0 N [facility] MxkzdqgDACCNPQFHJ1796-36-28 04:35:0085.6[facility]annHEMATOLOGY 2012-03-09 04:35:006.7[facility] RkvqhafBYWZUJDXFE2557-47-19 04:35:005.03[facility] OfoaztqXPIRMUNCEJ3168-94-72 04:35:0043.1[facility] HzsalvlOJDCVUQPMN7437-89-17 04:35:0014.7[facility] UoiiftsTAEALQWRGD6438-06-93 04:35:00Many /HPF (03/08/2012 22:35:00)[facility]xzdnojVMYMGBYAFA4456-42-90 04:35:006-10 /HPF *ABN*(03/08/2012 22:35:00)[facility] PgrtmngQIUWIWLUQF9357-95-37 04:35:00Performed (03/08/2012 22:35:00)[facility] XaocztgZDHYDSDBCG1716-90-84 04:35:00Rare /LPF (03/08/2012 22:35:00)[facility] ElwotduZNQERMJVZG5566-58-87 04:35:000-2 /HPF (03/08/2012 22:35:00)[facility] PrwxrdzHWDYHSWLZU2633-11-56 04:35:00Slight Cloudy (03/08/2012 22:35:00)[facility] RdbpxmiAUIJLIRQTX9778-26-71 04:35:00 Test Item Value Reference Range Interpretation Comments UA Spec Grav (test code = UA Spec 1.025 1 N Grav) [facility]inteRrshrufDCNZREVQLP8978-57-82 04:35:00 Test Item Value Reference Range Interpretation Comments UA pH (test code = UA pH) 6.0 1 5.0-8.0 N [facility] QtpfafnKPNVXGBLIF2626-32-69 04:35:00Negative *NA*(03/08/2012 22:35:00) [facility]inteDladsceTHLZVDTKQN5660-37-65 04:35:00Negative (03/08/2012 22:35:00) [facility]inteVhkbxivKGDDBNPGSE4768-74-44 04:35:00Negative (03/08/2012 22:35:00) [facility] LslanmfYLIRRPXNNS6738-84-60 04:35:00Negative (03/08/2012 22:35:00) [facility] ZsoeibrUBFIAYVLFM7603-72-50 04:35:00Negative *NA*(03/08/2012 22:35:00) [facility] MekrrvbXTYISRQIAW7397-12-65 04:35:00Positive *ABN*(03/08/2012 22:35:00) [facility] TryuagpFCVXHZQYZN8396-56-39 04:35:00Small *ABN*(03/08/2012 22:35:00) [facility] MttcnkzIVYYHDPKEE4921-25-99 04:35:000.2[facility] HermannURINALYSIS 2012-03-09 04:35:00Yellow *NA*(03/08/2012 22:35:00)[facility] HermannCHEMISTRY 2012-03-09 04:35:001.2[facility] GdzcjpzTPBXKJQEC5814-38-16 04:35:88684Ogysjoxg OlolwedRKQMWBDAX8153-99-17 04:35:54493Awrjgems DrxdxkkVQZKCVYMB5433-95-26 04:35:008.9[facility] UaiucogPUIMDOHUO5173-45-88 04:35:0026[facility] IXGDAGLCL0261-37-26 04:35:004.0[facility] SooppnpDGNATPDCT3083-97-00 04:35:01280 [facility] BwyjsmuWJFXVUWLA4477-31-35 04:35:14268Frowwkud HermannCHEMISTRY 2012-03-09 04:35:000.7[facility] IpwqorrXLKGHMJGI8968-66-58 04:35:0018[facility] SfvbknuSMAFAXNUG8759-51-56 04:35:0015.0[facility] IzznzpnUOURCXITTW8803-47-31 04:35:0051.6[facility] NtpavekPWQNJELSKH0821-11-70 04:35:000.9[facility] EOPWYUZRCW0707-23-78 04:35:002.9[facility] DzwawvfZOYDQJJPGJ7180-79-80 04:35:00 36.4[facility] CivasqoORFUVRVNLM4315-00-99 04:35:003.5[facility] HermannHEMATOLOGY 2012-03-09 04:35:008.2[facility] QjhhtdkMOGEBXSNTV9659-24-03 04:35:000.2[facility] ArcykciIATPFFXLOM6267-00-00 04:35:000.1[facility] NdwazkdPAJTBHLRLF8173-31-81 04:35:002.4[facility] ItyrdaxMLNBYIGPCG4978-80-81 04:35:000.5[facility] KTGJABIOQI0357-69-66 04:35:00Slight *ABN*(03/08/2012 22:35:00)[facility] GQFJTSRBCB9991-23-25 04:35:001+ *ABN*(03/08/2012 22:35:00)[facility] HVSTKANZXZ6327-26-10 04:35:00 Test Item Value Reference Range Interpretation Comments PTT (test code = PTT) 38.2 s 22.9-35.8 H [facility] LatrczeEGVZCGAGDG4037-10-72 04:35:001.58[facility] HermannHEMATOLOGY 2012-03-09 04:35:00 Test Item Value Reference Range Interpretation Comments PT (test code = PT) 19.0 s 12.0-14.7 H [facility] ZvelvtiHICXNOQHLP7253-87-98 04:35:007.8[facility] HermannHEMATOLOGY 2012-03-09 04:35:0034.2[facility] YnculdtJFQBIWTZRO0340-44-81 04:35:52162Monxsbth ZwxvmxaOAKLSMCZGO5170-42-15 04:35:0012.8[facility] RtmdwvfGKCJQBCCSX7729-69-93 04:35:00 Test Item Value Reference Range Interpretation Comments MCH (test code = MCH) 29.3 pg 27.0-31.0 N [facility] CfcyiybLTLZMXVSJZ6387-20-40 04:35:0085.6[facility] HermannHEMATOLOGY 2012-03-09 04:35:006.7[facility] UeraxwlVZGSMPZAPO2073-57-52 04:35:005.03[facility] MejudoiELOBHXYFHC0303-30-05 04:35:0043.1[facility] BbhnothRMCPCDXEGW6343-90-51 04:35:0014.7[facility] CtmqrkbSJHOQDAUTY2531-90-44 04:35:00Many /HPF (03/08/2012 22:35:00)[facility] JxtbgtaYMSFBIBQNX5799-00-51 04:35:006-10 /HPF *ABN*(03/08/2012 22:35:00)[facility] RicuncjLKPOHAVXQT3399-25-73 04:35:00Performed (03/08/2012 22:35:00)[facility] KoorcyrBKUKPVKSAM1668-10-77 04:35:00Rare /LPF (03/08/2012 22:35:00)[facility] GxtuupfKDOMGZSYPB6729-65-17 04:35:000-2 /HPF (03/08/2012 22:35:00)[facility] LkvmgmnBXDWJQPOIQ0385-05-00 04:35:00Slight Cloudy (03/08/2012 22:35:00)[facility] TwczzvwWZUXCWWGYQ1896-59-06 04:35:00 Test Item Value Reference Range Interpretation Comments UA Spec Grav (test code = UA Spec 1.025 1 N Grav) [facility] AlexljdZKMBZXNEZG9850-36-14 04:35:00 Test Item Value Reference Range Interpretation Comments UA pH (test code = UA pH) 6.0 1 5.0-8.0 N [facility] TldkhxkMKGNVMANRE7829-26-78 04:35:00Negative *NA*(03/08/2012 22:35:00) [facility] QknfjnrTKBSWNHNUB9707-38-14 04:35:00Negative (03/08/2012 22:35:00) [facility] NrnxiqnWATQDBIWVH4444-45-60 04:35:00Negative (03/08/2012 22:35:00) [facility] HmmebwwIYATOPUQSN7534-57-49 04:35:00Negative (03/08/2012 22:35:00) [facility] NperbzpMNTXLOZQGL6628-97-16 04:35:00Negative *NA*(03/08/2012 22:35:00) [facility] TzjowfmEMSEUAJEBP0149-66-54 04:35:00Positive *ABN*(03/08/2012 22:35:00) [facility] StzilouPRJCEWFEIJ8352-68-64 04:35:00Small *ABN*(03/08/2012 22:35:00) [facility] MmvhlpjILRBWLFDWP3092-51-42 04:35:000.2[facility]annURINALYSIS 2012-03-09 04:35:00Yellow *NA*(03/08/2012 22:35:00)[facility]annCHEMISTRY 2012-03-09 04:23:0099[facility] KbxgivbWGZDGHWXS0759-17-91 04:23:001.4[facility] VxhhslmCHXKDBOUQ8238-37-87 04:23:000.2[facility] WqcqwbxWCUATANRK3672-40-44 04:23:0013[facility] XqowjsyIHISLTGQU6412-58-62 04:23:000.1[facility] DYKBCQATF3900-49-93 04:23:002.8[facility] TmlmjuoWNAMKHEKP6101-26-25 04:23:0072 [facility] WiosslpHBKCPFVKV1983-23-77 04:23:000.3[facility]annCHEMISTRY 2012-03-09 04:23:0025[facility] WwribccLZNJKVHRI3267-96-93 04:23:006.7[facility] MlcnjcdSDAHMWCPL5956-81-51 04:23:003.9[facility] HrmpxwrGUKTNBDRM6011-66-17 04:23:0099[facility] HupxnhyJRWFYMQGP8391-58-56 04:23:001.4[facility] LTSVUQHHV7041-78-64 04:23:000.2[facility] IafmgyvBIBKGRNMB2934-62-06 04:23:0013 [facility] VgvxfwuIOFWJIHCE0682-85-86 04:23:000.1[facility]annCHEMISTRY 2012-03-09 04:23:002.8[facility] QtxzectRZPGWNQTI5616-49-55 04:23:0072[facility] YxicsvsWPLHJVOUU7007-70-27 04:23:000.3[facility] BkodwkpHZLXDSUCB5365-51-69 04:23:0025[facility] HkfgldnJTBWGLUUY1403-25-23 04:23:006.7[facility] LCEDYKJXI1008-13-38 04:23:003.9[facility] KzosvajKSHSUWJJYK5032-97-83 19:45:001.8 [facility] LbjkjonLJCOPLEHWH6142-98-05 19:45:00 Test Item Value Reference Range Interpretation Comments POC PT (test code = POC PT) 20.6 s 12.0-14.7 H [facility] KoadowsJZRULPAPYA6812-36-21 19:45:001.8[facility]annHEMATOLOGY 2011-12-10 19:45:00 Test Item Value Reference Range Interpretation Comments POC PT (test code = POC PT) 20.6 s 12.0-14.7 H [facility] PxpfxwnTRBDVGZPBK9000-93-65 11:35:00 Test Item Value Reference Range Interpretation Comments PT (test code = PT) 27.6 s 12.0-14.7 H [facility] VjvhskgMEUHPETGIX3474-52-39 11:35:002.61[facility]annHEMATOLOGY 2011-11-14 11:35:00 Test Item Value Reference Range Interpretation Comments PT (test code = PT) 27.6 s 12.0-14.7 H [facility] OkxcelpPPFMGPRQJZ2747-14-84 11:35:002.61[facility]annHEMATOLOGY 2011-11-13 11:00:002.74[facility] AhhzbeiFXJQMWLVTT4165-84-74 11:00:00 Test Item Value Reference Range Interpretation Comments PT (test code = PT) 28.7 s 12.0-14.7 H [facility] TtalessNZCEIBTLMA3256-81-03 11:00:002.74[facility]annHEMATOLOGY 2011-11-13 11:00:00 Test Item Value Reference Range Interpretation Comments PT (test code = PT) 28.7 s 12.0-14.7 H [facility] DlbuckaKLTKVRUAUC8770-02-45 17:30:002.88[facility]annHEMATOLOGY 2011-11-11 17:30:00 Test Item Value Reference Range Interpretation Comments PT (test code = PT) 29.8 s 12.0-14.7 H [facility] PfthkafBAPFTPXZKT9839-85-44 17:30:0013.2[facility]annHEMATOLOGY 2011-11-11 17:30:002.88[facility] BjwiwfaBLNUZKUUGV8226-96-88 17:30:00 Test Item Value Reference Range Interpretation Comments PT (test code = PT) 29.8 s 12.0-14.7 H [facility] UwwyuefZSVUWQREIJ5899-27-52 17:30:0013.2[facility]annHEMATOLOGY 2011-11-03 11:35:007.9[facility] DknpcyhQXTNUNPPFK1295-79-97 11:35:0084.9[facility] JwkmjzmJARBUJCXTY0540-20-38 11:35:0033.5[facility] KgxskwiYLNWIUBCJJ8411-10-33 11:35:00 Test Item Value Reference Range Interpretation Comments MCH (test code = MCH) 28.4 pg 27.0-31.0 N [facility] AjjvyzyIERMNVZODO8041-37-35 11:35:0013.6[facility]annHEMATOLOGY 2011-11-03 11:35:10481Jiortqne QglesvjIZOWJWKOCD9091-52-83 11:35:005.2[facility] AtifjbjAAUKYRRXXK7904-10-28 11:35:004.43[facility] XfcndsnOUDDQZSDUY3713-89-83 11:35:0012.6[facility] BltrbhbIIQISQPSID9361-90-72 11:35:0037.6[facility] BLUZXFTLXU7218-12-47 11:35:007.9[facility] VmlvkenLKHITTWCXC0111-93-86 11:35:00 84.9[facility] OwcxzwfUTUXJGQWXH1593-42-39 11:35:0033.5[facility]annHEMATOLOGY 2011-11-03 11:35:00 Test Item Value Reference Range Interpretation Comments MCH (test code = MCH) 28.4 pg 27.0-31.0 N [facility] SjvpuufSEPKVDVULP8173-93-42 11:35:0013.6[facility]annHEMATOLOGY 2011-11-03 11:35:57305Uklzbmhg YuqziwhZRHZGQNOHX8547-46-98 11:35:005.2[facility] MruoynbFWFTLBSNIM7761-99-07 11:35:004.43[facility] MjajjnrRJDBCTZIDU9323-94-07 11:35:0012.6[facility] AtewnniJXTAASXCFM1623-57-75 11:35:0037.6[facility] GVNNEGCLD9777-08-37 10:30:001.3[facility] JbfskkvPUGFAXJBO5118-50-60 10:30:002.7 [facility] LpnwtbuWIIBMFIMT2799-56-38 10:30:0022[facility]annCHEMISTRY 2011-10-27 10:30:0014.0[facility] EmuhjkqPBAMKPVLW0640-31-22 10:30:008[facility] NljrjdmNIFMTBNQL8729-27-03 10:30:50823Ggbxutyw YgyfpxcBGHWNKIOZ5018-70-01 10:30:006.3[facility] YynpafyUXQYRWGKM8893-55-35 10:30:000.3[facility] OMJJHIGVK3291-89-11 10:30:0026[facility] WmsszmtVFAJFPPJP0022-55-73 10:30:008.6 [facility] IeiomvjYXMLIDAAS9606-11-14 10:30:004.0[facility]annCHEMISTRY 2011-10-27 10:30:74859Baajsaoc UzmhfioYRFPIRCHX5118-80-44 10:30:0013[facility] NbeowzkWEISWYXIX0835-19-51 10:30:000.6[facility] JluolhmRDDAUMPOG9817-49-96 10:30:0078[facility] EaslhbyMGLKEKNHA9445-82-31 10:30:003.[facility] RHQMQMEUX1621-42-44 10:30:0060[facility] QbzhbhlZAWQPKHYP9798-06-64 10:30:0018 [facility] DukwrkwUMSHETZOGG3385-22-16 10:30:000[facility]annHEMATOLOGY 2011-10-27 10:30:0012.5[facility] JhbulnhWCXOMUJNQZ0833-23-82 10:30:0037.6[facility] OzyrhboDCOWXWFWHA6457-82-70 10:30:005.3[facility] DyboqaaVNISQXPVSV4342-07-65 10:30:0014.2[facility] HwxirzuAZKIPVFHSK6337-73-12 10:30:004.31[facility] NVQUGKFPYZ6426-49-58 10:30:0087.1[facility] FagsbebBLWBFGCUWJ6809-10-27 10:30:00 Test Item Value Reference Range Interpretation Comments MCH (test code = MCH) 29.0 pg 27.0-31.0 N [facility] MyrgmkoSBWHFCHHLW9914-57-91 10:30:89973Dooswmve HermannHEMATOLOGY 2011-10-27 10:30:0033.3[facility] SwainlxUBOIZQQZPM3717-10-60 10:30:008.1[facility] ZrpuomtYONVDNLTQX3249-75-27 10:30:0050.8[facility] MxcrdfwBCVZYSZQTB3029-58-81 10:30:0038.6[facility] NmwwrpdMNCTNQGVYN8382-34-44 10:30:003.4[facility] CKBZYQLEFX3008-20-15 10:30:006.7[facility] IwxwrkkIOSXWZCGUF6020-62-10 10:30:002.0 [facility] GmfzesbVVZPBFYHZD8613-51-03 10:30:002.7[facility]annHEMATOLOGY 2011-10-27 10:30:000.5[facility] JwzpjcyGHUNFUTKPU1270-89-41 10:30:000.0[facility] SfefgjqUXVXFDCOJJ4031-58-25 10:30:000.2[facility] GycansgEFJBOYZSWH9092-05-38 10:30:000.4[facility] YdzyxelTDXHYZENSK5488-82-64 10:30:000.6[facility] ACJIZHKIE6416-06-39 10:30:001.3[facility] VkngyusJOJXDQILG4094-75-18 10:30:002.7 [facility] PqqeqcvJRWDVZOJX4301-40-51 10:30:0022[facility]annCHEMISTRY 2011-10-27 10:30:0014.0[facility] DtntuyuWOAHDBOJB1469-07-42 10:30:008[facility] QreuwjuOCEWBFDFD8663-20-70 10:30:52237Kqftklra UwgzhkxDROXPXLZV0879-96-28 10:30:006.3[facility] FmxjbstSVRPPEZMY7077-13-02 10:30:000.3[facility] HAEVXCDMO9278-14-19 10:30:0026[facility] QqirppyRVWMHDSCN6532-81-67 10:30:008.6 [facility] BdgjdbcUIXSYGKSJ5961-03-56 10:30:004.0[facility]annCHEMISTRY 2011-10-27 10:30:07570Pbldnybm KzvhuoxMSTUFYEUN7875-14-23 10:30:0013[facility] TobkmnpXBGRAGEGU7333-93-10 10:30:000.6[facility] NeombzwDGNVYSGPP8963-38-68 10:30:0078[facility] ImlxpjyLHSFXZKRF3750-57-70 10:30:003.6[facility] CYQEIONOP3108-74-26 10:30:0060[facility] HvodtrcIGAYZOMGK3205-20-83 10:30:0018 [facility] YoqacbxZNMYXQQJEF0522-55-78 10:30:000[facility]annHEMATOLOGY 2011-10-27 10:30:0012.5[facility] LcdccykNNBRYTFENU6423-95-47 10:30:0037.6[facility] HnzvpyeIXALYCNBBC7647-11-33 10:30:005.3[facility] QvdqhepUXUNLZEKXO7103-15-74 10:30:0014.2[facility] TzyyvekTVZDMOGJCE1307-06-43 10:30:004.31[facility] HQHBUNBQOP4953-67-10 10:30:0087.1[facility] QpicbvbOQLRWDXCBF4370-06-66 10:30:00 Test Item Value Reference Range Interpretation Comments MCH (test code = MCH) 29.0 pg 27.0-31.0 N [facility] FtsrddvJRYMRDLDJM1247-30-78 10:30:01102Dgxzbcbx HermannHEMATOLOGY 2011-10-27 10:30:0033.3[facility] EhzsdvhASDMJKKCEV9437-37-87 10:30:008.1[facility] ZonqomkVMCKFYNNZB1879-58-61 10:30:0050.8[facility] DtdlpqxOIROUMAJIX0271-56-38 10:30:0038.6[facility] GxqwnoeMQSDPGNXZS0816-82-72 10:30:003.4[facility] GKDRENRZEV5049-76-25 10:30:006.7[facility] JuuubnfCJMHECYWZS1319-64-83 10:30:002.0 [facility] WcsrrmyAEDTHDNZVE9221-69-22 10:30:002.7[facility] HermannHEMATOLOGY 2011-10-27 10:30:000.5[facility] RmxvlerYYWPYHRVMY3252-27-33 10:30:000.0[facility] XfukigyWINCMRYKVJ4785-06-24 10:30:000.2[facility] ZcpkzfbHLIMVKHMUS4660-72-98 10:30:000.4[facility] VdbkwwdYAKZUIMMNX8094-01-37 10:30:000.6[facility] LJHSVYTEF4629-62-91 11:30:75643Lydywjpo IvjsygsVJUMORRRW0880-64-39 11:30:0026 [facility] VcvhyhoKRHOOQBQL1555-64-97 11:30:008.5[facility]annCHEMISTRY 2011-10-15 11:30:0015[facility] TkcizgzFWPUCDCIW8948-88-61 11:30:002.9[facility] ZflnergKRQUWASHS8693-39-89 11:30:001.1[facility] IteczjbIUVEENDPH3199-45-19 11:30:009[facility] IvsfdfaUGRHSIPLS8102-17-49 11:30:000.3[facility] ZKTXLRXPL8265-15-26 11:30:006.2[facility] NroxiyrCAKGKEKZF2906-45-99 11:30:13423 [facility] EfhswbeXRQXXXKKO0207-14-74 11:30:004.0[facility]annCHEMISTRY 2011-10-15 11:30:0016.0[facility] HknqkksOHYXEJJNW7178-54-33 11:30:009[facility] MzrakquCAHUHXJKW9153-37-64 11:30:000.6[facility] UsxyslsPTYSRBXVG7705-69-57 11:30:0082[facility] TohivrfCTPBTEPSR1022-09-30 11:30:0067[facility] RRZLSRFOQ0150-59-23 11:30:003.3[facility] ZlbteanSHKJWVLME7082-32-80 11:30:0018 [facility] QyycxbmMFYPFKOHLU5668-15-86 11:30:0034.6[facility]annHEMATOLOGY 2011-10-15 11:30:0085.6[facility] GhhoygyRDMOTRESQX2716-79-28 11:30:00 Test Item Value Reference Range Interpretation Comments MCH (test code = MCH) 29.6 pg 27.0-31.0 N [facility] OlykwypZIIHEHGAEJ2224-12-96 11:30:0013.9[facility] HermannHEMATOLOGY 2011-10-15 11:30:50278Ihemgdkx RovcyvyDPEEMIKUHR6861-26-36 11:30:008.1[facility] FrldcfaAKDFILYKZA7951-29-74 11:30:0036.2[facility] PzsrkzgKPUHNAFEXP9337-24-25 11:30:004.23[facility] HkslrbtEUWCXXBBBA3707-97-62 11:30:005.0[facility] MHEMSOHSTP2123-12-63 11:30:0022.5[facility] WvkxasaLXKFQVGSZ7566-12-48 11:30:26310 [facility] EifmzaiSMOFPAENM7796-11-02 11:30:0026[facility]annCHEMISTRY 2011-10-15 11:30:008.5[facility] OzgkqvgFAYQZTGKV8381-96-81 11:30:0015[facility] JwmzcquHQSRBEOKX7242-07-76 11:30:002.9[facility] OknlfkaXKYZCZEOR6067-92-40 11:30:001.1[facility] FeywzuiHUGYVKTOA9494-82-50 11:30:009[facility] NPYQOJWIS7416-91-71 11:30:000.3[facility] QupznukLMRHZVSTA3101-19-43 11:30:006.2 [facility] JsujgxzZNIWLACOA0092-76-32 11:30:56792Hdkjgruc HermannCHEMISTRY 2011-10-15 11:30:004.0[facility] SzxctglUPCUAZONH3452-58-53 11:30:0016.0[facility] CqhdtcsCKXCOHDHV0487-29-85 11:30:009[facility] KrayqmnKWSDBVMBH9792-97-26 11:30:00 0.6[facility] MpumclaTKJKBAJTC5391-91-12 11:30:0082[facility] HermannCHEMISTRY 2011-10-15 11:30:0067[facility] UcpqmmhKTPVJXNEL1016-04-63 11:30:003.3[facility] WzkjxriVLPVAOJMT6177-14-14 11:30:0018[facility] SntoocmZMOWDVHTCQ3428-85-27 11:30:0034.6[facility] VnolqnvTYGGYZAYYZ3507-80-98 11:30:0085.6[facility] QRCYIEGTFE2808-58-70 11:30:00 Test Item Value Reference Range Interpretation Comments MCH (test code = MCH) 29.6 pg 27.0-31.0 N [facility] ZxtootaDBQPUPPAWL3800-16-90 11:30:0013.9[facility] HermannHEMATOLOGY 2011-10-15 11:30:30498Jvrpftrg QpuukcaPQMSZFOTMW9484-26-45 11:30:008.1[facility] BnqhwpdBAGWTYRRLI4507-81-62 11:30:0036.2[facility] IybczzpZWDNWTHCHG4478-17-58 11:30:004.23[facility] AkjanouOVIDMXWGUZ3481-16-58 11:30:005.0[facility] NJQJBZXEYQ5810-06-51 11:30:0022.5[facility] BtmopwwITDHQRFAXN5017-76-27 02:02:00 Slight *ABN*(10/07/2011 21:02:00)[facility] KbwnjccFIANHXLSEF0771-23-97 02:02:00 Yellow *NA*(10/07/2011 21:02:00)[facility] SeptgkgARSFQZIVHJ3431-00-37 02:02:0030 mg/dL *ABN*(10/07/2011 21:02:00)[facility] MgjrrezJQUGEZCYQY7148-13-45 02:02:00 Negative mg/dL *NA*(10/07/2011 21:02:00)[facility] UrjybhiDWASSJXYCU5763-46-19 02:02:00Negative mg/dL *NA*(10/07/2011 21:02:00)[facility]annURINALYSIS 2011-10-08 02:02:00Moderate *ABN*(10/07/2011 21:02:00)[facility] HermannURINALYSIS 2011-10-08 02:02:00Negative *NA*(10/07/2011 21:02:00)[facility]annURINALYSIS 2011-10-08 02:02:00Large *ABN*(10/07/2011 21:02:00)[facility]annURINALYSIS 2011-10-08 02:02:00Positive *ABN*(10/07/2011 21:02:00)[facility]annURINALYSIS 2011-10-08 02:02:00Occasional /LPF *NA*(10/07/2011 21:02:00)[facility] FPPOPFACYB0313-78-57 02:02:00Performed *NA*(10/07/2011 21:02:00)[facility] SHWSXKNXBC8354-02-20 02:02:00Few /LPF *NA*(10/07/2011 21:02:00)[facility] DPDUARQHNZ3436-67-74 02:02:005.5[facility] UlhyamgHKLPTNVXYP9075-21-11 02:02:00 1.016[facility] JupreijQUCXZSNRBG4575-54-60 02:02:0020[facility] HermannURINALYSIS 2011-10-08 02:02:0097[facility] FnhyzguLHZIPWARYA7350-15-50 02:02:00Few /HPF *NA*(10/07/2011 21:02:00)[facility] LfsbmmdYXHTQGLUFA5424-52-34 02:02:00Slight *ABN*(10/07/2011 21:02:00)[facility] SxjhpslPBZQNLECUB2582-53-98 02:02:00Yellow *NA*(10/07/2011 21:02:00)[facility] WyatzgnXLYTORITJM1814-61-37 02:02:0030 mg/dL *ABN*(10/07/2011 21:02:00)[facility] OrpkiefZRDOOWXIMW7656-46-72 02:02:00Negative mg/dL *NA*(10/07/2011 21:02:00)[facility] UawjdiyGAPVEDWFAW0865-01-98 02:02:00 Negative mg/dL *NA*(10/07/2011 21:02:00)[facility] UmdbsmfEYOHKAMBSK3572-32-36 02:02:00Moderate *ABN*(10/07/2011 21:02:00)[facility] KwsuxhdFUOLHLIPZU2866-37-10 02:02:00Negative *NA*(10/07/2011 21:02:00)[facility] HeyazirLKAHQIHSYA7615-13-75 02:02:00Large *ABN*(10/07/2011 21:02:00)[facility] CqgghqbLOJVEEGRVA2278-22-37 02:02:00Positive *ABN*(10/07/2011 21:02:00)[facility] CqaoggjEINKAFWJWJ2677-50-48 02:02:00Occasional /LPF *NA*(10/07/2011 21:02:00)[facility]annURINALYSIS 2011-10-08 02:02:00Performed *NA*(10/07/2011 21:02:00)[facility]annURINALYSIS 2011-10-08 02:02:00Few /LPF *NA*(10/07/2011 21:02:00)[facility]annURINALYSIS 2011-10-08 02:02:005.5[facility] BebbdixEFNQAAHWTL9089-89-26 02:02:001.016[facility] CzdenmcKYVIHOFMLA1717-94-53 02:02:0020[facility] GzcdrqwOAIJCZBJRT0960-01-78 02:02:0097[facility] YjnnlljXPSATHJERU7345-19-70 02:02:00Few /HPF *NA*(10/07/2011 21:02:00)[facility] VmgxogoNXMOYZXMS9743-59-53 10:20:28131Vwljtdjl [place] DLHAELPVU6607-15-94 10:20:004.2[facility] LsntmcvXBPSYSGRM6454-45-81 10:20:000.7 [facility] DcwwuajAACTNFXBT7963-81-68 10:20:24642Dqdykpkz HermannCHEMISTRY 2011-10-06 10:20:008.6[facility] GfawymiEIMATIHIE4801-93-13 10:20:0027[facility] DhpvlzvEUTHQVWWX7074-55-85 10:20:0082[facility] VkseohbWWNFFTSBD3582-34-43 10:20:0012[facility] WnznqhcUPATIHYMG4138-42-73 10:20:0014.2[facility] FEIRXFECO7349-17-20 10:20:38454Gdxeoivb GjtzyorMYKKBHCEY9017-32-80 10:20:004.2 [facility] LrjiodhJULWAIXCK1879-90-52 10:20:000.7[facility] HermannCHEMISTRY 2011-10-06 10:20:37369Uubaiefn RcnnlluTKPGBOROO3549-15-27 10:20:008.6[facility] LexoojqIWUSNYUZZ8781-19-51 10:20:0027[facility] FskeerwUVBZVQJUH6489-44-56 10:20:0082[facility] MifwovrOIGRTFZEV0652-61-19 10:20:0012[facility] CXBTUVDWI0642-79-91 10:20:0014.2[facility] NobtyidRFVVLUJFF1216-87-83 09:55:00 3.570[facility] LszqgbxDXUGCVXGO3772-80-88 09:55:001.30[facility] HermannCHEMISTRY 2011-09-30 09:55:0018[facility] IwumpquWNLMABRAE3502-50-73 09:55:005.6[facility] NaxwrmcKWGNSHEVW6268-54-92 09:55:000.3[facility] JvllysnYQSZSJZEA2064-68-78 09:55:0082[facility] ApelmtgDHGCSZXLW3944-53-94 09:55:002.5[facility] WLDSXREXT8248-16-04 09:55:0032[facility] XgxnjwdRFQVRYRMV3130-46-80 09:55:000.8 [facility] BrcsawiAZRTXHAXN3985-21-33 09:55:003.1[facility] HermannCHEMISTRY 2011-09-30 09:55:0014[facility] VafcjdaKTLCOIIVL2882-50-56 09:55:003.3[facility] DzjibatVNULZUHNT4029-47-32 09:55:001.9[facility] UsohvtmDOIKBOHMYH3128-66-64 09:55:00 Test Item Value Reference Range Interpretation Comments PTT (test code = PTT) 43.0 s 22.9-35.8 H [facility] FzahnddPXGJVEWMOW0258-07-31 09:55:000.0[facility] HermannHEMATOLOGY 2011-09-30 09:55:000.2[facility] LxfnyrlXLOKHQXFQH2078-12-93 09:55:002.1[facility] RhgczpuLPKLJRRBXZ6900-78-55 09:55:000.4[facility] QwcyirzNKLXGYCBSZ9056-10-24 09:55:004.6[facility] KhrgtqvGFNCZOSTGY4829-48-06 09:55:0062.9[facility] SZRQUWDJEI1568-76-07 09:55:0029.2[facility] WazdmbjGQUONJBPCW3378-59-00 09:55:00 2.4[facility] SvnrimaRGXDXASAYE0120-29-32 09:55:004.9[facility] HermannHEMATOLOGY 2011-09-30 09:55:000.6[facility] XinoamnRJHNFCTUBD0933-76-49 09:55:0015.3[facility] QwmopyjVEZCKSZJFZ2821-12-06 09:55:00Occasional /HPF (09/30/2011 04:55:00) [facility] ClvbewvYEFCQQKZAF0805-43-93 09:55:00Few /HPF *ABN*(09/30/2011 04:55:00) [facility] ZbcjexdVZXNQYLODI7529-21-65 09:55:006-10 /HPF *ABN*(09/30/2011 04:55:00)[facility] RtnqfybYGHQWXKHBG1233-49-16 09:55:003-5 /HPF (09/30/2011 04:55:00)[facility] WudtbojMOJBFTXQWM8220-97-86 09:55:00None Seen (09/30/2011 04:55:00)[facility] PbxgbqxLHXBFYYDWJ8033-52-33 09:55:00Clear (09/30/2011 04:55:00)[facility] EobyrcrKIHARLXHDL6520-05-57 09:55:00 Test Item Value Reference Range Interpretation Comments UA pH (test code = UA pH) 7.5 1 5.0-8.0 N [facility] AdipdunIIIACQMJCQ7560-43-31 09:55:00Yellow *NA*(09/30/2011 04:55:00) [facility] SoazffvAZNXETOYBW6224-68-25 09:55:00Negative *NA*(09/30/2011 04:55:00) [facility] OxeyecrQGGTHSOAPN4403-86-56 09:55:00Small *ABN*(09/30/2011 04:55:00) [facility] IfykhusCUDMPYYALP5192-36-03 09:55:00Negative (09/30/2011 04:55:00) [facility] FrvflrwWFERVUJNWD7709-98-58 09:55:00 Test Item Value Reference Range Interpretation Comments UA Spec Grav (test code = UA Spec 1.015 1 N Grav) [facility] VzzyyruWZDRIXFNQT8505-92-37 09:55:00Negative (09/30/2011 04:55:00) [facility] FufozjcQZXQJRAIKY3034-35-48 09:55:00Negative (09/30/2011 04:55:00) [facility] YkitaivJVCRMFRVCA1095-62-87 09:55:00Negative *NA*(09/30/2011 04:55:00) [facility] QeqmcsjQDBEPSLKLY6325-20-55 09:55:000.2[facility] HermannURINALYSIS 2011-09-30 09:55:00Negative (09/30/2011 04:55:00)[facility]annURINALYSIS 2011-09-30 09:55:00Performed (09/30/2011 04:55:00)[facility]annCHEMISTRY 2011-09-30 09:55:003.570[facility] RhmdekmXUFLZAPOH0890-56-44 09:55:001.30[facility] VkslnidHPMQSIZUM8004-95-14 09:55:0018[facility] InmuofdPPEATDABA2480-75-93 09:55:005.6[facility] BgvqbroAJEPXIPYW8399-23-62 09:55:000.3[facility] NQVVGPHHQ5223-23-82 09:55:0082[facility] FlmebvvOGXWWDVTX3360-20-83 09:55:002.5 [facility] OfrsrvhVFPUTNIJM1662-37-50 09:55:0032[facility] HermannCHEMISTRY 2011-09-30 09:55:000.8[facility] XjpptxfEHFGMQUDL5062-70-94 09:55:003.1[facility] CszizieQHMUGFEUR0544-56-72 09:55:0014[facility] AvfmnloYVVTZQPXJ6392-22-52 09:55:003.3[facility] PejnwnrMINVIBULB4289-56-15 09:55:001.9[facility] CQRDOIVKTY9346-68-18 09:55:00 Test Item Value Reference Range Interpretation Comments PTT (test code = PTT) 43.0 s 22.9-35.8 H [facility] FuxgiydJCKZYBUFZE2746-17-97 09:55:000.0[facility] HermannHEMATOLOGY 2011-09-30 09:55:000.2[facility] DfxeajwJQIQWGZBMA9679-75-12 09:55:002.1[facility] FnxorvjXFQDJQJHMW6936-06-94 09:55:000.4[facility] BwgerlwBUQUQCQCHF0295-13-50 09:55:004.6[facility] DzuovhgNIOAMSJGBT4782-56-54 09:55:0062.9[facility] UTGICWKKUV0675-08-90 09:55:0029.2[facility] RosoefeANFCVWUTZQ5692-87-25 09:55:00 2.4[facility] PxhvmbbZCHAHEADHY0702-63-58 09:55:004.9[facility] HermannHEMATOLOGY 2011-09-30 09:55:000.6[facility] ZebrgrbJNXJQDVIEJ6404-20-42 09:55:0015.3[facility] MyghvwuGNKTDXKWOP9708-98-15 09:55:00Occasional /HPF (09/30/2011 04:55:00) [facility] UfyrvdmUGDFSGSONR6806-44-95 09:55:00Few /HPF *ABN*(09/30/2011 04:55:00) [facility] JpnmyrrTYGVHGHLAG8265-36-05 09:55:006-10 /HPF *ABN*(09/30/2011 04:55:00)[facility] XeitfxfFEOXGZNWJC6239-86-19 09:55:003-5 /HPF (09/30/2011 04:55:00)[facility] VleahzgZFLYANQPOT8826-07-25 09:55:00None Seen (09/30/2011 04:55:00)[facility] PoxaalzJYLFANIUNC4497-41-01 09:55:00Clear (09/30/2011 04:55:00)[facility] PkzbbqcQHANBKXDEH5097-98-58 09:55:00 Test Item Value Reference Range Interpretation Comments UA pH (test code = UA pH) 7.5 1 5.0-8.0 N [facility] KoiamqeIOYAWUXLBY3310-23-15 09:55:00Yellow *NA*(09/30/2011 04:55:00) [facility] SupdprmWGSHBJZRGR2057-59-60 09:55:00Negative *NA*(09/30/2011 04:55:00) [facility] YnicxdzXKYIJDFWOV2992-68-97 09:55:00Small *ABN*(09/30/2011 04:55:00) [facility] LvbnwzvRWVXBCJJDI5873-25-01 09:55:00Negative (09/30/2011 04:55:00) [facility] BdkgmluVDHHZNLNPZ1529-88-51 09:55:00 Test Item Value Reference Range Interpretation Comments UA Spec Grav (test code = UA Spec 1.015 1 N Grav) [facility] PhxqbhmBAEYFFYFMI1158-68-81 09:55:00Negative (09/30/2011 04:55:00) [facility] MnkypzsFYMCZYJGMJ1709-21-62 09:55:00Negative (09/30/2011 04:55:00) [facility] BdcradfZLTTCIYWHS3257-70-45 09:55:00Negative *NA*(09/30/2011 04:55:00) [facility] IhuxdvdWEYMPZLCUL4234-92-22 09:55:000.2[facility] HermannURINALYSIS 2011-09-30 09:55:00Negative (09/30/2011 04:55:00)[facility]annURINALYSIS 2011-09-30 09:55:00Performed (09/30/2011 04:55:00)[facility] HermannCHEMISTRY 2011-09-29 08:35:0013.7[facility] IuvfngtHQFNIUYKI4793-80-84 08:35:007.9[facility] QfckvjxUTKRGVKAI9556-90-45 08:35:000.4[facility] UzjjzbbIFSRSOVSM4846-55-72 08:35:0028[facility] ZfryhybABJFWHBLH6523-94-95 08:35:30037Twynmbvc [place] DDKDIPOEX5061-94-12 08:35:52535Rzuotkkj RjtoajwKUMRWANBI6306-08-30 08:35:004 [facility] WrzkwruNSYFRARSO6032-05-19 08:35:003.7[facility] HermannCHEMISTRY 2011-09-29 08:35:0088[facility] MljunskJCFFHPMQQ8308-99-59 08:35:003.6[facility] LwoetwxNQOSBYAVU4467-36-70 08:35:002.1[facility] VinddnsMHEKYXFKV9827-09-31 08:35:001.23[facility] LcayvabHMUMGMJZU2469-16-44 08:35:005.04[facility] NRAPNUUTT0128-66-41 08:35:001.26[facility] NecdzvmBENZMKHNT7268-37-46 08:35:004.92 [facility] FdbqqpqANDNSQNQHV4346-28-55 08:35:000.0[facility] HermannHEMATOLOGY 2011-09-29 08:35:006.9[facility] TlxnbtrHMBLFYTKZJ2165-84-15 08:35:0027.3[facility] ExtchdaVRRIHWHJHH2632-64-23 08:35:0062.0[facility] XdfzdyoJTAUAYMLDY1111-40-62 08:35:000.2[facility] PjwdppdSVVCJDUMMP9761-88-23 08:35:000.4[facility] KDHRWYEAEL8099-77-29 08:35:001.6[facility] RucjpfoRFGYQPWYBS6271-39-26 08:35:003.6 [facility] WcbajgfKRBUUSNLPO1963-57-23 08:35:000.5[facility] HermannHEMATOLOGY 2011-09-29 08:35:003.3[facility] JtlqjtqSOZIPCKWEL3351-70-70 08:35:001.93[facility] LwuvjbxYHLUNSUOZW7425-61-12 08:35:00 Test Item Value Reference Range Interpretation Comments PTT (test code = PTT) 56.1 s 22.9-35.8 H [facility] IesrcxbPADTSVWNEA1890-74-07 08:35:00 Test Item Value Reference Range Interpretation Comments PT (test code = PT) 21.9 s 12.0-14.7 H [facility] JliehrbXRLHTSVIBK0362-80-00 08:35:0031.2[facility] HermannHEMATOLOGY 2011-09-29 08:35:0010.6[facility] CyiujxxJEZNTNMOQE7315-63-98 08:35:00 Test Item Value Reference Range Interpretation Comments MCH (test code = MCH) 29.0 pg 27.0-31.0 N [facility] JbaitzzVUJASPSAQH1595-06-93 08:35:0085.7[facility] HermannHEMATOLOGY 2011-09-29 08:35:005.9[facility] BsdgxbbQKZQBBQDYM8541-69-69 08:35:003.64[facility] QaetpriWRECSXIGSU6621-87-76 08:35:006.1[facility] SdfcxbfCPPFXZEGRT5987-22-12 08:35:0033.9[facility] DxalcbkTVJLNIIVSU2873-35-98 08:35:55018Snzktahu [place] GJBDIRNIGK3144-87-04 08:35:0013.7[facility] XcdizauXWMQGQWST6922-03-05 08:35:00 13.7[facility] ZmarjdiSILEXWYGS1419-94-23 08:35:007.9[facility] HermannCHEMISTRY 2011-09-29 08:35:000.4[facility] KcahiykOEFURBRBW1075-34-07 08:35:0028[facility] XvhcfgfGMUWJYCWW7685-15-47 08:35:76860Jarsirwv PbipuwmGTHUOSDER0912-06-44 08:35:55383Ozbzwdwm GdiehtrYOSRHKJFL4521-13-33 08:35:004[facility] [place] OGXJKEBTB8118-45-42 08:35:003.7[facility] OxktnvgYJWMWMMMD9499-76-38 08:35:0088 [facility] QluqqgcGLZEQPSQR7974-07-57 08:35:003.6[facility]annCHEMISTRY 2011-09-29 08:35:002.1[facility] QvpvrljBCIDIPWUU5368-51-04 08:35:001.23[facility] OujfzirEVTHFSVDC7498-01-70 08:35:005.04[facility] JqkiyrsFOMHHPFOE9083-71-97 08:35:001.26[facility] LogohfyEPJXSVXUJ0668-88-14 08:35:004.92[facility] ZFMIOFOWIG0317-05-50 08:35:000.0[facility] OhutebpORSSUCSKEB5672-80-20 08:35:006.9 [facility] IzjncewAXMPAIGYKY1831-12-15 08:35:0027.3[facility]annHEMATOLOGY 2011-09-29 08:35:0062.0[facility] OdeixpoCWBXJSMURN3329-60-61 08:35:000.2[facility] MnkcusrKASKPQGKPX6240-47-74 08:35:000.4[facility] YunczauEHNXFRTLSK4881-93-27 08:35:001.6[facility] CzkutagBXDUMMBDVT1234-87-36 08:35:003.6[facility] CXAMINQSOT0498-09-71 08:35:000.5[facility] PhledghYVTWPJJRRG9265-57-99 08:35:003.3 [facility] MaxgabdSCLZBPASSZ8649-13-26 08:35:001.93[facility]annHEMATOLOGY 2011-09-29 08:35:00 Test Item Value Reference Range Interpretation Comments PTT (test code = PTT) 56.1 s 22.9-35.8 H [facility] HdrigcyOOBHZHXRLC5735-00-41 08:35:00 Test Item Value Reference Range Interpretation Comments PT (test code = PT) 21.9 s 12.0-14.7 H [facility] GssykuaJUFETRHVZY7947-49-08 08:35:0031.2[facility]annHEMATOLOGY 2011-09-29 08:35:0010.6[facility] OiwppgyVWKRESHIYJ3298-95-93 08:35:00 Test Item Value Reference Range Interpretation Comments MCH (test code = MCH) 29.0 pg 27.0-31.0 N [facility] GfyxtccXTYUZAONVP8620-49-36 08:35:0085.7[facility]annHEMATOLOGY 2011-09-29 08:35:005.9[facility] ScqmlokOGUQYQJACG7869-28-95 08:35:003.64[facility] OwlhaesSLBJCMYBXV3036-58-71 08:35:006.1[facility] RaykymnCNEUOFIEUB2270-28-56 08:35:0033.9[facility] IhuukqhNZXIUCGDHY9936-83-25 08:35:79793Mmexrfht [place] BAJPFVFITZ7420-32-81 08:35:0013.7[facility] NnkctamSKWYCZXAU8896-13-65 08:11:003.7 [facility] SxkbnhxYBKAOHKOA8570-32-75 08:11:001.9[facility]annCHEMISTRY 2011-09-28 08:11:0014.2[facility] RjywtjwMEOZQUMJA4527-35-49 08:11:003.2[facility] FqgvpxpFDMFWKPBK6510-26-53 08:11:78198Wlvmvldh KuhbhkwEGOWIYONR5385-38-44 08:11:83630Snknhrlk FnkzwcjISLQWJPHM5283-62-49 08:11:008.1[facility] [place] KILTSANBV4762-29-10 08:11:0027[facility] VfamtfaONGEEHXOX5044-41-13 08:11:003 [facility] JrazykeLYNJXWSFE4557-15-51 08:11:000.3[facility]annCHEMISTRY 2011-09-28 08:11:0082[facility] KhjbcdxKDPQKSXBX3978-62-35 08:11:004.80[facility] OnqvjnoXUNROPAZI4644-74-19 08:11:001.22[facility] ShpinqvVXQYBYZVS1968-89-38 08:11:004.88[facility] HoriwrzMAXWCRVJZ8831-39-10 08:11:001.20[facility] [place] ZVMNQPCMYE0336-87-48 08:11:006.2[facility] VuubrrjZHWKTOPTVU8398-83-47 08:11:75648 [facility] HmlvbnnQSANBSRHTX9307-29-21 08:11:0013.3[facility]annHEMATOLOGY 2011-09-28 08:11:0034.4[facility] RcxoppkGGYIROYPFJ3442-32-56 08:11:00 Test Item Value Reference Range Interpretation Comments MCH (test code = MCH) 29.3 pg 27.0-31.0 N [facility] KaanuesIOWQLWVUQC4155-45-16 08:11:0010.6[facility]annHEMATOLOGY 2011-09-28 08:11:003.62[facility] AqebbneLODXEAGMAD1044-65-73 08:11:005.1[facility] AnqfegdQFIXJMUSNL0165-11-10 08:11:0030.8[facility] WokcnxcCEBNIEJLIF7309-63-38 08:11:0085.0[facility] AdwyvosPHHDTSKETV0820-23-07 08:11:0071[facility] [place] PYYRUFUGZD5221-66-76 08:11:000.0[facility] VgapyheURWTMRFPOI2664-65-66 08:11:007.3 [facility] GuztuwnTOFSCUPDDM0850-83-97 08:11:004.1[facility]annHEMATOLOGY 2011-09-28 08:11:000.5[facility] ZrdknitCPRMCGOJFO0384-97-82 08:11:0056.6[facility] UgwecgrLDJABRQUXM2830-02-29 08:11:0031.5[facility] MjfxqymKQAXFZRWLL2324-34-06 08:11:001.6[facility] LrbkkadUOCXJJBBEU7083-37-44 08:11:000.4[facility] [place] VPXGKEAHPR8473-19-25 08:11:002.9[facility] RjybqvvMZVHQCMXHW2325-16-64 08:11:000.2 [facility] KiitefyJAKXXIXNF7105-65-10 08:11:003.7[facility] HermannCHEMISTRY 2011-09-28 08:11:001.9[facility] InnuzogWGQKJMLYF6031-28-76 08:11:0014.2[facility] RymayciWSTNEWMXS8863-01-09 08:11:003.2[facility] GylvrorJCLYHTCMX8822-76-60 08:11:02948Blhfjrhb DfwzxyhLTSRCUTYA1332-72-36 08:11:38222Rtqmchdj [place] IKUEYJUHW5235-82-68 08:11:008.1[facility] StajgddBABYYUIFJ7038-18-80 08:11:0027 [facility] NktphdoHMBDIGJFK8951-77-22 08:11:003[facility] ZrxodfgUDCZEVIYL4963-56-35 08:11:000.3[facility] AinhaadZMRVKJOED8011-54-79 08:11:0082[facility] [place] BRMYQQMIL4133-07-56 08:11:004.80[facility] OsxiyteTOVLBKPKP0635-62-32 08:11:001.22 [facility] TlnoillRIZUQJXIN1217-24-03 08:11:004.88[facility]annCHEMISTRY 2011-09-28 08:11:001.20[facility] UdvqxtcYBMEIQVQDV8426-36-07 08:11:006.2[facility] KdhpifaCMDUBXJSXY0218-32-02 08:11:97405Ymlkcazf KcskzeoWCFXIEQBOH4182-42-60 08:11:0013.3[facility] MeiicwqZZXPVIEVUO9043-53-94 08:11:0034.4[facility] YKYOMEIXZN0136-22-52 08:11:00 Test Item Value Reference Range Interpretation Comments MCH (test code = MCH) 29.3 pg 27.0-31.0 N [facility] SmasynlSHNNLOZUCA1701-93-07 08:11:0010.6[facility]annHEMATOLOGY 2011-09-28 08:11:003.62[facility] MynkvrrNOIMBBWPXC1679-80-51 08:11:005.1[facility] JpqsyizKMIJWRINFU5190-67-16 08:11:0030.8[facility] QvxvmucUGNJQSJVVG5070-06-26 08:11:0085.0[facility] ShvrxosETYBZOSQXD5759-44-41 08:11:0071[facility] MALPKKVPSI7852-18-06 08:11:000.0[facility] GzmvnhsRJDYJPUVCM6158-39-99 08:11:007.3 [facility] UkfmkawJLUNGRRMJE4794-03-21 08:11:004.1[facility]annHEMATOLOGY 2011-09-28 08:11:000.5[facility] LpkrqffHDNVGDZGIN0848-59-11 08:11:0056.6[facility] FftlkwwUWRAWABQNE7487-61-78 08:11:0031.5[facility] BewrtbiFWEDLDJSNR8468-28-04 08:11:001.emorial VbhbvemZDECVMTKDI7218-14-80 08:11:000.4[facility] [place] GVCBOETBJV0455-90-92 08:11:002.9[facility] SlmcrfwJSERZVURBN6939-15-03 08:11:000.2 [facility] DvzblbwROLRESHBWV1214-91-30 20:32:00 Test Item Value Reference Range Interpretation Comments PTT (test code = PTT) 54.2 s 22.9-35.8 H [facility] JwqgmirQLKHDNSUYV6746-22-94 20:32:00 Test Item Value Reference Range Interpretation Comments PTT (test code = PTT) 54.2 s 22.9-35.8 H [facility] EgfjqdbSHNOXJMYY0984-25-18 07:47:007.6[facility]annCHEMISTRY 2011-09-27 07:47:0014.5[facility] VhmxqoyWQVRYIAZV3488-95-13 07:47:0026[facility] XdfrgiqVYDPEVRJW5226-86-10 07:47:005[facility] PwuajepQFDHBMERQ2919-35-02 07:47:00 0.4[facility] RlylawiKWFWHUUSP7036-08-75 07:47:0094[facility]annCHEMISTRY 2011-09-27 07:47:12536Ngaspmvf QodporbOWMJIZPWT2872-65-42 07:47:003.5[facility] VfjcsebNURHAFRZE4304-68-67 07:47:94922Qkigqhpl JtmmmgxWOHYLRYTE8885-35-92 07:47:003.6[facility] IjsamzaERKZWIOGA8330-78-65 07:47:001.15[facility] [place] FBARVVROM4729-24-44 07:47:004.60[facility] VwmetdzCETTXZMMO0245-64-81 07:47:001.19 [facility] HicpcsqTILNBASKE6280-49-56 07:47:004.76[facility] HermannCHEMISTRY 2011-09-27 07:47:001.9[facility] AlmwhwqQWZXBBUZFO0212-02-84 07:47:0060.7[facility] LewcrlkYFIWYBOQCW4704-78-18 07:47:0027.emorial XprptaqLQHLYIMUAF5961-65-39 07:47:000.0[facility] RzvucrdQLYQYAQGHX5727-19-18 07:47:000.2[facility] [place] SDTFOVIJDU8757-26-54 07:47:000.5[facility] CwpxdloAFAOSXQCXY8768-34-89 07:47:008.3 [facility] PenlhrqOSUEBJLUWN6526-33-10 07:47:001.6[facility]annHEMATOLOGY 2011-09-27 07:47:003.6[facility] TtildokBYLJFIDUUD6140-40-12 07:47:000.3[facility] HnufroeTCAWORYVXI5859-14-73 07:47:003.5[facility] NwuugthCDDJYSFQGK7936-74-20 07:47:71049Aregdrbe VviudfpYIDBLPLHUK3795-62-87 07:47:0013.7[facility] [place] ZYJXILESCG2650-04-44 07:47:0033.6[facility] AbaefuaQNOFTBQILF5368-88-85 07:47:00 6.2[facility] HdacrteETGARSZDOH4299-73-41 07:47:66674Riboprsr HermannHEMATOLOGY 2011-09-27 07:47:0032.5[facility] VrlrrcaVUJMENBPGQ7101-82-47 07:47:00 Test Item Value Reference Range Interpretation Comments MCH (test code = MCH) 28.8 pg 27.0-31.0 N [facility] PpvinsmHUIJXRHCZL9509-21-50 07:47:0085.[facility] HermannHEMATOLOGY 2011-09-27 07:47:0010.9[facility] LgkueigLIWFCPEIAV3206-54-58 07:47:003.79[facility] GamyczlRBXJTDDJVX6175-34-14 07:47:006.0[facility] CihfnlbTGGPBWQKAU4477-65-58 07:47:001.32[facility] CroonycATQLSGFPTE4803-79-90 07:47:00 Test Item Value Reference Range Interpretation Comments PTT (test code = PTT) 57.1 s 22.9-35.8 H [facility] TvjjvvmSFYLOAWZNP6344-55-58 07:47:00 Test Item Value Reference Range Interpretation Comments PT (test code = PT) 16.3 s 12.0-14.7 H [facility] OvlyauzWSHVTKNSO9246-50-85 07:47:007.6[facility] HermannCHEMISTRY 2011-09-27 07:47:0014.5[facility] KjptxkhRGVOQFCNW2557-73-30 07:47:0026[facility] LrqhbcmIUXJZSUCN1158-22-55 07:47:005[facility] JcxziwpDNRBGKDJM9599-27-51 07:47:00 0.4[facility] DoprcslDKPGNONGH4136-26-50 07:47:0094[facility] HermannCHEMISTRY 2011-09-27 07:47:16228Kgqioaxh MljlmtzYZZRBQUGJ6553-06-79 07:47:003.5[facility] BgbixyvYLOHMDRMR5336-44-26 07:47:78952Orblmqie DlxudiaWJKQOHKUE6802-46-38 07:47:003.6[facility] JoodanpZNBCTKAJO0116-41-22 07:47:001.15[facility] NBKBYSBYI3379-92-15 07:47:004.60[facility] ZincsnmTBUJQDZTD3456-78-91 07:47:001.19 [facility] ZndasvmKUZLBSNTZ0268-31-37 07:47:004.76[facility] HermannCHEMISTRY 2011-09-27 07:47:001.9[facility] QylyruaEQNMIQZZZQ5051-67-66 07:47:0060.7[facility] CijrzqzRFKRFIAXLP2515-00-76 07:47:0027.2[facility] LkgvhpkSMOBKFTPNZ7869-12-91 07:47:000.0[facility] GfgfqjlNNQODJMYCR4611-72-11 07:47:000.2[facility] [place] UJXUAQHYDK3339-08-22 07:47:000.5[facility] OpzlwwbSVEYRLRVCZ5911-79-40 07:47:008.3 [facility] FnaforeSWGFNCTPHD8066-03-31 07:47:001.6[facility] HermannHEMATOLOGY 2011-09-27 07:47:003.6[facility] MvsfubvTXVLMGIIEU4850-67-54 07:47:000.3[facility] LzhsjwtYOGZSFIHXF6948-64-73 07:47:003.5[facility] BaihyxdCNMLQKCLWB5506-43-85 07:47:51642Fglhjnki PxgtxkqVUZNOXSNTH8999-27-63 07:47:0013.7[facility] [place] HMFCKNWCQE0175-64-83 07:47:0033.6[facility] RxvrncyCPJNWDNLLR5939-34-99 07:47:00 6.2[facility] TxjgnkeHFYIPEUJXP2421-44-96 07:47:05867Okzqfhny HermannHEMATOLOGY 2011-09-27 07:47:0032.5[facility] BffgxrzYLGZYOIHMY5852-55-66 07:47:00 Test Item Value Reference Range Interpretation Comments MCH (test code = MCH) 28.8 pg 27.0-31.0 N [facility] HhuaoetHNBUCIKQNE6415-84-10 07:47:0085.6[facility] HermannHEMATOLOGY 2011-09-27 07:47:0010.9[facility] MkgkmmeWNQFFCFTBF9356-64-68 07:47:003.79[facility] VrikoszGKGRFXNIQG2277-20-82 07:47:006.0[facility] ZtuzkhtNAXKKEUEUX1707-20-47 07:47:001.32[facility] IdbppwoADTNPATOIU1554-40-30 07:47:00 Test Item Value Reference Range Interpretation Comments PTT (test code = PTT) 57.1 s 22.9-35.8 H [facility] MmcrnhkYGSJNCLJRU1211-67-39 07:47:00 Test Item Value Reference Range Interpretation Comments PT (test code = PT) 16.3 s 12.0-14.7 H [facility] UyymwozWCOWVWFILH8176-40-74 19:25:66967Pqpjkgtm HermannHEMATOLOGY 2011-09-26 19:25:001.32[facility] CutsiusQSPTSJURVH8395-41-62 19:25:00 Test Item Value Reference Range Interpretation Comments PT (test code = PT) 16.3 s 12.0-14.7 H [facility] OfjgfmhYAMKCAXKJO3332-24-50 19:25:82763Yjbtavbu HermannHEMATOLOGY 2011-09-26 19:25:001.32[facility] SbhbpedYTPDEPBDXH1516-38-86 19:25:00 Test Item Value Reference Range Interpretation Comments PT (test code = PT) 16.3 s 12.0-14.7 H [facility] VdprkzvNSDPCUJBW4015-01-12 23:10:467352Hcvspwob HermannCHEMISTRY 2011-09-25 23:10:005.9[facility] WidqxmhAYWHHQGHF5646-79-50 23:10:517662Cudtuepv EzxwrkmNAIZATPUK8246-69-68 23:10:005.9[facility] KfyhozbMGPYFMJMUM6650-11-67 05:37:00Occasional /HPF *NA*(09/24/2011 00:37:00)[facility] HermannURINALYSIS 2011-09-24 05:37:002[facility] NbdtccvPKBXYLXSNP7146-56-35 05:37:00Few /LPF *NA*(09/24/2011 00:37:00)[facility] OycvgtbGOLBOMORWL5033-55-05 05:37:00Yellow *NA*(09/24/2011 00:37:00)[facility] PmpeamnUXGUBCYYGJ6368-83-54 05:37:00Clear (09/24/2011 00:37:00)[facility] ObbnhteZIQHRSNMKQ6833-58-94 05:37:00Negative mg/dL *NA*(09/24/2011 00:37:00)[facility] XrffrbjXWNINWGVWM5397-16-79 05:37:00>=150 mg/dL *ABN*(09/24/2011 00:37:00)[facility] LplbwfnKDDLMROKVP5532-38-19 05:37:005.5 [facility] MviybeqKPHZJMRGZL4975-16-03 05:37:0050 mg/dL *ABN*(09/24/2011 00:37:00) [facility] YxbjbfuAXNCIVPACK7107-83-27 05:37:001.015[facility] HermannURINALYSIS 2011-09-24 05:37:00Negative (09/24/2011 00:37:00)[facility] HermannURINALYSIS 2011-09-24 05:37:00Negative (09/24/2011 00:37:00)[facility] HermannURINALYSIS 2011-09-24 05:37:00Negative (09/24/2011 00:37:00)[facility] HermannURINALYSIS 2011-09-24 05:37:00Negative *NA*(09/24/2011 00:37:00)[facility] HermannURINALYSIS 2011-09-24 05:37:00Occasional /HPF *NA*(09/24/2011 00:37:00)[facility] VXAIIBPNAG0528-42-96 05:37:002[facility] UbycholMKZBLNIIUZ4442-57-26 05:37:00Few /LPF *NA*(09/24/2011 00:37:00)[facility] MxfwfqyDJBHUSRSER6258-10-79 05:37:00 Yellow *NA*(09/24/2011 00:37:00)[facility] XblevxkXIRHMMIDEU9300-17-64 05:37:00 Clear (09/24/2011 00:37:00)[facility] LmsjngaBAMMVWAOEF9924-41-69 05:37:00Negative mg/dL *NA*(09/24/2011 00:37:00)[facility] WhnqdetVQPKEQWYAK5655-70-42 05:37:00 >=150 mg/dL *ABN*(09/24/2011 00:37:00)[facility] WvsqodnDRDZZRSMAU6567-84-38 05:37:005.5[facility] DstnevnEEOJIDMGXJ6540-35-55 05:37:0050 mg/dL *ABN*(09/24/2011 00:37:00)[facility] LnwgygaRFCDUMBWDU6687-38-22 05:37:001.015 [facility] IzbgwgrQKSMXDBCBU1912-44-48 05:37:00Negative (09/24/2011 00:37:00) [facility] GefhqguAKTDQQWLGZ4870-27-75 05:37:00Negative (09/24/2011 00:37:00) [facility] AdqajnqSKECJAKBEK6511-50-22 05:37:00Negative (09/24/2011 00:37:00) [facility] OzyjvxgERFNINXVQO4836-67-95 05:37:00Negative *NA*(09/24/2011 00:37:00) [facility] JLGSPUF6976-14-13 19:15:00Negative (2011 14:15:00)[facility] GDRACYG4831-77-88 19:15:00Negative (2011 14:15:00)[facility] JsxuyucXAZAIYZEG9799-51-41 21:00:0025[facility] ItldoqlEUCXLKEKQ4981-22-69 21:00:0015.4[facility] PgbobovLDPXQWUKT2957-64-47 21:00:001.3[facility] ZfswqtePPDOPCFBX0108-37-86 21:00:003.2[facility] CDBHAEPOW4221-04-91 21:00:75232Usbwqoyr IrmwpufUVYQZWSVW2765-70-13 21:00:000.5 [facility] LdlpzocJZSXEBEZE5796-10-03 21:00:009.5[facility] HermannCHEMISTRY 2011-08-25 21:00:0011[facility] CrkabnwOCAOVUURY2456-27-73 21:00:007.5[facility] ZpgrstnPECCITHUZ9456-73-45 21:00:0025[facility] VlzbayiHIYQEJLZA2076-56-65 21:00:0087[facility] FhgyaklQSCHXOUCE8938-27-47 21:00:004.3[facility] JPEHPGSFC3458-42-15 21:00:0045[facility] CenuennAJDXPLEJN7964-91-12 21:00:004.4 [facility] WlrewfeTYRPVOMXG9496-99-27 21:00:00437Kyzckfyi HermannCHEMISTRY 2011-08-25 21:00:000.8[facility] QsntkejBFUMPJRAJ5542-03-48 21:00:0020[facility] SatjpdwVDOGUKKLI8291-11-46 21:00:0070[facility] SagxqknMVHENPKFN2254-69-94 21:00:002.0[facility] FswnhmcADPMEMVQTN8312-82-85 21:00:0015.2[facility] IPRHJFCJVM3393-73-85 21:00:0013.6[facility] JxspewjYKXLKKNGSB7519-10-74 21:00:00 212[facility] LyybquhVKPRZDLWJB3540-41-71 21:00:00 Test Item Value Reference Range Interpretation Comments MCH (test code = MCH) 29.5 pg 27.0-31.0 N [facility] JujqrmaAHKBUDAYNL5629-99-87 21:00:0034.3[facility] HermannHEMATOLOGY 2011-08-25 21:00:0044.3[facility] IgxnxfyVEHKJSWENK8074-58-83 21:00:0085.8[facility] RjuhnasSGZCBBYNVC7492-84-55 21:00:008.1[facility] QuuhfelYHDYDDPFGR1497-70-60 21:00:005.17[facility] MuohzgcRHDJITRUFL8602-98-73 21:00:0012.1[facility] UUJEIGCPLZ9776-31-95 21:00:000[facility] MjfajerBEURPYXELA7756-18-94 21:00:001.0 [facility] UwkfamnZYDWMFCOCL3799-42-79 21:00:005.8[facility] HermannHEMATOLOGY 2011-08-25 21:00:002.4[facility] DinoqsxXPRLXYQYRB3261-65-07 21:00:008.8[facility] AlkkxkpTXQEZLFMBR3425-94-43 21:00:000.3[facility] BwfzupdRIZJGZTVYF0405-40-89 21:00:0020.2[facility] TpvfotlJVDWTRIOGV4365-04-29 21:00:000.0[facility] FYKOSTTGHK5410-79-81 21:00:000.7[facility] XrhtxoxPEEZMTANRM1027-10-68 21:00:000.1 [facility] YuxtmkfLQNHFXZUEX3721-83-30 21:00:0072.7[facility] HermannIMMUNOLOGY 2011-08-25 21:00:001.0[facility] PobddsuHOUECGFNX8552-54-98 21:00:0025[facility] LkqkmvdPFMWEENWW6480-67-30 21:00:0015.4[facility] DaoxgseCPVGXHMPZ8858-97-98 21:00:001.3[facility] DlbhqnnGRCIRBDHN4089-58-05 21:00:003.2[facility] EPBRRCWAJ4288-64-99 21:00:90320Gyujlirx LvigtsfPSTADCLQY8201-63-30 21:00:000.5 [facility] AtxthfiMHMTIPZGP8537-58-83 21:00:009.5[facility] HermannCHEMISTRY 2011-08-25 21:00:0011[facility] PoecmfbFPWLGGGXV8827-41-99 21:00:007.5[facility] TbfpadfFGZAYLRQZ3599-04-27 21:00:0025[facility] UyyypajLEDBLTLRC6652-11-75 21:00:0087[facility] IqlwoncVFWRVMFGT1897-63-26 21:00:004.3[facility] VKKQWIEMI9432-27-73 21:00:0045[facility] CsyclbmHOSDXQAFD8922-05-25 21:00:004.4 [facility] BuqgmhdHQOAPHAIA7936-83-39 21:00:89857Qmzatejv HermannCHEMISTRY 2011-08-25 21:00:000.8[facility] HhcfmekHKKTEUTQH8737-86-35 21:00:0020[facility] JjteghtQHAQRFSDI5104-52-35 21:00:0070[facility] RfpwodhAFOEMJMGT4777-46-27 21:00:002.0[facility] DcunhapGCLHWBIUPH2725-50-44 21:00:0015.2[facility] UERHJFQYLF2125-25-49 21:00:0013.6[facility] DxdyopwERYWDKWIML5710-49-63 21:00:00 212[facility] XifysvnRQSGUCSGXJ1373-77-57 21:00:00 Test Item Value Reference Range Interpretation Comments MCH (test code = MCH) 29.5 pg 27.0-31.0 N [facility] CfrdovgRMWCDHCACM1302-39-81 21:00:0034.3[facility] HermannHEMATOLOGY 2011-08-25 21:00:0044.3[facility] KnwggpeRNDYGHDKAB4534-32-95 21:00:0085.8[facility] KgkskkzRNZGZOHXRT8175-19-60 21:00:008.1[facility] HgizajuOUNFVROZFI8382-61-62 21:00:005.17[facility] ByzhypuUKBZFCSOAV0185-99-90 21:00:0012.1[facility] OKDHSBGYIK0969-24-22 21:00:000[facility] DhyaranRMKOVFAEOW9400-94-80 21:00:001.0 [facility] HclshsjAIGOQAFVGL2850-86-77 21:00:005.8[facility] HermannHEMATOLOGY 2011-08-25 21:00:002.4[facility] GoeorebPARPSUTNHX1516-01-88 21:00:008.8[facility] BjgjfzlUOUOBHBCJW9038-04-94 21:00:000.3[facility] BvuwrgtHMIVETKYRP7814-67-09 21:00:0020.2[facility] PuraqhsIAUGAPEKAB4253-30-48 21:00:000.0[facility] [place] BFSBCVKNRJ6135-99-64 21:00:000.7[facility] UwxhdbkKUMCSKXDDO3271-23-45 21:00:000.1 [facility] NpsxfugARKQPCPKMZ6509-82-67 21:00:0072.7[facility] HermannIMMUNOLOGY 2011-08-25 21:00:001.0[facility] HermannBEDSIDE GLUCOSE TZHJFMN7677-98-78 16:22:00 90[facility] HermannBEDSIDE GLUCOSE CJMMACB6364-82-81 16:22:0090[facility] BEDSIDE GLUCOSE TSOCCJP4765-49-62 12:28:0093[facility] HermannBEDSIDE GLUCOSE CQXLYKG9156-60-98 12:28:0093[facility] HermannBEDSIDE GLUCOSE LHDSRQR2978-36-23 08:33:0079[facility] HermannBEDSIDE GLUCOSE IIEAFPM9904-23-50 08:33:0079[facility]BL[facility] AUXVZIF8857-99-80 12:10:00Negative (07/14/2011 07:10:00) [facility] PWKJRCL7846-90-87 12:10:00Negative (07/14/2011 07:10:00)[facility] NuxdnkeGRTLPIZIE9414-18-70 19:50:0024[facility] HermannCHEMISTRY 2011-07-07 19:50:93882Pybhjmam VdjjworQGPLLTTXH2473-34-97 19:50:004.3[facility] GdupeprKJRBPSQYL6180-99-12 19:50:009.3[facility] HkjkilfRWWQWDMAL4637-97-85 19:50:000.6[facility] ZdfgmwtAXOEPLINS1878-88-52 19:50:93924Qnoamdvw [place] QTTQGXWFY1170-44-76 19:50:0074[facility] LcoryhmXOAAGMHMT8464-06-97 19:50:0016 [facility] PkzzcnbCFJMPSMVA7157-43-40 19:50:0016.3[facility] HermannHEMATOLOGY 2011-07-07 19:50:0010.2[facility] GgokxkuNMVNDBGEKQ7854-37-65 19:50:001.9[facility] CrwngcrKTBDIOJFIE9878-82-67 19:50:000.4[facility] GjjrptfXVZXUPWROY6985-99-78 19:50:000.1[facility] TccbqclWTILAYSEZI6998-86-56 19:50:000.0[facility] [place] DGSFQMSROX4278-26-38 19:50:000.2[facility] EewclsaAJYIBQPWSI1153-64-82 19:50:000.7 [facility] TgalervQWGMYDAZQT8786-98-21 19:50:0014.9[facility] HermannHEMATOLOGY 2011-07-07 19:50:002.9[facility] RtbglooAWXMPMXPYF4458-94-18 19:50:0081.3[facility] PhgznwsUKKKGYXVKJ5043-51-63 19:50:007.4[facility] AgjoyurBIQVXWXWIH1500-96-08 19:50:0035.1[facility] LydchnzRRIZBMGCLR3956-10-38 19:50:00 Test Item Value Reference Range Interpretation Comments MCH (test code = MCH) 29.4 pg 27.0-31.0 N [facility] NudifsxTIWBLICTMZ6393-52-28 19:50:0012.5[facility] HermannHEMATOLOGY 2011-07-07 19:50:005.11[facility] QmhvuiqPAQVDIYTQC6386-27-90 19:50:0015.0[facility] ZppczqbGFFLDUEOGQ1656-20-33 19:50:0083.8[facility] KgyjdalASKQVQQTQV7270-80-38 19:50:0042.8[facility] ItftkupWSMYRRPWMO5996-01-03 19:50:95223Riswovwl [place] MPIZLFENYK2967-31-92 19:50:0013.3[facility] XuzyjwuICKWPSXWVD0436-24-75 19:50:00 1.15[facility] XhtzfpkJVATQATFFB7772-54-38 19:50:00 Test Item Value Reference Range Interpretation Comments PTT (test code = PTT) 30.1 s 22.9-35.8 N [facility] WcdmcusPHBEJIOOME7413-35-37 19:50:00 Test Item Value Reference Range Interpretation Comments PT (test code = PT) 14.7 s 12.0-14.7 N [facility] UhasdniFDTYASLQQG7951-32-26 19:50:00Not Indicated *NA*(07/07/2011 13:50:00)[facility] YfhaptbISCSZMMJYM8757-12-57 19:50:001.015[facility] MWBYZLTIZF6811-08-97 19:50:00Clear (07/07/2011 13:50:00)[facility] [place] LFOQAJDSSU3044-54-26 19:50:00Negative mg/dL (07/07/2011 13:50:00)[facility] OygiiitGQNYZKVHAY1004-64-52 19:50:005.0[facility] WyhncekYBURVZHRIK2100-75-20 19:50:00Negative mg/dL *NA*(07/07/2011 13:50:00)[facility] HermannURINALYSIS 2011-07-07 19:50:00Negative mg/dL *NA*(07/07/2011 13:50:00)[facility] [place] JWKSEDWNUK0555-85-89 19:50:00Negative *NA*(07/07/2011 13:50:00)[facility] JEFMUUUEMK4901-80-80 19:50:00Negative (07/07/2011 13:50:00)[facility] MEKWHZJUFT2644-89-65 19:50:00Negative (07/07/2011 13:50:00)[facility] GJMUBEYFBS7521-36-55 19:50:00Negative (07/07/2011 13:50:00)[facility] [place] HZQVYGVBRC1963-27-01 19:50:00Yellow *NA*(07/07/2011 13:50:00)[facility] YRRKTJABB6210-48-27 19:50:0024[facility] MfafmdwSSWUDBLEL9602-22-09 19:50:73855 [facility] SlyuiyiOQCRHNCEW5962-80-21 19:50:004.3[facility] HermannCHEMISTRY 2011-07-07 19:50:009.3[facility] RrknwuuUUDBBVITJ0925-59-83 19:50:000.6[facility] MfdbxpkULVFNPQKB3282-67-50 19:50:66681Uiisifzn NvwdbifCZSEPGIKV0930-67-69 19:50:0074[facility] JljhrtjALZQFAFRY0405-79-30 19:50:0016[facility] RHYAOOTMT9283-01-58 19:50:0016.3[facility] KnqtcmlUJALNHHFXQ8412-44-71 19:50:00 10.2[facility] FebsmjrLKIIBGECJZ6968-12-62 19:50:001.9[facility] HermannHEMATOLOGY 2011-07-07 19:50:000.4[facility] ByxkkhuOHDSFUKCJK9723-45-50 19:50:000.1[facility] BhnsxxqJOGPVTMNAD1696-97-17 19:50:000.0[facility] TngkdavGLUIYDRYLH7434-45-92 19:50:000.2[facility] IxsvnjsWOZMPILHSI7715-16-21 19:50:000.7[facility] [place] UPYRGQMPBY2716-30-21 19:50:0014.9[facility] EsfjfvvWQIHVAEUGZ5384-51-95 19:50:00 2.9[facility] IwnkxkySSQEJHYGEB6735-85-35 19:50:0081.3[facility] HermannHEMATOLOGY 2011-07-07 19:50:007.4[facility] CvkiyffNPBRLDNFIN5886-61-29 19:50:0035.1[facility] YuooimmPRMLQSSXUL1668-84-87 19:50:00 Test Item Value Reference Range Interpretation Comments MCH (test code = MCH) 29.4 pg 27.0-31.0 N [facility] WvtrmbsVZTOFGWEOI5675-19-59 19:50:0012.5[facility] HermannHEMATOLOGY 2011-07-07 19:50:005.11[facility] RdguosoRCORBVNBZP9667-70-17 19:50:0015.0[facility] AobtudkEUXFNMPQDP8351-06-99 19:50:0083.8[facility] GbmjyvlPAHSBAINJR8276-94-19 19:50:0042.8[facility] SkdgioyNSMWJDTWTN3066-72-96 19:50:99859Xqdbfetl [place] YOTOPWUFDX0039-53-01 19:50:0013.3[facility] YglwtmjAJJXLQUPBE8511-38-63 19:50:00 1.15[facility] MmkylsbQMLMMVUTUM8585-44-28 19:50:00 Test Item Value Reference Range Interpretation Comments PTT (test code = PTT) 30.1 s 22.9-35.8 N [facility] OlbijlqDJHZMQTPHQ7579-06-84 19:50:00 Test Item Value Reference Range Interpretation Comments PT (test code = PT) 14.7 s 12.0-14.7 N [facility] NbzbdxvEAQWUTVYSR4069-80-28 19:50:00Not Indicated *NA*(07/07/2011 13:50:00)[facility]inte[facility]ezcznuOBVBXOZMZT0597-75-22 19:50:001.015[facility] [place] TJBEAUFHEY6423-51-63 19:50:00Clear (07/07/2011 13:50:00)[facility] DJRPKUBDMT2024-04-65 19:50:00Negative mg/dL (07/07/2011 13:50:00)[facility]inteLkikgnjVEWAHQDBNJ4521-77-97 19:50:005.0[facility] GmpjvilROJSRGJHAW0521-31-08 19:50:00Negative mg/dL *NA*(07/07/2011 13:50:00)[facility] 2011-07-07 19:50:00Negative mg/dL *NA*(07/07/2011 13:50:00)[facility] RMGQUEQLCD6932-27-93 19:50:00Negative *NA*(07/07/2011 13:50:00)[facility] GIBXSDHQSP3614-01-73 19:50:00Negative (07/07/2011 13:50:00)[facility] AYQYUKMSBC9348-93-93 19:50:00Negative (07/07/2011 13:50:00)[facility] KCVPHYOAEM3755-21-08 19:50:00Negative (07/07/2011 13:50:00)[facility] NVQPCUFDSW5769-41-57 19:50:00Yellow *NA*(07/07/2011 13:50:00)[facility] NHUQUVBPZB7381-91-92 14:45:00Occasional /HPF *NA*(06/19/2011 08:45:00)[facility] SiazxuyNOHJAPCPBO4820-36-99 14:45:00Few /LPF *NA*(06/19/2011 08:45:00)[facility]inteZqrrsjxMXQIDJFDNL3225-54-02 14:45:00Negative *NA*(06/19/2011 08:45:00)[facility] PointeYumnolqYRLIOFAIFT0510-72-72 14:45:00Negative mg/dL *NA*(06/19/2011 08:45:00) [facility] YteudocPYFTRTPOJJ1583-34-48 14:45:00Negative mg/dL *NA*(06/19/2011 08:45:00)[facility] FrtwcujYOXYXOXNAS7237-54-47 14:45:005.5[facility] TBSNJFCQML4719-01-36 14:45:00Negative mg/dL (06/19/2011 08:45:00)[facility]inteAxtpemcRSNYELCEEO3275-32-52 14:45:001.014[facility] NraojhuFROBMDEMOV5098-95-96 14:45:00Slight *ABN*(06/19/2011 08:45:00)[facility]inteSdzcxajYTSEYRWFWL0581-87-64 14:45:00Yellow *NA*(06/19/2011 08:45:00)[facility]inteDmfzpmdBWCVCNAWTB7947-37-91 14:45:0018[facility] VuydplgUPIYBWEIFI3264-00-89 14:45:001[facility] AKKQLBMUUC6966-41-65 14:45:00Moderate *ABN*(06/19/2011 08:45:00)[facility] ALTTLTDCOH6410-48-98 14:45:00Positive *ABN*(06/19/2011 08:45:00)[facility] DSMZDYIRRB6449-47-18 14:45:00Few /LPF *NA*(06/19/2011 08:45:00)[facility] VJRMMVRNUF1372-27-39 14:45:00Trace *ABN*(06/19/2011 08:45:00)[facility] NTQFYHBZWV2011-91-44 14:45:00Occasional /HPF *NA*(06/19/2011 08:45:00)[facility] TqumqmwUKKARSFSPF8888-30-59 14:45:00Few /LPF *NA*(06/19/2011 08:45:00)[facility] JwlrscsEYNFODMELK4056-22-21 14:45:00Negative *NA*(06/19/2011 08:45:00)[facility] CcrvfnbTOWQLDCZXL2538-30-54 14:45:00Negative mg/dL *NA*(06/19/2011 08:45:00) [facility] HuqiuyeINXDGQNOTA9500-53-79 14:45:00Negative mg/dL *NA*(06/19/2011 08:45:00)[facility] VfwrdxfQWRJADBPXR3078-90-39 14:45:005.5[facility] ACZKUWWBLM3061-32-44 14:45:00Negative mg/dL (06/19/2011 08:45:00)[facility] DyjdrdsPFCNPMZECB7718-03-23 14:45:001.014[facility] JorgcnfIOJEJNOPAA9559-72-98 14:45:00Slight *ABN*(06/19/2011 08:45:00)[facility] EtfqwubTFSIKZTVSA4425-88-04 14:45:00Yellow *NA*(06/19/2011 08:45:00)[facility] NddktmyFCNJOZHDSD4398-38-14 14:45:0018[facility] FnckqrfHQKQIPQOTQ5813-78-34 14:45:001[facility] MUZMPVXIPQ2288-67-49 14:45:00Moderate *ABN*(06/19/2011 08:45:00)[facility] EATOEMWOZF5208-22-84 14:45:00Positive *ABN*(06/19/2011 08:45:00)[facility] JJEKZVZIHR2241-00-16 14:45:00Few /LPF *NA*(06/19/2011 08:45:00)[facility] YRHDWVOQKG1732-21-46 14:45:00Trace *ABN*(06/19/2011 08:45:00)[facility] YXCGLHGUO7252-65-24 22:00:001.8[facility] EbhvpihXRSMXLOWD5872-03-94 22:00:007.6 [facility] YvscicaBCWETELJP0702-49-55 22:00:0011[facility] HermannCHEMISTRY 2011-06-02 22:00:004.7[facility] GudwgjaLUKTYJAHE4756-96-24 22:00:97713Jrhjqghp DiflpaiUEMGJGAJJ2148-49-41 22:00:000.7[facility] HzcrleiYDNFZCKNR1108-60-66 22:00:0015[facility] HvjooquBQOSEXSCA0616-48-87 22:00:0095[facility] BOPQFWMLR9419-74-39 22:00:004.6[facility] ZajyrfhLTVWSNQLM3306-00-39 22:00:0090 [facility] NsgnwdqQRDYHAISO9493-76-88 22:00:0025[facility] HermannCHEMISTRY 2011-06-02 22:00:0023[facility] WeipyecHGRUMYNKH1590-03-91 22:00:15494Kejqzlxy EqgxvuqJEKIQYOLQ3706-20-44 22:00:009.7[facility] LhfzmnzPNAUFUWQX4987-36-59 22:00:000.3[facility] NhlfxtfNWAAOXIZI1600-16-51 22:00:003.0[facility] NZIGLVBUZ7056-33-83 22:00:001.5[facility] NpobrceQHWCSAXVB6067-19-83 22:00:0017.7 [facility] XlmhnfyTWYGUBRJU1209-11-50 22:00:0021[facility] HermannHEMATOLOGY 2011-06-02 22:00:000.0[facility] ZzyusnsVWUVUUQFUH1124-45-96 22:00:000.1[facility] AhnrsmjLPIJZBDQWL3673-10-97 22:00:000.3[facility] RyrczlwDBMQDFKBXU9361-38-01 22:00:000.3[facility] SmwreacQIEIUUEKLO3041-12-34 22:00:006.8[facility] SZXMGWVONZ7942-11-58 22:00:002.2[facility] KyipbfmRKQTGENQON8470-92-79 22:00:003.4 [facility] TbqiqafQHEOOWVTPL5720-26-54 22:00:0072.1[facility]annHEMATOLOGY 2011-06-02 22:00:0023.1[facility] YbxqnucEHZMUUJSYZ1933-68-35 22:00:001.1[facility] FbldxalJMNXKZGMLH4891-14-71 22:00:009.5[facility] EdqwapgPQSCPQPOEV2813-68-00 22:00:005.50[facility] FzjkwlzCZKJKCNKSJ6673-08-33 22:00:007.8[facility] COTDPGVFZA5275-91-81 22:00:42870Ygtzopyd PywmpqpOVUGMMWWOC1236-40-58 22:00:00 13.6[facility] StaeezqKHIMBOVABT5632-97-82 22:00:0015.7[facility] HermannHEMATOLOGY 2011-06-02 22:00:0046.4[facility] VipixnrGTHRDMTJDL8729-21-49 22:00:0084.4[facility] GhwsvedDWPJSXWKIA9597-07-16 22:00:00 Test Item Value Reference Range Interpretation Comments MCH (test code = MCH) 28.6 pg 27.0-31.0 N [facility] GqeesxoWYRQCZNUJE3965-53-83 22:00:0033.9[facility] HermannCHEMISTRY 2011-06-02 22:00:001.8[facility] QludnzpRUEITJTTE3418-45-15 22:00:007.emorial EpybehuBNSJADKZI2976-41-15 22:00:0011[facility] XxvrrfyXHQUQTKUM5540-91-30 22:00:004.7[facility] DmzimhxMTWORMVLY0857-62-58 22:00:14040Wxmesgln [place] NRTMEKJNR0233-76-81 22:00:000.7[facility] QcvaivgCQSSTDCSY9542-06-95 22:00:0015 [facility] QcoyqneMEMKLDYBD8425-10-56 22:00:0095[facility] HermannCHEMISTRY 2011-06-02 22:00:004.6[facility] XighrlfPVQRXQNGU3851-94-49 22:00:0090[facility] CgtwsisQELWEDVKS6702-45-94 22:00:0025[facility] SqnuxocIIPZJPPOG1534-10-88 22:00:0023[facility] RhlirvnIYGDKLHJR4873-76-14 22:00:42499Ggcdwpwv [place] DLCSWUPCJ5748-40-52 22:00:009.7[facility] KtrbeyvWMJIAQROM7529-09-41 22:00:000.3 [facility] UlrvpveJYNTPJYKM0725-18-47 22:00:003.0[facility] HermannCHEMISTRY 2011-06-02 22:00:001.5[facility] AjwtmhfJFQCQYWOY1714-09-26 22:00:0017.7[facility] OvtijopXGGINHCMQ2111-49-34 22:00:0021[facility] KuixxfkWDGFIYXYOG6170-78-24 22:00:000.0[facility] EjhwshfJQIDIVXHCA6653-58-28 22:00:000.1[facility] RNRHKKCOQE5716-72-99 22:00:000.3[facility] TcjpstoVSBWOHFMWL1782-54-01 22:00:000.3 [facility] YflmixxLPKJFKEOKO8009-35-37 22:00:006.8[facility] HermannHEMATOLOGY 2011-06-02 22:00:002.2[facility] LntrptmRHXNDCHZOB9365-54-88 22:00:003.4[facility] VljbyqoANNUVIZNUT7611-15-47 22:00:0072.1[facility] LzkidadEELQRLIZLO1736-85-26 22:00:0023.1[facility] XvzluoiVSTRUMXMIP4220-86-79 22:00:001.1[facility] DZXZJDPUKT0323-33-96 22:00:009.5[facility] QqctaouGYNVBKMBMQ1145-70-17 22:00:00 5.50[facility] JwqhlerBMRHOAJITM9960-18-91 22:00:007.8[facility] HermannHEMATOLOGY 2011-06-02 22:00:02090Rljnqjuh FakucnyQVSEIAOOPT7286-98-87 22:00:0013.6[facility] CkdlsinCORJXSQZJT3166-75-66 22:00:0015.7[facility] AzjmbzgHUUXULILLW4432-56-41 22:00:0046.4[facility] ZdvkbyeBZVXSNRRRQ9516-91-33 22:00:0084.4[facility] OIDVNULTDG5456-15-19 22:00:00 Test Item Value Reference Range Interpretation Comments MCH (test code = MCH) 28.6 pg 27.0-31.0 N [facility] YnwsqkyGKCFXJPBPM3683-17-03 22:00:0033.9[facility] HermannCHEMISTRY 2011-02-27 22:54:009.3[facility] NldgtrbSKSKNNJDT0580-69-53 22:54:0025.0[facility] KlyneefAJEFIBIDI8455-45-35 22:54:46955.0[facility] HespxbsOCUXUHGBK7020-42-77 22:54:004.2[facility] ShjqeulYHWJVHKGN7646-41-71 22:54:77858.0[facility] MZPVHCMCJ2615-02-58 22:54:0098.0[facility] LgpaegnCDYXNVRVE5462-73-56 22:54:0017.0 [facility] JwvrbjsXBJVWLNZO8973-99-78 22:54:000.6[facility]annCHEMISTRY 2011-02-27 22:54:0013.2[facility] IzstmmxQNQRXSVIUF8616-23-59 22:54:00Normal (02/27/2011 17:54:00) ??[facility] RsuakszZNQGSAAGPO7738-47-84 22:54:001+ *ABN*(02/27/2011 17:54:00) ??[facility] NqjttlrNZFAQFFBKI2852-90-44 22:54:000.2 [facility] LefkzlnYCAAQGISEW7718-59-01 22:54:0014.4[facility]annHEMATOLOGY 2011-02-27 22:54:0077.7[facility] OtibocbMNABBHSDTG3449-11-28 22:54:001.2[facility] SwidgxjDHINBYVXRU0120-68-09 22:54:001.7[facility] FajgjwsJLFHQOZQDP8531-48-93 22:54:000.1[facility] HgwxzigWLKIOBRHLQ2638-79-66 22:54:009.1[facility] OHDNEROYWS7588-99-83 22:54:006.5[facility] WwycwpzZOZFKRPTZZ1537-36-57 22:54:000.8 [facility] FmqxrewVLETQXLMGG5268-29-17 22:54:000.0[facility]annHEMATOLOGY 2011-02-27 22:54:0013.4[facility] SufqjxvYJQICZZKTY9422-93-23 22:54:0011.7[facility] PcrwqecSEXCSCPOOQ4368-96-41 22:54:004.72[facility] HsfmoeyEMWSYQLQPO4722-06-45 22:54:44433.0[facility] UzgtpqaVQQYWZGLYX1109-25-39 22:54:007.2[facility] OKYNWOHNFE6157-40-72 22:54:0034.2[facility] EtasktzGZZEFXNIDL3881-81-90 22:54:00 14.4[facility] VjgcjiwENFYZYOQTJ1021-80-76 22:54:00 Test Item Value Reference Range Interpretation Comments MCH (test code = MCH) 28.3 pg 27.0-31.0 N [facility] SkfrbswOAZXCEWWYK3101-38-66 22:54:0039.2[facility]annHEMATOLOGY 2011-02-27 22:54:0082.9[facility] RoqpeizEMQUSTQIPG0767-95-53 22:54:00 Test Item Value Reference Range Interpretation Comments INR (test code = INR) 1.14 1 0.85-1.17 N [facility]recpmaBWFLUYFTFG7165-38-74 22:54:00 Test Item Value Reference Range Interpretation Comments PTT (test code = PTT) 35.4 s 22.9-35.8 N [facility]inteQejkttjAYDRMDYSGJ4795-35-80 22:54:00 Test Item Value Reference Range Interpretation Comments PT (test code = PT) 14.6 s 12.0-14.7 N [facility]inteUvpmnwiXPGDLZDTS3964-42-67 22:54:009.3[facility]annCHEMISTRY 2011-02-27 22:54:0025.0[facility] DqafgjvPUQZHPICS7326-16-58 22:54:92533.0[facility] UwjxkqmPFSDUILBE4708-93-51 22:54:004.2[facility] PtkuunxBLGIDRSFY6611-59-39 22:54:54876.0[facility] PdbqdjbRPAEFKICE7416-28-00 22:54:0098.0[facility] QONGCCBMR3354-09-04 22:54:0017.0[facility] NhtlbtiMJYJFHMDB6017-85-91 22:54:000.6 [facility] AlhsscnNVJGQZZZV0605-13-99 22:54:0013.2[facility]annHEMATOLOGY 2011-02-27 22:54:00Normal (02/27/2011 17:54:00) ??[facility]annHEMATOLOGY 2011-02-27 22:54:001+ *ABN*(02/27/2011 17:54:00) ??[facility]annHEMATOLOGY 2011-02-27 22:54:000.2[facility] RpcvpggWMJCDOFVRO3671-19-00 22:54:0014.4[facility] LrghzzvJPTWIXRXQW6141-49-07 22:54:0077.7[facility] HrwdvlaVNVKFDMPFV6988-34-30 22:54:001.2[facility] SzaxdhmGXXJOCQCGM0752-90-42 22:54:001.7[facility] DANFZGLTYV6120-23-84 22:54:000.1[facility] RklxfvxVVRBXDHBCG6066-21-27 22:54:009.1 [facility] WhyyfafBHKDRZANAD9364-33-17 22:54:006.5[facility] HermannHEMATOLOGY 2011-02-27 22:54:000.8[facility] TauuuljKHOZVOIEOK3297-07-21 22:54:000.0[facility] EsqniwfNGNKHFYKVF1159-70-78 22:54:0013.4[facility] QiytxmqZMMOJXHMUK4458-11-52 22:54:0011.7[facility] MjbotbqINJNPYYZJP3396-00-16 22:54:004.72[facility] VYACFBKLMA1595-56-45 22:54:55412.0[facility] ZmamyfqTMXDIDVFCO4696-88-32 22:54:00 7.2[facility] HdycsmbTAYRSVWSOQ1940-63-80 22:54:0034.2[facility] HermannHEMATOLOGY 2011-02-27 22:54:0014.4[facility] YllumhmVMTKRBQUYF9785-50-20 22:54:00 Test Item Value Reference Range Interpretation Comments MCH (test code = MCH) 28.3 pg 27.0-31.0 N [facility] YpytsljXYVHGFOUZR9464-88-76 22:54:0039.2[facility]annHEMATOLOGY 2011-02-27 22:54:0082.9[facility] VfqaozhCYIHZBQCFT3880-26-52 22:54:00 Test Item Value Reference Range Interpretation Comments INR (test code = INR) 1.14 1 0.85-1.17 N [facility] VggtvxqYBLEXMZAJK5903-88-69 22:54:00 Test Item Value Reference Range Interpretation Comments PTT (test code = PTT) 35.4 s 22.9-35.8 N [facility]inteAdailbeJBDATRCBVC8076-58-02 22:54:00 Test Item Value Reference Range Interpretation Comments PT (test code = PT) 14.6 s 12.0-14.7 N [facility] JcbnddmPTIQZQPHN1066-71-99 20:45:0016.4[facility]annCHEMISTRY 2011-02-27 20:45:004.2[facility] PtfewkwKSYPQSPST0203-59-25 20:45:004.0[facility] BioqojwEHTHUAJCX9306-06-63 20:45:0024.0[facility] BtxxasuYQVULUSHQ8599-66-41 20:45:81499.0[facility] FafwjvuKRIJNORSN7049-76-29 20:45:008.9[facility] JHGGZSKIV0461-86-31 20:45:004.4[facility] JapvaauMBPHHFEKX4611-15-38 20:45:000.5 [facility] BmizwrsBXJXEEVRP9115-08-53 20:45:86830.0[facility] HermannCHEMISTRY 2011-02-27 20:45:0018.0[facility] FhtgsypDOAIBQUKC6473-40-85 20:45:0069.0[facility] IwgdjshNCQPSQTDGL2495-59-06 20:45:000.0[facility] BmpvxhtYZUDEMKMVJ6373-59-15 20:45:001.1[facility] UqdfgeiDOLMTQHRD4572-10-05 20:45:0016.4[facility] GRQDWTVDB5578-24-67 20:45:004.2[facility] HpwrxxzOKZGXTRSD3332-11-54 20:45:004.0 [facility] OmwezqvYHSYOSGWF9818-23-32 20:45:0024.0[facility] HermannCHEMISTRY 2011-02-27 20:45:59353.0[facility] BsfmaksPKLNHYANR7205-32-33 20:45:008.9[facility] AxytnayFTMVIPNDA3172-90-37 20:45:004.4[facility] BgcdjrwFHRSNTFWI3389-41-30 20:45:000.5[facility] XnhojnfHYYFAZEBJ8108-85-06 20:45:10793.0[facility] UEYVLGTNG5530-25-86 20:45:0018.0[facility] HmdcmigLFJBFHGLN7342-32-47 20:45:0069.0 [facility] PfnzsevTFTDKYEOPX3865-30-23 20:45:000.0[facility] HermannIMMUNOLOGY 2011-02-27 20:45:001.1[facility] EwodkxlEMNPKSYOH8623-53-09 20:08:00 Test Item Value Reference Range Interpretation Comments A/G Ratio (test code = A/G Ratio) 1.1 1 0.7-1.6 N [facility] PtbpufeJNIIFKRKY1598-12-24 20:08:003.2[facility] HermannCHEMISTRY 2011-01-09 20:08:00 Test Item Value Reference Range Interpretation Comments B/C Ratio (test code = B/C Ratio) 13.0 1 6-25 N [facility] OcqznfmJTAULWRWM9660-36-76 20:08:0013.0[facility] HermannCHEMISTRY 2011-01-09 20:08:0015.0[facility] BciqqjjFXAUUNCYS0463-84-07 20:08:000.3[facility] MgauqxyHCDDBCBJJ0611-19-70 20:08:0034.0[facility] GaodcxhATFSGOFZN7753-30-11 20:08:76084.0[facility] HvuietfZFPHVUTKA6266-93-47 20:08:003.5[facility] GXIBUDKEB0370-84-17 20:08:009.0[facility] ShphxzlXTKXIRVEJ2063-85-94 20:08:006.7 [facility] BgbcdltJHJFZBYCB3859-43-42 20:08:0024.0[facility] HermannCHEMISTRY 2011-01-09 20:08:004.0[facility] JumnxmuJFFCGBOLY2512-13-76 20:08:56329.0[facility] SwhiuavLCLKMWCGL9274-62-29 20:08:22796.0[facility] GboxoqzXVSHLOBRI7120-30-70 20:08:000.7[facility] XzcexduXREUOPHDX3902-66-27 20:08:0090.0[facility] OJMSNICCN5003-86-87 20:08:009.0[facility] BnbvakyKJTZGMEJXC3544-88-74 20:08:0063.8 [facility] JdqwdzsSAOAARWHPT9889-10-30 20:08:0024.6[facility] HermannHEMATOLOGY 2011-01-09 20:08:000.0[facility] CzxzzjgTNADNVORWA9379-76-74 20:08:000.3[facility] CvihgsvZLGCXGBUJY3585-30-20 20:08:000.6[facility] EhtivimGYCODAXHLJ1536-96-41 20:08:007.2[facility] VjfjzqlXFODYZUYLG9256-87-77 20:08:003.8[facility] LXELLATUVU0076-23-09 20:08:005.3[facility] KxlvfmbSSLUCAADMD1441-78-01 20:08:002.0 [facility] PbwydamGEYGNMABOE8913-27-01 20:08:000.6[facility] HermannHEMATOLOGY 2011-01-09 20:08:006.9[facility] KbqdkrpIGQWREXZFE7066-07-45 20:08:0013.8[facility] PczixdiBAPXWNWPCP7353-83-11 20:08:19391.0[facility] KppnxjpOACPAWFWZF1283-13-97 20:08:0037.8[facility] MaapqilVSXTOKOHPS5722-11-30 20:08:0034.8[facility] OLRGRHJRSL8248-18-97 20:08:00 Test Item Value Reference Range Interpretation Comments MCH (test code = MCH) 28.4 pg 27.0-31.0 N [facility] UfvdkaxDMPSMAOMPQ5817-97-66 20:08:0081.5[facility] HermannHEMATOLOGY 2011-01-09 20:08:004.64[facility] ChfldyiEFXLEMAKLX2338-21-77 20:08:0013.1[facility] BlqkaysEAMHCFZINA1334-06-86 20:08:008.2[facility] NtnirwjVUHXGYIMT8838-06-93 20:08:00 Test Item Value Reference Range Interpretation Comments A/G Ratio (test code = A/G Ratio) 1.1 1 0.7-1.6 N [facility] FtqivhmAUCPBSPOV1881-23-28 20:08:003.2[facility] HermannCHEMISTRY 2011-01-09 20:08:00 Test Item Value Reference Range Interpretation Comments B/C Ratio (test code = B/C Ratio) 13.0 1 6-25 N [facility] CicfnefQAQWSLDNK2436-46-35 20:08:0013.0[facility] HermannCHEMISTRY 2011-01-09 20:08:0015.0[facility] SjwtlxjRQKIJUGAP0882-65-76 20:08:000.3[facility] AlfncebDDYZDTKWQ3427-82-74 20:08:0034.0[facility] XijczklMAOTFZEIF4974-42-91 20:08:19616.0[facility] PdsjiuiHSAIIBHOC1808-78-14 20:08:003.5[facility] CMZDMEJPK5883-20-54 20:08:009.0[facility] FdkbywjEQJJTWUUU4091-76-67 20:08:006.7 [facility] DywigtlQIZAFERSW0663-85-63 20:08:0024.0[facility] HermannCHEMISTRY 2011-01-09 20:08:004.0[facility] DjysoogWSGRIIHSQ1653-95-84 20:08:60039.0[facility] BluuhwvTGXSINUDS5989-72-85 20:08:00840.0[facility] UhfghhfQUXMCJDUE7327-54-49 20:08:000.7[facility] CydtfkcZEYBCYLOF8660-55-96 20:08:0090.0[facility] RVTFJKGMN4364-88-21 20:08:009.0[facility] GnptgwaCYDTZJBSTX5322-62-20 20:08:0063.8 [facility] NyyfkwzUDKHSWBJYN0053-47-72 20:08:0024.6[facility]annHEMATOLOGY 2011-01-09 20:08:000.0[facility] WnlmwzbXPOBJBFFTY7546-35-04 20:08:000.3[facility] WxjgnxaCMIPARUKZO2302-58-84 20:08:000.6[facility] WyiwntwQOPZSEVWIR4286-92-56 20:08:007.2[facility] IzwjlxlLJEEJFJAET5946-61-26 20:08:003.8[facility] RRVLLKCJDU6708-49-26 20:08:005.3[facility] MwhyyirMVNSBLEVYT0347-44-82 20:08:002.0 [facility] OldoielQZXJAJMSLI9488-24-73 20:08:000.6[facility] HermannHEMATOLOGY 2011-01-09 20:08:006.9[facility] HsrenutCVJPRRCGKX8281-30-63 20:08:0013.8[facility] ZotlfyiILNFQYASOK3518-72-89 20:08:25912.0[facility] CdirtuaYCBSVPYPPS8341-01-01 20:08:0037.8[facility] HbmhfjmOFWRCENXOI5040-28-05 20:08:0034.8[facility] YLFEVMPLEO0854-08-45 20:08:00 Test Item Value Reference Range Interpretation Comments MCH (test code = MCH) 28.4 pg 27.0-31.0 N [facility] VlvxxxjDESEPCGGZW8121-26-59 20:08:0081.5[facility] HermannHEMATOLOGY 2011-01-09 20:08:004.64[facility] SzjzaitZOYGDMNKJG4109-39-09 20:08:0013.1[facility] QzskpcnOSITBKOLDO9943-56-36 20:08:008.2[facility] CstpezzLYGYKRYVU7119-90-51 19:40:001.9[facility] KfkojcvDILOGLHZWT0006-77-66 19:40:005.0[facility] GAOHQFYXIE1022-96-26 19:40:0019.8[facility] KjxvrdjWEWWJOVPAZ2982-25-77 19:40:00 4.58[facility] ApbbulmOGSBZPLCF6639-96-69 19:40:001.9[facility] HermannHEMATOLOGY 2011-01-09 19:40:005.0[facility] AnpaekjUOVYHNWPER8779-94-60 19:40:0019.8[facility] PewihqpABKKWNYFSU6256-85-16 19:40:004.58[facility]
[2022-10-08 10:53] LABS: Absolute Lymphocytes (CBC) 1.4 K/uL (0.7-4.9); Hematocrit 37.7 % (39.6-49.0); Lymphocytes % 14.5 % (15.3-44.8); MCV 83.5 fL (80-100); MPV 7.2 fL (7.6-11.3); RBC Red Blood Cell Count 4.51 M/uL (4.33-5.43)
[2022-10-08 10:59] LABS: Potassium 3.8 mEq/L (3.5-5.1)
[2022-10-08] MEDS ORDERED: NACL 0.9% IRR SOLN 4,000 ML IRR ONE (11:11)
[2022-10-08] MEDS ORDERED: LIDOCAINE VISCOUS 2% SOLN 15 ML UDC ONE (11:12)
--- NOTE | 2022-10-08 13:25 | ER ---
Nurse's Notes [facility] Name: Primo Caldwell Age: 37 yrs Sex: Male : 1985 Arrival Date: 10/08/2022 Time: 10:16 Bed 16 Private MD: Diagnosis: Hematuria, unspecified Presentation: 10/08 10:21 Chief complaint: EMS states: patient comes from home with blood clots in urine when db self cathing. Patient states is on blood thinners. Had botox yesterday in bladder. . Large amounts of clots today. Yesterday went to [facility] and had bladder irrigation. Coronavirus screen: Vaccine status: Patient reports being unvaccinated. Client denies travel out of the [place] in the last 14 days. At this time, the client does not indicate any symptoms associated with coronavirus-19. Ebola Screen: Patient negative for fever greater than or equal to 101.5 degrees Fahrenheit, and additional compatible Ebola Virus Disease symptoms Patient denies exposure to infectious person. Patient denies travel to an Ebola-affected area in the 21 days before illness onset. No symptoms or risks identified at this time. Initial Sepsis Screen: Does the patient meet any 2 criteria? Systolic BP < 90 mmHg. No. Patient's initial sepsis screen is negative. Does the patient have a suspected source of infection? No. Patient's initial sepsis screen is negative. Risk Assessment: Do you want to hurt yourself or someone else? Patient reports no desire to harm self or others. Onset of symptoms was October 07, 2022. 10:21 Method Of Arrival: [facility] db 10:21 Acuity: SAMMY 3 db Triage Assessment: 10:25 General: Appears in no apparent distress. comfortable, Behavior is calm, cooperative. db Pain: Complains of pain in abdomen, right leg and left leg. 10:26 : Reports blood clots in urine. db 13:00 General: Appears in no apparent distress. comfortable, Behavior is calm, cooperative. db Neuro: Level of Consciousness is awake, alert, obeys commands, Oriented to person, place, time, situation. Respiratory: Airway is patent Respiratory effort is even, unlabored, Respiratory pattern is regular, symmetrical. Historical: - Allergies: 10:25 Bactrim; db 10:25 Morphine; db 10:25 Sulfa (Sulfonamide Antibiotics); db - PMHx: 10:25 spinal injury; db - Immunization history:: Adult Immunizations unknown, Client reports having NOT received the Covid vaccine. - Social history:: Smoking status: Patient denies any tobacco usage or history of. Screenin:09 [facility] ED Fall Risk Assessment (Adult) History of falling in the last 3 months, db including since admission No falls in past 3 months (0 pts) Confusion or Disorientation No (0 pts) Intoxicated or Sedated Yes (3 pts) Impaired Gait No (0 pts) Mobility Assist Device Used No (0 pt) Altered Elimination Yes (1 pt) Score/Fall Risk Level 0 - 2 = Low Risk Oriented to surroundings, Maintained a safe environment. Abuse screen: Denies threats or abuse. Denies injuries from another. Nutritional screening: No deficits noted. Tuberculosis screening: No symptoms or risk factors identified. Assessment: 10:27 Reassessment: family is at bedside. db 10:32 Reassessment: Patient appears in no apparent distress at this time. No changes from db previously documented assessment. Patient and/or family updated on plan of care and expected duration. Pain level reassessed. Patient is alert, oriented x 3, equal unlabored respirations, skin warm/dry/pink. family is at bedside. 13:08 Reassessment: Patient appears in no apparent distress at this time. Patient and/or db family updated on plan of care and expected duration. Pain level reassessed. Patient is alert, oriented x 3, equal unlabored respirations, skin warm/dry/pink. 13:09 Reassessment: bladder irrigation continued. db 13:33 Reassessment: Ambulance called for patient transport. db 13:55 Reassessment: Patient appears in no apparent distress at this time. db 14:18 Reassessment: Patient appears in no apparent distress at this time. Patient and/or db family updated on plan of care and expected duration. Pain level reassessed. Patient is alert, oriented x 3, equal unlabored respirations, skin warm/dry/pink. Vital Signs: 10:21 BP 86 / 57; Pulse 80; Resp 18; Temp 98.1(O); Pulse Ox 100% on R/A; Weight 74.84 kg; db Height 6 ft. 1 in. ; 13:00 BP 86 / 65; Pulse 65; Resp 18; Pulse Ox 99% on R/A; db 10:21 Body Mass Index 21.77 (74.84 kg, 185.42 cm) db ED Course: 10:21 Patient arrived in ED. db 10:22 Brian Tariq MD is Attending Physician. bs3 10:25 Triage completed. db 10:25 Arm band placed on Patient placed in an exam room. db 10:28 Attending Physician role handed off by Brian Tariq MD ms3 10:28 John Stephen DO is Attending Physician. ms3 10:32 Jihan Pal, RN is Primary Nurse. db 10:38 Inserted saline lock: 20 gauge in right antecubital area, using aseptic technique. db Blood collected. 12:01 Lopez cath inserted, using sterile technique, 18 Fr., by md, balloon inflated, to db gravity drainage, Patient tolerated. 3-way catheter inserted, using sterile technique, 18 Fr. Bladder irrigated via Lopez with. 12:30 3-way catheter Returned bloody urine. nj1 12:30 Bladder irrigated via Lopez with returned. nj1 13:09 Patient has correct armband on for positive identification. Bed in low position. Call db light in reach. Side rails up X2. Warm blanket given. 13:55 No provider procedures requiring assistance completed. 3-way catheter catheter removed. db DC home. IV discontinued, intact, bleeding controlled, No redness/swelling at site. Administered Medications: No medications were administered Medication: 13:22 VIS not applicable for this client. db Intake: 12:02 bladder irrigation db 12:[address] COUNTINOUS IRRIGATION. nj1 13:09 bladder irrigation db Output: 12:02 Urine: 525ml; Total: 525ml. db 12:30 Urine: 1200ml; Total: 1725ml. nj1 13:09 Urine: 925ml (Lopez); Total: 2650ml. db 12:02 bladder irrigation db 12:[address] COUNTINOUS IRRIGATION. nj1 13:09 bladder irrigation db Outcome: 13:25 Discharge ordered by . ms3 13:34 Condition: stable db 13:34 Discharge instructions given to patient, Instructed on discharge instructions, follow up and referral plans. 14:18 Discharged to home via ambulance. db 14:19 Patient left the ED. db Signatures: Jonh Stephen DO DO ms3 Brian Tariq MD MD bs3 Jihan Pal, RN RN db Jessica Moss RN RN nj1 Corrections: (The following items were deleted from the chart) 14:18 13:34 Discharged to home ambulatory, db db 14:18 13:34 Discharge instructions given to patient, Instructed on discharge instructions, db follow up and referral plans. db
--- NOTE | 2022-10-08 13:25 | EDPHYS ---
Physician Documentation [facility] Name: Primo Caldwell Age: 37 yrs Sex: Male : 1985 Arrival Date: 10/08/2022 Time: 10:16 Bed 16 Private MD: ED Physician John Stephen HPI: 10/08 10:30 This 37 yrs old Male presents to ER via EMS with complaints of Blood In Catheter. ms3 10:30 37-year-old male with past medical history of spinal injury presents for hematuria ms3 status post Botox treatment of his bladder. Patient states he is on Xarelto and is now having bleeding. Patient denies pain. Patient denies alleviating or inciting factors.. Historical: - Allergies: 10:25 Bactrim; db 10:25 Morphine; db 10:25 Sulfa (Sulfonamide Antibiotics); db - PMHx: 10:25 spinal injury; db - Immunization history:: Adult Immunizations unknown, Client reports having NOT received the Covid vaccine. - Social history:: Smoking status: Patient denies any tobacco usage or history of. ROS: 10:30 Constitutional: Negative for fever, and chills. Neck: Negative for injury, pain, and ms3 swelling, Cardiovascular: Negative for chest pain, and palpitations. Respiratory: Negative for shortness of breath, cough, wheezing, and pleuritic chest pain, Abdomen/GI: Negative for abdominal pain, nausea, vomiting, diarrhea, and constipation. 10:30 Skin: Negative for injury, rash, and discoloration. 10:30 : Positive for hematuria. 10:30 All other systems are negative. Exam: 10:30 Constitutional: This is a well developed, well nourished patient who is awake, alert, ms3 and in no acute distress. Head/Face: Normocephalic, atraumatic. Eyes: Pupils equal round and reactive to light, extra-ocular motions intact. Lids and lashes normal. Conjunctiva and sclera are non-icteric and not injected. Periorbital areas with no swelling, redness, or edema. Neck: Trachea midline, no cervical lymphadenopathy. Supple, full range of motion without nuchal rigidity, or vertebral point tenderness. No Meningismus. Chest/axilla: Normal chest wall appearance and motion. Nontender with no deformity. Cardiovascular: Regular rate and rhythm with a normal S1 and S2. No gallops, murmurs, or rubs. Normal PMI, no JVD. No pulse deficits. Respiratory: Lungs have equal breath sounds bilaterally, clear to auscultation and percussion. No rales, rhonchi or wheezes noted. No increased work of breathing, no retractions or nasal flaring. Abdomen/GI: Soft, non-tender, with normal bowel sounds. No distension or tympany. No guarding or rebound. No evidence of tenderness throughout. Skin: Warm, dry with normal turgor. Normal color with no rashes, no lesions, and no evidence of cellulitis. MS/ Extremity: Pulses equal, no cyanosis. Neurovascular intact. Full, normal range of motion. Vital Signs: 10:21 BP 86 / 57; Pulse 80; Resp 18; Temp 98.1(O); Pulse Ox 100% on R/A; Weight 74.84 kg; db Height 6 ft. 1 in. ; 13:00 BP 86 / 65; Pulse 65; Resp 18; Pulse Ox 99% on R/A; db 10:21 Body Mass Index 21.77 (74.84 kg, 185.42 cm) db MDM: 10:22 Patient medically screened. bs3 16:22 Differential diagnosis: UTI, Hematuria. Data reviewed: vital signs, nurses notes, lab ms3 test result(s), and as a result, I will discharge patient. 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 Historians other than the Patient: EMS: [facility]. Care significantly affected by the following chronic conditions: Spinal injury. Counseling: I had a detailed discussion with the patient and/or guardian regarding: the historical points, exam findings, and any diagnostic results supporting the discharge/admit diagnosis, lab results, the need for outpatient follow up, to return to the emergency department if symptoms worsen or persist or if there are any questions or concerns that arise at home. ED course: On reevaluation patient's urine has cleared. Patient to follow-up with urology in 2 to 3 days. Patient understands and agrees with plan. All questions were answered. Return precautions discussed include worsening symptoms, or any other concerns. 10/08 10:28 Order name: CBC with Diff; Complete Time: 11:17 ms3 10/08 10:28 Order name: BMP; Complete Time: 11:17 ms3 10/08 11:23 Order name: Misc. Order: Bladder irrigation; Complete Time: 12:01 ms3 Administered Medications: No medications were administered Disposition Summary: 10/08/22 13:25 Discharge Ordered Location: Home ms3 Condition: Stable ms3 Diagnosis - Hematuria, unspecified ms3 Followup: ms3 - With: Private Physician - When: 2 - 3 days - Reason: Recheck today's complaints Discharge Instructions: - Discharge Summary Sheet ms3 - Hematuria, Adult ms3 Forms: - Medication Reconciliation Form ms3 - Thank You Letter ms3 - Antibiotic Education ms3 - Prescription Opioid Use ms3 Signatures: Dispatcher [employer] EDJohn Moct[place], DO MARCUM ms3 Brian Tariq MD MD bs3 Jihan Pal RN RN db
[2022-10-08 15:18] VITALS: TEMP 98.1
[2022-10-08 15:19] VITALS: BP 86/65; O2SAT 99
== END 2022-10-08 14:19 | disposition home or self-care (01) ==
LOC: ER 10:16
DX: R31.9 Hematuria, unspecified (principal); Z88.1 Allergy status to other antibiotic agents; Z88.5 Allergy status to narcotic agent
CPT/HCPCS: 36415; 51700; 51702; 80048; 85025; 99285